=== PATIENT | female | born 1965 | race Caucasian/White ===

== ENCOUNTER → 2021-10-14 15:02 | Outpatient (BNVA) | payer OTHER, SELFPAY | PROVIDERS: PCP Internal Medicine ==

== ENCOUNTER → 2022-11-21 09:23 | Outpatient (BNVA) | payer OTHER, SELFPAY | PROVIDERS: PCP Internal Medicine; Visit Provider Urology | DX: N20.0 Calculus of kidney (principal) ==

== ENCOUNTER 2023-11-11 08:22 | Outpatient (REF) | payer OTHER, SELFPAY | END 2023-11-11 08:23 | disposition home or self-care (01) | LOC: HO.US 08:22 | PROVIDERS: PCP Internal Medicine; Visit Provider Urology | DX: N20.0 Calculus of kidney (principal) | CPT/HCPCS: 76775 ==

== ENCOUNTER 2023-11-20 10:30 | Outpatient (AMB) | payer OTHER, SELFPAY ==
--- NOTE | 2023-11-20 10:40 | MHC.OFFVIS ---
Intake Intake Visit Reasons: 1yr follow up/US Intake Note: Annual follow up on kidney stones and ultrasound results Medications: Vitamin B6 Blood thinners:? Aspirin Manager Financial Systems Required: No Accompanied by: Self / Same As Patient Allergies morphine Allergy (Unknown, Verified 11/20/23 10:59) Unknown latex Allergy (Unknown, Uncoded 11/20/23 10:59) rash Medication List - Last Reconciled 11/20/23 by Mayuri Santos MD ascorbate calcium (vitamin C) 1 g PO Q6H aspirin (Adult Low Dose Aspirin) 81 mg PO DAILY atorvastatin 20 mg PO DAILY dulaglutide (Trulicity) 0.75 mg subcut QWEEK elderberry fruit (Sambucus Elderberry Original) mg PO losartan 25 mg PO DAILY fbjtcuai-ity-cpyo-FA-vit K-lut 8 mg iron-400 mcg-50 mcg (Century Women 50 Plus) 1 tab PO DAILY omeprazole 20 mg PO DAILY pyridoxine (vitamin B6) 50 mg PO DAILY HPI HPI Comments History of Present Illness Details Elham is a 57-year-old female who is here for follow-up for history of kidney stones. 11/20/23--Comorbidity diabetes She had a recent renal ultrasound which I have reviewed. --kidneys are within normal limits no renal calcifications visualized. The patient is asymptomatic. She confirms drinking adequate water daily with lemon and taking jhkl-jkv-dmyxnvc vitamin B6 100 mg --(insurance did not cover the prescribed vitamin B6) Plan continue to monitor kidneys. Follow-up in 1 year renal ultrasound prior [facility] Medical History Calculus of kidney Surgical History Hx of section Family History Father No problems noted. Mother No problems noted. Social History Alcohol intake: current Alcohol intake frequency: holidays/special occasions only Patient Tobacco Use Status: Never used Tobacco Review of Systems Const All systems reviewed & are unremarkable except as noted in HPI and below Reports no additional complaints Eyes Reports no additional complaints ENT Reports no additional complaints Card Denies dyspnea Resp Denies cough and Denies dyspnea GI Reports no additional complaints Reports no additional complaints Musc Reports no additional complaints Skin/Breast Denies rash and Denies unusual bruising Neuro Reports no additional complaints Psych Reports no additional complaints Endo Reports no additional complaints Quang/Lymph Reports no additional complaints Aller/Immun Reports no additional complaints Results AMB Urinalysis, Automated UA Leukoctes 500 Rachel/uL Last Edit by HELENA Demarco on 11/20/23 11:13 3+ Pricila Chun 11/20/23 11:13 UA Nitrite Negative Last Edit by VITO Demarco on 11/20/23 11:13 UA Urobilinogen 0.2 mg/dL Last Edit by HELENA Demarco on 11/20/23 11:13 UA Protein 30 mg/dL Last Edit by Pricila Chun [facility] on 11/20/23 11:13 1+ Pricila Chun 11/20/23 11:13 UA pH 6.0 Last Edit by VITO Demarco on 11/20/23 11:13 UA Blood 0 Antoni/uL Last Edit by Pricila Chun [facility] on 11/20/23 11:13 UA Specific [place] 1.030 Last Edit by HELENA Demarco on 11/20/23 11:13 UA Ketone Positive Last Edit by VITO Demarco on 11/20/23 11:13 5 mg/dL Pricila Chun 11/20/23 11:13 UA Bilirubin 0 mg/dL Last Edit by Pricila Chun [facility] on 11/20/23 11:13 UA Glucose 0 mg/dL Last Edit by Pricila Chun [facility] on 11/20/23 11:13 Results Reviewed Results Reviewed: Laboratory Last Values Urine pH (Auto) 6.0 11/20/23 11:11 Specific [place] (Auto) 1.030 11/20/23 11:11 Urine Protein (Auto) 30 mg/dL 11/20/23 11:11 Glucose (UA)(Auto) 0 mg/dL 11/20/23 11:11 Urine Ketones (Auto) Positive 11/20/23 11:11 Urine Blood (Auto) 0 Antoni/uL 11/20/23 11:11 Urine Nitrite (Auto) Negative 11/20/23 11:11 Urine Bilirubin (Auto) 0 mg/dL 11/20/23 11:11 Urine Urobilinogen (Auto) 0.2 mg/dL 11/20/23 11:11 Leukocyte Esterase (Auto) 500 Rachel/uL 11/20/23 11:11 Assessment & Plan Assessment & Plan (1) Calculus of kidney: Code(s): N20.0 - Calculus of kidney Plan Plan continue to monitor kidneys. Follow-up in 1 year renal ultrasound prior Cont OTC Vit B6 100 mg Orders: Orders US renal BI 11 Months Z87.442 - Personal history of urinary calculi AMB Urinalysis Automated 11/20/23 Z13.9 - Encounter for screening, unspecified Coding Level of Care Code Est Pt Level 3 (42091) Diagnoses Calculus of kidney N20.0
== END 2023-11-20 11:22 | disposition home or self-care (01) ==
PROVIDERS: Visit Provider Urology
DX: N20.0 Calculus of kidney (principal)
CPT/HCPCS: 99213

== ENCOUNTER → 2023-11-20 10:30 | Outpatient (BNVA) | payer OTHER, SELFPAY | PROVIDERS: Visit Provider Urology | DX: N20.0 Calculus of kidney (principal) | CPT/HCPCS: 81003 ==

== ENCOUNTER 2024-10-20 08:05 | Outpatient (REF) | payer OTHER, SELFPAY | END 2024-10-20 08:06 | disposition home or self-care (01) | LOC: HO.US 08:05 | PROVIDERS: PCP Internal Medicine; Visit Provider Urology | DX: Z87.442 Personal history of urinary calculi (principal) | CPT/HCPCS: 76775 ==

== ENCOUNTER 2024-11-21 08:47 | Outpatient (AMB) | payer OTHER, SELFPAY ==
--- OUTSIDE RECORDS SUMMARY | 2024-11-21 09:09 | XMS_ITS | Continuity of Care Document ---
Author Organization [facility] Address [address] [place] [address] Phone Care Team Providers Care Chainstitch Zipper Setter Name Role Phone Alcon MOSER MD, Cholo Unavailable Unavailab le Procedures Procedure Date E/M Personnel Specialist Detailed His/Exam Low Complex Oct Advance Directives Directive Yes / No Effective Date File Name No Information Encounters Encounter Description Practice Location Reason(s) For Visit Diagnoses Date Provider Providers Copied on Encounter [facility] [address], [place], [place], [id number], tel:[phone] Jonathan No Information Alcno Emmanuel. [address] [place] [address], [address], [place]. tel:[phone] Referring Provider: Coleman Aleman [address], [place], [address]. tel:[phone] Family History Family Member Type Diagnosis Age At Onset No Information Payers Payer name Insurance type Covered republican ID Authoriza tion(s) Medicare [id number] Social History Type Description Quantity Date Captured Comments Sex Female Smoking Status No Information Chief Complaint And Reason For Visit No Information Reason For Referral Reason For Referral No Information History Of Present Illness Encounter Date Complaint History Of Prese nt Illness No Information Functional Status Date Functional Assessmen t No Information Instructions Date Instruction Additional Infor mation No Information Assessments Type Assessment Date No Information Patient Care Teams Name Effective Dates (start - stop) Status Members No Information
--- OUTSIDE RECORDS SUMMARY | 2024-11-21 09:09 | XMS_ITS | Continuity of Care Document ---
Author Organization [facility] Address [address] [place] [address] Phone Care Team Providers Care Admitting Manager Name Role Phone Rukhsana London MD Unavailable Unavailable Advance Directives Directive Yes / No Effective Date File Name No Information Encounters Encounter Description Practice Location Reason(s) For Visit Diagnoses Date Provider Providers Copied on Encounter [facility], [address], [place], [place], [id number], [place] tel:[phone] [facility] No Information Lita Milian. [address], [facility] [address], [place], [place], [id number], [place]. tel:[phone] Family History Family Member Type Diagnosis Age At Onset No Information Payers Payer name Insurance type Covered libertarian ID Authoriza tion(s) No Information Social History Type Description Quantity Date Captured [...]
--- OUTSIDE RECORDS SUMMARY | 2024-11-21 09:10 | XMS_ITS | Continuity of Care Document ---
Author Organization [facility] Address [address] [place] [address] Phone Care Team Providers Care Sales Floor Team Leader Name Role Phone Lobo Viry LIRA Unavailable Unavailable Allergies, Adverse Reactions, Alerts Substance Reaction Status Criticality CYCLOBENZAPRINE HCL Active No Infor mation KETOROLAC TROMETHAMINE Active No In formation trimethoprim Active No Information sulfamethoxazole Vertigo Active No Informat ion pantoprazole Active No Information KETOROLAC TROMETHAMINE Active No In formation prednisone Active No Information tramadol Active No Information caffeine Active No Information butalbital Active No Information CODEINE PHOSPHATE Active No Informa tion sumatriptan Active No Information Krrepjt-KOC-IlM Reductase Inhibitors Acti ve No Information ciprofloxacin Nausea Active No Information Medications Medication Instructions Dosage Effective Dates (start - stop) Status Comments acetaminophen 300 mg-codeine 30 mg tablet take 1 tablet by oral route every 12 hours as needed 1 tablet - Active clonazepam 0.5 mg tablet take 1 tablet b y oral route 4 times every day for F41.9 - Active covering for PCP benztropine 1 mg tablet TAKE 2 TABLETS B Y MOUTH EVERY DAY IN THE EVENING - Active dicyclomine 20 mg tablet TAKE 2 TABLETS BY MOUTH THREE TIMES DAILY - Active omeprazole 40 mg capsule,delayed release take 1 capsule by oral route every day before a meal 40 MG - Active meclizine 12.5 mg tablet TAKE 1 TABLET B Y MOUTH THREE TIMES DAILY NEEDED - Active methocarbamol 500 mg tablet take 1 tablet by oral route 2 times every day as needed - Active ondansetron 4 mg disintegrating tablet DISSOLVE 1 TABLET ON THE TONGUE EVERY 12 HOURS - Active FLUTICASONE 50MCG NASAL SP (120) RX SHAKE LIQUID AND USE 1 TO 2 SPRAYS IN EACH NOSTRIL EVERY DAY NEEDED - Active DESVENLAFAXINE ER SUCCINATE 25MG T TAKE 1 TABLET BY MOUTH AT THE SAME TIME EVERY DAY - Active promethazine 25 mg rectal suppository insert 1 suppository by rectal route every day at bedtime as needed 25 MG - Active promethazine 25 mg tablet TAKE 1 TABLET BY MOUTH EVERY 8 HOURS NEEDED FOR NAUSEA for R11.0 - Active 1 month supply medroxyprogesterone 2.5 mg tablet TAKE 1 TABLET BY MOUTH EVERY DAY - Active Seroquel 25 mg tablet take 3 tablets by oral route every morning - Active She takes this in the morning and 400mg in the evening buspirone 15 mg tablet TAKE 1 TABLET BY MOUTH TWICE DAILY - Active estradiol 1 mg tablet TAKE 1 TABLET BY MOUTH EVERY DAY - Active Latuda 20 mg tablet take 1 tablet by oral route every day with food (at least 350 calories) - Active dispense as written; generic brand makes her sick Vitamin D2 1,250 mcg (50,000 unit) capsule TAKE 1 CAPSULE BY MOUTH EVERY WEEK - Active Seroquel 400 mg tablet TAKE 2 TABLETS BY MOUTH EVERY EVENING AT BEDTIME - Active She takes this every evening with the 25mg in the morning. Valtrex 500 mg tablet take 1 by Oral route 2 times every day 1 - Active generic please Nicorette 2 mg buccal lozenge take 1 tablet by oral route every 8 hours dissolved slowly in the mouth 2 MG - Active Dulcolax (bisacodyl) 5 mg tablet,delayed release take 2 tablet by oral route every day 10 MG - Active Clarinex-D 12 HOUR 2.5 mg-120 mg tablet,extended release take 1 tablet by oral route 2 times every day 1.00 tablet - Active Procedures Procedure Date Rvw All Meds By Rxng Prctionr Or Clin Rp h Docd Medication List Documented In Medical [facility] [place] Dischrg Meds Reconciled W/ Current Med L ist Telephone E&M,est 21-30 min Dischrg Meds Reconciled W/ Current Med L ist Rvw All Meds By Rxng Prctionr Or Clin Rp h Docd Medication List Documented In Medical [facility] Telephone E&M,est 21-30 min Rvw All Meds By Rxng Prctionr Or Clin Rp h Docd Medication List Documented In Medical [facility] Dischrg Meds Reconciled W/ Current Med L ist Telephone E&M,est 21-30 min Dischrg Meds Reconciled W/ Current Med L ist Rvw All Meds By Rxng Prctionr Or Clin Rp h Docd Medication List Documented In Medical [facility] Telephone E&M,est 11-20 min Dischrg Meds Reconciled W/ Current Med L ist Rvw All Meds By Rxng Prctionr Or Clin Rp h Docd Medication List Documented In [facility] Telephone E&M,est 21-30 min Offic/outpt E&m Estab Mod-hi 4 Telemedic ine Pt At Home Rvw All Meds By Rxng Prctionr Or Clin Rp h Docd Medication List Documented In [facility] Offic/outpt E&m Estab Low-mod Telemedici ne Pt At Home Rvw All Meds By Rxng Prctionr Or Clin Rp h Docd Medication List Documented In Medical [facility] Dischrg Meds Reconciled W/ Current Med L ist Offic/outpt E&m Estab Mod-hi 2 Telemedic ine Pt At Home Offic/outpt E&m Estab Mod-hi 2 Telemedic ine Pt At Home Dischrg Meds Reconciled W/ Current Med L ist Offic/outpt E&m Estab Mod-hi 2 Telemedic ine Pt At Home Dischrg Meds Reconciled W/ Current Med L ist Offic/outpt E&m Estab Mod-hi 2 Telemedic ine Pt At Home Transitional Care Mgmt Svcs W/i 14 Days Disc Rvw All Meds By Rxng Prctionr Or Clin Rp h Docd Medication List Documented In Medical Re cord Offic/outpt E&m Estab Mod-hi 2 Telemedic ine Pt At Home Rvw All Meds By Rxng Prctionr Or Clin Rp h Docd Medication List Documented In Medical Re cord Dischrg Meds Reconciled W/ Current Med L ist Offic/outpt E&m Estab Mod-hi 4 Telemedic ine Pt At Home Transitional Care Mgmt Svcs W/i 7 Days D isc Telephone E&M,est 21-30 min Document Counseling Exercise Calcium & V itamin D Rvw All Meds By Rxng Prctionr Or Clin Rp h Docd Medication List Documented In Medical Re cord Pain Severity Quantified No Pain Present Presence/Absence Urinary Incontinence As sessed Falls Risk Assessment Documented 2023 Functional Status Assessed Patient Screened Depression Venipuncture Admin For Flu Virus Vaccine Flu Vac-Quadrivalent Preservative Free 0 .5ml/dose Annual Wellness W/PPS Subseq Offic/outpt E&m Estab Mod-hi [address]; Hg/pltlt Ct Auto/compl Lipid Panel Hepatitis C Antibody; Comp Metabolic Panel Hgb; Glycated Albumin; Urin Microalbumin [place]vel[place] Creatinine; Other Source Rvw All Meds By Rxng Prctionr Or Clin Rp h Docd Medication List Documented In Medical Re cord Dischrg Meds Reconciled W/ Current Med L ist Offic/outpt E&m Estab Mod-hi 2 Telemedic ine Pt At Home Rvw All Meds By Rxng Prctionr Or Clin Rp h Docd Medication List Documented In Medical Re cord Dischrg Meds Reconciled W/ Current Med L ist Offic/outpt E&m Estab Mod-hi 2 Telemedic ine Pt At Home Transitional Care Mgmt Svcs W/i 14 Days Disc Rvw All Meds By Rxng Prctionr Or Clin Rp h Docd Medication List Documented In Medical Re cord Rvw All Meds By Rxng Prctionr Or Clin Rp h Docd Medication List Documented In Medical Re cord Offic/outpt E&m Estab Mod-hi 4 Telemedic ine Pt At Home Dischrg Meds Reconciled W/ Current Med L ist Transitional Care Mgmt Svcs W/i 7 Days D isc Telemed Pt At Home Dischrg Meds Reconciled W/ Current Med L ist Offic/outpt E&m Estab Mod-hi 2 Telemedic ine Pt At Home Offic/outpt E&m Estab Mod-hi 2 Telemedic ine Pt At Home Rvw All Meds By Rxng Prctionr Or Clin Rp h Docd Medication List Documented In Medical Re cord Offic/outpt E&m Estab Mod-hi 2 Telemedic ine Pt At Home Rvw All Meds By Rxng Prctionr Or Clin Rp h Docd Medication List Documented In Medical Re cord Offic/outpt E&m Estab Mod-hi 2 Offic/outpt E&m Estab Mod-hi 2 Telemedic ine Pt At Home Offic/outpt E&m Estab Mod-hi 2 Telemedic ine Pt At Home Rvw All Meds By Rxng Prctionr Or Clin Rp h Docd Medication List Documented In Medical Re cord Pain Severity Quantified No Pain Present Document Counseling Exercise Calcium & V itamin D Presence/Absence Urinary Incontinence As sessed Falls Risk Assessment Documented 2022 Functional Status Assessed Patient Screened Depression Venipuncture Offic/outpt E&m Estab Mod-hi 2 Annual Wellness W/PPS Subseq Hgb; Glycated Lipid Panel Bld Ct; Hg/pltlt Ct Auto/compl Comp Metabolic Panel Cyanocobalamin Folic Acid; Serum Vitamin D 25 Hydroxy Includes Fraction(s ) If Performed Albumin; Urin Microalbumin Avelina Creatinine; Other Source Rvw All Meds By Rxng Prctionr Or Clin Rp h Docd Medication List Documented In Medical Re cord Dischrg Meds Reconciled W/ Current Med L ist Offic/outpt E&m Estab Mod-hi 2 Transitional Care Mgmt Svcs W/i 7 Days D isc Rvw All Meds By Rxng Prctionr Or Clin Rp h Docd Medication List Documented In Medical Re cord Offic/outpt E&m Estab Mod-hi 2 Telemedic ine Pt At Home Offic/outpt E&m Estab Mod-hi 2 Telemedic ine Pt At Home Offic/outpt E&m Estab Mod-hi 4 Telemedic ine Pt At Home Rvw All Meds By Rxng Prctionr Or Clin Rp h Docd Medication List Documented In Medical Re cord Offic/outpt E&m Estab Mod-hi 4 Telemedic ine Pt At Home Rvw All Meds By Rxng Prctionr Or Clin Rp h Docd Medication List Documented In Medical Re cord Dischrg Meds Reconciled W/ Current Med L ist Offic/outpt E&m Estab Mod-hi 2 Telemedic ine Pt At Home Dischrg Meds Reconciled W/ Current Med L ist Offic/outpt E&m Estab Mod-hi 2 Telemedic ine Pt At Home Rvw All Meds By Rxng Prctionr Or Clin Rp h Docd Medication List Documented In Medical Re cord Prevent E&m Estab Pt; 40-64 Yr Offic/outpt E&m Estab Low-mod Venipuncture Cyanocobalamin Folic Acid; Serum Vitamin D 25 Hydroxy Includes Fraction(s ) If Performed Magnesium Comp Metabolic Panel Venipuncture Cyanocobalamin Folic Acid; Serum Triiodothyronine T3; Free Comp Metabolic Panel Estradiol Bld Ct; Hg/pltlt Ct Auto/compl Thyroxine; Free Thyroid Stim Hormone Testosterone; Tot Progesterone Lipid Panel Vitamin D 25 Hydroxy Includes Fraction(s ) If Performed Dischrg Meds Reconciled W/ Current Med L ist Offic/outpt E&m Estab Mod-hi 4 Telemedic ine Pt At Home Rvw All Meds By Rxng Prctionr Or Clin Rp h Docd Medication List Documented In Medical Re cord Dischrg Meds Reconciled W/ Current Med L ist Offic/outpt E&m Estab Mod-hi 2 Rvw All Meds By Rxng Prctionr Or Clin Rp h Docd Medication List Documented In Medical Re cord Offic/outpt E&m Estab Mod-hi 2 Rvw All Meds By Rxng Prctionr Or Clin Rp h Docd Medication List Documented In Medical Re cord Dischrg Meds Reconciled W/ Current Med L ist Offic/outpt E&m Estab Mod-hi 2 22 Ua Dip Stik/tablet; Wo Micro A Offic/outpt E&m Estab Low-mod Venipuncture Document Counseling Exercise Calcium & V itamin D Pain Severity Quantified No Pain Present Presence/Absence Urinary Incontinence As sessed Falls Risk Assessment Documented 2021 Functional Status Assessed Patient Screened Depression Dischrg Meds Reconciled W/ Current Med L ist Venipuncture Annual Wellness W/PPS Subseq Offic/outpt E&m Estab Mod-hi 2 22 Hgb; Glycated Lipid Panel Comp Metabolic Panel Cyanocobalamin Folic Acid; Serum Bld Ct; Hg/pltlt Ct Auto/compl Thyroid Stim Hormone Albumin; Urin Microalbumin Avelina Creatinine; Other Source Offic/outpt E&m Estab Mod-hi 2 Telemedic ine Rvw All Meds By Rxng Prctionr Or Clin Rp h Docd Medication List Documented In Medical Re cord Admin For Flu Virus Vaccine Flu Vac-Quadrivalent Preservative Free 0 .5ml/dose Offic/outpt E&m Estab Mod-hi 2 Albumin; Urin Microalbumin [place] Creatinine; Other Source Rvw All Meds By Rxng Prctionr Or Clin Rp h Docd Medication List Documented In Medical Re cord Offic/outpt E&m Estab Mod-hi 2 Offic/outpt E&m Estab Mod-hi 2 Cystourethroscopy, With Madi raymundo Of Foreign Body, Calculus, Or Ureteral Stent Offic/outpt E&m Estab Low-mod 1 Therapeutic Prophylactic/Dx Injection Cartwright bq/Im Ceftriaxone Sodium (Rocephin) Rvw All Meds By Rxng Prctionr Or Clin Rp h Docd Medication List Documented In Medical Re cord Offic/outpt E&m Estab Low-mod Agt-dna/rna; Gard[place] Vag-d TRICHOMONAS VAGIN, DIR PROBE Agt-dna/rna; Conchita Species-d Ua Dip Stik/tablet; Wo Micro A Culture, bacterial; quantitative colony count, urine Cystourethroscopy, with ureteroscopy and /or pyelos With Lithotripsy Cystourethroscopy (sep Pro); S Ua Dip Stik/tablet; Wo Micro A Offic/outpt E&m Estab Mod-hi 2 Culture, bacterial; quantitative colony count, urine Cystourethroscopy, with ureteroscopy and /or pyelos With Lithotripsy Ua Dip Stik/tablet; Wo Micro A Offic/outpt E&m Estab Mod-hi 2 Culture, bacterial; quantitative colony count, urine Rvw All Meds By Rxng Prctionr Or Clin Rp h Docd Medication List Documented In Medical Re cord Offic/outpt E&m New Mod Sever Rvw All Meds By Rxng Prctionr Or Clin Rp h Docd Medication List Documented In Medical Re cord Dischrg Meds Reconciled W/ Current Med L ist Offic/outpt E&m Estab Mod-hi 2 Ua Dip Stik/tablet; Wo Micro A Offic/outpt E&m Estab Mod-hi [address]; Hg/pltlt Ct Auto/compl 21 Comp Metabolic Panel Lipase Rvw All Meds By Rxng Prctionr Or Clin Rp h Docd Medication List Documented In Medical Re cord Prevent E&m Estab Pt; 40-64 Yr Offic/outpt E&m Estab Mod-hi 2 Rvw All Meds By Rxng Prctionr Or Clin Rp h Docd Medication List Documented In Medical Re cord Offic/outpt E&m Estab Mod-hi 2 Telemedic ine Rvw All Meds By Rxng Prctionr Or Clin Rp h Docd Medication List Documented In Medical Re cord Offic/outpt E&m Estab Mod-hi 2 Dischrg Meds Reconciled W/ Current Med L ist Rvw All Meds By Rxng Prctionr Or Clin Rp h Docd Medication List Documented In Medical Re cord Document Counseling Exercise Calcium & V itamin D Functional Status Assessed Patient Screened Depression Pain Severity Quantified No Pain Present Presence/Absence Urinary Incontinence As sessed Falls Risk Assessment Documented 2020 Dischrg Meds Reconciled W/ Current Med L ist Annual Wellness W/PPS Subseq Offic/outpt E&m Estab Mod-hi 2 Rvw All Meds By Rxng Prctionr Or Clin Rp h Docd Medication List Documented In Medical Re cord Venipuncture Offic/outpt E&m Estab Mod-hi [address] Hg/pltlt Ct Auto/compl Hgb; Glycated Lipid Panel Comp Metabolic Panel Thyroid Stim Hormone Parathormone Albumin; Urin Microalbumin Avelina Creatinine; Other Source Offic/outpt E&m Estab Mod-hi 2 Rvw All Meds By Rxng Prctionr Or Clin Rp h Docd Medication List Documented In Medical Re cord Offic/outpt E&m Estab Mod-hi 2 20 Offic/outpt E&m Estab Mod-hi 2 20 Medication List Documented In Medical Re [place] Rvw All Meds By Rxng Prctionr Or Clin Rp h Docd Dischrg Meds Reconciled W/ Current Med L ist Offic/outpt E&m Estab Low-mod 0 Ua Dip Stik/tablet; Wo Micro A Pain Severity Quantified No Pain Present Medication List Documented In Medical [facility] Rvw All Meds By Rxng Prctionr Or Clin Rp h Docd Culture, bacterial; quantitative colony count, urine Offic/outpt E&m Estab Mod-hi 2 20 Medication List Documented In [facility] Rvw All Meds By Rxng Prctionr Or Clin Rp h Docd Pain Severity Quantified Pain Present Offic/outpt E&m Estab Low-mod 0 Medication List Documented In [facility] Rvw All Meds By Rxng Prctionr Or Clin Rp h Docd Offic/outpt E&m Estab Mod-hi 2 20 Medication List Documented In [facility] Rvw All Meds By Rxng Prctionr Or Clin Rp h Docd Dischrg Meds Reconciled W/ Current Med L ist Offic/outpt E&m Estab Low-mod 0 Venipuncture Motor &/Sens Nrv Cndj Preconf Eltrd Arra y Limb FloChec - Noninvasv Stdy-up/lo Extm Art Prevent E&m Estab Pt; 40-64 Yr 20 Hgb; Glycated Lipid Panel Albumin; Urin Microalbumin Avelina 20 Creatinine; Other Source Medication List Documented In [facility] Rvw All Meds By Rxng Prctionr Or Clin Rp h Docd Pain Severity Quantified No Pain Present Telephone E&M,est 21-30 min Medication List Documented In [facility] Rvw All Meds By Rxng Prctionr Or Clin Rp h Docd Pain Severity Quantified No Pain Present Telephone E&M,est 11-20 min Medication List Documented In Medical Re cord Rvw All Meds By Rxng Prctionr Or Clin Rp h Docd Ua Dip Stick/tablet; Auto W/mi Rvw All Meds By Rxng Prctionr Or Clin Rp h Docd Inf Agt Antig Detect Immunoas; Inf Agt Antig Detect Immunoas; Medication List Documented In Medical Re cord Offic/outpt E&m Estab Mod-hi 2 Venipuncture Pain Severity Quantified No Pain Present Comp Metabolic Panel Culture, bacterial; quantitative colony count, urine Bld Ct; Hg/pltlt Ct Auto/compl Offic/outpt E&m Estab Mod-hi 2 20 Pain Severity Quantified No Pain Present Pain Severity Quantified No Pain Present Rvw All Meds By Rxng Prctionr Or Clin Rp h Docd Medication List Documented In Medical Re cord Offic/outpt E&m Estab Mod-hi 2 20 Prevent E&m Estab Pt; 40-64 Yr 19 Methylprednisolone Acetate-80mg 019 Offic/outpt E&m Estab Mod-hi 2 19 Therapeutic Prophylactic/Dx Injection [place]wright bq/Im Inf Agt Antig Detect Immunoas; 19 Dexamethasone Na Phosphate-1 Mg 019 Pain Severity Quantified No Pain Present Venipuncture Magnesium Offic/outpt E&m Estab Mod-hi 2 19 Comp Metabolic Panel Offic/outpt E&m Estab Mod-hi 2 19 Pain Severity Quantified Pain Present Se Dischrg Meds Reconciled W/ Current Med L ist Venipuncture Antib; Luciano-north Early Anti Antib; [place] Nuclear An Antib; [place] Viral Caps IgG Or Ig M Antib; [place]north Viral Caps IgG Or Ig M Offic/outpt E&m Estab Mod-hi 2 19 Comp Metabolic Panel Medication List Documented In Medical Re cord Rvw All Meds By Rxng Prctionr Or Clin Rp h Docd Pain Severity Quantified No Pain Present Inf Agt Antig Detect Immunoas; Methylprednisolone Acetate-80mg 019 Offic/outpt E&m Estab Low-mod 9 Therapeutic Prophylactic/Dx Injection [place] bq/Im Therapeutic Prophylactic/Dx Injection [place] bq/Im Dexamethasone Na Phosphate-1 Mg 019 Comp Metabolic Panel Bld Ct; Hg/pltlt Ct Auto/compl 19 Thyroid Stim Hormone Lipid Panel Venipuncture Sed Rate, Erythrocyte; Auto Antinuclear Antib C-reactive Prot Rheumatoid Factor; Jeremías Offic/outpt E&m Estab Low-mod 9 Annual Wellness W/PPS Subseq Functional Status Assessed Document Counseling Exercise Calcium & V itamin D Patient Screened Depression Falls Risk Assessment Documented 2018 Presence/Absence Urinary Incontinence As sessed Pain Severity Quantified Pain Present Venipuncture Comp Metabolic Panel Bld Ct; Hg/pltlt Ct Auto/compl 19 Thyroid Stim Hormone Hgb; Glycated Lipid Panel Albumin; Urin Microalbumin Avelina 19 Creatinine; Other Source Vit B-12 Cyanocobalamin-1000 M Patient S upplied Therapeutic Prophylactic/Dx Injection Cartwright bq/Im Prevent E&m Estab Pt; 40-64 Yr 18 Offic/outpt E&m Estab Mod-hi 2 18 Pain Severity Quantified Pain Present No Dischrg Meds Reconciled W/ Current Med L ist Albumin; Urin Microalbumin Avelina 18 Creatinine; Other Source FloChec - Noninvasv Stdy-up/lo Extm Art Influenza QIV Split Virus Preser Free >3 yrs Offic/outpt E&m Estab Mod-hi 2 18 Admin For Flu Virus Vaccine Dischrg Meds Reconciled W/ Current Med L ist Offic/outpt E&m Estab Mod-hi 2 18 Offic/outpt E&m Estab Low-mod 8 Annual Wellness W/PPS Subseq Comp Metabolic Panel Bld Ct; Hg/pltlt Ct Auto/compl 18 Thyroid Stim Hormone Hgb; Glycated Lipid Panel Venipuncture Medication List Documented In Medical Re cord Rvw All Meds By Rxng Prctionr Or Clin Rp h Docd Functional Status Assessed Document Counseling Exercise Calcium & V itamin D Patient Screened Depression Falls Risk Assessment Documented 2017 Presence/Absence Urinary Incontinence As sessed Offic/outpt E&m Estab Mod-hi 2 18 Medication List Documented In Medical Re cord Rvw All Meds By Rxng Prctionr Or Clin Rp h Docd Offic/outpt E&m Estab Mod-hi 2 18 Pain Severity Quantified No Pain Present Offic/outpt E&m Estab Low-mod 7 Prevent E&m Estab Pt; 40-64 Yr 17 Offic/outpt E&m Estab Low-mod 7 Ua Dip Stik/tablet; Wo Micro A 17 Offic/outpt E&m Estab Low-mod 7 Pain Severity Quantified No Pain Present Offic/outpt E&m Estab Low-mod 7 Ua Dip Stik/tablet; Wo Micro A 17 Medication List Documented In Medical Re cord Rvw All Meds By Rxng Prctionr Or Clin Rp h Docd Pain Severity Quantified Pain Present Nh Culture, bacterial; quantitative colony count, urine Offic/outpt E&m Estab Low-mod 7 Medication List Documented In Medical Re [place] Rvw All Meds By Rxng Prctionr Or Clin Rp h Docd Pain Severity Quantified No Pain Present Annual Wellness W/PPS Subseq General Health Panel Hgb; Glycated Lipid Panel Ua Dip Stik/tablet; Wo Micro A 17 Venipuncture Medication List Documented In Medical Re [place] Rvw All Meds By Rxng Prctionr Or Clin Rp h Docd Functional Status Assessed Document Counseling Exercise Calcium & V itamin D Patient Screened Depression Falls Risk Assessment Documented 2016 Presence/Absence Urinary Incontinence As sessed Offic/outpt E&m Estab Mod-hi 2 16 Ua Dip Stik/tablet; Wo Micro A 16 Medication List Documented In Medical Re [place] Rvw All Meds By Rxng Prctionr Or Clin Rp h Docd Prevent E&m Estab Pt; 40-64 Yr 16 Offic/outpt E&m Estab Low-mod 6 Pain Severity Quantified No Pain Present Venipuncture Magnesium Offic/outpt E&m Estab Mod-hi 2 16 Comp Metabolic Panel Creatine Kinase; Tot Offic/outpt E&m Estab Mod-hi 2 16 Pain Severity Quantified No Pain Present Medication List Documented In Medical Re cord Rvw All Meds By Rxng Prctionr Or Clin Rp h Docd Functional Status Assessed Document Counseling Exercise Calcium & V itamin D Patient Screened Depression Falls Risk Assessment Documented 2015 Presence/Absence Urinary Incontinence As sessed Pain Severity Quantified No Pain Present Annual Wellness W/PPS Subseq Bld Ct; Hg/pltlt Ct Auto/compl 16 Comp Metabolic Panel Thyroid Stim Hormone Hgb; Glycated Lipid Panel Ua Dip Stik/tablet; Wo Micro A 16 Venipuncture Pneumococcal vacc, 13 raymundo im / 0.5 ML Ja Admin Pneumococ Vac-no Phys Sr 16 Bld Occult; Feces 1 Specimen Offic/outpt E&m Estab Mod-hi 2 15 Pain Severity Quantified Pain Present De Offic/outpt E&m Estab Mod-hi 2 15 Medication List Documented In Medical Re [place] Rvw All Meds By Rxng Prctionr Or Clin Rp h Docd Pain Severity Quantified No Pain Present Prevent E&m Estab Pt; 40-64 Yr 15 Offic/outpt E&m Estab Low-mod 5 Medication List Documented In Medical Re [place] Rvw All Meds By Rxng Prctionr Or Clin Rp h Docd Offic/outpt E&m Estab Low-mod 5 Ua Dip Stik/tablet; Wo Micro A 15 Medication List Documented In Medical Re [place] Rvw All Meds By Rxng Prctionr Or Clin Rp h Docd Offic/outpt E&m Estab Low-mod 5 Medication List Documented In Medical Re cord Rvw All Meds By Rxng Prctionr Or Clin Rp h Docd Offic/outpt E&m Estab Low-mod 4 Medication List Documented In Medical Re cord Rvw All Meds By Rxng Prctionr Or Clin Rp h Docd Offic/outpt E&m Estab Mod-hi 2 14 Medication List Documented In Medical Re cord Rvw All Meds By Rxng Prctionr Or Clin Rp h Docd Influenza Vaccine Fluvirin Novartis Offic/outpt E&m Estab Low-mod 4 Admin For Flu Virus Vaccine Medication List Documented In Medical Re cord Rvw All Meds By Rxng Prctionr Or Clin Rp h Docd Offic/outpt E&m Estab Low-mod [address] Hg/pltlt Ct Auto/compl 14 Comp Metabolic Panel Ua Dip Stik/tablet; Wo Micro A 14 Venipuncture Offic/outpt E&m Estab Low-mod 4 Offic/outpt E&m Estab Mod-hi 2 14 Offic/outpt E&m Estab Low-mod 4 Ua Dip Stik/tablet; Wo Micro A 14 Cerv/vag Ca Screen Pelvic/leon 14 Screen Pap Obtain Prep Convey 4 Offic/outpt E&m New Low-mod 13 Comp Metabolic Panel Bld Ct; Hg/pltlt Ct Auto/compl 13 Thyroid Stim Hormone Lipid Panel Venipuncture Bld Ct; Hg/pltlt Ct Auto/compl 13 Thyroid Stim Hormone Comp Metabolic Panel Prevent E&m Estab Pt; 40-64 Yr 13 Cerv/vag Ca Screen Pelvic/leon 13 Screen Pap Obtain Prep Convey 3 Ua Dip Stick/tablet; Auto W/mi 13 Ua Dip Stik/tablet; Wo Micro A 13 Prevent E&m Estab Pt; 40-64 Yr 12 Cytopath Cerv/vag Thin Prep; R 12 Ua Dip Stik/tablet; Wo Micro A 12 Prevent E&m Estab Pt; 40-64 Yr 11 Cytopath Cerv/vag Thin Prep; R 11 Ua Dip Stik/tablet; Wo Micro A 11 Prevent E&m Estab Pt; 40-64 Yr 09 Ua Dip Stik/tablt;wo Micro Non 09 Offic/outpt E&m Estab Mod-hi [address]; Hg/pltlt Ct Auto/compl 09 Comp Metabolic Panel Thyroid Stim Hormone Venipuncture Init Preven E&m New Pt; 40-64 Yr 2007 Handl/convey Specmn-offic To L 08 Advance Directives Directive Yes / No Effective Date File Name No Information Encounters Encounter Description Practice Location Reason(s) For Visit Diagnoses Date Provider Providers Copied on Encounter [facility], [address], [place], [place], [id number] , [place] tel:[phone] [facility] No Information 4 Yamil Baires. [address], [facility] [address], [place], [place], [id number], [place]. tel:[phone] Referring Provider: Viry Mary, [address], [place], [address]. tel:[phone] [facility], [address], [place], [place], [address] , [place] tel: [phone] [facility] No Information 4 Yamil Baires. [address], [place], [place], [address], [place]. tel:[phone] [facility], [address], [place], [place], [address] , [place] tel: [phone] [facility] Post concussion syndromeMemor y problem 4 Yamil Baires. [address], [place], [place], [address], [place]. tel:[phone] Referring Provider: Viry Mary, [address] [facility] [address], [place], [address]. tel:[phone] Telephone E&M,est 21-30 min [facility], [address], [place], [place], [address] , [place] tel: [phone] [facility] Monthly f/u (chief complaint)chr onic conditions (chief complaint) Other mcc (current) drug therapyHospit al discharge follow-upNaus ea and vomiting, unspecified vomiting typeFrequent headachesPost concussive syndromeMemor y problemPanic attacksAnxiet yChronic migraine without aura without status migrainosus, not intractable 4 Yamil Baires. [address], [place], [place], [address], [place]. tel:[phone] Referring Provider: Yvonne Jacques, [address], [place], [address]. tel:[phone] [facility], [address], [place], [place], [address] , [place] tel: [phone] [facility] No Information 0 4 Yamil Baires. [address], [place], [place], [address], [place]. tel:[phone] [facility], [address], [place], [place], [address] , [place] tel: [phone] [facility] Post-concussi on headache Oct- 4 Yamil Baires. [address], [place], [place], [address], [place]. tel:[phone] Referring Provider: Viry Mary, [address], [place], [address]. tel:[phone] [facility], [address], [place], [place], [address] , [place] tel: [phone] [facility] Concussion syndromeRecur rent headacheLight sensitivity Sep- 4 Yamil Baires. [address], [place], [place], [address], [place]. tel:[phone] [facility], [address], [place], [place], [address] , [place] tel: [phone] [facility] No Information Sep- 4 Yamil Baires. [address], [place], [place], [address], [place]. tel:[phone] [facility], [address], [place], [place], [address] , [place] tel: [phone] [facility] Left thigh pain Sep-0 4 Yamil Baires. [address], [place], [place], [address], [place]. tel:[phone] Telephone E&M,est 21-30 min [facility], [address], [place], [place], [address] , [place] tel: [phone] [facility] hospital follow up (chief complaint) Other lobsterman (current) drug therapyHospit al discharge follow-upInju ry of head, subsequent encounterNeck painConcussio n syndrome Sep-0 4 Long Damon. [address], [place], [place], [address], [place]. tel:[phone] Referring Provider: Yvonne Jacques, [address], [place], [address]. tel:[phone] Telephone E&M,est 21-30 min [facility], [address], [place], [place], [address] , [place] tel: [phone] [facility] ER f/u (chief complaint)chr onic conditions (chief complaint) Other lobsterman (current) drug therapyHospit al discharge follow-upCont usion of right hip, initial encounterCont usion of right elbow, initial encounterStat us post fallConcussio n without loss of consciousness , initial encounterAnxi ety 4 Yamil Baires. [address], [place], [place], [address], [place]. tel:[phone] Referring Provider: Yvonne Jacques, [address], [place], [address]. tel:[phone] Telephone E&M,est 11-20 min [facility], [address], [place], [place], [address] , [place] tel: [phone] [facility] ER f/u (chief complaint)chr onic conditions (chief complaint) Hospital discharge follow-upRUQ abdominal painNauseaDia rrhea, unspecified typeAnxietyBi polar disorder, current episode mixed, mildPanic attacksOther lobsterman (current) drug therapyChroni c abdominal painOther chronic painBarrett's esophagus determined by endoscopy 4 Yamil Baires. [address], [place], [place], [address], [place]. tel:[phone] Referring Provider: [address], [place], [address]. tel:[phone] Telephone E&M,est 21-30 min [facility], [address], [place], [place], [address] , [place] tel: [phone] [facility] [place] follow up (chief complaint) Other lobsterman (current) drug therapyHospit al discharge follow-upBipo lar disorder, current episode mixed, mildAlternati ng constipation and diarrheaMass of cervix 4 Long Damon. [address], [place], [place], [address], [place]. tel:[phone] Referring Provider: Yvonne Jacques, [address], [place], [address]. tel:[phone] Offic/outpt E&m Estab Mod-hi 4 Telemedicine Pt At Home [facility], [address], [place], [place], [address] , [place] tel: [phone] [facility] telemed (chief complaint)chr onic conditions (chief complaint) AnxietyBipola r disorder, current episode mixed, mildPostmenop ausal HRT (hormone replacement therapy)Panic attacks 4 Sean Russell. [address], [place], [place], [address], [place]. tel:[phone] Referring Provider: Yvonne Jacques, [address] [facility] [address], [place], [address]. tel:[phone] Offic/outpt E&m Estab Low-mod Telemedicine Pt At [place] [facility], [address], [place], [place], [address] , [place] tel: [phone] [facility] HOF (chief complaint) Nausea vomiting and diarrheaDiarr hea, unspecifiedBu g bite, subsequent encounterHosp ital discharge follow-up 4 Chelly Castillo. [address], [place], [place], [address], [place]. tel:[phone] Referring Provider: Yvonne Jacques, [address], [place], [address]. tel:[phone] [facility], [address], [place], [place], [address] , [place] tel: [phone] [facility] No Information 4 Sean Russell. [address], [place], [place], [address], [place]. tel:[phone] [facility], [address], [place], [place], [address] , [place] tel: [phone] [facility] Chronic diarrhea 4 Sean Russell. [address], [place], [place], [address], [place]. tel:[phone] [facility], [address], [place], [place], [address] , [place] tel: [phone] [facility] No Information 4 Sean Russell. [address], [place], [place], [address], [place]. tel:[phone] Offic/outpt E&m Estab Mod-hi 2 Telemedicine Pt At Home [facility], [address], [place], [place], [address] , [place] tel: [phone] [facility] telemed/HFU (chief complaint)chr onic conditions (chief complaint) Other lobsterman (current) drug therapyHospit al discharge follow-upAnxi etyChronic abdominal painOther chronic painPostmenop ausal HRT (hormone replacement therapy) 4 Sean Russell. [address], [place], [place], [address], [place]. tel:[phone] Referring Provider: Yvonne Jacques, [address], [place], [address]. tel:[phone] [facility], [address], [place], [place], [address] , [place] tel: [phone] [facility] No Information 4 Sean Russell. [address], [place], [place], [address], [place]. tel:[phone] Offic/outpt E&m Estab Mod-hi 2 Telemedicine Pt At Home [facility], [address], [place], [place], [address] , [place] tel: [phone] [facility] telemed (chief complaint)chr onic conditions (chief complaint) Alternating constipation and diarrheaChron ic abdominal painOther chronic painAnxietyBi polar disorder, current episode mixed, mildOther mcc (current) drug therapyHospit al discharge follow-upChro gabriella nausea 4 Sean Russell. [address], [place], [place], [address], [place]. tel:[phone] Referring Provider: Yvonne Jacques, [address], [place], [address]. tel:[phone] [facility], [address], [place], [place], [address] , [place] tel: [phone] [facility] C. difficile diarrhea 4 Sean Russell. [address], [place], [place], [address], [place]. tel:[phone] [facility], [address], [place], [place], [address] , [place] tel: [phone] [facility] No Information 4 Sean Russell. [address], [place], [place], [address], [place]. tel:[phone] Offic/outpt E&m Estab Mod-hi 2 Telemedicine Pt At Home [facility], [address], [place], [place], [address] , [place] tel: [phone] [facility] telemed (chief complaint)chr onic conditions (chief complaint) Bipolar disorder, current episode mixed, mildMemory changesVitami n D deficiencyGen eralized weaknessVitam in B12 deficiency Feb-3 4 Sean Russell. [address], [place], [place], [address], [place]. tel:[phone] Referring Provider: Yvonne Jacques, [address], [place], [address]. tel:[phone] [facility], [address], [place], [place], [address] , [place] tel: [phone] [facility] No Information Feb- 4 Sean Russell. [address], [place], [place], [address], [place]. tel:[phone] Offic/outpt E&m Estab Mod-hi 2 Telemedicine Pt [facility], [address], [place], [place], [address] , [place] tel: [phone] [facility] telemed (chief complaint)chr onic conditions (chief complaint) Other lobsterman (current) drug therapyHospit al discharge follow-upC. difficile colitisChroni c constipationB ipolar disorder, current episode mixed, mild Apr-0 4 Sean Russell. [address], [place], [place], [address], [place]. tel:[phone] Referring Provider: Yvonne Jacques, [address], [place], [address]. tel:[phone] [facility], [address], [place], [place], [address] , [place] tel: [phone] [facility] Enterocolitis d/t Clostridium difficile, not spcf as recur Jan- 4 Sean Russell. [address], [place], [place], [address], [place]. tel:[phone] [facility], [address], [place], [place], [address] , [place] tel: [phone] [facility] C. difficile diarrhea Jan- 4 Sean Russell. [address], [place], [place], [address], [place]. tel:[phone] [facility], [address], [place], [place], [address] , [place] tel: [phone] [facility] Enterocolitis d/t Clostridium difficile, not spcf as recur 4 Long Damon. [address], [place], [place], [address], [place]. tel:[phone] Offic/outpt E&m Estab Mod-hi 2 Telemedicine Pt [facility], [address], [place], [place], [address] , [place] tel: [phone] [facility] hospital follow up (chief complaint) Other lobsterman (current) drug therapyHospit al discharge follow-upClos tridium difficile infectionTran sportation unavailable 4 Long Damon. [address], [place], [place], [address], [place]. tel:[phone] Referring Provider: Yvonne Jacques, [address], [place], [address]. tel:[phone] Offic/outpt E&m Estab Mod-hi 4 Telemedicine Pt At Home [facility], [address], [place], [place], [address] , [place] tel: [phone] [facility] Telemed (chief complaint)chr onic conditions (chief complaint) Other mcc (current) drug therapyC. difficile diarrheaChron ic constipationB ipolar disorder, current episode mixed, mildHospital discharge follow-up 4 Sean Russell. [address], [place], [place], [address], [place]. tel:[phone] Referring Provider: [address], [place], [address]. tel:[phone] Telephone E&M,est 21-30 min [facility], [address], [place], [place], [address] , [place] tel: [phone] [facility] other (chief complaint) NauseaAcute diarrheaHx of Clostridium difficile infection 4 Long Damon. [address], [place], [place], [address], [place]. tel:[phone] Referring Provider: Yvonne Jacques [address], [place], [address]. tel:[phone] [facility], [address], [place], [place], [address] , [place] tel: [phone] [facility] Diarrhea, unspecified typeIrritable bowel syndrome, unspecified type 4 Sean Russell. [address], [place], [place], [address], [place]. tel:[phone] Referring Provider: Mila [address] [facility] [address], [place], [address]. tel:[phone] Offic/outpt E&m Estab Mod-hi 2 [facility], [address], [place], [place], [address] , [place] tel: [phone] [facility] MAV (chief complaint)med icare preventive (chief complaint)chr onic conditions (chief complaint) Encounter for screening, unspecifiedOt her lobsterman (current) drug therapyOther specified health statusMedicar e annual wellness visit, subsequentNee d for hepatitis C screening testScreening mammogram for breast cancerImmuniz ation dueBipolar disorder, current episode mixed, mild 0 4 Sean Russell. [address], [place], [place], [address], [place]. tel:[phone] Referring Provider: Yvonne Jacques [address], [place], [address]. [phone] [facility], [address], [place], [place], [address] , [place] tel: [phone] [facility] Acute diarrhea Dec- 4 Estrada Yvonne. [address], [place], [place], [address], [place]. tel:[phone] Offic/outpt E&m Estab Mod-hi 2 Telemedicine Pt [facility], [address], [place], [place], [address] , [place] tel: [phone] [facility] Telemed (chief complaint) Other mcc (current) drug therapyHospit al discharge follow-upC. difficile colitis 4 Sean Russell. [address], [place], [place], [address], [place]. tel:[phone] Referring Provider: [address], [place], [address]. tel:[phone] [facility], [address], [place], [place], [address] , [place] tel: [phone] [facility] Telemed (chief complaint) Other mcc (current) drug therapy 4 Sean Russell. [address], [place], [place], [address], [place]. tel:[phone] Referring Provider: Yvonne Jacques, [address], [place], [address]. tel:[phone] Offic/outpt E&m Estab Mod-hi 2 Telemedicine Pt At Home [facility], [address], [place], [place], [address] , [place] tel: [phone] [facility] Telemed (chief complaint)chr onic conditions (chief complaint) Hospital discharge follow-upOthe r mcc (current) drug therapyUncomp licated opioid dependenceAnx iolytic dependence with current useBipolar disorder, current episode mixed, mildPAD (peripheral artery disease) 4 Sean Russell. [address], [place], [place], [address], [place]. tel:[phone] Referring Provider: [address], [place], [address]. tel:[phone] [facility], [address], [place], [place], [address] , [place] tel: [phone] [facility] telemed (chief complaint) Other lobsterman (current) drug therapyHospit al discharge follow-up 4 Sean Russell. [address], [place], [place], [address], [place]. tel:[phone] Referring Provider: Yvonne Jacques, [address], [place], [address]. tel:[phone] Offic/outpt E&m Estab Mod-hi 4 Telemedicine Pt At Home [facility], [address], [place], [place], [address] , [place] tel: [phone] [facility] Telemed (chief complaint)chr onic conditions (chief complaint) Other mcc (current) drug therapyHospit al discharge follow-upBipo lar disorder, current episode mixed, mildAnxietyCh ronic abdominal painOther chronic painPostmenop ausal HRT (hormone replacement therapy)Panic attacks 3 Sean Russell. [address], [place], [place], [address], [place]. tel:[phone] Referring Provider: Yvonne Jacques [address], [place], [address]. tel:[phone] Offic/outpt E&m Estab Mod-hi 2 Telemedicine Pt At [place] [facility], [address], [place], [place], [address] , [place] tel: [phone] [facility] telemed (chief complaint)chr onic conditions (chief complaint) Abdominal crampingAnxie tyBipolar disorder, current episode mixed, mildOther mcc (current) drug therapy 3 Sean Russell. [address], [place], [place], [address], [place]. tel:[phone] Referring Provider: Yvonne Jacques [address], [place], [address]. tel:[phone] [facility], [address], [place], [place], [address] , [place] tel: [phone] [facility] No Information 3 Estrada Yvonne. [address], [place], [place], [address], [place]. tel:[phone] Offic/outpt E&m Estab Mod-hi 2 Telemedicine Pt [facility], [address], [place], [place], [address] , [place] tel: [phone] [facility] telemed (chief complaint)chr onic conditions (chief complaint) Bipolar disorder, current episode mixed, mildBarrett's esophagus determined by endoscopyAnxi ety 3 Sean Russell. [address], [place], [place], [address], [place]. tel:[phone] Referring Provider: [address], [place], [address]. tel:[phone] Offic/outpt E&m Estab Mod-hi 2 Telemedicine Pt [facility], [address], [place], [place], [address] , [place] tel: [phone] [facility] Telemed (chief complaint)chr onic conditions (chief complaint) Other lobsterman (current) drug therapyHospit al discharge follow-upBipo lar disorder, current episode mixed, mildAnxiety 3 Sean Russell. [address], [place], [place], [address], [place]. tel:[phone] Referring Provider: [address], [place], [address]. tel:[phone] [facility], [address], [place], [place], [address] , [place] tel: [phone] [facility] Dermatitis 3 Sean Russell. [address], [place], [place], [address], [place]. tel:[phone] Offic/outpt E&m Estab Mod-hi 2 [facility], [address], [place], [place], [address] , [place] tel: [phone] [facility] OV (chief complaint)chr onic conditions (chief complaint) Other lobsterman (current) drug therapyDermat itis, unspecifiedGr ief reactionBipol ar disorder, current episode mixed, mild May-2 3 [place] Yvonne. [address], [place], [place], [address], [place]. tel:[phone] Referring Provider: [address], [place], [address]. tel:[phone] Offic/outpt E&m Estab Mod-hi 2 Telemedicine Pt [facility], [address], [place], [place], [address] , [place] tel: [phone] [facility] telemed (chief complaint)chr onic conditions (chief complaint) AnxietyPanic attacksBipola r disorder, current episode mixed, mild May-0 3 [place] Yvonne. [address], [place], [place], [address], [place]. tel:[phone] Referring Provider: [address], [place], [address]. tel:[phone] Offic/outpt E&m Estab Mod-hi 2 Telemedicine Pt [facility], [address], [place], [place], [address] , [place] tel: [phone] [facility] telemed (chief complaint)chr onic conditions (chief complaint) AnxietyBipola r disorder, current episode mixed, mildGenital herpes simplex, unspecified siteVitamin D deficiency Sarmad- 3 [place] Yvonne. [address], [place], [place], [address], [place]. tel:[phone] Referring Provider: [address], [place], [address]. tel:[phone] Offic/outpt E&m Estab Mod-hi 2 [facility], [address], [place], [place], [address] , [place] tel: [phone] [facility] medicare preventive (chief complaint)MAV (chief complaint) Other mcc (current) drug therapyOther specified health statusEncount er for screening, unspecifiedMe alize changeMedicar e annual wellness visit, subsequent 3 Sean Russell. [address], [place], [place], [address], [place]. tel:[phone] Referring Provider: Yvonne Jacques, [address], [place], [address]. tel:[phone] Offic/outpt E&m Estab [facility] 2 [facility], [address], [place], [place], [address] , [place] tel: [phone] [facility] Work-in (chief complaint) Other lobsterman (current) drug therapyGastro intestinal parasitesAcut e diarrheaHospi samanta discharge follow-up 3 Sean Russell. [address], [place], [place], [address], [place]. tel:[phone] Referring Provider: Yvonne Jacques [address], [place], [address]. tel:[phone] Offic/outpt E&m Estab [facility] 2 Telemedicine Pt [facility], [address], [place], [place], [address] , [place] tel: [phone] [facility] telemed (chief complaint)chr onic conditions (chief complaint) Other lobsterman (current) drug therapyBipola r disorder, current episode mixed, mildAnxietyCh ronic nausea Jan- 3 Sean Russell. [address], [place], [place], [address], [place]. tel:[phone] Referring Provider: Yvonne Jacques, [address], [place], [address]. tel:[phone] Offic/outpt E&m Estab Mod-hi 2 Telemedicine Pt At [place] [facility], [address], [place], [place], [address] , [place] tel:[phone] [facility] telemed (chief complaint)chr onic conditions (chief complaint) Bipolar disorder, current episode mixed, mildAnxietyPo stmenopausal HRT (hormone replacement therapy)Uncom plicated opioid dependenceAnx iolytic dependence with current usePAD (peripheral artery disease) 3 Sean Russell. [address], [place], [place], [address], [place]. tel:[phone] Referring Provider: [address], [place], [address]. tel:[phone] Offic/outpt E&m Estab Mod-hi 4 Telemedicine Pt [facility] [place] [facility], [address], [place], [place], [address] , [place] tel:[phone] [facility] telemed (chief complaint)chr onic conditions (chief complaint) Bipolar disorder, current episode mixed, mildPostmenop ausal HRT (hormone replacement therapy) 2 Sean Russell. [address], [place], [place], [address], [place]. tel:[phone] Referring Provider: Yvonne Jacques, [address] [facility] [address], [place], [address]. tel:[phone] Offic/outpt E&m Estab Mod-hi 4 Telemedicine Pt At [facility], [address], [place], [place], [address] , [place] tel:[phone] [facility] telemed (chief complaint)chr onic conditions (chief complaint) Other lobsterman (current) drug therapyBipola r disorder, current episode mixed, mildPostmenop ausal HRT (hormone replacement therapy)Anxie tyBreast cancer screening by mammogram 2 Sean Russell. [address], [place], [place], [address], [place]. tel:[phone] Referring Provider: Yvonne Jacques, [address], [place], [address]. tel:[phone] Offic/outpt E&m Estab Mod-hi 2 Telemedicine Pt At Home [facility], [address], [place], [place], [address] , [place] tel: [phone] [facility] telemed (chief complaint)chr onic conditions (chief complaint) Other mcc (current) drug therapyBipola r disorder, current episode mixed, moderateAnxie tyPanic attacksPostme nopausal HRT (hormone replacement therapy) 2 Sean Russell. [address], [place], [place], [address], [place]. tel:[phone] Referring Provider: Yvonne Jacques, [address], [place], [address]. tel:[phone] Offic/outpt E&m Estab Mod-hi 2 Telemedicine Pt At Home [facility], [address], [place], [place], [address] , [place] tel: [phone] [facility] telemed (chief complaint) Hospital discharge follow-upPain and swelling of upper extremity, rightOther specified soft tissue disordersAbno rmal ultrasoundOth er lobsterman (current) drug therapy 2 Sean Russell. [address], [place], [place], [address], [place]. tel:[phone] Referring Provider: [address], [place], [address]. tel:[phone] Prevent E&m Estab Pt; 40-64 Yr [facility], [address], [place], [place], [address] , [place] tel:[phone] [facility] WWE (chief complaint)chr onic conditions (chief complaint) Other lobsterman (current) drug therapyWell woman examNausea and vomiting in adultPostmeno pausal HRT (hormone replacement therapy)Breas t screeningVita min D deficiency Jul- 2 Sean Russell. [address], [place], [place], [address], [place]. tel:[phone] Referring Provider: Yvonne Jacques, [address], [place], [address]. tel:[phone] [facility], [address], [place], [place], [address] , [place] tel: [phone] [facility] Elevated TSH Jul-0 2 Sean Russell. [address], [place], [place], [address], [place]. tel:[phone] [facility], [address], [place], [place], [address] , [place] tel: [phone] [facility] Hyperlipidemi a with target low density lipoprotein (LDL) cholesterol less than 100 mg/dLVitamin B12 deficiencyPos tmenopausal HRT (hormone replacement therapy)Chron ic nauseaVitamin D deficiencyEle vated TSH Jun- 2 Sean Rsusell. [address], [place], [place], [address], [place]. tel:[phone] Referring Provider: Yvonne Jacques, [address], [place], [address]. tel:[phone] [facility], [address], [place], [place], [address] , [place] tel: [phone] [facility] Vitamin D deficiencyEle vated TSH Jun- 2 Sean Russell. [address], [place], [place], [address], [place]. tel:[phone] [facility], [address], [place], [place], [address] , [place] tel: [phone] [facility] Vitamin B12 deficiencyNau sea and vomiting in adultLeg crampsHyperli pidemia with target low density lipoprotein (LDL) cholesterol less than 100 mg/dLFatigue, unspecified type 2 Sean Russell. [address], [place], [place], [address], [place]. tel:[phone] Offic/outpt E&m [facility]-vt 4 Telemedicine Pt At Home [facility], [address], [place], [place], [address] , [place] tel: [phone] [facility] telephonic (chief complaint)chr onic conditions (chief complaint) Other mcc (current) drug therapyChroni c nauseaChronic diarrheaChron ic abdominal painOther chronic painPostmenop ausal HRT (hormone replacement therapy)Bipol ar disorder, current episode mixed, severe, without psychotic featuresHospi samanta discharge follow-up 2 Sean Russell. [address], [place], [place], [address], [place]. tel:[phone] Referring Provider: [address], [place], [address]. tel:[phone] Offic/outpt E&m [facility]-vt 2 [facility], [address], [place], [place], [address] , [place] tel: [phone] [facility] HOF (chief complaint) Other lobsterman (current) drug therapyHospit al discharge follow-upPost menopausal HRT (hormone replacement therapy) 2 Sean Russell. [address], [place], [place], [address], [place]. tel:[phone] Referring Provider: [address], [place], [address]. tel:[phone] Offic/outpt E&m Estab Mod-vt 2 [facility], [address], [place], [place], [address] , [place] tel: [phone] [facility] follow-up (chief complaint)chr onic conditions (chief complaint) Other mcc (current) drug therapyBipola r disorder, current episode mixed, moderateChron ic nausea 2 Estrada Yvonne. [address], [place], [place], [address], [place]. tel:[phone] Referring Provider: Yvonne Jacques, [address], [place], [address]. tel:[phone] Offic/outpt E&m Estab Mod-hi 2 [facility], [address], [place], [place], [address] , [place] tel: [phone] [facility] follow up (chief complaint) Other mcc (current) drug therapyHospit al discharge follow-upBipo lar disorder, current episode mixed, moderate 2 Long Damon. [address], [place], [place], [address], [place]. tel:[phone] Referring Provider: Yvonne Jacques, [address], [place], [address]. tel:[phone] [facility], [address], [place], [place], [address] , [place] tel: [phone] [facility] Follow up 2 Sean Russell. [address], [place], [place], [address], [place]. tel:[phone] Offic/outpt E&m Estab Low-mod [facility], [address], [place], [place], [address] , [place] tel: [phone] [facility] Urology Problem (chief complaint) Bilateral nephrolithias is 2 Al Camejo. [facility] [facility], [address], [place], [place], [address], [place]. tel:[phone] Referring Provider: Yvonne Jacques, [address], [place], [address]. tel:[phone] [facility], [address], [place], [place], [address] , [place] tel: [phone] [facility] Vitamin B12 deficiencyAdu lt general medical examDiarrhea, unspecified type 2 Sean Russell. [address], [place], [place], [address], [place]. tel:[phone] Referring Provider: Yvonne Jacques, [address], [place], [address]. tel:[phone] Offic/outpt E&m Estab Mod-hi 2 [facility], [address], [place], [place], [address] , [place] tel: [phone] [facility] medicare preventive (chief complaint)MAV (chief complaint)chr onic conditions (chief complaint) Encounter for screening, unspecifiedOt her specified health statusOther mcc (current) drug therapyAnnual physical examNausea and vomiting in vezjeW53 deficiencyHos pital discharge follow-upKidn ey stonesBipolar disorder, current episode mixed, severe, without psychotic featuresDiarr hea, unspecified typePAD (peripheral artery disease)Anxio lytic dependence with current useOpioid dependence, uncomplicated 2 Sean Russell. [address], [place], [place], [address], [place]. tel:[phone] Referring Provider: Yvonne Jacques, [address], [place], [address]. [phone] [facility], [address], [place], [place], [address] , [place] tel: [phone] [facility] Lower abdominal pain 2 Estrada Yvonne. [address], [place], [place], [address], [place]. tel:[phone] Offic/outpt E&m Estab Mod-hi 2 [facility], [address], [place], [place], [address] , [place] tel: [phone] [facility] 1mo F/u (chief complaint)chr onic conditions (chief complaint) Bipolar affective disorder, currently manic, moderateNause a and vomiting in adult Oct- 1 Sean Russell. [address], [place], [place], [address], [place]. tel:[phone] Referring Provider: Yvonne Jacques, [address], [place], [address]. tel:[phone] Offic/outpt E&m Estab Mod-vt 2 [facility], [address], [place], [place], [address] , [place] tel: [phone] [facility] follow-up (chief complaint)chr onic conditions (chief complaint) Other mcc (current) drug therapyImmuni zation dueBipolar disorder, current episode mixed, severe, without psychotic featuresAnxie ty 1 Sean Russell. [address], [place], [place], [address], [place]. tel:[phone] Referring Provider: Yvonne Jacques, [address] [facility] [address], [place], [address]. tel:[phone] Offic/outpt E&m Estab [facility]-vt 2 [facility], [address], [place], [place], [address] , [place] tel: [phone] [facility] office visit (chief complaint) Other mcc (current) drug therapyBipola r affective disorder, depressed, moderateAnxie tyPanic attacks 1 Sean Russell. [address], [place], [place], [address], [place]. tel:[phone] Referring Provider: Wayne Thompson, [address] [facility] [address], [place], [address]. tel:[phone] Offic/outpt E&m Estab [facility]-vt 2 [facility], [address], [place], [place], [address] , [place] tel: [phone] [facility] high risk monthly (chief complaint) Bipolar disorder, current episode mixed, moderateHisto ry of removal of ureteral stentHx of renal calculi Sep-2 1 Long Damon. [address], [place], [place], [address], [place]. tel:[phone] Referring Provider: Wayne Thompson, [address] [facility] [address], [place], [address]. tel:[phone] Offic/outpt E&m [facility], [address], [place], [place], [address] , [place] tel: [phone] HEB Urology problem (chief complaint) Nephrolithias isUreteral stent retainedCalcu meagan of ureter Sep-2 1 Al Camejo. [address] [place] [address], [address], [place], [place], [address], [place]. tel:[phone] Referring Provider: Yvonne Jacques, [address], [place], [address]. tel:[phone] Offic/outpt E&m [facility], [address], [place], [place], [address] , [place] tel: [phone] [facility] office visit (chief complaint) Vaginal odorAcute vaginitis Sep-1 1 Celestino Black. [address] [facility], [address], [place], [place], [address], [place]. tel:[phone] Referring Provider: Wayne Thompson, [address] [facility] [address], [place], [address]. tel:[phone] [facility], [address], [place], [place], [address] , [place] tel:[phone] [facility] Urology Calculus of ureter Sep-0 1 Al Camejo. [facility] [facility], [address], [place], [place], [address], [place]. tel:[phone] Referring Provider: Yvonne Jacques, [address], [place], [address]. tel:[phone] [facility], [address], [place], [place], [address] , [place] tel: [phone] B Urology No Information Sep-0 1 Al Camejo. [address] [facility], [address], [place], [place], [address], [place]. tel:[phone] [facility], [address], [place], [place], [address] , [place] tel: [phone] [facility] Calculus of ureter Sep-0 1 Al Camejo. [address] [facility], [address], [place], [place], [address], [place]. tel:[phone] [facility], [address], [place], [place], [address] , [place] tel: [phone] [facility] Urology Right nephrolithias isRetained ureteral stent Sep-0 1 Al Camejo. [address] [facility], [address], [place], [place], [address], [place]. tel:[phone] Referring Provider: Yvonne Jacques [address], [place], [address]. tel:[phone] Offic/outpt E&m Estab Mod-hi 2 [facility], [address], [place], [place], [address] , [place] tel: [phone] B Urology procedure (chief complaint) Right nephrolithias isS/P ureteral stent placementCalc ulus of ureter Jun-2 1 Al Camejo. [address] [facility], [address], [place], [place], [address], [place]. tel:[phone] Referring Provider: Yvonne Jacques [address], [place], [address]. tel:[phone] [facility], [address], [place], [place], [address] , [place] tel: [phone] [facility] Urology Left nephrolithias is 1 Al Camejo. [address] [facility], [address], [place], [place], [address], [place]. tel:[phone] Referring Provider: Yvonne Jacques, [address], [place], [address]. tel:[phone] Offic/outpt E&m [facility] Mod-vt 2 [facility], [address], [place], [address] , [place] tel: [phone] B Urology problem (chief complaint) Bilateral nephrolithias isLeft lateral abdominal painDysuria 1 Al Camejo. [address] [facility], [address], [place], [place], [address], [place]. tel:[phone] Referring Provider: Yvonne Jacques [address], [place], [address]. tel:[phone] [facility], [address], [place], [place], [address] , [place] tel: [phone] [facility] Kidney stones 1 Sean Russell. [address], [place], [place], [address], [place]. tel:[phone] Referring Provider: [address], [place], [address]. tel:[phone] Offic/outpt E&m [facility], [address], [place], [place], [address] , [place] tel: [phone] [facility] Kidney stones (chief complaint) Other mcc (current) drug therapyKidney stones 1 Jose Lyon. [address] [place] [address], [address], [place], [place], [address], [place]. tel:[phone] Referring Provider: [address], [place], [address]. [phone] [facility], [address], [place], [place], [address] , [place] tel: [phone] [facility] Castro's esophagus determined by endoscopy 1 Sean Russell. [address], [place], [place], [address], [place]. tel:[phone] Offic/outpt E&m Estab [facility] 2 [facility], [address], [place], [place], [address] , [place] tel: [phone] [facility] HOF (chief complaint) Bipolar disorder, current episode mixed, moderateOther lobsterman (current) drug therapyKidney stonesHospita l discharge follow-upCons tipation, unspecified constipation type 1 Sean Russell. [address], [place], [place], [address], [place]. tel:[phone] Referring Provider: [address], [place], [address]. tel:[phone] Offic/outpt E&m Estab [facility] 2 [facility], [address], [place], [place], [address] , [place] tel: [phone] [facility] Diarrhea/Vomi ting/Headache (chief complaint)chr onic conditions (chief complaint) Diarrhea of presumed infectious originNausea and vomiting, intractabilit y of vomiting not specified, unspecified vomiting typeAbdominal crampsEnviron mental allergiesGeni samanta herpes simplex, unspecified siteBarrett's esophagus determined by endoscopyLow grade fever 1 Yamil Baires. [address], [place], [place], [address], [place]. tel:[phone] Referring Provider: [address], [place], [address]. tel:[phone] Prevent E&m Estab Pt; 40-64 Yr [facility], [address], [place], [place], [address] , [place] tel: [phone] [facility] ww (chief complaint) Encounter for gynecological examination (general) (routine) without abnormal findingsEncou nter for screening for malignant neoplasm of cervixPostmen opausal HRT (hormone replacement therapy) 1 Celestino Black. [address] [facility], [address], [place], [place], [address], [place]. tel:[phone] Referring Provider: [address], [place], [address]. tel:[phone] Offic/outpt E&m Estab Mod-vt 2 [facility], [address], [place], [place], [address] , [place] tel: [phone] [facility] office visit (chief complaint)chr onic conditions (chief complaint) Bipolar disorder, current episode mixed, moderateAnxie ty 1 Sean Russell. [address], [place], [place], [address], [place]. tel:[phone] Referring Provider: [address], [place], [address]. tel:[phone] [facility], [address], [place], [place], [address] , [place] tel: [phone] [facility] Bipolar disorder, current episode mixed, moderate March- 1 Sean Russell. [address], [place], [place], [address], [place]. tel:[phone] Offic/outpt E&m [facility]-vt 2 Telemedicine [facility], [address], [place], [place], [address] , [place] tel:[phone] [facility] telemedicine (chief complaint) Other mcc (current) drug therapyAnxiet yPanic attacksBipola r affective disorder, depressed, moderate 0 1 Sean Russell. [address], [place], [place], [address], [place]. tel:[phone] Referring Provider: Yvonne Jacques [address], [place], [address]. tel:[phone] Offic/outpt E&m Estab Mod-vt 2 [facility], [address], [place], [place], [address] , [place] tel: [phone] [facility] follow up (chief complaint) Bipolar affective disorder, currently depressed, moderateAnxie tyPanic attacksOther mcc (current) drug therapyChroni c constipationC hronic pain of right kneeOther chronic pain 1 Sean Russell. [address], [place], [place], [address], [place]. tel:[phone] Referring Provider: Yvonne Jacques, [address], [place], [address]. tel:[phone] Offic/outpt E&m [facility] Mod-vt 2 [facility], [address], [place], [place], [address] , [place] tel: [phone] [facility] medicare preventive (chief complaint)MAV (chief complaint)chr onic conditions (chief complaint) Other mcc (current) drug therapyEncoun ter for screening, unspecifiedOt her specified health statusBipolar disorder, current episode mixed, moderateAnxie tyVertigoRout ine physicl lab exam 1 Sean Russell. [address], [place], [place], [address], [place]. tel:[phone] Referring Provider: Yvonne Jacques, [address], [place], [address]. tel:[phone] [facility], [address], [place], [place], [address] , [place] tel: [phone] [facility] Dizziness 1 Sean Russell. [address], [place], [place], [address], [place]. tel:[phone] Offic/outpt E&m Estab Mod-vt 2 [facility], [address], [place], [place], [address] , [place] tel: [phone] [facility] follow up (chief complaint)chr onic conditions (chief complaint) Other mcc (current) drug therapyNausea DizzinessAnxi olytic dependence with current usePAD (peripheral artery disease)Bipol ar affective disorder, currently depressed, mildChronic migraine without aura without status migrainosus, not intractableOp ioid dependence, uncomplicated 9 1 Sean Russell. [address], [place], [place], [address], [place]. tel:[phone] Referring Provider: [address], [place], [address]. tel:[phone] [facility], [address], [place], [place], [address] , [place] tel: [phone] [facility] Vertigo Dec-2 0 Sean Russell. [address], [place], [place], [address], [place]. tel:[phone] Offic/outpt E&m Estab [facility]-vt 2 [facility], [address], [place], [place], [address] , [place] tel: [phone] [facility] follow up (chief complaint) Chronic constipationB ipolar affective disorder, currently depressed, mildAnxietyVe rtigo Dec-0 7-202 0 Sean Russell. [address], [place], [place], [address], [place]. tel:[phone] Referring Provider: [address], [place], [address]. tel:[phone] Offic/outpt E&m Estab [facility]-vt 2 [facility], [address], [place], [place], [address] , [place] tel: [phone] [facility] HOF (chief complaint) Other mcc (current) drug therapyBipola r affective disorder, currently depressed, moderateAnxie tyChronic constipation Sep- 0 Sean Russell. [address], [place], [place], [address], [place]. tel:[phone] Referring Provider: Yvonne Jacques, [address], [place], [address]. [phone] Offic/outpt E&m Estab Mod-hi 2 [facility], [address], [place], [place], [address] , [place] tel: [phone] [facility] Hospital discharge follow-upColi tisAnxietyBip olar 2 disorderChron ic migraine without aura without status migrainosus, not intractableOt her lobsterman (current) drug therapy 0 Sean Russell. [address], [place], [place], [address], [place]. tel:[phone] Referring Provider: Yvonne Jacques, [address], [place], [address]. tel:[phone] [facility], [address], [place], [place], [address] , [place] tel: [phone] [facility] Nephrolithias is 0 Sean Russell. [address], [place], [place], [address], [place]. tel:[phone] Offic/outpt E&m Estab Low-mod [facility], [address], [place], [place], [address] , [place] tel: [phone] [facility] Burning with urination Jul- 0 Francesco Goldstein. [address], [place], [place], [address], [place]. tel:[phone] Referring Provider: Yvonne Jacques, [address], [place], [address]. tel:[phone] [facility] [facility], [address], [place], [place], [address] , [place] tel: [phone] [facility] No Information 0 Sean Russell. [address], [place], [place], [address], [place]. tel:[phone] Offic/outpt E&m Estab Mod-hi 2 [facility], [address], [place], [place], [address] , [place] tel: [phone] [facility] AnxietyBipola r affective disorder, currently depressed, moderateChron ic GERDBarrett's esophagus determined by endoscopyArth ritis of wrist, rightForeign body of fingerOther lobsterman (current) drug therapyOther specified health status 0 Sean Russell. [address], [address], [place], [place], [address], [place]. tel:[phone] Referring Provider: Yvonne Jacques, [address], [place], [address]. tel:[phone] Offic/outpt E&m Estab Low-mod [facility], [address], [place], [place], [address] , [place] tel: [phone] [facility] De Quervain's tenosynovitis , rightOther mcc (current) drug therapy 0 Levi Lyon. [address], [place], [place], [address], [place]. tel:[phone] Referring Provider: Yvonne Jacques, [address], [place], [address]. tel:[phone] Offic/outpt E&m Estab Mod-hi 2 [facility], [address], [place], [place], [address] , [place] tel: [phone] [facility] Bipolar disorder, current episode depressed, severe, without psychotic featuresHospi samanta discharge follow-upChro gabriella migraine without aura without status migrainosus, not intractableOt her mcc (current) drug therapy Apr-0 0 Sean Russell. [address], [address], [place], [place], [address], [place]. tel:[phone] Referring Provider: Yvonne Jacques, [address], [place], [address]. tel:[phone] Offic/outpt E&m Estab Low-mod [facility], [address], [place], [place], [address] , [place] tel: [phone] [facility] Rash of vulva 0 Celestino Black. [address] [facility], [address], [place], [place], [address], [place]. tel:[phone] Referring Provider: Yvonne Jacques, [address], [place], [address]. tel:[phone] Prevent E&m Estab Pt; 40-64 Yr [facility], [address], [place], [place], [address] , [place] tel: [phone] [place] Medicare annual wellness visit, subsequentChr onic migraine without aura without status migrainosus, not intractableBi polar affective disorder, current episode manic, current episode severity unspecifiedAn xietySprain of lateral collateral ligament of right knee, initial encounterSpra in of medial collateral ligament of right knee, subsequent encounterDerm atitisPrimary insomniaScree rene for colon cancerOther mcc (current) drug therapyOther specified health statusPAD (peripheral artery disease) March- 0 Long Damon. [address], [address], [place], [place], [address], [place]. tel:[phone] Referring Provider: Yvonne Jacques [address], [place], [address]. tel:[phone] [facility], [address], [place], [place], [address] , [place] tel: [phone] [facility] Vaginal irritation 0 Sean Yvonne. [address], [place], [place], [address], [place]. tel:[phone] [facility], [address], [place], [place], [address] , [place] tel: [phone] Catherineshakeel Lau Dermatitis 0 Estrada Yvonne. [address], [address], [place], [place], [address], [place]. tel:[phone] [facility], [address], [place], [place], [address] , [place] tel: [phone] [facility] Postmenopausa l hormone therapy 0 Sean Russell. [address], [place], [place], [address], [place]. tel:[phone] Referring Provider: Yvonne Jacques, [address], [place], [address]. tel:[phone] Telephone E&M,est 21-30 min [facility], [address], [place], [place], [address] , [place] tel: [phone] [facility] DizzinessNaus eaBipolar disorder, current episode depressed, severe, without psychotic featuresScree rene for colon cancerPolyp of colon, unspecified part of colon, unspecified typeOther lobsterman (current) drug therapyOther specified health status 0 Sean Russell. [address], [address], [place], [place], [address], [place]. tel:[phone] Referring Provider: Yvonne Jacques, [address], [place], [address]. tel:[phone] Telephone E&M,est 11-20 min [facility], [address], [place], [place], [address] , [place] tel: [phone] [facility] CoughFatigue, unspecified typeFever, unspecified fever causeDiarrhea , unspecified typeNonintrac table headache, unspecified chronicity pattern, unspecified headache typeNight sweatsAnxiety Other lobsterman (current) drug therapy Feb- 0 Sean Russell. [address], [facility] [address], [place], [place], [address], [place]. tel:[phone] Referring Provider: Yvonne Jacques, [address] [facility] [address], [place], [address]. tel:[phone] Offic/outpt E&m Estab [facility]-vt 2 [facility], [address], [place], [place], [address] , [place] tel: [phone] [facility] Fever and chillsFunctio nal diarrheaShort ness of breath 0 Elvis phipps [address], [facility] [address], [place], [place], [address], [place]. tel:[phone] Referring Provider: Jhonny Mackey, [address] [facility] [address], [place], [address]. tel:[phone] Offic/outpt E&m [facility] 2 [facility], [address], [place], [place], [address] , [place] tel: [phone] [facility] Bug bite, subsequent encounterOthe r specified health statusDelusio ns of parasitosisBi polar affective disorder, currently depressed, mild Jan-0 0 Sean Russell. [address], [facility] [address], [place], [place], [address], [place]. tel:[phone] Referring Provider: Yvonne Jacques, [address] [facility] [address], [place], [address]. tel:[phone] Offic/outpt E&m [facility] 2 [facility], [address], [place], [place], [address] , [place] tel: [phone] [facility] Skin rashAnxiolyti c dependence with current useNarcotic dependence Dec- 0 Francesco Goldstein. [address], [place], [place], [address], [place]. tel:[phone] Referring Provider: Angelita Maya [address], [place], [address]. tel:[phone] Prevent E&m Estab Pt; 40-64 Yr [facility], [address], [place], [place], [address] , [place] tel: [phone] [facility] Encntr for dumpman exam (general) (routine) w/o abn findingsPostm enopausal HRT (hormone replacement therapy)Herpe s 9 [facility]. [address] [facility], [address], [place], [place], [address], [place]. tel:[phone] Referring Provider: Yvonne Jacques [address], [place], [address]. tel:[phone] Offic/outpt E&m Estab Mod-hi 2 [facility], [address], [place], [place], [address] , [place] tel: [phone] [facility] Flu-like symptomsURI, acuteOther specified health status 9 Sean Russell. [address], [place], [place], [address], [place]. tel:[phone] Referring Provider: [address] [facility] [address], [place], [address]. [phone] Offic/outpt E&m Estab Mod-hi 2 [facility], [address], [place], [place], [address] , [place] tel: [phone] [facility] Drug induced constipationB ipolar affective disorder, remission status unspecifiedAn xietyChronic migraine without aura without status migrainosus, not intractablePr imary insomniaBreas t screeningLeg cramps 9 Sean Russell. [address], [place], [place], [address], [place]. tel:[phone] Referring Provider: [address], [place], [address]. tel:[phone] Offic/outpt E&m [address], [address], [place], [place], [address] , [place] tel: [phone] [facility] discharge follow-upNeph rolithiasisDi verticulosisB ipolar disorder, current episode mixed, mildPrimary insomniaDrug induced constipationC hronic bilateral low back pain without sciaticaOther chronic painChronic pain of right kneeOther specified health statusOther lobsterman (current) drug therapy Sep- 0 9 Sean Russell. [address], [place], [place], [address], [place]. tel:[phone] Referring Provider: [address], [place], [address]. tel:[phone] Offic/outpt E&m [address], [address], [place], [place], [address] , [place] tel: [phone] [facility] Bipolar disorder, current episode mixed, moderateAnxie tyPrimary insomniaPerni cious anemiaChronic migraine without aura without status migrainosus, not intractableVi ral syndromeOther mcc (current) drug therapyOther specified health status 9 Sean Russell. [address], [place], [place], [address], [place]. tel:[phone] Referring Provider: Yvonne Jacques, [address], [place], [address]. tel:[phone] Offic/outpt E&m [facility], [address], [place], [place], [address] , [place] tel: [phone] Mehreen Bug bite, initial encounter 9 Thomas Barba. [address], [place], [address], [place]. tel:[phone] Referring Provider: Yvonne Jacques, [address], [place], [address]. tel:[phone] [facility], [address], [place], [place], [address] , [place] tel: [phone] [facility] Hyperlipidemi a with target low density lipoprotein (LDL) cholesterol less than 100 mg/dLEncntr for general adult medical exam w/o abnormal findings 9 Sean Russell. [address], [place], [place], [address], [place]. tel:[phone] Referring Provider: Yvonne Jacques, [address], [place], [address]. tel:[phone] Offic/outpt E&m Estab [facility], [address], [place], [place], [address] , [place] tel: [phone] [facility] Hyperlipidemi a with target low density lipoprotein (LDL) cholesterol less than 100 mg/dLEnvironm ental allergiesBipo lar affective disorder, remission status unspecifiedAn xietyHerpesCh ronic migraine without aura without status migrainosus, not intractablePr imary insomniaSprai n of medial collateral ligament of right knee, subsequent [id number] deficiencyEnc ntr for general adult medical exam w/o abnormal findingsEncou nter for screening, unspecifiedEn counter for screening for other disorderOther specified health status 9 Thomas Barba. [address], [place], [address], [place]. tel:[phone] Referring Provider: Yvonne Jacques, [address], [place], [address]. tel:[phone] [facility], [address], [place], [place], [address] , [place] tel: [phone] [facility] Medication side effectEncount er for screening for other disorder 9 Thomas Barba. [address], [place], [address], [place]. tel:[phone] [facility], [address], [place], [place], [address] , [place] tel: [phone] [facility] Medication side effectEncount er for screening for other disorder 9 Sean Russell. [address], [place], [place], [address], [place]. tel:[phone] Referring Provider: Yvonne Jacques, [address], [place], [address]. tel:[phone] [facility], [address], [place], [place], [address] , [place] tel: [phone] [facility] Pernicious anemiaLow vitamin B12 level 9 Sean Russell. [address], [place], [place], [address], [place]. tel:[phone] Referring Provider: Yvonne Jacques, [address], [place], [address]. tel:[phone] [facility], [address], [place], [place], [address] , [place] tel: [phone] [facility] Pernicious anemia 9 Sean Russell. [address], [place], [place], [address], [place]. tel:[phone] Prevent E&m Estab Pt; 40-64 Yr [facility], [address], [place], [place], [address] , [place] tel: [phone] [facility] Encntr for dumpman exam (general) (routine) w/o abn findingsEncou nter for screening for malignant neoplasm of cervixHistory of abnormal mammogram 8 O'Gema Douglass. [address] [facility], [address], [place], [place], [address], [place]. tel:[phone] Referring Provider: Ludy Shah, [address] [facility] [address], [place], [address]. tel:[phone] Offic/outpt E&m Estab Mod-hi 2 [facility], [address], [place], [place], [address] , [place] tel: [phone] [facility] discharge follow-upRigh t leg painSprain of lateral collateral ligament of right knee, initial encounterOthe r specified health statusOther lobsterman (current) drug therapy 8 Sean Russell. [address], [place], [place], [address], [place]. tel:[phone] Referring Provider: Yvonne Jacques, [address], [place], [address]. tel:[phone] [facility], [address], [place], [place], [address] , [place] tel: [phone] [facility] Adult general medical examination 8 Sean Russell. [address], [address], [place], [place], [address], [place]. tel:[phone] Referring Provider: Yvonne Jacques, [address], [place], [address]. tel:[phone] [facility], [address], [place], [place], [address] , [place] tel: [phone] [facility] Blood tests for routine general physical examination 8 Sean Russell. [address], [place], [place], [address], [place]. tel:[phone] Offic/outpt E&m Estab [facility]-vt 2 [facility], [address], [place], [place], [address] , [place] tel: [phone] [facility] Hyperlipidemi a with target low density lipoprotein (LDL) cholesterol less than 100 mg/dLGenital herpes simplex, unspecified siteAnxietyCh ronic migraine without aura without status migrainosus, not intractableBi polar disorder, current episode mixed, mildImmunizat ion dueConcussion without loss of consciousness , subsequent encounterPost concussive syndromeOther lobsterman (current) drug therapy 8 Estrada Yvonne. [address], [place], [place], [address], [place]. tel:[phone] Referring Provider: Ludy Shah, [address] [facility] [address], [place], [address]. tel:[phone] [facility], [address], [place], [place], [address] , [place] tel: [phone] [facility] Follow-up examination of abnormal mammogram 8 O'Sherburne Evonne. [address] [facility], [address], [place], [place], [address], [place]. tel:[phone] [facility], [address], [place], [place], [address] , [place] tel: [phone] [facility] Pain of left breast 8 O'Gema Evonne. [address] [facility], [facility] [address], [place], [place], [address], [place]. tel:[phone] Offic/outpt E&m Estab Mod-hi 2 [facility], [address], [place], [place], [address] , [place] tel: [phone] [facility] Bipolar affective disorder, remission status unspecifiedAn xietyPrimary insomniaChron ic migraine without aura without status migrainosus, not intractableHi story of concussion 8 Thomas Barba. [address], [place], [address], [place]. tel:[phone] Referring Provider: Ludy Shah, [address] [facility] [address], [place], [address]. tel:[phone] Offic/outpt E&m Estab Low-mod [facility], [address], [place], [place], [address] , tel: [phone] [facility] Bipolar affective disorder, remission status unspecifiedAn xietyPrimary insomniaHyper lipidemia LDL goal < 100Genital herpes simplex, unspecified siteEncntr for general adult medical exam w/o abnormal findingsOther mcc (current) drug therapyEncoun ter for screening, unspecifiedEn counter for screening for other disorder Thomas Barba. [address], [place], [address], [place]. tel:[phone] Referring Provider: Yvonne Jacques, [address], [place], [address]. tel:[phone] [facility], [address], [place], [place], [address] , [place] tel: [phone] Mehreen Medication side effect Thomas Barba. [address], [place], [address], [place]. tel:[phone] Offic/outpt E&m Estab [facility]-vt 2 [facility], [address], [place], [place], [address] , [place] tel: [phone] Mehreen Diarrhea, unspecified typeBipolar affective disorder, remission status unspecifiedAn xietyOther mcc (current) drug therapy Guzman Freda. [address], [place], [address], [place]. tel:[phone] Referring Provider: Yvonne Jacques, [address], [place], [address]. tel:[phone] Offic/outpt E&m [facility] 2 [facility], [address], [place], [place], [address] , [place] tel:[phone] Mehreen AnxietyPanic disorderBipol ar affective disorder, currently depressed, moderateOther specified health status 8 Sean Russell. [address], [place], [place], [address], [place]. tel:[phone] Referring Provider: Yvonne Jacques, [address], [place], [address]. tel:[phone] [facility], [address], [place], [place], [address] , [place] tel: [phone] [facility] Abnormal screening mammogram 7 O'Sherburne Evonne. [address] [facility], [address], [place], [place], [address], [place]. tel:[phone] Offic/outpt E&m [facility], [address], [place], [place], [address] , [place] tel: [phone] Mehreen Sialolithiasi sMass of oral cavity 7 Guzman Freda. [address], [place], [address], [place]. tel:[phone] Referring Provider: Ludy Shah, [address] [facility] [address], [place], [address]. tel:[phone] Prevent E&m Estab Pt; 40-64 Yr [facility], [address], [place], [place], [address] , [place] tel: [phone] [facility] Encntr for dumpman exam (general) (routine) w/o abn findingsBipol ar affective disorder, remission status unspecifiedHo rmone replacement therapy (HRT) 7 O'Gema Douglass. [address] [facility], [address], [place], [place], [address], [place]. tel:[phone] Referring Provider: Ludy Shah, [address] [facility] [address], [place], [address]. tel:[phone] Offic/outpt E&m [facility], [address], [place], [place], [address] , [place] tel: [phone] [facility] DysuriaNausea Sep-0 7 Thomas Barba. [address], [place], [address], [place]. tel:[phone] Referring Provider: Ludy Shah, [address] [address], [place], [address]. [phone] Offic/outpt E&m [facility], [address], [place], [place], [address] , [place] tel: [phone] [facility] Bipolar disorder, current episode mixed, mildGenital herpes simplex, unspecified siteEnvironme ntal allergiesAnxi etyPrimary insomniaFamil y history of bipolar disorderOther specified health status 7 Sean Russell. [address] [facility], [address], [place], [place], [address], [place]. tel:[phone] Referring Provider: Ludy Shah, [address] [address], [place], [address]. [phone] Offic/outpt E&m [facility], [address], [place], [place], [address] , [place] tel: [phone] [facility] Bipolar disorder, current episode mixed, moderateAnxie tyUrinary tract infection with hematuria, site unspecifiedHe maturia, unspecifiedOt her mcc (current) drug therapyOther specified health status 7 Stephen Boston. [address] [address], [place], [place], [address], [place]. tel:[phone] Referring Provider: Ludy Shah, [address] [address], [place], [address]. tel:[phone] Offic/outpt E&m [facility], [address], [place], [place], [address] , [place] tel: [phone] [facility] Bipolar disorder, current episode mixed, moderateOther lobsterman (current) drug therapyOther specified health status Feb- 7 Stephen Ludy. [address] [address], [place], [place], [address], [place]. tel:[phone] Referring Provider: Ludy Shah, [address] [address], [place], [address]. tel:[phone] [facility], [address], [place], [place], [address] , [place] tel: [phone] [facility] Routine medical examEncounter for long-term current use of medicationBip olar disorder, current episode mixed, severe, without psychotic featuresEncou nter for screening, unspecifiedEn counter for screening for other disorder 7 Stephen Ludy. [address] [address], [place], [place], [address], [place]. tel:[phone] Referring Provider: Ludy Shah, [address] [address], [place], [address]. tel:[phone] Offic/outpt E&m Estab Mod-hi 2 [facility], [address], [place], [place], [address] , [place] tel: [phone] [facility] HematuriaPeri cardial effusionPleur al effusionOther lobsterman (current) drug therapy Dec-0 6 Stephen Ludy. [address] [address], [place], [place], [address], [place]. tel:[phone] Referring Provider: Ludy Shah, [address] [address], [place], [address]. tel:[phone] Prevent E&m Estab Pt; 40-64 Yr [facility], [address], [place], [place], [address] , [place] tel: [phone] [facility] Encntr for dumpman exam (general) (routine) w/o abn findingsHormo ne replacement therapy (HRT)Herpes 6 O'Sherburne Evonne. [address] [facility], [address], [place], [place], [address], [place]. tel:[phone] Referring Provider: Ludy Shah, [address] [address], [place], [address]. tel:[phone] Offic/outpt E&m Estab Low-mod [facility], [address], [place], [place], [address] , [place] tel: [phone] [facility] Bipolar disorder, current episode mixed, moderateHyper lipidemia LDL goal < 100Other specified health status Sep-0 6- 6 Stephen Ludy. [address] [address], [place], [place], [address], [place]. tel:[phone] Referring Provider: Ludy Shah, [address] [address], [place], [address]. tel:[phone] Offic/outpt E&m Estab Mod-hi 2 [facility], [address], [place], [place], [address] , [place] tel: [phone] [facility] MyalgiaMuscle spasmAnxiety March- 6 Stephen Ludy. [address] [address], [place], [place], [address], [place]. tel:[phone] Referring Provider: Ludy Shah, [address] [address], [place], [address]. tel:[phone] [facility], [address], [place], [place], [address] , [place] tel: [phone] [facility] Lead exposure risk assessment, high risk Apr-2 7- 6 Stephen Ludy. [address] [address], [place], [place], [address], [place]. tel:[phone] Offic/outpt E&m Estab Mod-hi 2 [facility], [address], [place], [place], [address] , [place] tel:[phone] [facility] Bipolar disorder, current episode mixed, moderateAnxie ty 6 Stephen Ludy. [address] [address], [place], [place], [address], [place]. tel:[phone] Referring Provider: Harshil Ramírez, [address], [place], [address]. tel:[phone] [facility], [address], [place], [place], [address] , [place] tel: [phone] [facility] Encounter for screening, unspecifiedEn counter for screening for other disorderRouti ne medical examBipolar disorder, current episode mixed, severe, without psychotic featuresLong term use of drugScreening for cardiovascula r conditionHype rlipidemia LDL goal <100Screening for diabetes mellitusEncou nter for immunization 6 Stephen Ludy. [address] [address], [place], [place], [address], [place]. tel:[phone] Referring Provider: Harshil Ramírez, [address] [place] [address], [place], [address]. tel:[phone] Offic/outpt E&m Estab Mod-hi 2 [facility], [address], [place], [place], [address] , [place] tel: [phone] [facility] Bipolar disorder, current episode mixed, moderateDiarr Clarence iaLeft lower quadrant pain 5 Stephen Ludy. [address] [address], [place], [place], [address], [place]. tel:[phone] Referring Provider: Ludy Shah, [address] [place] [address], [place], [address]. tel:[phone] Offic/outpt E&m Estab Mod-hi 2 [facility], [address], [place], [place], [address] , [place] tel:[phone] [facility] Bipolar disorder, current episode mixed, moderateAnxie tyTobacco useOther mcc (current) drug therapyOther specified health status 0-201 5 Stephen Ludy. [address] [facility] [address], [place], [place], [address], [place]. tel:[phone] Referring Provider: Ludy Lemusop Pablo, [address] [facility] [address], [place], [address]. tel:[phone] Prevent E&m Estab Pt; 40-64 Yr [facility], [address], [place], [place], [address] , [place] tel: [phone] [facility] MANIC-DEPRESS BRYAN PSYCHOSIS, UNSPHot flashes 2-201 5 O'Gema Evonne. [address] [facility], [facility] [address], [place], [place], [id number], [place]. tel:[phone] Referring Provider: Harshil Ramírez, [address] [place] [address], [place], [address]. tel:[phone] Offic/outpt E&m [facility], [address], [place], [place], [address] , [place] tel:[phone] [facility] Bipolar affective disorderDerma titis 8201 5 Stephen Ludy. [address] [facility] 250, [place], [place], [address], [place]. tel:[phone] Referring Provider: Ludy Shah, [address] [facility] [address], [place], [address]. tel:[phone] Offic/outpt E&m [facility], [address], [place], [place], [address] , [place] tel:[phone] [facility] AnxietyNausea 8-201 5 Stephen Ludy. [address] [facility] 250, [place], [place], [address], [place]. tel:[phone] Referring Provider: Harshil Ramírez, [address], [place], [address]. tel:[phone] Offic/outpt E&m Estab [facility], [address], [place], [place], [address] , [place] tel: [phone] [facility] Acute bronchitis Feb-2 0-201 5 Stephen Ludy. [address] [address], [place], [place], [address], [place]. tel:[phone] Referring Provider: Ludy Shah, [address] [address], [place], [address]. tel:[phone] Offic/outpt E&m Estab [facility], [address], [place], [place], [address] , [place] tel: [phone] [facility] Bipolar depressionAnx iety Dec-1 8-201 4 Stephen Ludy. [address] [address], [place], [place], [address], [place]. tel:[phone] Referring Provider: Ludy Shah, [address] [address], [place], [address]. tel:[phone] Offic/outpt E&m Estab Mod-hi 2 [facility], [address], [place], [place], [address] , [place] tel: [phone] [facility] Bipolar affective disorder Dec-0 3-201 4 Stephen Ludy. [address] [facility] [address], [place], [place], [address], [place]. tel:[phone] Referring Provider: Ludy Shah, [address] [address], [place], [address]. tel:[phone] Offic/outpt E&m Estab [facility], [address], [place], [address] , [place] tel: [phone] [facility] Bipolar depressionAnx ietyVACCINATI ON,INFLUENZAH IGH RISK MEDICATION 4 Stephen Ludy. [address] [address], [place], [place], [address], [place]. tel:[phone] Referring Provider: Harshil Ramírez, [address], [place], [address]. tel:[phone] Offic/outpt E&m Estab [facility], [address], [place], [place], [address] , [place] tel:[phone] [facility] AnxietyNausea & vomitingTinea manuum 4 Stephen Ludy. [address], [id number], [place]. tel:[phone] Referring Provider: Ludy Shah, [address] [place] [address], [place], [address]. tel:[phone] Offic/outpt E&m Estab [facility], [address], [place], [place], [address] , [place] tel: [phone] [facility] Bipolar disorderAnxie tyNausea 4 Stpehen Ludy. [address] [address], [place], [place], [address], [place]. tel:[phone] Referring Provider: Harshil Ramírez, [address] [place] [address], [place], [address]. tel:[phone] Offic/outpt E&m Estab Mod-hi 2 [facility], [address], [place], [place], [address] , [place] tel:[phone] [facility] Bipolar depressionAnx iety 4 Stephen Ludy. [address] [address], [place], [place], [address], [place]. tel:[phone] Referring Provider: Ludy Shah, [address] [address], [place], [address]. tel:[phone] Offic/outpt E&m [facility], [address], [place], [place], [address] , [place] tel:[phone] [facility] [address] BITE, NONVENOMOUS, OTH, MHYPERLIPIDEM IA, UNSPECIFIED 4 Stephen Ludy. [address] [facility] 250, [place], [place], [address], [place]. tel:[phone] Referring Provider: Harshil Ramírez, [address] [place] [address], [place], [address]. tel:[phone] [facility], [address], [place], [place], [address] , [place] tel:[phone] [facility] HX GENITAL OR OB DISORDER,NEC 4 Karlee'Gema Douglass. [address] [facility], [facility] [address], [place], [place], [address], [place]. tel:[phone] Referring Provider: Evonne Ariza, [address] [address], [place], [address]. tel:[phone] [facility], [address], [place], [address] , [place] tel: [phone] [facility] HORMONE REPLACE THERAPY, POSTMENPERSON AL HISTORY OF CERVICAL DYSPLASIAMANI C-DEPRESSIVE PSYCHOSIS, UNSPMENOPAUSA L SYMPTOMS 4 [place] Evonne. [address] [facility], [facility] 250, [place], [place], [address], [place]. tel:[phone] Referring Provider: Evonne Ariza, [address] [facility] 250, [place], [address]. tel:[phone] Offic/outpt E&m [facility] Low-mod 20 [facility], [address], [place], [place], [address] , [place] tel: [phone] [facility] BMI BETWEEN 19-24,ADULT Sarmad-201 3 Agnieszka Goldstein. [address], [place], [place], [address], [place]. tel:[phone] Referring Provider: Harshil Ramírez, [address], [place], [address]. tel:[phone] [facility], [address], [place], [place], [address] , [place] tel: [phone] [facility] EXAM, GENERAL, ROUTINESCREEN , LIPOID DISORDERHYPER LIPIDEMIA, UNSPECIFIEDDE PRESSION, NOS 3 Mark Halina. [address] [facility], [address], [place], [place], [address], [place]. tel:[phone] Referring Provider: Harshil Ramírez, [address] [place] [address], [place], [address]. tel:[phone] Prevent E&m Estab Pt; 40-64 Yr [facility], [address], [place], [place], [address] , [place] tel: [phone] [facility] HEMATURIA UNSPECIFIEDPE RSONAL HISTORY OF CERVICAL DYSPLASIAHORM ONE REPLACE THERAPY, POSTMEN 3 Mark Halina. [address] [facility], [address], [place], [place], [address], [place]. tel:[phone] Referring Provider: Harshil Ramírez, [address], [place], [address]. tel:[phone] Prevent E&m Estab Pt; 40-64 Yr [facility], [address], [place], [place], [address] , [place] tel: [phone] [facility] OTHER SPEC AFFECTIVE PSYCHOSESHORM ONE REPLACE THERAPY, POSTMEN 0 2 Mark Halina. [address] [facility], [address], [place], [place], [address], [place]. tel:[phone] Referring Provider: Harshil Ramírez, [address], [place], [address]. tel:[phone] Prevent E&m Estab Pt; 40-64 Yr [facility], [address], [place], [place], [address] , [place] tel: [phone] [facility] HORMONE REPLACE THERAPY, POSTMEN 1 Mark Meade. [address] [facility], [address], [place], [place], [address], [place]. tel:[phone] Referring Provider: Harshil Ramírez, [address], [place], [address]. [phone] Prevent E&m Estab Pt; 40-64 Yr [facility], [address], [place], [place], [address] , [place] tel: [phone] Ramirez Delgado OBGYN EXAM, GYNECOLOGICAL 9 Mark Medae. [address] [facility], [address], [place], [place], [address], [place]. tel:[phone] Referring Provider: Halina Flores, [address] [facility] [address], [place], [address]. [phone] [facility], [address], [place], [place], [address] , [place] tel: [phone] [facility] SCREEN,CA CERVIX 9 Mark Meade. [address] [facility], [address], [place], [place], [address], [place]. tel:[phone] Offic/outpt E&m Estab Mod-hi 2 [facility], [address], [place], [place], [address] , [place] tel: [phone] [facility] CONSTIPATION 9-200 9 Vinny Chua. [address] [place] [address], [place], [place], [address], [place]. tel:[phone] Init Preven E&m New Pt; 40-64 Yr [facility], [address], [place], [place], [address] , [place] tel:[phone] [facility] No Information 8 Mark Meade. [address] [facility], [address], [place], [place], [address], [place]. tel:[phone] Referring Provider: Harshil Ramírez, 9 [address], [place], [address]. tel:[phone] [facility], [address], [place], [place], [address] , [place] tel:[phone] [facility] ALLERGIC RHINITIS OTHER ALLERGENSINUS ITIS, ACUTE, UNSPEC. 8 Ta Cullen. 909 9[facility], [place], [place], [address]. tel:[phone] Referring Provider: Harshil Ramírez, 909 [address], [place], [address]. tel:[phone] Family History Family Member Type Diagnosis Age At Onset Mother Problem (finding) Anxiety, HLD, Menopause, osteoporosis Father Problem (finding) Hypertension, Alcholism grandfather (materna Problem (finding) Alcoholism Maternal Grandmother Problem (finding) Intestinal gang natalia Mother Problem (finding) Hypertension Maternal Grandmother Problem (finding) Breast Cancer Maternal Grandfather Problem (finding) Heart Disease Father Problem (finding) Diabetes, Obesity Mother Problem (finding) Hypertension Maternal Grandmother Problem (finding) Cancer of the B reast: maternal Father Problem (finding) Diabetes Mother Problem (finding) Stroke grandfather (materna Problem (finding) Coronary Heart Disease Maternal uncle Problem prostate cancer Immunizations Vaccine Date Status Comments Flucelvax Quad (6 mos and up ) 0.5mL prefilled syringe, preservative-free administered Source: New Immuniza tion Record Flucelvax Quad (2yrs and up) 0.5mL prefilled syringe, preservative-free administered Source: New Immuniza tion Record COVID-19 Vaccine (Moderna) administered S ource: Source Unspecified COVID-19 Vaccine (Moderna) administered S ource: Source Unspecified Influenza administered Note: Tamia mcleod MA ; Source: New Immunization Record PPV23 (Pneumovax) administered Note: Eleanor Akers MA ; Source: New Immunization Record PCV13 (Prevnar) administered Note: Wang Garcia ; Source: Source Unspecified Payers Payer name Insurance type Covered constitution party ID Authoriza tion(s) [employer] Gold Plus HMO - [employer] MB [id number] [employer] Plus HMO - [employer] MB [id number] [employer] Plus HMO - [employer] MB [id number] Social History Type Description Quantity Date Captured Comments Alcohol Use Details Unknown Caffeine Use Details Unknown Tobacco Use Status No Information Smoking Status No Information Sex Female Sexual Orientation Straight or heterosexual Chief Complaint And Reason For Visit No Information Reason For Referral Reason For Referral No Information Plan Of Treatment Date Type Action Status Goal Influenza vaccin e. Due on due Goal Pap/HPV testing. Due on due Goal HPV. Due on due Goal Mammogram. Due on 5 due Goal Hepatitis C screening due Goal Colonoscopy. Due on 030 due Goal FIT. Due on due Goal Pneumococcal vac cine. Due on due Goal Preventative Exa m. Due on due Goal Depression scree rene. Due on due Goal Td/Tdap vaccine. Due on due Goal Mammogram. Due on 5 due Goal Influenza vaccin e. Due on due Goal HPV. Due on due Goal Pap/HPV testing. Due on due Goal Td/Tdap vaccine. Due on due Goal Hepatitis C screening due Goal Depression scree rene. Due on due Goal Colonoscopy. Due on due Goal FIT. Due on due Goal Preventative Exa m. Due on due Goal Pneumococcal vac cine. Due on due Goal Colonoscopy. Due on due Goal FIT. Due on due Goal Td/Tdap vaccine. Due on due Goal HPV. Due on due Goal Depression scree rene. Due on due Goal Pneumococcal vac cine. Due on due Goal Pap/HPV testing. Due on due Goal Preventative Exa m. Due on due Goal Hepatitis C screening due Goal Mammogram. Due on due Goal HPV. Due on due Goal Mammogram. Due on due Goal Preventative Exa m. Due on due Goal Td/Tdap vaccine. Due on due Goal Pap/HPV testing. Due on due Goal Depression scree rene. Due on due Goal FIT. Due on due Goal Pneumococcal vac cine. Due on due Goal Hepatitis C screening due Goal Colonoscopy. Due on due Goal Td/Tdap vaccine. Due on due Goal Colonoscopy. Due on due Goal Pneumococcal vac cine. Due on due Goal Depression scree rene. Due on due Goal FIT. Due on due Goal HPV. Due on due Goal Pap/HPV testing. Due on due Goal Hepatitis C screening due Goal Preventative Exa m. Due on due Goal Mammogram. Due on due Goal Pneumococcal vac cine. Due on due Goal Pap/HPV testing. Due on due Goal HPV. Due on due Goal FIT. Due on due Goal Td/Tdap vaccine. Due on due Goal Colonoscopy. Due on due Goal Hepatitis C screening due Goal Mammogram. Due on due Goal Depression scree rene. Due on due Goal Preventative Exa m. Due on due Goal Preventative Exa m. Due on due Goal Depression scree rene. Due on due Goal Mammogram. Due on due Goal HPV. Due on due Goal Hepatitis C screening due Goal Pneumococcal vac cine. Due on due Goal Td/Tdap vaccine. Due on due Goal Pap/HPV testing. Due on due Goal FIT. Due on due Goal Colonoscopy. Due on due Goal HPV. Due on due Goal Mammogram. Due on due Goal Pap/HPV testing. Due on due Goal Td/Tdap vaccine. Due on due Goal Depression scree rene. Due on due Goal Pneumococcal vac cine. Due on due Goal Colonoscopy. Due on due Goal Preventative Exa m. Due on due Goal Hepatitis C screening due Goal FIT. Due on due Goal FIT. Due on due Goal Pneumococcal vac cine. Due on due Goal Depression scree rene. Due on due Goal Mammogram. Due on due Goal Hepatitis C screening due Goal HPV. Due on due Goal Preventative Exa m. Due on due Goal Colonoscopy. Due on due Goal Td/Tdap vaccine. Due on due Goal Pap/HPV testing. Due on due Goal FIT. Due on due Goal Td/Tdap vaccine. Due on due Goal Colonoscopy. Due on due Goal HPV. Due on due Goal Pap/HPV testing. Due on due Goal Hepatitis C screening due Goal Preventative Exa m. Due on due Goal Pneumococcal vac cine. Due on due Goal Mammogram. Due on due Goal Depression scree rene. Due on due Goal Pneumococcal vac cine. Due on due Goal Depression scree rene. Due on due Goal FIT. Due on due Goal Hepatitis C screening due Goal HPV. Due on due Goal Pap/HPV testing. Due on due Goal Td/Tdap vaccine. Due on due Goal Mammogram. Due on due Goal Preventative Exa m. Due on due Goal Colonoscopy. Due on due Goal Pap/HPV testing. Due on due Goal HPV. Due on due Goal Preventative Exa m. Due on due Goal Hepatitis C screening due Goal Td/Tdap vaccine. Due on due Goal Mammogram. Due on due Goal Colonoscopy. Due on due Goal Depression scree rene. Due on due Goal Pneumococcal vac cine. Due on due Goal FIT. Due on due Goal Preventative Exa m. Due on due Goal Influenza vaccin e. Due on due Goal Colonoscopy. Due on due Goal Zoster vaccine ( ). Due on due Goal Mammogram. Due on due Goal Pap/HPV testing. Due on due Goal FIT. Due on due Goal Td/Tdap vaccine. Due on due Goal HPV. Due on due Goal Hepatitis C screening due Goal Depression scree rene. Due on due Goal Pneumococcal vac cine. Due on due Goal Td/Tdap vaccine. Due on due Goal HPV. Due on due Goal Mammogram. Due on due Goal Influenza vaccin e. Due on due Goal Colonoscopy. Due on due Goal Hepatitis C screening due Goal Zoster vaccine ( ). Due on due Goal Pneumococcal vac cine. Due on due Goal Preventative Exa m. Due on due Goal FIT. Due on due Goal Depression scree rene. Due on due Goal Pap/HPV testing. Due on due Goal Td/Tdap vaccine. Due on due Goal Pneumococcal vac cine. Due on due Goal Zoster vaccine ( ). Due on due Goal Colonoscopy. Due on due Goal Mammogram. Due on due Goal FIT. Due on due Goal Hepatitis C screening due Goal HPV. Due on due Goal Influenza vaccin e. Due on due Goal Depression scree rene. Due on due Goal Preventative Exa m. Due on due Goal Pap/HPV testing. Due on due Goal Td/Tdap vaccine. Due on due Goal Depression scree rene. Due on due Goal Influenza vaccin e. Due on due Goal Mammogram. Due on due Goal Hepatitis C screening due Goal Pneumococcal vac cine. Due on due Goal Pap/HPV testing. Due on due Goal Preventative Exa m. Due on due Goal Colonoscopy. Due on due Goal HPV. Due on due Goal Zoster vaccine ( 1st). Due on due Goal FIT. Due on due Goal Colonoscopy. Due on due Goal Mammogram. Due on due Goal Zoster vaccine ( 1st). Due on due Goal FIT. Due on due Goal Pap/HPV testing. Due on due Goal Preventative Exa m. Due on due Goal Pneumococcal vac cine. Due on due Goal HPV. Due on due Goal Depression scree rene. Due on due Goal Hepatitis C screening due Goal Influenza vaccin e. Due on due Goal Td/Tdap vaccine. Due on due Goal Zoster vaccine ( ). Due on due Goal Mammogram. Due on due Goal Hepatitis C screening due Goal Depression scree rene. Due on due Goal Pneumococcal vac cine. Due on due Goal Influenza vaccin e. Due on due Goal Td/Tdap vaccine. Due on due Goal Preventative Exa m. Due on due Goal Pap/HPV testing. Due on due Goal HPV. Due on due Goal Colonoscopy. Due on due Goal FIT. Due on due Goal Colonoscopy. Due on due Goal Pneumococcal vac cine. Due on due Goal Depression scree rene. Due on due Goal FIT. Due on due Goal Pap/HPV testing. Due on due Goal Zoster vaccine ( ). Due on due Goal Hepatitis C screening due Goal Mammogram. Due on due Goal Influenza vaccin e. Due on due Goal HPV. Due on due Goal Preventative Exa m. Due on due Goal Td/Tdap vaccine. Due on due Goal Td/Tdap vaccine. Due on due Goal Pneumococcal vac cine. Due on due Goal FIT. Due on due Goal Pap/HPV testing. Due on due Goal Preventative Exa m. Due on due Goal Depression scree rene. Due on due Goal Hepatitis C screening due Goal Colonoscopy. Due on due Goal HPV. Due on due Goal Influenza vaccin e. Due on due Goal Mammogram. Due on due Goal Zoster vaccine ( ). Due on due Goal Colonoscopy. Due on due Goal Hepatitis C screening due Goal Pap/HPV testing. Due on due Goal Pneumococcal vac cine. Due on due Goal FIT. Due on due Goal Preventative Exa m. Due on due Goal Td/Tdap vaccine. Due on due Goal Zoster vaccine ( ). Due on due Goal Influenza vaccin e. Due on due Goal Mammogram. Due on due Goal Depression scree rene. Due on due Goal HPV. Due on due Goal Mammogram. Due on due Goal HPV. Due on due Goal Colonoscopy. Due on 030 due Goal Depression scree rene. Due on due Goal Preventative Exa m. Due on due Goal Hepatitis C screening due Goal Td/Tdap vaccine. Due on due Goal Influenza vaccin e. Due on due Goal Pneumococcal vac cine. Due on due Goal FIT. Due on due Goal Zoster vaccine ( 1st). Due on due Goal Pap/HPV testing. Due on due Goal Mammogram. Due on due Goal Td/Tdap vaccine. Due on due Goal Depression scree rene. Due on due Goal Influenza vaccin e. Due on due Goal Pap/HPV testing. Due on due Goal Colonoscopy. Due on due Goal Preventative Exa m. Due on due Goal FIT. Due on due Goal Pneumococcal vac cine. Due on due Goal Zoster vaccine ( ). Due on due Goal Hepatitis C screening due Goal HPV. Due on due Goal HPV. Due on due Goal Depression scree rene. Due on due Goal Pneumococcal vac cine. Due on due Goal Colonoscopy. Due on due Goal Pap/HPV testing. Due on due Goal Preventative Exa m. Due on due Goal Td/Tdap vaccine. Due on due Goal Zoster vaccine ( ). Due on due Goal Influenza vaccin e. Due on due Goal Hepatitis C screening due Goal Mammogram. Due on due Goal FIT. Due on due Goal Zoster vaccine ( ). Due on due Goal Pap/HPV testing. Due on due Goal Colonoscopy. Due on due Goal Hepatitis C screening due Goal Influenza vaccin e. Due on due Goal Preventative Exa m. Due on due Goal Mammogram. Due on due Goal HPV. Due on due Goal Pneumococcal vac cine. Due on due Goal Td/Tdap vaccine. Due on due Goal Depression scree rene. Due on due Goal FIT. Due on due Goal Mammogram. Due on due Goal Hepatitis C screening due Goal Influenza vaccin e. Due on due Goal HPV. Due on due Goal Preventative Exa m. Due on due Goal Pneumococcal vac cine. Due on due Goal FIT. Due on due Goal Depression scree rene. Due on due Goal Td/Tdap vaccine. Due on due Goal Pap/HPV testing. Due on due Goal Colonoscopy. Due on 030 due Goal Zoster vaccine ( 1st). Due on due Goal Td/Tdap vaccine. Due on due Goal Pap/HPV testing. Due on due Goal FIT. Due on due Goal Depression scree rene. Due on due Goal Mammogram. Due on due Goal Pneumococcal vac cine. Due on due Goal Colonoscopy. Due on due Goal HPV. Due on due Goal Zoster vaccine ( ). Due on due Goal Hepatitis C screening due Goal Preventative Exa m. Due on due Goal Influenza vaccin e. Due on due Goal Influenza vaccin e. Due on due Goal HPV. Due on due Goal Depression scree rene. Due on due Goal Mammogram. Due on due Goal Td/Tdap vaccine. Due on due Goal Hepatitis C screening due Goal Pneumococcal vac cine. Due on due Goal Zoster vaccine ( ). Due on due Goal Preventative Exa m. Due on due Goal Colonoscopy. Due on due Goal Pap/HPV testing. Due on due Goal FIT. Due on due Goal Depression scree rene. Due on due Goal Hepatitis C screening due Goal Zoster vaccine ( ). Due on due Goal HPV. Due on due Goal Pneumococcal vac cine. Due on due Goal Preventative Exa m. Due on due Goal Mammogram. Due on due Goal FIT. Due on due Goal Pap/HPV testing. Due on due Goal Influenza vaccin e. Due on due Goal Td/Tdap vaccine. Due on due Goal Colonoscopy. Due on due Goal Depression scree rene. Due on due Goal Td/Tdap vaccine. Due on due Goal Hepatitis C screening due Goal Pap/HPV testing. Due on due Goal Pneumococcal vac cine. Due on due Goal Colonoscopy. Due on due Goal HPV. Due on due Goal Mammogram. Due on due Goal Preventative Exa m. Due on due Goal FIT. Due on due Goal Influenza vaccin e. Due on due Goal Zoster vaccine ( ). Due on due Goal Pap/HPV testing. Due on due Goal Depression scree rene. Due on due Goal Hepatitis C screening due Goal Colonoscopy. Due on due Goal Td/Tdap vaccine. Due on due Goal Pneumococcal vac cine. Due on due Goal Zoster vaccine ( ). Due on due Goal Mammogram. Due on due Goal Influenza vaccin e. Due on due Goal HPV. Due on due Goal Preventative Exa m. Due on due Goal FIT. Due on due Goal Td/Tdap vaccine. Due on due Goal Pneumococcal vac cine. Due on due Goal HPV. Due on due Goal Influenza vaccin e. Due on due Goal FIT. Due on due Goal Zoster vaccine ( ). Due on due Goal Preventative Exa m. Due on due Goal Hepatitis C screening due Goal Depression scree rene. Due on due Goal Pap/HPV testing. Due on due Goal Colonoscopy. Due on due Goal Mammogram. Due on due Goal Depression scree rene. Due on due Goal Pap/HPV testing. Due on due Goal FIT. Due on due Goal Hepatitis C scre ening. Due on due Goal Zoster vaccine ( ). Due on due Goal Colonoscopy. Due on due Goal Influenza vaccin e. Due on due Goal Preventative Exa m. Due on due Goal Mammogram. Due on due Goal Td/Tdap vaccine. Due on due Goal Pneumococcal vac cine. Due on due Goal HPV. Due on due Goal Mammogram. Due on due Goal HPV. Due on due Goal Colonoscopy. Due on 030 due Goal Depression scree rene. Due on due Goal FIT. Due on due Goal Zoster vaccine ( ). Due on due Goal Pap/HPV testing. Due on due Goal Preventative Exa m. Due on due Goal Pneumococcal vac cine. Due on due Goal Td/Tdap vaccine. Due on due Goal Hepatitis C scre ening. Due on due Goal Influenza vaccin e. Due on due Goal Pneumococcal vac cine. Due on due Goal Pap/HPV testing. Due on due Goal Preventative Exa m. Due on due Goal HPV. Due on due Goal Mammogram. Due on due Goal Td/Tdap vaccine. Due on due Goal Depression scree rene. Due on due Goal Influenza vaccin e. Due on due Goal FIT. Due on due Goal Zoster vaccine ( ). Due on due Goal Hepatitis C scre ening. Due on due Goal Colonoscopy. Due on due Goal HPV. Due on due Goal Td/Tdap vaccine. Due on due Goal Depression scree rene. Due on due Goal Hepatitis C scre ening. Due on due Goal Mammogram. Due on due Goal Zoster vaccine ( ). Due on due Goal Pap/HPV testing. Due on due Goal Preventative Exa m. Due on due Goal Influenza vaccin e. Due on due Goal Pneumococcal vac cine. Due on due Goal Colonoscopy. Due on due Goal FIT. Due on due Goal Pneumococcal vac cine. Due on due Goal Depression scree rene. Due on due Goal FIT. Due on due Goal Preventative Exa m. Due on due Goal HPV. Due on due Goal Influenza vaccin e. Due on due Goal Colonoscopy. Due on due Goal Td/Tdap vaccine. Due on due Goal Pap/HPV testing. Due on due Goal Hepatitis C scre ening. Due on due Goal Zoster vaccine ( 1st). Due on due Goal Mammogram. Due on due Goal Mammogram. Due on due Goal Hepatitis C scre ening. Due on due Goal Preventative Exa m. Due on due Goal Pneumococcal vac cine. Due on due Goal Colonoscopy. Due on due Goal Depression scree rene. Due on due Goal Influenza vaccin e. Due on due Goal Td/Tdap vaccine. Due on due Goal Zoster vaccine ( 1st). Due on due Goal FIT. Due on due Goal HPV. Due on due Goal Pap/HPV testing. Due on due Goal FIT. Due on due Goal Mammogram. Due on due Goal Hepatitis C scre ening. Due on due Goal Zoster vaccine ( 1st). Due on due Goal Pneumococcal vac cine. Due on due Goal Preventative Exa m. Due on due Goal Pap/HPV testing. Due on due Goal Colonoscopy. Due on due Goal Depression scree rene. Due on due Goal Td/Tdap vaccine. Due on due Goal HPV. Due on due Goal Influenza vaccin e. Due on due Goal Zoster vaccine ( ). Due on due Goal Colonoscopy. Due on due Goal Pneumococcal vac cine. Due on due Goal HPV. Due on due Goal Influenza vaccin e. Due on due Goal Preventative Exa m. Due on due Goal Pap/HPV testing. Due on due Goal Depression scree rene. Due on due Goal Hepatitis C scre ening. Due on due Goal Mammogram. Due on due Goal FIT. Due on due Goal Td/Tdap vaccine. Due on due Goal Colonoscopy. Due on due Goal Zoster vaccine ( ). Due on due Goal Pneumococcal vac cine. Due on due Goal Td/Tdap vaccine. Due on due Goal HPV. Due on due Goal Hepatitis C scre ening. Due on due Goal FIT. Due on due Goal Pap/HPV testing. Due on due Goal Influenza vaccin e. Due on due Goal Depression scree rene. Due on due Goal Preventative Exa m. Due on due Goal Mammogram. Due on due Goal Depression scree rene. Due on due Goal Td/Tdap vaccine. Due on due Goal Preventative Exa m. Due on due Goal HPV. Due on due Goal FIT. Due on due Goal Pap/HPV testing. Due on due Goal Hepatitis C scre ening. Due on due Goal Influenza vaccin e. Due on due Goal Pneumococcal vac cine. Due on due Goal Colonoscopy. Due on due Goal Mammogram. Due on due Goal Zoster vaccine ( 1st). Due on due Goal Preventative Exa m. Due on due Goal Mammogram. Due on due Goal Hepatitis C scre ening. Due on due Goal Pap/HPV testing. Due on due Goal Colonoscopy. Due on due Goal FIT. Due on due Goal Td/Tdap vaccine. Due on due Goal Depression scree rene. Due on due Goal Pneumococcal vac cine. Due on due Goal HPV. Due on due Goal Influenza vaccin e. Due on due Goal Zoster vaccine ( 1st). Due on due Goal Td/Tdap vaccine. Due on due Goal Pneumococcal vac cine. Due on due Goal Preventative Exa m. Due on due Goal FIT. Due on due Goal Zoster vaccine ( 1st). Due on due Goal HPV. Due on due Goal Depression scree rene. Due on due Goal Hepatitis C scre ening. Due on due Goal Mammogram. Due on due Goal Influenza vaccin e. Due on due Goal Pap/HPV testing. Due on due Goal Colonoscopy. Due on due Goal Colonoscopy. Due on due Goal Influenza vaccin e. Due on due Goal HPV. Due on due Goal Zoster vaccine ( 1st). Due on due Goal FIT. Due on due Goal Depression scree rene. Due on due Goal Mammogram. Due on due Goal Pap/HPV testing. Due on due Goal Pneumococcal vac cine. Due on due Goal Td/Tdap vaccine. Due on due Goal Hepatitis C scre ening. Due on due Goal Preventative Exa m. Due on due Goal Influenza vaccin e. Due on due Goal Colonoscopy. Due on due Goal Preventative Exa m. Due on due Goal Hepatitis C scre ening. Due on due Goal FIT. Due on due Goal HPV. Due on due Goal Td/Tdap vaccine. Due on due Goal Zoster vaccine ( ). Due on due Goal Pap/HPV testing. Due on due Goal Depression scree rene. Due on due Goal Pneumococcal vac cine. Due on due Goal Mammogram. Due on due Goal Depression scree rene. Due on due Goal FIT. Due on due Goal Preventative Exa m. Due on due Goal Colonoscopy. Due on due Goal Mammogram. Due on due Goal Zoster vaccine ( ). Due on due Goal Td/Tdap vaccine. Due on due Goal Hepatitis C scre ening. Due on due Goal Pap/HPV testing. Due on due Goal Influenza vaccin e. Due on due Goal HPV. Due on due Goal Pneumococcal vac cine. Due on due Goal Mammogram. Due on due Goal HPV. Due on due Goal Colonoscopy. Due on due Goal Zoster vaccine ( 1st). Due on due Goal Pneumococcal vac cine. Due on due Goal Pap/HPV testing. Due on due Goal Preventative Exa m. Due on due Goal Td/Tdap vaccine. Due on due Goal Depression scree rene. Due on due Goal Hepatitis C scre ening. Due on due Goal Influenza vaccin e. Due on due Goal FIT. Due on due Goal Preventative Exa m. Due on due Goal Influenza vaccin e. Due on due Goal Colonoscopy. Due on due Goal Td/Tdap vaccine. Due on due Goal FIT. Due on due Goal Zoster vaccine ( ). Due on due Goal Mammogram. Due on due Goal Pap/HPV testing. Due on due Goal Hepatitis C scre ening. Due on due Goal HPV. Due on due Goal Depression scree rene. Due on due Goal Pneumococcal vac cine. Due on due Goal Zoster vaccine ( 1st). Due on due Goal Pneumococcal vac cine. Due on due Goal Influenza vaccin e. Due on due Goal Mammogram. Due on 5 due Goal Depression scree rene. Due on due Goal Colonoscopy. Due on due Goal Preventative Exa m. Due on due Goal Td/Tdap vaccine. Due on due Goal FIT. Due on due Goal Hepatitis C scre ening. Due on due Goal Pap/HPV testing. Due on due Goal Preventative Exa m. Due on due Goal FIT. Due on due Goal Depression scree rene. Due on due Goal Hepatitis C scre ening. Due on due Goal Influenza vaccin e. Due on due Goal Mammogram. Due on due Goal Zoster vaccine ( 1st). Due on due Goal Pap/HPV testing. Due on due Goal Colonoscopy. Due on due Goal Td/Tdap vaccine. Due on due Goal Pneumococcal vac cine. Due on due Goal Td/Tdap vaccine. Due on due Goal Hepatitis C scre ening. Due on due Goal Depression scree rene. Due on due Goal Mammogram. Due on 3 due Goal FIT. Due on due Goal Pneumococcal vac cine. Due on due Goal Colonoscopy. Due on due Goal Preventative Exa m. Due on due Goal Pap/HPV testing. Due on due Goal Zoster vaccine ( ). Due on due Goal Influenza vaccin e. Due on due Goal Influenza vaccin e. Due on due Goal Zoster vaccine ( ). Due on due Goal Td/Tdap vaccine. Due on due Goal Preventative Exa m. Due on due Goal Depression scree rene. Due on due Goal Colonoscopy. Due on due Goal Hepatitis C scre ening. Due on due Goal Pneumococcal vac cine. Due on due Goal Mammogram. Due on 3 due Goal FIT. Due on due Goal Pap/HPV testing. Due on due Goal Preventative Exa m. Due on due Goal Colonoscopy. Due on due Goal Depression scree rene. Due on due Goal Pap/HPV testing. Due on due Goal Pneumococcal vac cine. Due on due Goal Mammogram. Due on due Goal Influenza vaccin e. Due on due Goal Td/Tdap vaccine. Due on due Goal FOBT. Due on due Goal Influenza vaccin e. Due on due Goal Depression scree rene. Due on due Goal Mammogram. Due on due Goal Pneumococcal vaccine due Goal Colonoscopy. Due on due Goal Preventative Exa m. Due on due Goal Pap/HPV testing. Due on due Goal Td vaccine. Due on due Goal Td/Tdap vaccine. Due on due Goal PAP. Due on due Goal Td vaccine. Due on due Goal Depression scree rene. Due on due Goal Mammogram. Due on due Goal Pap/HPV testing. Due on due Goal Preventative Exa m. Due on due Goal Pneumococcal vaccine due Goal FOBT. Due on due Goal Colonoscopy. Due on due Goal Td/Tdap vaccine. Due on due Goal Influenza vaccin e. Due on due Goal Td vaccine. Due on due Goal Colonoscopy. Due on due Goal Pneumococcal vaccine due Goal Pap/HPV testing. Due on due Goal FOBT. Due on due Goal Influenza vaccin e. Due on due Goal Td/Tdap vaccine. Due on due Goal Mammogram. Due on 3 due Goal Preventative Exa m. Due on due Goal Depression scree rene. Due on due Goal Pap/HPV testing. Due on due Goal FOBT. Due on due Goal Influenza vaccin e. Due on due Goal Depression scree rene. Due on due Goal Colonoscopy. Due on 030 due Goal Td/Tdap vaccine. Due on due Goal Pneumococcal vaccine due Goal Td vaccine. Due on due Goal Mammogram. Due on 3 due Goal Preventative Exa m. Due on due Goal Pap/HPV testing. Due on due Goal Td vaccine. Due on due Goal FOBT. Due on due Goal Depression scree rene. Due on due Goal Influenza vaccin e. Due on due Goal Td/Tdap vaccine. Due on due Goal Pneumococcal vaccine due Goal Preventative Exa m. Due on due Goal Mammogram. Due on 3 due Goal Colonoscopy. Due on due Goal PAP. Due on due Goal Influenza vaccin e. Due on due Goal Mammogram. Due on due Goal Colonoscopy. Due on due Goal Depression scree rene. Due on due Goal Preventative Exa m. Due on due Goal Td/Tdap vaccine. Due on due Goal Pap/HPV testing. Due on due Goal Pneumococcal vaccine due Goal Td vaccine. Due on due Goal FOBT. Due on due Goal PAP. Due on due Goal FOBT. Due on due Goal Colonoscopy. Due on due Goal Td vaccine. Due on due Goal Influenza vaccin e. Due on due Goal Td/Tdap vaccine. Due on due Goal Preventative Exa m. Due on due Goal Depression scree rene. Due on due Goal Pneumococcal vaccine due Goal Pap/HPV testing. Due on due Goal Mammogram. Due on 3 due Goal Preventative Exa m. Due on due Goal Pap/HPV testing. Due on due Goal Td vaccine. Due on due Goal FOBT. Due on due Goal Mammogram. Due on 3 due Goal Influenza vaccin e. Due on due Goal Depression scree rene. Due on due Goal Colonoscopy. Due on due Goal Pneumococcal vaccine due Goal Td/Tdap vaccine. Due on due Goal PAP. Due on due Goal FOBT. Due on due Goal Pap/HPV testing. Due on due Goal Influenza vaccin e. Due on due Goal Pneumococcal vaccine due Goal Depression scree rene. Due on due Goal Td/Tdap vaccine. Due on due Goal Td vaccine. Due on due Goal Preventative Exa m. Due on due Goal Colonoscopy. Due on due Goal Mammogram. Due on 3 due Goal Pap/HPV testing. Due on due Goal Pneumococcal vaccine due Goal Mammogram. Due on 3 due Goal FOBT. Due on due Goal Colonoscopy. Due on due Goal Influenza vaccin e. Due on due Goal Preventative Exa m. Due on due Goal Depression scree rene. Due on due Goal Td/Tdap vaccine. Due on due Goal Td vaccine. Due on due Goal Depression scree rene. Due on due Goal Pneumococcal vaccine due Goal Mammogram. Due on due Goal Influenza vaccin e. Due on due Goal Td/Tdap vaccine. Due on due Goal Pap/HPV testing. Due on due Goal FOBT. Due on due Goal Colonoscopy. Due on due Goal Preventative Exa m. Due on due Goal Td vaccine. Due on due Goal Mammogram. Due on due Goal Colonoscopy. Due on due Goal Influenza vaccin e. Due on due Goal Pap/HPV testing. Due on due Goal Pneumococcal vaccine due Goal Td vaccine. Due on due Goal FOBT. Due on due Goal Depression scree rene. Due on due Goal Preventative Exa m. Due on due Goal Td/Tdap vaccine. Due on due Goal Pneumococcal vaccine due Goal FOBT. Due on due Goal Depression scree rene. Due on due Goal Td vaccine. Due on due Goal Influenza vaccin e. Due on due Goal Mammogram. Due on 3 due Goal Td/Tdap vaccine. Due on due Goal Preventative Exa m. Due on due Goal Colonoscopy. Due on due Goal Pap/HPV testing. Due on due Goal Depression scree rene. Due on due Goal Td vaccine. Due on due Goal FOBT. Due on due Goal Influenza vaccin e. Due on due Goal Colonoscopy. Due on due Goal Mammogram. Due on 3 due Goal Preventative Exa m. Due on due Goal Pneumococcal vaccine due Goal Pap/HPV testing. Due on due Goal Td/Tdap vaccine. Due on due Goal FOBT. Due on due Goal Depression scree rene. Due on due Goal Colonoscopy. Due on due Goal Td/Tdap vaccine. Due on due Goal Td vaccine. Due on due Goal Preventative Exa m. Due on due Goal Pneumococcal vaccine due Goal Mammogram. Due on 3 due Goal Pap/HPV testing. Due on due Goal Influenza vaccin e. Due on due Goal PAP. Due on due Goal FOBT. Due on due Goal Pneumococcal vaccine due Goal Td vaccine. Due on due Goal Preventative Exa m. Due on due Goal Mammogram. Due on due Goal Colonoscopy. Due on due Goal Depression scree rene. Due on due Goal Influenza vaccin e. Due on due Goal Pap/HPV testing. Due on due Goal Td/Tdap vaccine. Due on due Goal Influenza vaccin e. Due on due Goal Pneumococcal vaccine due Goal Colonoscopy. Due on due Goal Pap/HPV testing. Due on due Goal Td/Tdap vaccine. Due on due Goal Depression scree rene. Due on due Goal FOBT. Due on due Goal Td vaccine. Due on due Goal Mammogram. Due on due Goal Preventative Exa m. Due on due Goal Td vaccine. Due on due Goal Mammogram. Due on due Goal FOBT. Due on due Goal Colonoscopy. Due on due Goal Depression scree rene. Due on due Goal Influenza vaccin e. Due on due Goal Pap/HPV testing. Due on due Goal Td/Tdap vaccine. Due on due Goal Pneumococcal vaccine due Goal FOBT. Due on due Goal Pap/HPV testing. Due on due Goal Depression scree rene. Due on due Goal Mammogram. Due on due Goal Td/Tdap vaccine. Due on due Goal Pneumococcal vaccine due Goal Td vaccine. Due on due Goal Influenza vaccin e. Due on due Goal Colonoscopy. Due on due Goal PAP. Due on due Goal Pneumococcal vaccine due Goal Colonoscopy. Due on due Goal Mammogram. Due on due Goal Pap/HPV testing. Due on due Goal FOBT. Due on due Goal Depression scree rene. Due on due Goal Td vaccine. Due on due Goal Influenza vaccin e. Due on due Goal Td/Tdap vaccine. Due on due Goal Depression scree rene. Due on due Goal Influenza vaccin e. Due on due Goal Td/Tdap vaccine. Due on due Goal Pneumococcal vaccine due Goal Td vaccine. Due on due Goal Pap/HPV testing. Due on due Goal FOBT. Due on due Goal Colonoscopy. Due on due Goal Mammogram. Due on due Goal PAP. Due on due Goal Td vaccine. Due on due Goal Depression scree rene. Due on due Goal Colonoscopy. Due on due Goal Td/Tdap vaccine. Due on due Goal Pneumococcal vaccine due Goal Influenza vaccin e. Due on due Goal FOBT. Due on due Goal Mammogram. Due on due Goal Pap/HPV testing. Due on due Goal Td/Tdap vaccine. Due on due Goal Colonoscopy. Due on due Goal FOBT. Due on due Goal Mammogram. Due on due Goal Influenza vaccin e. Due on due Goal Depression scree rene. Due on due Goal Pneumococcal vaccine due Goal Pap/HPV testing. Due on due Goal Td vaccine. Due on due Goal PAP. Due on due Goal Td vaccine. Due on due Goal Depression scree rene. Due on due Goal Mammogram. Due on due Goal Colonoscopy. Due on due Goal FOBT. Due on due Goal Influenza vaccin e. Due on due Goal Pap/HPV testing. Due on due Goal Pneumococcal vaccine due Goal Td/Tdap vaccine. Due on due Goal PAP. Due on due Goal Pneumococcal vaccine due Goal Colonoscopy. Due on due Goal FOBT. Due on due Goal Mammogram. Due on due Goal Influenza vaccin e. Due on due Goal Td vaccine. Due on due Goal Pap/HPV testing. Due on due Goal Td/Tdap vaccine. Due on due Goal Depression scree rene. Due on due Goal PAP. Due on due Goal Pap/HPV testing. Due on due Goal Mammogram. Due on due Goal Colonoscopy. Due on due Goal Influenza vaccin e. Due on due Goal Pneumococcal vaccine due Goal Td/Tdap vaccine. Due on due Goal Td vaccine. Due on due Goal FOBT. Due on due Goal Depression scree rene. Due on due Goal Influenza vaccin e. Due on due Goal Pap/HPV testing. Due on due Goal Colonoscopy. Due on due Goal Td vaccine. Due on due Goal FOBT. Due on due Goal Td/Tdap vaccine. Due on due Goal Pneumococcal vaccine due Goal Mammogram. Due on due Goal Depression scree rene. Due on due Goal Mammogram. Due on due Goal Colonoscopy. Due on due Goal Pneumococcal vaccine due Goal Influenza vaccin e. Due on due Goal Pap/HPV testing. Due on due Goal Td/Tdap vaccine. Due on due Goal Depression scree rene. Due on due Goal Td vaccine. Due on due Goal FOBT. Due on due Goal Colonoscopy. Due on due Goal FOBT. Due on due Goal Pneumococcal vaccine due Goal Mammogram. Due on due Goal Pap/HPV testing. Due on due Goal Td vaccine. Due on due Goal Depression scree rene. Due on due Goal Influenza vaccin e. Due on due Goal Td/Tdap vaccine. Due on due Goal Td/Tdap vaccine. Due on due Goal Td vaccine. Due on due Goal Pap/HPV testing. Due on due Goal Mammogram. Due on due Goal Influenza vaccin e. Due on due Goal FOBT. Due on due Goal Pneumococcal vaccine due Goal Colonoscopy. Due on due Goal Depression scree rene. Due on due Goal PAP. Due on due Goal Depression scree rene. Due on due Goal Pneumococcal vaccine due Goal Mammogram. Due on due Goal Td/Tdap vaccine. Due on due Goal Colonoscopy. Due on due Goal Td vaccine. Due on due Goal FOBT. Due on due Goal Influenza vaccin e. Due on due Goal Pap/HPV testing. Due on due Goal PAP. Due on due Goal Mammogram. Due on due Goal Influenza vaccin e. Due on due Goal Td/Tdap vaccine. Due on due Goal FOBT. Due on due Goal Td vaccine. Due on due Goal Pap/HPV testing. Due on due Goal Depression scree rene. Due on due Goal Colonoscopy. Due on due Goal Pneumococcal vaccine due Goal PAP. Due on due Goal Pap/HPV testing. Due on due Goal Td/Tdap vaccine. Due on due Goal Colonoscopy. Due on due Goal Mammogram. Due on due Goal Pneumococcal vaccine due Goal Influenza vaccin e. Due on due Goal FOBT. Due on due Goal Depression scree rene. Due on due Goal Td vaccine. Due on due Goal Mammogram. Due on due Goal FOBT. Due on due Goal Pap/HPV testing. Due on due Goal Depression scree rene. Due on due Goal Td vaccine. Due on due Goal Td/Tdap vaccine. Due on due Goal Pneumococcal vaccine due Goal Influenza vaccin e. Due on due Goal Colonoscopy. Due on due Goal Pneumococcal vaccine due Goal Td/Tdap vaccine. Due on due Goal Depression scree rene. Due on due Goal Colonoscopy. Due on due Goal FOBT. Due on due Goal Influenza vaccin e. Due on due Goal Pap/HPV testing. Due on due Goal Td vaccine. Due on due Goal Mammogram. Due on due Goal FOBT. Due on due Goal Td vaccine. Due on due Goal Pap/HPV testing. Due on due Goal Influenza vaccin e. Due on due Goal Depression scree rene. Due on due Goal Pneumococcal vaccine due Goal Td/Tdap vaccine. Due on due Goal Mammogram. Due on 3 due Goal Colonoscopy. Due on due Goal Mammogram. Due on 3 due Goal Influenza vaccin e. Due on due Goal FOBT. Due on due Goal Depression scree rene. Due on due Goal Td/Tdap vaccine. Due on due Goal Pap/HPV testing. Due on due Goal Pneumococcal vaccine due Goal Td vaccine. Due on due Goal Colonoscopy. Due on due Goal PAP. Due on due Goal Td vaccine. Due on due Goal FOBT. Due on due Goal Colonoscopy. Due on due Goal Mammogram. Due on due Goal Tdap. Due on due Goal Lipid panel. Due on due Goal Influenza vaccin e. Due on due Goal Pneumococcal vaccine due Goal Depression scree rene. Due on due Goal Pap/HPV testing. Due on due Goal Tdap. Due on due Goal Pneumococcal vaccine due Goal Depression scree rene. Due on due Goal Td vaccine. Due on due Goal FOBT. Due on due Goal Influenza vaccin e. Due on due Goal Pap/HPV testing. Due on due Goal Lipid panel. Due on due Goal Mammogram. Due on due Goal Colonoscopy. Due on due Goal Depression scree rene. Due on due Goal Lipid panel. Due on due Goal Tdap. Due on due Goal Pap/HPV testing. Due on due Goal Mammogram. Due on due Goal Td vaccine. Due on 20 due Goal Pneumococcal vaccine due Goal FOBT. Due on due Goal Influenza vaccin e. Due on due Goal Colonoscopy. Due on 030 due Goal Pneumococcal vaccine due Goal FOBT. Due on due Goal Colonoscopy. Due on 030 due Goal Lipid panel. Due on 025 due Goal Tdap. Due on due Goal Depression scree rene. Due on due Goal Td vaccine. Due on due Goal Mammogram. Due on 1 due Goal Influenza vaccin e. Due on due Goal Pap/HPV testing. Due on due Goal PAP. Due on due Goal Td vaccine. Due on 20 due Goal Tdap. Due on due Goal Mammogram. Due on 0 due Goal Pneumococcal vaccine due Goal Colonoscopy. Due on 020 due Goal Lipid panel. Due on 025 due Goal Cologuard. Due on 0 due Goal FOBT. Due on due Goal Depression scree rene. Due on due Goal Pap/HPV testing. Due on due Goal Influenza vaccin e. Due on due Referral Referred To: Varun Soto MD [address] [facility] [place], [address] [phone] Ordered: Referrals: Neurology. Varun Soto MD Appointment date/timeframe: 2 (within 7 days) ordered Referral Referred To: Winston Gauthier DO [address] [place], [place], [phone] Ordered: Referrals: Neurology. Winston Gauthier DO. Evaluate and treat Appointment date/timeframe: 09/12/2024 ordered Referral Referred To: Dr. Camron Hinton [address] [place], [address] [phone] Ordered: Referrals: Neurology. Dr. Camron Hinton. Evaluate and treat Appointment date/timeframe: 1 (within 24 hrs) ordered Referral Referred To: [facility] [place] [address] [facility] [address] [place], [id number] [phone] Ordered: XR Femur Left Min 2 Views ordered Referral Referred To: [facility] [place] [address] [facility] [address] [place], [id number] [phone] Ordered: MRI Brain/IAC/Pituitary w/out contrast Appointment date/timeframe: 3 (within 30 days) ordered Referral Referred To: Chadnu Angelo DO [address] [facility]
[address] [place], [address] [phone] Ordered: Referrals: Gastroenterology. Chandu Angelo DO. Evaluate and treat Appointment date/timeframe: 3 (within 30 days) ordered Referral Referred To: Arcadio Churchill MD [address] [facility]
[address] [place], [place], [id number] [phone] Ordered: Referrals: Gastroenterology. Arcadio Churchill MD. Evaluate and treat Appointment date/timeframe: 2 (within 7 days) ordered Referral [place]: [place] [address] [facility]
[address] [place], [place], [id number] [phone] Ordered: Referrals: Gastroenterology. Anam Bowman MD. Evaluate and treat Appointment date/timeframe: 1 (within 24 hrs) ordered Referral Referred To: Jhonny Medina MD [address] [facility]
[address] [place], [place], [id number] [phone] Ordered: Referrals: Gastroenterology. Jhonny Medina MD. Evaluate and treat Appointment date/timeframe: 3 (within 30 days) ordered Referral Referred To: [facility] [place] [address] [facility] [address] [facility] [address] [phone] Ordered: Mammogram Screen 3D w/ addl views/US if indicated Appointment date/timeframe: 3 (within 30 days) ordered Referral Referred To: Yary Kennedy MD [address] [facility] [address] [place], [place], [id number] [phone] Ordered: Referrals: Dermatology. Yary Kennedy MD. Evaluate and treat Appointment date/timeframe: 2 (within 7 days) ordered Referral Referred To: Ria Daily MD [address] [facility] [address] [place], [place], [phone] Ordered: Referrals: Neurology. Ria Daily MD. Evaluate and treat Appointment date/timeframe: 3 (within 30 days) ordered Referral Referred To: Dr Sameer Orlando Ordered: Referrals: Surgery - Vascular. Dr Sameer Orlando. Evaluate and treat Appointment date/timeframe: 2 (within 7 days) ordered Referral Referred To: Dereck Robles M.D. [address] [place] [address]
[facility] [address] [place], [phone] Ordered: Referrals: Surgery - Vascular. Dereck Robles M.D.. Evaluate and treat Appointment date/timeframe: 1 (within 24 hrs) ordered Referral Referred To: [facility] [place] [address] [facility] [address] [place], [address] [phone] Ordered: Mammogram Screening 3D w/ additional views and/or US if indicated Appointment date/timeframe: 3 (within 30 days) ordered Referral Referred To: Dr. Herminio Ya [address] [place], [phone] Ordered: Referrals: Endocrinology. Dr. Herminio Ya. Evaluate and treat Appointment date/timeframe: 07/23/2022 ordered Referral Referred To: Jhonny Medina MD [address] [facility]
[address] [place], [place], [id number] [phone] Ordered: Referrals: Gastroenterology. Jhonny Medina MD. Follow-up and treat Appointment date/timeframe: 12/12/2021 ordered Referral Referred To: [facility] [place] [address] [facility] [address] [place], [phone] Ordered: CT Abdomen and pelvis w/ and w/out contrast ordered Referral Referred To: [facility] [address] [place], [id number] [phone] Ordered: US Renal Appointment date/timeframe: prior to next appointment ordered Referral Referred To: [facility] [address] [place], [id number] [phone] Ordered: XR Abdomen 1 view (KUB) ordered Referral Referred To: Bashir Johnston MD [address] [facility]
[address] [place], [place], [id number] [phone] Ordered: Referrals: Surgery - General. Bashir Johnston MD. Evaluate and treat Appointment date/timeframe: 06/26/2021 ordered Referral Referred To: [facility] [address] [facility]
[address] [place], [place], [id number] [phone] Ordered: Referrals: Gastroenterology. [facility]. Evaluate and treat Appointment date/timeframe: 3 (within 30 days) ordered Referral Referred To: [facility] [address] [place], [place], [id number] [phone] Ordered: Referrals: Psychiatry. [facility]. Evaluate and treat Appointment date/timeframe: 1 (within 24 hrs) ordered Referral Referred To: Camron Garcia MD [address] [place], [place], [id number] [phone] Ordered: Referrals: Urology. Camron Garcia MD. Evaluate and treat Appointment date/timeframe: 06/12/2021 ordered Referral Referred To: [facility] [place] [address] [facility] [address] [place], [address] [phone] Ordered: US Abdomen complete ordered Referral Referred To: Dr Gabriele [place], [place] [phone] Ordered: Referrals: Psychiatry. Evaluate and treat Appointment date/timeframe: 3 (within 30 days) ordered Referral Referred To: Gil Cohen MD [address] [facility]
[address] [place], [place], [phone] Ordered: Referrals: ENT. Gil Cohen MD. Evaluate and treat ordered Referral Referred To: Dr Saul Valdez
[address] [place], [address] [phone] Ordered: Referrals: Neurology. Evaluate and treat ordered Referral Referred To: Marjorie Franco MD [address] [facility]
[address] [place], [place], [id number] [phone] Ordered: Referrals: Neurology. Marjorie Franco MD. Evaluate and treat Appointment date/timeframe: 5 (no timeframe) ordered Referral Referred To: Ria Daily MD [address] [facility]
[address] [place], [place], [phone] Ordered: Referrals: Neurology. Ria Daily MD ordered Referral Referred To: [facility] [address] [facility] [address] [place], [address] [phone] Ordered: Diagnostic Order: XR Abdomen 2 views ordered Referral Referred To: Braden Kilgore DO [address] [facility]
[address] [place], [place], [id number] [phone] Ordered: Referrals: Urology - Braden Kilgore DO ordered Referral Referred To: Greg Stringer MD [address] [place], [place], [id number] [phone] Ordered: Referrals: Orthopedics - Greg Stringer MD ordered Future Order: Radiology Order US Renal ([id number]), Sent on: Sent Future Order: Radiology Order XR Abdomen 1 view (KUB) ([id number]), Sent on: Sent Future Order: Radiology Order XR Abdomen 1 view (KUB) ([id number]), Sent on: Sent History Of Present Illness Encounter Date Complaint History Of Mindy nt Illness Monthly f/u ER f/u- [facility] for headaches, nausea, vomiting, dizzinessHead CT was WNLShe has been having post concussive headaches and short term memory problemsIs wanting to see Neurology.She was referred to DR. Ria Daily but soonest appt is in DecShe was given rx for Fioricet but hasn't picked it up yet chronic conditions *See Chronic Conditions HPI hospital follow up 07/11 went to [facility] after standing up quickly and hitting her head on the grocery cart handlestates shes sore, nauseated but ct head/neck was negative. was given methocarbamol but isnt taking-is having neck spasms chronic conditions *See Chronic Conditions HPI ER f/u She went to [facility] ER on 07/04 after falling 4 feet off a ladder- she was coming down from her attic. She hit her head on concreted, right elbow and right hipHead CT: normalCervical spine CT : normalCT CAP: nothing acuteR hip and R elbow xrays: nothing acuteShadair was given rx for Monette 20 pills- but she didn't even fill this. She says her insurance won't cover it b/c she is on KlonopinShe has soreness- no acute pain.She has an old rx of Tylenol #3 from 05/31/24 for 15 pills. She has been taking this- but has 4 pills left. chronic conditions *See Chronic Conditions HPI ER f/u She went to [facility] ER on 06/27 for:RUQ pain that radiates to the chest, nausea, diarrhea.She had CBC, CMP, Trop, Lipase, U/ACXR: normalAbd U/S: normal gallbladder, fatty liver, nonobst R renal calculi, no hydronephrosis.She felt her pain was more related to anxiety and stressShe was discharged home.Her anxiety symptoms flare with stress hospital follow up went to [facility] for n/v/dct abd pelvis showed cervical mass that could be fibroid or cancer-this caused her to have a panic attack-psych was consulted. she denies wanting to hurt herself or anyone else. sees therapy weekly. has no computer/cell phone. we have tried mult times to find her psych covered by [employer] w/ no avail. she does not want to change any meds.has upcoming head sampler appt on 06/24 w/ erendira jorgensenhaving more solid bowel movementsno fevers chronic conditions *See Chronic Conditions HPI telemed Patient initiate d telemedicine visit via audio/video platform to discuss follow up. 50 minutes were spent providing care, treatment, and recommendations over telemedicine with the patient while they are alone in a private environment, with the patient's consent.- She went to [facility] on Thursday for the rash/bug bites. It was recommended for her to take Xyzal instead of Claritin. She was also prescribed an antifungal and steroids cream. She decided not to try Xyzal or the creams. Her mother also has a rash, but unsure if it is the same as hers. - Bipolar - she has been more stable lately. Continues Latuda 20mg, Seroquel 75mg in the morning and 800mg in the evening, Buspirone BID. She has a new therapist via telemedicine and has had 1 appt. She is happy with her so far. - GI symptoms have been better lately. Recent history of C. diff that was very difficult to treat over the past few months. Also seeing GI, Dr Medina. No recent infectious diarrhea and her symptoms have resolved. She does have chronic episodic diarrhea, but she says her symptoms have returned to her normal baseline. She has not had any recent constipation.- Pt is tearful and anxious about the transition to a new doctor. I reassured her that she is in good hands. Lengthy conversation with pt today. HOF Nausea vomiting and diarrhea/Diarrhea, unspecified:Reason for Hospitalization: None, was an ED visit.Duration of Hospitalization: ED visit on 05/31/24 and 05/28/24.Hospital Records Reviewed: Yes.What factors led to the ER/Hospital Visit: Constant abdominal pain ongoing for a while, and was seen 3 days prior for similar symptoms including flu-like symptoms.What Medications Were Added: Ciprofloxacin for 3 days, dicyclomine 3 4 times a day and 2 times today, Zofran as needed-given on 05/28/24 and Tylenol 3-given on 05/31/24 but not feeling well on it, so she will continue with dicyclomine only.What Medications Were Continued: Benztropine, buspirone 15 mg twice day, Clarinex D as needed, clonazepam 4 times a day, desvenlafaxine 25 mg, estradiol, fluticasone, Latuda, meclizine as needed, medroxyprogesterone, Nicorette gum, omeprazole, promethazine as needed for nausea, Seroquel 25 mg 3 tablets every morning, Seroquel 400 mg 3 tablets at bedtime, Valtrex as needed.Status of Medical Issue: Nausea, vomiting subsided but continues to have sore abdomen which feels like muscles hurting after 1000 sit-ups . Has intermittent diarrhea-liquid diarrhea last night followed by clumps for a while then went back to liquid diarrhea again. Symptoms improved as she took Imodium. No constipation.She stated that she has not been taking vitamin D 00412 IU for a while as it caused stomach discomfort and is on monthly dose. States she was informed by the doctors at the ED that she is not supposed to take vitamin D 10611 IU, and maximum is 8980-8768 IU. Restarted it on Thursday.Last vitamin D level was 43.1 ng/ml in 03/2023.Later informed it could be food poisoning or bug bite.Last GI Dr. Medina consult was on 01/2024 for IBS symptoms and was tested for C. Diff and norovirus. CT showed large amount of stools in the colon. If C. Diff stool studies came negative and Linzess/CIC trt did not help then was recommended updated colonoscopy evaluation. Requests to check with GI as she wants to switch to another GI group.Bug bite, subsequent encounter:She has bug bite on the leg, and microscopic exam showed it was not a flea/tick bite. States they were unsure of the exact etiology and was advised to see dermatology which she plans to go in tomorrow. telemed/HFU Patient initiate d telemedicine visit via audio/video platform to discuss follow up. 35 minutes were spent providing care, treatment, and recommendations over telemedicine with the patient while they are alone in a private environment, with the patient's consent.- Hospital follow up - pt went to [facility] ER on 04/06/24 for abdominal pain and chest pain. She has had increased panic attacks and felt like she was having chest pain. Tomorrow she has a [employer] meeting which is causing a lot of stress and anxiety. She continues to weakness in bilateral thighs, but no further chest pain. She was given Cyclobenzaprine 10mg up to 3 times daily prn. She did not feel well on it and has not taken it again. - We discussed that I will be leaving Jun 09 and this is causing her more anxiety. She would like to follow up with Dr Lobo. 108/78P 91 chronic conditions *See Chronic Conditions HPI telemed Patient initiate d telemedicine visit via audio/video platform to discuss memory concerns. 44 minutes were spent providing care, treatment, and recommendations over telemedicine with the patient while they are alone in a private environment, with the patient's consent.- Hospital follow up - Pt went to [facility] in [place] for constipation on 03/24/24. All labs, including lipase, UA normal. CT abdomen showed moderate amount of stool. Given Zofran and Mag Citrate and discharged 03/24/24. - She drank Suprep last Thursday and she was able to clear out her bowels and felt much better. She says she was able to excrete a large amount of feces. Symptoms started again on thursday with low grade fever, abdominal pain, cramping, low back pain. She feels that her C diff has returned. 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 Last EGD was 10/2023. - Concerned about short term memory, as discussed at previous visit. She says this has improved slightly compared to last visit. Has had recent headaches and dizziness as well. Last MRI brain was with Dr Daily in 2018 at [place] due to concussion. It was normal. She is scheduled for repeat MRI scan and planning to get this soon. 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 BP 107/[id number] 99.1 chronic conditions *See Chronic Conditions HPI chronic conditions *See Chronic Conditions HPI telemed Patient initiate d telemedicine visit via audio/video platform to discuss memory concerns. 44 minutes were spent providing care, treatment, and recommendations over telemedicine with the patient while they are alone in a private environment, with the patient's consent.- Concerned about short term memory. She has been having trouble remembering things like dates, why she went into a room, directions, etc. Started about 2 weeks ago. Has had recent headaches and dizziness as well. Last MRI brain was with Dr Daily in 2018 at [place] due to concussion. It was normal. She has increased anxiety lately due to going through Bankruptcy.- She recently tried Prozac 10mg but only took it for 2 days, then caused side effects. She stopped it and those side effects resolved. Lab - CBC, CMP, Mag, Vit D, Vit B12 - return to clinic for lab appt. MRI Brain with and without contrast to [facility] for memory changes telemed Patient initiate d telemedicine visit via audio/video platform to discuss follow up. 35 minutes were spent providing care, treatment, and recommendations over telemedicine with the patient while they are alone in a private environment, with the patient's consent.- Pt was admitted to hospital at [facility] 01/29/24-01/30/24 for abdominal pain. She tested negative for C. diff. Repeated test here was also negative. She alternated zofran and promethazine for nausea prn. - She continued Linzess for constipation with overflow diarrhea. She continues to follow up with Dr Medina, GI. She says the Linzess cleared her constipation. She has stopped it and will take it only as needed for constipation. - She says her Seroquel has helped for her to get good sleep to improve her illness. chronic conditions *See Chronic Conditions HPI hospital follow up went to [facility] 01/19 for cdiff difficulties, abd painCT abd pelvis unremarkable other than bilat non obstructing kidney stones, small pericardial effusion. they recommended she try flagyl. she is confused on if she should do this but very worried if she doesnt she will get worse.was given morphine/zofran. dc'd w/ bentyl/zofran/meclizinetoday having diarrhea about 3-4x/day>started to get more formed. associated nausea/weakness/vomitingdid do the suprep rec by dr. costello day 8 of dificid. completed vanc course prior to this.wants to see someone different than dr. medina.still having some memory problems remembering names etc-refusing to see tasha although they've called her multiple times to try to schedule. Telemed Patient initiate d telemedicine visit via audio/video platform to discuss hospital follow up. 45 minutes were spent providing care, treatment, and recommendations over telemedicine with the patient while they are alone in a private environment, with the patient's consent.- Hospital follow up - She went to [facility] yesterday for continued diarrhea, abdominal cramping. She left stool sample last week and results yesterday showed positive for C Diff again. Given Dificid. Patient states that no one called and told her that she was positive for C diff. - She went to Dr Medina office yesterday and saw his PA. Was informed that she still has C. diff. Was prescribed Sutab and Linzess 72mcg. Samples given. Highly suspicious for overflow diarrhea from constipation. She is hesitant to take Sutab. - Causing high anxiety and worsening bipolar symptoms. Send copy of 01/08/[address] Medina.Encouraged her to take Sutab for bowel prep cleanse. Encouraged her to start the following day Dificid twice daily x 10 days. Encouraged her to start Linzess after she completes Dificid if still having constipation. chronic conditions *See Chronic Conditions HPI other worsening nausea /diarrhea 4-5x/day/dizziness/weakness. she feels like cdiff is back-stools are dark brown/green and malodorous worried as temp increasingdrinking pedialyte/liquid iv, tolerating some small amts of foods. since having c diff has had generalized abd pain and this hasnt changed. taking dicyclomine 40, promethazine, reglan/zofran doesnt helpworried as her temp is going from 98-99.4 last temp medicare preventive MAV -Pt here for [facility] annual with fasting labs. Pt is fasting.- Last Mammogram - 10/2022. - Last Pap Smear - 07/2022. Normal. - Recent stool studied negative for C diff and Norovirus. Completed Vancomycin oral treatment. She continues to follow up with GI, Dr Medina. She had a traumatic hospital experience that is still causing her anxiety. Scheduled for telemed visit with Dr Medina today. Her symptoms are back to her baseline alternating diarrhea, constipation, and mild nausea. - Unable to test stool for listeria, as pt requested for. She says she eats a lot of premade foods from grocery store and heard about a recent outbreak. Vaccines:- Flu - due now- Tdap - due now. Out of stock- Shingles - Fasting labs - Senior panel , [facility] visit chronic conditions *See Chronic Conditions HPI Telemed Patient initiate d telemedicine visit via audio/video platform to discuss hospital follow up. 45 minutes were spent providing care, treatment, and recommendations over telemedicine with the patient while they are alone in a private environment, with the patient's consent. - Hospital follow up - She went to [facility] ER on 12/07/23 for abdominal pain, cramping, diarrhea. Was discharged home from the ER. Reglan ODT, Bentyl 20mg TID prn abdominal cramping, Zofran ODT prn N/V, Florastor 250mg BID, Promethazine prn N/V, meclizine prn. CT abdomen showed moderate stool, no acute findings. She has been taking Miralax and enemas to relieve constipation. She was also given GoLytely from ER. - She then went to [facility] yesterday 12/09/23 for continued symptoms from above. She was discharged from the ER and continues to have nausea, abdominal pain, back pain. She says her BMs are improved. She is no longer dehydrated. Urinating well and light yellow color. - Recent stool test with GI, Dr Medina, showed C. diff on 12/01/23. Was prescribed oral vancomycin which required PA and she was able to get it. She is on Day 2 out of 14 of Vancomycin treatment. Vitals:T 99.1BP 114/86P 102Continue Vancomycin until completed.Reviewed and discussed recent hospital ER visit. Telemed Telemed Patient initiate d telemedicine visit via audio/video platform to discuss hospital follow up. 45 minutes were spent providing care, treatment, and recommendations over telemedicine with the patient while they are alone in a private environment, with the patient's consent. - Hospital follow up - pt went to [facility] ER on 11/15/23 and 11/16/23 c/o diarrhea and abdominal pain - diffuse, constant, radiates to back. She was admitted on 11/16/23. EKG normal, labs normal, CT Abd shows no acute process. Given IV Rocephin, Flagyl, Morphine, and normal saline. Admitted with diagnosis of acute gastroenteritis, likely viral. Discharged 11/17/23 on Metronidazole 500mg 3 times daily. She is very unhappy that the hospital tried to change her medications while she was in there. Her anxiety is high over this. - She continues to have low grade, fever, headache, chills, body aches, nausea, vomiting, diarrhea. She called doctor distribution engineering technologist and increase dicyclomine to 3 times daily. She continues to have left lower quadrant abdominal pain. She called Dr Medina GI. He says he wants to run further stool studies. She previously tested positive for Norovirus but her symptoms should have passed by now. - Called in October to renew PA for Latuda which is not on formulary with her insurance. She was able to get it for November, but now it is out of pocket unless we complete prior authorization. 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 She was finally able to get refills after many phone calls. Expedited PA for Souleymane. chronic conditions *See Chronic Conditions HPI telemed DID NOT SEE P T THIS DAY. NO ANSWER Telemed Patient initiate d telemedicine visit via audio/video platform to discuss hospital follow up. 45 minutes were spent providing care, treatment, and recommendations over telemedicine with the patient while they are alone in a private environment, with the patient's consent. - Hospital follow up - [facility]23 c/o chest and abdominal pain. This was following finding a bug in her food which caused a panic attack. She went to [employer] which still having high anxiety but she felt overwhelmed and passed out. She was able to make it home, but she was still out of it , so EMS suggested going to hospital. She went to [facility] ER. BP slightly elevated in ER but improved. Her potassium level was low and she was given potassium tablets. - She said she also had flu like symptoms - nausea, vomiting, fever. Recent diagnosis from GI doctor of Norovirus but her symptoms have resolved. - She says she got a call from [facility] regarding follow up on a complaint, but patient states she did not file a complaint. - Letter from patient stated that Valacyclovir refill was denied due to no diagnosis code. Refill sent 09/25/23. - She is having difficulty getting Seroquel 25mg and 400mg, and Clonazepam refilled every month. Clonazepam last filled 10/22/23.- She continues to follow up with Therapist. Her therapist had COVID and Hepatitis and had to put her dog down recently. Her therapist recently tried to commit suicide. She was sent to the psychiatric hospital where some of her patients also were. Her therapist has quit her practice. Clonazepam added to refill calendar. Seroquel refills chronic conditions *See Chronic Conditions HPI chronic conditions *See Chronic Conditions HPI telemed Patient initiate d telemedicine visit via audio/video platform to discuss hospital follow up. 30 minutes were spent providing care, treatment, and recommendations over telemedicine with the patient while they are alone in a private environment, with the patient's consent.- Hospital Follow up - Pt went to [facility] ER this morning on 10/05/23 for abdominal cramping and GI spasms. Her GI doctor recommended that she go to ER. She thinks it is due to Norovirus being found in her stool sample. She was given Maalox-Lidocaine which helped. She is taking it 3 times daily as needed. She was also given Dicyclomine as needed for stomach cramps. She continues Promethazine 25mg as needed for nausea. She continues Meclizine as needed for vertigo. She also has Metoclopramide as needed for nausea and vomiting. - She continues Clonazepam 0.5mg up to 4 times daily for severe anxiety related to bipolar disorder. Clonazepam refill calendar to send on 10/19/23 telemed Patient initiate d telemedicine visit via audio/video platform to discuss follow up. 35 minutes were spent providing care, treatment, and recommendations over telemedicine with the patient while they are alone in a private environment, with the patient's consent.- She continues Clonazepam 0.5mg up to 4 times daily for severe anxiety. - She saw GI, Dr Medina, for Castro. Scheduled for EGD 10/2023. Continues Omeprazole 40mg daily. She says it works very well. Colonoscopy 2024. She is considering joining a group for GI symptoms and psychiatric conditions. - Bipolar - she says symptoms have been pretty bad . She decided not to try Rexulti due to being scared of the side effects. She described increased depression and anxiety. She has had a stalker who is her next door neighbor which has increased her anxiety. She has not been able to schedule appt with her therapist due to her being out sick with COVID. BP 109/71, P 71 chronic conditions *See Chronic Conditions HPI chronic conditions *See Chronic Conditions HPI Telemed Patient initiate d telemedicine visit via audio/video platform to discuss hospital follow up. 45 minutes were spent providing care, treatment, and recommendations over telemedicine with the patient while they are alone in a private environment, with the patient's consent. Date of ER visit: 07/13/23 to [facility]. Presenting Symptom: left sided chest pain which she attributes to panic attacks. Started Thursday at 1:30am. Lasted a minute and would subside, then an episode did not resolve and she went to ER. Duration of Hospitalization: 2 hours in ER. Not admitted. Discharge home. Hospital Records Reviewed. They gave her phenergan, morphine, and IV fluids. Symptoms resolved. Medication changes: noneThe patients current medication list and ER discharge medication list were reviewed and updated in the EMR with regards to any changes made during hospitalization.Status of Medical Issue: chest pain has resolved, but panic attacks continue. Anxiety has been high since her dog . Her therapist had to cancel her last visit and this has also increased her anxiety lately. Follow up recommended:Hospital follow upRx Rexulti 0.25mg daily. If not covered, I recommend [employer] Patient Assistance Program. Please call my office if not covered by insurance. Will print out application and complete my portion, then mail to patient. Recommended avoiding Reglan if possible while taking Rexulti.Increase Clonazepam 0.5mg to up to 4 times daily. chronic conditions *See Chronic Conditions HPI OV -Pt c/o possible bites on her ankles, legs and back been going on x1 month. Noticed small black round bugs in bathroom and kitchen coming out of the pipes. She says it is not a psychosis episode. Her mother has seen a few ones as well, but they are not biting her. Pest control came and told her they are gnats and they would go away. They didnt go away and she noticed a different type of bug. She noticed when she would shave that she would get a rash from shaving over the bug bite areas. She has not been outside. She put our sticky pads to catch the bugs. She is concerned they could be ticks. She says she has to remove one of the bugs with a razor. She is using Dial soap and no changes in soaps, detergents, food, activities, etc. - She recently got a Parakeet and named her Dr Lei Meneses [employer] Doxycycline Avoid shaving until rash has resolved. chronic conditions *See Chronic Conditions HPI telemed Patient initiate d telemedicine visit via audio/video platform to discuss follow up. 35 minutes were spent providing care, treatment, and recommendations over telemedicine with the patient while they are alone in a private environment, with the patient's consent.- At last appt we increased Buspirone to 15mg BID. She continues Clonazepam 0.5mg 3 times daily, Pristiq 25mg daily, Latuda 20mg daily, Seroquel 400mg every evening and 25mg every morning. She denies suicidal ideations. She says her anxiety and grieving has been very high lately due to the loss of her dog, Peanut. JOESPH 102/77, pulse 120. She took another Clonazepam and 1/2 seroquel and her symptoms of chest tightening and tachycardia improved. She has a lot od ruminating thoughts about making the decision to put her dog down. She thinks she may be having auditory hallucinations because she thinks she is hearing her dog call out to her. She says she recognizes this is a hallucination and she is able to ignore until she no longer hears it.- Sent Mometasone cream for her ankles due to itching from chigger bites . chronic conditions *See Chronic Conditions HPI telemed Patient initiate d telemedicine visit via audio/video platform to discuss follow up. 38 minutes were spent providing care, treatment, and recommendations over telemedicine with the patient while they are alone in a private environment, with the patient's consent.- Her dog, Peanut, recently and she has been having a lot of anxiety over it. She was started on Buspirone 10mg BID about 2 weeks ago. She says it is taking the edge off without negative side effects. She continues Clonazepam 0.5mg 3 times daily, Pristiq 25mg daily, Latuda 20mg daily, Seroquel 400mg every evening and 25mg every morning. She denies suicidal ideations. She says she feels like sleeping or crying all day. Each day is getting a little easier. Increase Buspirone to 15mg twice dailyRefill Generic Valtrex 500mg, Vit D MAV -Pt here for med [facility] annual w/ fasting labs. - Last Mammogram - 10/2022. Normal. - Last Pap Smear - 2021, normal. - Last Colon Screening - Colonoscopy 05/[address] Medina. Repeat in 5 yrs. Due to repeat 2024. - She has concerns about her recent memory changes over the past about 6 weeks. She has noticed difficulty remembering why she went to rooms, forgetting directions, forgetting what she is saying in the middle of conversations. She is concerned that this could be due to brain damage from higher progesterone use over the past year. She continues to have insomnia and will be awake all night and nap during the day. She typically gets about 8 hours of sleep over 24 hour period but broken into naps. She is taking Seroquel 25mg 3 every morning and Seroquel 400mg 1/2 tablet at 12:30pm and 1.5 tabs at 6pm. She takes Clonazepam 0.5mg in the morning, at noon, and 6pm. - She recently dropped the claim against [employer] due to needing a medical malpractice employment attorney. She has been in this lawsuit since Jul 2021. She is also having to claim bankruptcy and this is causing increased stress. Fasting labs, Vitamin B12, Vitamin DRefer to Neurology for Memory change medicare preventive Work-in -Pt here for [facility] follow-up. She went to [facility] on 02/17/23 for hematochezia. She was previously diagnosed with tape worm with GI and was started on Albendazole on 02/11, one dose. After starting medication she had diarrhea and whitish tissue-like bowel movement. She took Mag Citrate twice and enema and had watery BMs with blood in stool. Normal oral intake. Sodium 134, WBC normal, Hgb normal, Stool Occult blood negative. CT Abd/Pelvis shows fluid throughout colon and rectum consistent with diarrhea, non-obstructing left kidney stone. Discharged with Zofran and Bentyl. ER recommended f/u PCP and stool culture. - Due to her chronic and acute mental state, it is not advisable for her to participate on a jury. Stool Culture, O&PEncouraged increasing hydration. 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 telemed Patient initiate d telemedicine visit via audio/video platform to discuss follow up. 33 minutes were spent providing care, treatment, and recommendations over telemedicine with the patient while they are alone in a private environment, with the patient's consent.- She is doing well today. She continues Latuda (name brand only) and it is working well. PA will cover the next year for this medication. She was unable to tolerate the generic medication which caused severe nausea and vomiting. 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 She finds nelly and purpose in doing this. - She continues to meet with her therapist and her sessions are going well. - She continues to have chronic nausea and diarrhea, but she has not had vomiting in about 1 month. This is improved. - She continues Progesterone 2.5mg daily. - She continues Clonazepam 0.5mg 3 times daily for anxiety with bipolar disorder. Denies suicidal or homicidal ideations. She says symptoms overall are better than they used to be. She started new antidepressant, Remeron, and it is working well so far. She started it 4 days ago. She has been able to get out of the house and even go to eat at a restaurant. She is still having some roberth and anxiety, but depression is well controlled. - She follows up with GI in a couple weeks for her chronic nausea and vomiting. chronic conditions *See Chronic Conditions HPI chronic conditions *See Chronic Conditions HPI telemed Patient initiate d telemedicine visit via audio/video platform to discuss follow up. minutes were spent providing care, treatment, and recommendations over telemedicine with the patient while they are alone in a private environment, with the patient's consent.- She is highly anxious today due to her mom having to go to ER for high BP. They are under a lot of stress due to her mother and her uncle Crow owning the house that Azucena and her mom live in but her uncle now refuses to pay his portion of tax on the house. They are trying to find out how to come up with $3,000 before August to be able to keep their house. - She continues Progesterone 2.5mg daily. - She continues to meet with her therapist and her sessions are going well. - She continues Clonazepam 0.5mg 3 times daily for anxiety with bipolar disorder. Denies suicidal or homicidal ideations. She says symptoms overall are better than they used to be. She started new antidepressant, Remeron, and it is working well so far. She started it 4 days ago. She has been able to get out of the house and even go to eat at a restaurant. She is still having some roberth and anxiety, but depression is well controlled. - Completed mammogram Oct 2022 and normal.- She continues to have chronic nausea and diarrhea, but she has not had vomiting in about 1 month. BP 121/77 P 109 telemed Patient initiate d telemedicine visit via audio/video platform to discuss follow up. 45 minutes were spent providing care, treatment, and recommendations over telemedicine with the patient while they are alone in a private environment, with the patient's consent.- She has increased anxiety and panic lately over trauma from pharmacy giving her wrong dose of medication. She continues Progesterone 2.5mg daily. She feels so much better than when she was on 10mg and when weaning down to 2.5mg daily. She continues Clonazepam 0.5mg 3 times daily for anxiety with bipolar disorder. Denies suicidal or homicidal ideations. She says symptoms overall are better than they used to be. - She continues to meet with her therapist and her sessions are going well. - Completed mammogram Oct 2022 and normal. chronic conditions *See Chronic Conditions HPI chronic conditions *See Chronic Conditions HPI telemed Patient initiate d telemedicine visit via audio/video platform to discuss follow up. 42 minutes were spent providing care, treatment, and recommendations over telemedicine with the patient while they are alone in a private environment, with the patient's consent.- She continues Clonazepam 0.5mg 3 times daily for anxiety with bipolar disorder. Denies suicidal or homicidal ideations. She says symptoms overall are better than they used to be. - Pt saw the Vascular specialist, Dr Cohen, on 09/02 and he agreed not to start blood thinners and she had ultrasound and follow up with him on 09/09/22 to confirm that it was a valve in her vein that was seen on US in ER. Symptoms of red spot on her arm completely resolved. - She is currently on Progesterone 2.5mg on 5 days per week, and 5mg on 2 days per week. Currently on week 10. She is doing well on the wean down to 2.5mg daily. - She continues to meet with her therapist and her sessions are going well. - She has her mammogram scheduled in October. telemed Patient initiate d telemedicine visit via audio/video platform to discuss hospital follow up. 37 minutes were spent providing care, treatment, and recommendations over telemedicine with the patient while they are alone in a private environment, with the patient's consent.- Pt saw the Vascular specialist on 09/02 and he agreed not to start blood thinners and she has ultrasound and follow up with him on 09/09/[address]. [address] Robles says the red spot on her arm may have been a blood vessel burst . The red spot has improved and almost gone. - She says she is struggling with mood symptoms. She complains of crying, hot flashes, nausea, depression, anxiety. LMP was when she was 33 yrs old and says she went into early menopause. Denies suicidal or homicidal ideations. She says symptoms overall are better than they used to be. - She no longer has a visiting nurse due to them being unreliable. Continue to follow up with Vascular, Dr Robles, as scheduled.Refill progesterone chronic conditions *See Chronic Conditions HPI telemed Patient initiate d telemedicine visit via audio/video platform to discuss hospital follow up. 35 minutes were spent providing care, treatment, and recommendations over telemedicine with the patient while they are alone in a private environment, with the patient's consent.- She went to [facility] at 4am this morning for right arm swelling and what she thought was a burn. She had RUE US showing linear echogenic structure in right subclavian vein which could be chronic nonocclusive thrombus, web, or fibrin sheath. They advised blood thinners for possible DVT but she says she doesnt have any symptoms of DVT, but she has an area that is like a bug bite on her right forearm. She has a couple swollen circles where she has a circular red area about the size of a quarter, but no arm swelling. She says she feels like it is tight when she closes her hand. She was prescribed Eliquis 5mg twice daily. She adamantly refuses to be on blood thinners unless a clot is verified. - Tender red spot on forearm. Denies itching, burning. Slightly tender to touch. WWE -Pt is here for a WWE. -Pt starts her first week weaning down her progesterone to 2.5mg. Still having diarrhea, headache, hot flashes, vomiting and nausea. She is currently taking 5mg on 6 days per week and 2.5mg on 6 days per week. Her nausea and severe fatigue sometimes improved with a saline IV. -Pt went and seen thyroid specialist and told her she has nothing wrong with her thyroid and to not take the medication she was prescribed. Was also told she should be on hormone replacement that she is fine. She was told that her symptoms were not consistent with hypothyroidism, but she feels they are. She never started Levothyroxine. She saw Dr Felton Durham. - She has not seen Dr Medina, GI, since December. He says there is not much she can do about her symptoms of chemical nausea. She continues different types of nausea medications for different situations. She would like to wait and see what her nausea and diarrhea is like after she is able to wean down to 2.5mg daily progesterone. She will be weaning over the next 12 weeks. - She continues taking Vit D weekly high dose. She does not take multivitamin or Vit B12. Lab - Mag, Vit D, Vit B12, CMP, Vit B6, Vit B1Pap smearMammogram to [facility] Jose LawrenceekContinue Progesterone wean to 2.5mg:Week 1 & 2: 5mg tablet daily for 6 days per week and 2.5mg on 1 day per week (Thursday)Week 3 & 4: 5mg tablet daily for 5 days per week and 2.5mg on 2 days per week (Thursday and Thursday)Week 5 & 6: 5mg tablet daily for 4 days per week and 2.5mg on 3 days per week (Thursday, Thursday, Thursday)Week 7 & 8: 5mg tablet daily for 3 days per week and 2.5mg on 4 days per week (Thursday, Thursday, , Thursday)Week 9 & 10: 5mg tablet daily for 2 days per week (Thursday and Thursday) and 2.5mg on 5 days per week Week 11 & 12: 5mg tablet daily for 1 day per week (Thursday) and 2.5mg on 6 days per weekWeek 13 and on: take 2.5mg daily chronic conditions *See Chronic Conditions HPI telephonic Patient initiate d telephone visit via audio only platform to discuss psychiatric condition and hospital follow up. 44 minutes were spent providing care, treatment, and recommendations over telephone with the patient while they are alone in a private environment, with the patient's consent.- Hospital follow up. On 05/05/22 she was having abdominal pain. Symptoms got worse and caused nausea and vomiting so she went to ER. Left and went shopping and got weak, dizzy, tired, and was not able to stand on her own. She had diarrhea and vomiting the night before. Called [facility] ambulance to take her to [facility] ER. Did labs, IV, all normal. She was told by ER not to return to ER for withdraw from medroxyprogesterone . Was advised to get visiting nurse or go to rehab facility, like [facility]. She is currently on Medroxyprogesterone 10mg on some days and 2.5mg some days. She says the day after she takes 2.5mg, she has symptoms similar to above. Visiting nurse from [facility] came by her house yesterday. She will come once weekly. She is now set up for [employer] Whe[employer]. She was advised to go inpatient at [facility] for unstable bipolar disorder. [employer] Supervisor consulted to help cover [facility]. Denies Suicidal thoughts. Described depression and roberth. - The primary diagnosis for home health care services is bipolar disorder, anxiety, chronic nausea and vomiting, chronic diarrhea, chronic abdominal pain. Clinical findings to support the need for home health care include her symptoms listed above and her recurrent visits to ER for medical concerns that could be managed at home with the assistance of home health. The clinical findings support that this patient is homebound. Leaving the home is extremely taxing for patient and family due to the high level of stress and anxiety this causes her. Patient has only left the home for medical reasons, including multiple ER visits. The following services are medically necessary home health care services: [facility]. Take 5mg Medroxyprogesterone this coming Thursday. Then, follow new protocol listed below. [facility] [place]:Week 1 & 2: 10mg tablet daily for 6 days per week and 2.5mg on 1 day per week (Thursday) - 04/20Week 3 & 4: 10mg tablet daily for 5 days per week and 2.5mg on 2 days per week (Thursday and Thursday)- 05/04 - currently at end of week 4Start this new weaning protocol on Thursday05/19/22:Week 5 & 6: 10mg tablet daily for 4 days per week and 5mg on 3 days per week (Thursday, Thursday, Thursday) 05/19- 7 & 8: 10mg tablet daily for 3 days per week and 5mg on 4 days per week (Thursday, Thursday, , Thursday) 06/01- 9 & 10: 10mg tablet daily for 2 days per week (Thursday and Thursday) and 5mg on 5 days per week 06/15- 11 & 12: 10mg tablet daily for 1 day per week (Thursday) and 5mg on 6 days per week 06/29- 13 and on: take 5mg daily chronic conditions *See Chronic Conditions HPI HOF -Pt is here for a HOF and three month follow-up. Pt was out shopping yesterday and felt really weak and tired. she got out to the car and once she got home was unable to get out of the car. Called am ambulance and was taken to [facility]. Was told she was having withdraws from her medication and gave her a weaning schedule. Prior to this, her pharmacy has accidentally been filling Progesterone 10mg daily for the past 9 months. It was only realized recently when she went to pick pack worker a refill. She says that stopping abruptly has been causing withdraw symptoms. She says she has increased night sweats and anxiety. She says she feels mentally overwhelmed by all of this and other stressors in her life. - She continues to see her therapist and is very happy with her. Weaning protocol:Week 1 & 2: 10mg tablet daily for 6 days per week and 2.5mg on 1 day per week (Thursday)Week 3 & 4: 10mg tablet daily for 5 days per week and 2.5mg on 2 days per week (Thursday and Thursday)Week 5 & 6: 10mg tablet daily for 4 days per week and 2.5mg on 3 days per week (Thursday, Thursday, Thursday)Week 7 & 8: 10mg tablet daily for 3 days per week and 2.5mg on 4 days per week (Thursday, Thursday, , Thursday)Week 9 & 10: 10mg tablet daily for 2 days per week (Thursday and Thursday) and 2.5mg on 5 days per week Week 11 & 12: 10mg tablet daily for 1 day per week (Thursday) and 2.5mg on 6 days per weekWeek 13 and on: take 2.5mg daily chronic conditions *See Chronic Conditions HPI follow-up -Pt is here for a [id number] is still having nausea and diarrhea everyday off and on. She continues Reglan is nausea becomes more severe. When her anxiety and nausea increase, she takes Promethazine 12.5mg. If worse, she takes Promethazine 25mg oral. If no diarrhea, she will take the suppository 25mg. This regimen works well. Her diarrhea has decreased from about 10 episodes daily to 2 episodes daily - Received letter from pt on 01/06/22 stating that her Latuda 20mg is starting to get to therapeutic level. Vomiting, headache, severe nausea have stopped. Continues to have nausea and diarrhea but not severe. She is seeing therapist who advised not changing any meds. She continues to look for psychiatry but she is concerned that they will change her medications. She would like to hold off on psychiatry since she feels she is improving on current medications. Insurance informed her that they will only pay for 30 day supply of Latuda at a time, not 90 day. - She continues to follow up with her therapist and it is going very well. She visits via telephonic every week. Refill ClonazepamRefill Seroquel 25mgContinue Latuda 20mg daily. [facility]ayla Sykes [facility] viral tests were done-negnotes these symptoms started after being weaned/taken off latuda/weaned down on pristiq back in oct. CT abd neg other than kidney stones which she knows she has and GI cocktail given which improved symptoms. ER told her its likely d/t withdrawals from latuda and latuda should be weaned over 4-5 mos. she was able to receive a refill from dr. navarro when she called our distribution engineering technologist line but had to pay gonzalez for 2 pills (97$) d/t needing prior auth. she called our office w/ no assistance as we told her prior auths take "days , so she called [facility] herself and they told her he could do an expedited prior auth for her but wrong fax was given. she then had to call ray back again and gave correct fax where we were able to get her the latuda. she req #30 of all psych meds d/t pharmacies not having enough. she called her pharmacy about if she wanted to wean latuda again in future if she could cut the pill in half and they told her to never do this.today she feels great other than mild nausea relieved w/ promethazine. she has f/u w/ dr. medina who stated likely d/t meds as well. she has not vomited or had other symptoms since 3 days ago. LBM 2 days ago. Problem Bilateral nephro [id number] female accompanied by her mother todayRecent CT scan shows nonobstructing stone disease at about 2 mm on the right and perhaps 5 mm in the mid pole on the left without hydronephrosisHer urine specimen is clear and she has no flank painGiven her history I recommended observationWe reviewed her CT scan, urinalysis and options MARIA EUGENIA Pt is here for M AV. She is fasting for labs. She is due for HgA1c, BMI, CMP. - Hospital follow up - she went to ER on 11/17/21 for nausea and vomiting. She had CT abdomen/pelvis which showed nonobstructive kidney stones, but no acute findings. She previously had surgery for kidney stones. When she had surgery, her nausea and vomiting improved, so she is upset about kidney stones forming again. She says diarrhea has improved. Promethazine 25mg oral and rectal works best for nausea and vomiting and diarrhea. She has been on Augmentin which she says helps. - At last appt we decreased Pristiq to 25mg daily, continued Seroquel 800 in PM and 50 in AM. She has stopped [place]. She sent a note to inform me that she has not tried RemeronFollow up with Urologist, Dr Johnston on 12/19/21. Follow up with Dr Medina regarding nausea and vomiting. Refill Promethazine 25mg supp. Rx Remeron 15mg every evening. Fasting labs, CRP, Sed RateStool culture, O&P chronic conditions *See Chronic Conditions HPI medicare preventive chronic conditions *See Chronic Conditions HPI 1mo F/u Patient initiate d telemedicine visit to discuss follow up. 33 minutes were spent providing care, treatment, and recommendations virtually with the patient while they are alone in a private environment, with the patient's consent.- She tried to switch from Latuda to [place]. Last Latuda was 10/24. She had side effects of confusion, weakness, fatigue, anxiety, sweating, increased thirst, headache. She stopped [place] after 3 days. Her symptoms improved after stopping [place]. She says since stopping Latuda, she has increased manic episodes. - Currently she has nausea and vomiting overnight. She is unsure if she could have a virus or if side effects of change in medications. She has zofran which has not helped. She also has promethazine suppository but she has not tried it yet. T98.6, pulse 98, BP 101/75Decrease Pristiq to 25mg daily to attempt to decrease manic episodes. Start with taking 50mg every other day alternated with 25mg every other day for the first week, then continue on 25mg daily only. Continue Seroquel 800mg in the evening and 50mg in morning.Try Promethazine rectal suppository for nausea and vomiting. Increase oral hydration. Food intake as tolerated. Call my office if symptoms do not improve. chronic conditions *See Chronic Conditions HPI follow-up -Pt is here for her monthly [id number] wants a flu shot today- Received note from pt about 2 weeks ago that she is scheduled to see psychiatry, Dr Krishna Bustos on Oct 15 for Telephonic visit with the [facility]- She is currently taking Seroquel 400mg 2 at bedtime and 25mg 2 in AM. She also continues Clonazepam 0.5mg up to 3 times daily as needed for anxiety, Latuda 20mg daily, Pristiq 50mg daily. - She is crying now and says she spoke to therapist this morning. Farhananora called her on 09/26 10:00am and they went over her medications and told her she should not be on Seroquel and Latuda together. She told her to stop Latuda and increase Seroquel to 800mg at night. She recommended stopping Pristiq and start Oxcarbazepine (Trileptal) 300mg BID instead. She did stop pristiq and started Trileptal. She says she was very fatigued the first day she started it. She took her 2nd dose that night with her increased dose of Seroquel. She had nausea, vomiting, diarrhea, shaking, chills the next day. She tried calling after hours at [facility], but they dont have an after hours line. She called Poison control who confirmed that Latuda and Seroquel are NOT the same medication and both are recommended to be weaned to avoid withdrawal. She restarted Latuda and Pristiq and Zofran and resumed all her normal medications. She says she feels so drowsy on Seroquel 800mg at night, and had an episode of sleep walking, but unsure if she should continue to try it a little longer. She says she no longer wants to see [facility] because they wanted her to stop medications abruptly and told her information about medications that was wrong. She loves her therapist and does telephonic visits with her once weekly every thursday morning with [facility]. She also now has an appt with Psychiatrist with [facility] tomorrow morning. - Rash on left forearm x 4 days painful. Started very red, but now feels like a bruise. Medications only 30 day supply at a time. Flu vaccineUrine MicralContinue Seroquel 800mg at night and 50mg in morning.Continue to appt with Psychiatrist at [facility] tomorrow afternoonContinue to follow up weekly with therapist. office visit -Pt c/o a black out/psychotic episode the other day. She took Promethazine 25mg suppository with clonazepam. She was hiding out in her bed and was being mean to her mother for about 5 hours. She went to sleep that night and felt well the next morning. She was able to attribute it to a medication interaction. - She called [facility] recently but cannot remember why she did not make an appt to see them previously. They have a [place] location. She states [facility] is a call center who screens for [facility]. They instructed her to go to [facility] on [address] by 8am for walk in only appt. She was told she would not be able to see a doctor until 1pm at the earliest but still must be there by 8am to register. She was told that she must stay there the entire day to wait and be seen. She was told that she will not likely have the same doctor at every visit. She went to [facility] 20 yrs ago and says it is the same nightmare as it was before. She would see a different psychiatrist every monthly visit and was being taken off and put on new medications every time she would see someone new. She says [facility] did not help her in the past and instead she feels like she got much worse. She has seen multiple psychiatrists and inpatient treatments. She says she was able to find a therapist who will do phone visits. She is not able to do telemedicine because she does not have smart phone. - She has seen Dr Gardiner in the past who she said made her symptoms much much worse by prescribing adderall and other medications.- She called psychiatrist Dr Barry Suazo about 4 months ago but felt very uncomfortable when asked about every psychiatrist she has ever seen, their phone numbers, dates, and addresses and consent to obtain records, asked great grandmothers maiden name, consent that she would not verona him for any reason or claim malpractice, form that mother would pay her bills if she was unable to, and all forms has to be notarized.- Last [facility] psychiatry referral was sent 05/29/21. She is unsure if this is the same group who told her that her appt would have to be cancelled because they only do telemedicine and she does not have the ability to do a telemedicine appt high risk monthly high risk yassine maribeth moncadathas been seeing dr. johnston after having L ureteral stent placement for stones.she had this removed earlier this month (07/10) and subsequently had a right ureteroscopy and laser lithotripsy of right renal stones and right ureteral stent placement07/30 she had her R ureteral stent removed. she follows up w/ dr. johnston 09/10. urinary symptoms have subsided.had root canal by dentist. two of her temporary teeth fell out. is getting real teeth next week. states shes been through 5 different antibiotics which is causing her nausea/occasional vomiting in AM. reglan makes her too tired. occasional diarrhea but not daily. would like zofranstill has no regular f/u w/ psych. Hob[employer] social science analyst said to call md argueta but she did not like this doctor was in [place]. she is unsure what the issue was w/ ikare but likely due to the same issue she did not want to follow up. has been in and out of multiple psych facilities and is having manic episodes at night where she falls asleep at 5 and is up from 10-2. she would like a refill on her clonazepam, last filled per [facility] 07/09. she is concerned about her latuda as well. this was denied last year 06/2020 and she received a letter about medicare and her rights regarding her prescription medications that may be denied. she brings this form in but it does not say specifically her latuda was denied, she was able to pick this up w/ no issues. problem indwelling right ureteral stentBilateral nephrolithiasisMrsReynold Rodriguez is here for her right ureteral stent removalSubjectively she is doing well without reported pain,Fever or bleedingShe does have some stent related frequencyHer follow-up KUB shows no identifiable stone disease along either ureterConsent was confirmed, witnessed and signed for cystoscopy and right ureteral stent removal and follow-up in 6 weeks for renal ultrasound was madeDietary recommendations to cut down her risk of future stone disease were given and reviewed office visit SP stent placeme nts and lithotripsy for stones (now unilateral). Has started to have a blood odor present all the time and noticeable when just sitting. No discharge noted. No hematuria.Has just had a root canal and is on Augmentin and that medicine she knows messes up my stomach . She has low grade temp elevation and diarrhea. Negative COVID test prior to each urologic procedure. No respiratory c/o.Isolated and examined as if positive COVID. procedure right nephrolith iasisIndwelling left ureteral stentMrs. Michael returns today after her left ureteroscopic stone surgeryShe has no stones alongside the left ureteral stent and she has a known history of multiple stones in the right kidney that she would like to have addressed electivelyShe would prefer to have her left ureteral stent removed at the time of her right ureteroscopy and we reviewed her history, x-rays and options and consent was confirmed for cystoscopy with removal of left ureteral stent as well as right ureteroscopy and laser lithotripsy with basket manipulation of right renal stones and right ureteral stent placementUrine was sent for culture todayAt her request this will be performed next week problem bilateral nephro lithiasisLeft-sided abdominal painMs Michael is a very pleasant 55-year-old female accompanied by her mother todayShadair has had a long history of kidney stones and a recent CT scan in May on the reported bilateral stonesShe had approximately 4 stones on the left and at least 8 stones on the right without hydronephrosis but she has had intermittent left-sided abdominal painShe would prefer to have elective surgery rather than observation or medical expulsive therapyToday we reviewed her CT scan and options of observation, repeat imaging, ESWL or ureteroscopic stone surgeryAfter this discussion she and her mother are informed and she opted to proceed with left ureteroscopic stone surgery with laser lithotripsy and basket manipulation with stent placement given the fact that she is intermittently symptomatic on the leftWe agreed to attempt to get her left side stone free before tackling her right-sided stone disease which is asymptomatic Kidney stones (comments) Patient was seen in emergency room on 729 at [facility]. She was admitted for diarrhea and lower GI symptomatology. Incidental findings included multiple kidney stones in the right and left kidney. Or on the left. 8-9 on the right. The stones measured in size up to 5 mm. She had a normal GFR. No evidence of active urinary tract infection. The patient would like to address her stones with ureteroscopy. The patient would like to have the procedure performed [facility], secondary to transportation issues. I will refer her to my partner Dr. Bashir Johnston at our [facility] location for bilateral ureteroscopy.I have reviewed the 40+ pages of ER notes with the patient's mother. Aug-04-2021 Kidney stones HOF -Pt is here for a HOF. She went to [facility] on 05/23/21 for nausea and vomiting, diarrhea, gas, bloating. She has made 3 trips to ER for similar symptoms in the same week. She was originally started on Cipro and Flagyl but stated they made her symptoms worse. She stopped them. CT abd/pelvis 05/16 and 05/18 were normal except bilateral nonobstructive renal calculi and recommended making appt with urology outpatient. Images were unchanged. Stool studies normal. She has appt with GI, Dr Medina, who is her regular GI doctor. Today she states associated symptoms are nausea, vomiting, headache, kidney stones, renal colic. She was prescribed Dicyclomine for pain which has helped. - She was referred to [facility] for stress and depression. She states that the doctor she had in the past works there - Dr Sanchez. She says she will not go back there. She has been to [facility] 4 times in the past and did not do well there. She went due to suicidal thoughts, but she is not currently suicidal. She says she had a bad experience with [facility] as well, Has not received a call from [facility], but is familiar with them. She says she is having problems with psychosis and low dose Seroquel in daytime has helped. She was having obsessions over recent mosquito infestation and was obsessing over it even after they had gone. - Constipation - She typically uses magnesium citrate when she gets constipated but she has not tried it this time. UrinalysisRefer to Dr Garcia, Urology. Refill Dicyclomine 20mg every 6 hours as needed for abdominal pain.Recommended Mag Citrate and Fleets Liquid Glycerin SuppositoryRecommended follow up with Gastroenterology, Dr Medina. Referral to [facility] for Psychiatry Diarrhea/Vomiting/Headache Sympt oms started Thursday night at 2AM. She ate a greasy huizar burrito the day beforeWoke up with vomiting, diarrhea, her stomach burning Having vomiting 2-3 times/day, watery diarrhea 2-3 times/day. No blood in stools. Denies abdominal pain, just gets cramps prior to having diarrhea.Having low grade fevers up to 99.6, chills. No alcohol use.She always has Promethazine and Zofran on handShe has had her flu vaccine and COVID vaccines. chronic conditions *See Chronic Conditions HPI ww c/o increased fa cial hair, mostly nasal hair. No growth in atypical areas and no hair loss. Wondering if due to HRT. office visit Here for 1 month f/u.- She states that 3 days ago their home became infested with mosquitoes. She has a few bites and has been using Off spray. - She was set up to see a psychiatrist in March but pt was unable to do telemedicine. She set up with new Psychiatrist who is currently moving offices, Dr Barry Suazo. She felt very uncomfortable when asked about every psychiatrist she has ever seen, their phone numbers, dates, and addresses and consent to obtain records, asked great grandmothers maiden name, consent that she would not verona him for any reason or claim malpractice, form that mother would pay her bills if she was unable to, and all forms has to be notarized. She would still like to see psychiatry, but is needs to be close due to not being able to drive far and taking taxi places that are further than a few minutes away. - She says her anxiety has been very high lately. She has also called 211 for psychiatric assistance at all hours. She has called them a few times and it has been helpful. She has been taking 1/2 Seroquel in afternoon and 1.5 Seroquel before bedtime. She continues on Clonazepam 0.5mg 3 times daily. She occasionally takes a nap in the afternoon but still sleeps well at night. Continues Pristiq at night. chronic conditions *See Chronic Conditions HPI telemedicine Patient initiate d telemedicine visit to discuss medications. 22 minutes were spent providing care, treatment, and recommendations over telemedicine with the patient while they are alone in a private environment, with the patient's consent.- Pt states that she feels she is having negative side effects of Meclizine and Diazepam. She would like to come off of these and restart Clonazepam instead. She has appt with psychiatry on 03/26/21. She is currently on Diazepam 5mg 3 times daily. Currently she is taking Meclizine 25mg 3 times per day. She has a history of having withdrawal symptoms, either imagined or real, in the past when switching medications and would like to slowly convert back to clonazepam. follow up Pt here for foll ow up. She has been weaning off of clonazepam and now has been 3 days off of it. She weaned onto Diazepam and states she is doing well on it. She takes 5mg TID. She continues to have symptoms of feeling overwhelmed, disoriented, anxious, panic attacks, dizziness, nausea, night sweats, chills, shakiness, weakness, diarrhea, and constipation off and on, but overall improving. These same symptoms have been going on for many years. She says she notices that it works faster and calms her down longer. Denies negative side effects. Diazepam does make her slightly sleepy, but it has not been bothersome and she does not drive. - She is seeing neurology 02/07/21, Dr Morris. She previously saw Dr Daily, but needed another opinion.- Pt stopped smoking 2 yrs ago and is currently using nicotene gum instead.- Her constipation and knee pain have also improved.- She continues to go to ER often for panic attacks. She says she has been going less though. She says she wears a bra to sleep now in case her mom has to call the fire department. medicare preventive MAV -Pt is here for a [facility] with fasting labs. She already completed labs. - Hospital follow up - Pt went to [facility] on 12/20/2020 for vertigo and anxiety. - Every day since November she has experienced waking up at 2:30am, nausea at 4:00am, she takes Zofran and Promethazine, at 5:00am she has overwhelming anxiety, panic attacks, so she takes Klonopin and goes back to bed, wakes up at 7:30am and feels better with no nausea or anxiety, then at 9:00am she feels vertigo, dizziness, nausea, ears ringing, panic attack so she takes Klonopin, Promethazine, Meclizine and goes back to bed for about 2 hours. She wakes up at 11:00am feeling tired but no other symptoms. Around 2:00pm her anxiety, nausea, and panic returns so she takes 1/4 seroquel, Klonopin, Promethazine. At 4:00pm she feels tired but stable. At 5:00pm she takes her nighttime medications and goes to sleep around 6:30pm. She says she has never had vertigo before her hospital visit a few months ago. She feels like her medications work to help with the vertigo, nausea, and anxiety, but they dont last long. - She recently got a new neurologist and her appt January 07. She was not happy with Dr Daily, so she is planning to see a new neurologist. She had brain CT in hospital in September 2020. She has not seen ENT in the past. Switch to Diazepam BID. Stop Clonazepam.Refer to ENT, Dr Alexa Benito for Dx Vertigo. chronic conditions *See Chronic Conditions HPI follow up Pt is doing a michael guardado visit today for follow up. She is mainly concerned about fatigue, weakness, nausea, diarrhea, dizziness. She has been seeing neurology and started her on Oxcarbazepine (Trileptal) but it made her sick. She has stopped it. She would like an evaluation by different neurologist. She saw Dr Daily. She has never seen any other neurologists in the area. Dr Daily says a lot of her symptoms are due to anxiety. chronic conditions *See Chronic Conditions HPI follow up Pt is seen by Michael guardado with nurse Tatum in her home. Pt states she is doing a lot better lately. Her nausea is now only dull on occasion. She also has improved energy. She still has occasional motion sickness/vertigo. She takes meclizine up to 2 times daily which helps a lot. On average, she takes it about once daily.- She does not currently need any refills on her medications. She is doing well on her current regimen. - She recently started taking Latuda in the evening bc it caused some drowsiness. Denies any worsening of her constipation while on it. She continues on Linzess and has daily bowel movements. Her last Aimovig injection was in July and she has not had a migraines. She says this was likely the cause of her constipation. She says the increase in Seroquel has helped. GRETCHEN Pt is following up today since her previous hospital visit on 08/18. Hospital follow up was completed on 08/23 and we discussed her multiple medication changes at that time. Due to withdrawal symptoms, she restarted Latuda 20mg. She is doing well on current dose. She says it may be helping with withdrawals. She says each day it gets a little better each day. She has had a lot of nausea due to constipation. Promethazine 25mg helps for a couple hours, but then nausea returns. She started on Linzess 290mg this morning. She has had 3 BMs today already. She restarted Valtrex due to herpes outbreak. She has been off of Ajovy injections for migraines for the past 3+ months. She has not had a migraine in many months. She is weaning off of Nicotine as well. She is currently taking 1/2 losenge daily. She has a weaning place to be complete off in 2 weeks. Functional Status Date Functional Assessmen t No Information Instructions Date Instruction Additional Infor wili Referral to Neurology. Related t o Chronic migraine without aura without status migrainosus, not intractable Continue current meds Related to Anxiety TAking Klonopin. Related to Nicole c attacks Feeling better Related to Nause a and vomiting, unspecified vomiting type Will refer to a diff erent neurologist to see if you can get in sooner. Related to Memory problem Will refer to a diff erent neurologist to see if you can get in sooner. Related to Frequent headaches Will refer to a diff erent neurologist to see if you can get in sooner. Related to Post concussive syndrome Reviewed ER recordsDiscussed vis it. Related to Hospital discharge follow-up discussed limiting s timuliOTC meds that are appropriatemethocarbamol OK for neck spasms Related to Concussion syndrome Will send rx for Tylenol #3 - 15 pills. Related to Contusion of right elbow, initial encounter Will send rx for Tylenol #3 - 15 pills. Related to Contusion of right hip, initial encounter STable- will continu e to monitor symptoms. Related to Concussion without loss of consciousness, initial encounter Discussed slip off of ladder. Re lated to Status post fall Continue current meds Related to Anxiety Reviewed ER recordsMed rec done. Related to Hospital discharge follow-up Continue Omeprazole. 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 Related to Diarr hea, unspecified type ROutine f/u with GI Related to C hronic abdominal pain TAking Klonopin for panic attack s . Related to Anxiety TAking Klonopin for panic attack s . Related to Panic attacks Continue current meds. Related t o Bipolar disorder, current episode mixed, mild Reviewed ER recordsMed rec done. Related to Hospital discharge follow-up cont w/ therapy/current meds Rel ated to Bipolar disorder, current episode mixed, mild cont w/ dicyclomine Related to A lternating constipation and diarrhea cont f/u w/ ob/gyn physician Related to Ma ss of cervix Continue Clonazepam 0.5mg up to 4 times daily for severe anxiety and panic Related to Panic attacks Continue Latuda 20mg daily, Clonazepam 0.5mg, Pristiq 25mg, Seroquel 400mg every evening and 25mg every morning. Buspirone 15 mg twice daily. Bipolar disorder symptoms improved currently. Related to Bipolar disorder, current episode mixed, mild She currently takes 2.5mg medroxyprogesterone every day. Continue this dose Related to Postmenopausal HRT (hormone replacement therapy) Continue Buspirone 1 5mg BID. Continue Latuda 20mg daily, Clonazepam 0.5mg up to 4 times daily as needed, Pristiq 25mg, Seroquel 400mg 2 every evening and 25mg 3 every morning. Related to Anxiety The patients current medication list and hospital discharge medication list were reviewed and updated in the EMR with regards to any changes made during hospitalization. Related to Hospital discharge follow-up Continue follow up with Dermatol ogy Related to Bug bite, subsequent encounter N/V have subsidedCon tinue imodium for intermittent diarrhea Recommend f/u with Gastro Related to Nausea vomiting and diarrhea Reviewed and discussed recent ER visit Related to Hospital discharge follow-up Continue to follow u p with GI as scheduled. Improving. Related to Chronic abdominal pain Continue to follow u p with GI as scheduled. Improving. Related to Other chronic pain She currently takes 2.5mg medroxyprogesterone every day. Continue this dose Related to Postmenopausal HRT (hormone replacement therapy) Continue Buspirone 1 5mg BID. Continue Latuda 20mg daily, Clonazepam 0.5mg up to 4 times daily as needed, Pristiq 25mg, Seroquel 400mg 2 every evening and 25mg 3 every morning. Related to Anxiety Reviewed and discussed recent ER visit Related to Hospital discharge follow-up Continue Latuda 20mg daily, Clonazepam 0.5mg, Pristiq 25mg, Seroquel 400mg every evening and 25mg every morning. Buspirone 15 mg twice daily. Bipolar disorder symptoms improved currently. Related to Bipolar disorder, current episode mixed, mild Continue Buspirone 1 5mg BID. Continue Latuda 20mg daily, Clonazepam 0.5mg up to 4 times daily as needed, Pristiq 25mg, Seroquel 400mg 2 every evening and 25mg 3 every morning. Related to Anxiety Chronic. History of recurrent C. diff. History of Norovirus. Recheck stool test. Takes Linzess as needed for constipation. Sees GI, Dr Medina. Related to Alternating constipation and diarrhea check labs. return to clinic for labs Related to Vitamin B12 deficiency Due to recent C diff infection. It has resolved and she is working on improving daily physical activity. Related to Generalized weakness Lab - CBC, CMP, Mag, Vit D, Vit B12 - return to clinic for lab appt. MRI Brain with and without contrast to [facility] [place] for memory changes Related to Memory changes Continue weekly Emelyn minDReturn to clinic for lab appt Related to Vitamin D deficiency Continue Latuda 20mg daily, Clonazepam 0.5mg, Pristiq 25mg, Seroquel 400mg every evening and 25mg every morning. Buspirone 15 mg twice daily. Bipolar disorder symptoms are currently not well controlled, and anxiety is high. Related to Bipolar disorder, current episode mixed, mild Treated and tested negative x 2 last week Related to C. difficile colitis Continue Latuda 20mg daily, Clonazepam 0.5mg, Pristiq 25mg, Seroquel 400mg every evening and 25mg every morning. Buspirone 15 mg twice daily. Bipolar disorder symptoms are currently not well controlled, but anxiety is high due to recent C diff infection. Related to Bipolar disorder, current episode mixed, mild She also has history of overflow diarrhea. She took Linzess which cleared the constipation and she has improved. Related to Chronic constipation Reviewed and discuss ed recent hospital visit. Related to Hospital discharge follow-up will send flagyl to start as requested by pt. discussed holding abx for 3-5 days to see if her symptoms improved but she declines. f/u w/ [facility] referral sent statsw referral for transportation as there are many difficulties getting her to apptsincrease hydration, bland diet Related to Clostridium difficile infection Continue Latuda 20mg daily, Clonazepam 0.5mg, Pristiq 25mg, Seroquel 400mg every evening and 25mg every morning. Buspirone 15 mg twice daily. Bipolar disorder symptoms are currently not well controlled, but anxiety is high. Related to Bipolar disorder, current episode mixed, mild Currently diarrhea l ikely due to overflow diarrhea due to constipation. Encouraged her to start Suprep, as prescribed by Dr Medina Related to Chronic constipation Recurrent. Previousl y treated with Vancomycin. Repeat stool study 01/08/24 showed recurrence of positive C Diff. Encouraged her to start Dificid. Related to C. difficile diarrhea fidaxomicin rx sent, discussed insurance stool cup rec to pick pack worker isela to confirm if recurrent cdiffpromethazine 25 no more than q 4 hoursactivia for probiotic purposes Related to Nausea Mammogram to [facility] Related to Screening mammogram for breast cancer Flu vaccineTdap vaccine at next visit Related to Immunization due Fasting labs Related to Medic are annual wellness visit, subsequent one time hepatitis C screening lab today. Low risk Related to Need for hepatitis C screening test Continue Latuda 20mg daily, Clonazepam 0.5mg, Pristiq 25mg, Seroquel 400mg every evening and 25mg every morning. Buspirone 15 mg twice daily. Bipolar disorder symptoms are currently not well controlled, but anxiety is high. Related to Bipolar disorder, current episode mixed, mild Managed by GI, Dr Ra delatorre. Continue to complete course of Vancomycin as prescribed. Related to C. difficile colitis Reviewed and discussed recent ER records. Related to Hospital discharge follow-up Reviewed and discuss ed recent hospital visit Related to Hospital discharge follow-up noted on quantaflo a s moderate in the past. pt does have a hx of smoking. lipid panel has been stable. no claudication symptoms. lipid panel today. Related to PAD (peripheral artery disease) Continue Latuda 20mg daily, Clonazepam 0.5mg, Pristiq 25mg, Seroquel 400mg every evening and 25mg every morning. Buspirone 15 mg twice daily. Bipolar disorder symptoms are currently not well controlled, but anxiety is high. Related to Bipolar disorder, current episode mixed, mild Takes clonazepam 0.5 mg up to 4 times daily for anxiety for years. States helps decrease symptoms and would like to continue. Related to Anxiolytic dependence with current use No longer on opioid medication. Previously on Opioids, but pain is well controlled. No history of abuse or overuse. Related to Uncomplicated opioid dependence Pt admitted 11/16/23- to [facility] for viral gastroenteritis. Related to Hospital discharge follow-up She currently takes 2.5mg medroxyprogesterone every day. Continue this dose Related to Postmenopausal HRT (hormone replacement therapy) Continue Clonazepam 0.5mg up to 4 times daily for severe anxiety and panic Related to Panic attacks Continue to follow u p with GI as scheduled Related to Chronic abdominal pain Continue to follow u p with GI as scheduled Related to Other chronic pain Continue Buspirone 1 5mg BID. Continue Latuda 20mg daily, Clonazepam 0.5mg up to 4 times daily as needed, Pristiq 25mg, Seroquel 400mg 2 every evening and 25mg 3 every morning. Related to Anxiety Continue Latuda 20mg daily, Clonazepam 0.5mg, Pristiq 25mg, Seroquel 400mg every evening and 25mg every morning. Buspirone 15 mg twice daily. Bipolar disorder symptoms are currently not well controlled, but anxiety is high. Related to Bipolar disorder, current episode mixed, mild Reviewed and discuss ed recent hospital visit. Related to Hospital discharge follow-up Continue Latuda 20mg daily, Clonazepam 0.5mg, Pristiq 25mg, Seroquel 400mg every evening and 25mg every morning. Buspirone 15 mg twice daily. Continue to reach out to therapist for appts. Bipolar disorder symptoms are currently stable, but anxiety is high. Related to Bipolar disorder, current episode mixed, mild Discussed recent ER visit. Symptoms improved. Continue Maalox-Lidocaine as needed, Promethazine as needed, Zofran as needed for nausea or vomiting. Continue to follow up with GI. Related to Abdominal cramping Continue Buspirone 1 5mg BID. Continue Latuda 20mg daily, Clonazepam 0.5mg up to 4 times daily as needed, Pristiq 25mg, Seroquel 400mg every evening and 25mg every morning. Related to Anxiety Continue Buspirone 1 5mg BID. Continue Latuda 20mg daily, Clonazepam 0.5mg up to 4 times daily as needed, Pristiq 25mg, Seroquel 400mg every evening and 25mg every morning. Related to Anxiety Continue Latuda 20mg daily, Clonazepam 0.5mg, Pristiq 25mg, Seroquel 400mg every evening and 25mg every morning. Buspirone 15 mg twice daily. Continue to reach out to therapist for appts. Bipolar disorder symptoms are currently stable, but anxiety is high. Related to Bipolar disorder, current episode mixed, mild Continue Omeprazole. Managed by Dr Medina. 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 Recently started Buspirone 15mg BID. Continue Latuda 20mg daily, Clonazepam 0.5mg up to 4 times daily as needed, Pristiq 25mg, Seroquel 400mg every evening and 25mg every morning. Rx Rexulti 0.25mg daily Related to Anxiety Continue Latuda 20mg daily, Clonazepam 0.5mg, Pristiq 25mg, Seroquel 400mg every evening and 25mg every morning. Buspirone 15 mg twice daily. Rx Rexulti 0.25mg daily. Call if Rx not covered and we will complete [facility] patient assistance program. Bipolar disorder symptoms are currently stable, but anxiety is high. Related to Bipolar disorder, current episode mixed, mild Reviewed and discussed recent ER visit. Related to Hospital discharge follow-up Continue Latuda 20mg daily, Clonazepam 0.5mg, Pristiq 25mg, Seroquel 400mg every evening and 25mg every morning. Increase Buspirone to 15 mg BID. Bipolar disorder symptoms are currently stable, but anxiety is high. Related to Bipolar disorder, current episode mixed, mild Symptoms improving s zachary the loss of her dog Related to Grief reaction Possible reaction to bug bites. Can apply Hydrocortisone cream if the areas are itching. Recommended [employer] Doxycycline Avoid shaving until rash has resolved. Related to Dermatitis, unspecified Continue Latuda 20mg daily, Clonazepam 0.5mg, Pristiq 25mg, Seroquel 400mg every evening and 25mg every morning. Increase Buspirone to 15 mg BID. Bipolar disorder symptoms are currently stable, but anxiety is high. Related to Bipolar disorder, current episode mixed, mild Continue Clonazepam 0.5mg up to 3 times daily for severe anxiety and panic Related to Panic attacks Increase lately due to the of her 13 yr old dog. Recently started Buspirone 10mg BID. Helping but still highly anxious. Increase Buspirone to 15mg BID. Continue Latuda 20mg daily, Clonazepam 0.5mg up to 3 times daily as needed, Pristiq 25mg, Seroquel 400mg every evening and 25mg every morning. Related to Anxiety Takes Valtrex as needed. Related to Genital herpes simplex, unspecified site Continue Latuda 20mg daily, Clonazepam 0.5mg, Pristiq 25mg, Seroquel 400mg every evening and 25mg every morning. Increase Buspirone to 15 mg BID. Bipolar disorder symptoms are currently stable, but anxiety is high. Related to Bipolar disorder, current episode mixed, mild Continue weekly VitaminD Related to Vitamin D deficiency Increase lately due to the of her 13 yr old dog. Recently started Buspirone 10mg BID. Helping but still highly anxious. Increase Buspirone to 15mg BID. Continue Latuda 20mg daily, Clonazepam 0.5mg up to 3 times daily as needed, Pristiq 25mg, Seroquel 400mg every evening and 25mg every morning. Related to Anxiety Fasting labsUp to gurjit vega on preventative measures Related to Medicare annual wellness visit, subsequent Refer to Neurology f or evaluation, Dr Ria Dutton - vitamin levels Related to Memory change Stool Culture, O&PEn couraged increasing hydration. 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 Related to Gastrointestinal parasites Continue current med ications. Has upcoming appt with GI doctor Related to Chronic nausea Continue Latuda 20mg daily, Clonazepam 0.5mg, Pristiq 25mg, Seroquel 400mg every evening and 25mg every morning. Bipolar disorder symptoms are currently stable, but historically has had dramatic bipolar mood changes. Currently depression is well controlled, but having roberth and anxiety. Related to Bipolar disorder, current episode mixed, mild Continue Latuda 20mg daily, Clonazepam 0.5mg up to 3 times daily as needed, Pristiq 25mg, Seroquel 400mg every evening and 25mg every morning. Bipolar disorder symptoms are currently stable, but historically has had dramatic bipolar mood changes. Currently depression is well controlled, but having roberth and anxiety. Related to Anxiety noted on quantaflo a s moderate. pt does have a hx of smoking. lipid panel has been stable. no claudication symptoms. lipid panel today. Related to PAD (peripheral artery disease) Takes clonazepam 0.5 mg up to three times daily for anxiety for years. States helps decrease symptoms and would like to continue. Related to Anxiolytic dependence with current use No longer on opioid medication. Previously on Opioids, but pain is well controlled. Related to Uncomplicated opioid dependence She currently takes 2.5mg medroxyprogesterone every day. Continue this dose Related to Postmenopausal HRT (hormone replacement therapy) Continue Latuda 20mg daily, Clonazepam 0.5mg up to 3 times daily as needed, Pristiq 25mg, Seroquel 400mg every evening and 25mg every morning. Bipolar disorder symptoms are currently stable, but historically has had dramatic bipolar mood changes. Currently depression is well controlled, but having roberth and anxiety. Related to Anxiety Continue Latuda 20mg daily, Clonazepam 0.5mg, Pristiq 25mg, Seroquel 400mg every evening and 25mg every morning. Bipolar disorder symptoms are currently stable, but historically has had dramatic bipolar mood changes. Currently depression is well controlled, but having roberth and anxiety. Related to Bipolar disorder, current episode mixed, mild She has completed he r wean from 10mng daily to 2.5mg daily. She currently takes 2.5mg medroxyprogesterone every day. Related to Postmenopausal HRT (hormone replacement therapy) Continue Latuda 20mg daily, Clonazepam, Pristiq, Seroquel 800mg every evening and 50mg every morning. Bipolar disorder symptoms are currently stable, but historically has had dramatic bipolar mood changes. Related to Bipolar disorder, current episode mixed, mild Continue to mammogram appt in [facility] Related to Breast cancer screening by mammogram She is currently on week 10 of her wean down to Progesterone 2.5mg. She is currently taking 5mg 2 days per week and 2.5mg on 5 days per weekContinue Progesterone wean to 2.5mg:Week 1 & 2: 5mg tablet daily for 6 days per week and 2.5mg on 1 day per week (Thursday)Week 3 & 4: 5mg tablet daily for 5 days per week and 2.5mg on 2 days per week (Thursday and Thursday)Week 5 & 6: 5mg tablet daily for 4 days per week and 2.5mg on 3 days per week (Thursday, Thursday, Thursday)Week 7 & 8: 5mg tablet daily for 3 days per week and 2.5mg on 4 days per week (Thursday, Thursday, , Thursday)Week 9 & 10: 5mg tablet daily for 2 days per week (Thursday and Thursday) and 2.5mg on 5 days per week Week 11 & 12: 5mg tablet daily for 1 day per week (Thursday) and 2.5mg on 6 days per weekWeek 13 and on: take 2.5mg daily Related to Postmenopausal HRT (hormone replacement therapy) Continue Clonazepam 0.5mg up to 3 times daily for severe anxiety and panic Related to Anxiety Continue Latuda 20mg daily, Clonazepam, Pristiq, Seroquel 800mg every evening and 50mg every morning. Bipolar disorder symptoms are currently stable, but historically has had dramatic bipolar mood changes. Related to Bipolar disorder, current episode mixed, mild She is currently on week 7-8 of her wean down to Progesterone 2.5mg. She will be on 2.5mg every day starting Oct 12. Continue Progesterone wean to 2.5mg:Week 1 & 2: 5mg tablet daily for 6 days per week and 2.5mg on 1 day per week (Thursday)Week 3 & 4: 5mg tablet daily for 5 days per week and 2.5mg on 2 days per week (Thursday and Thursday)Week 5 & 6: 5mg tablet daily for 4 days per week and 2.5mg on 3 days per week (Thursday, Thursday, Thursday)Week 7 & 8: 5mg tablet daily for 3 days per week and 2.5mg on 4 days per week (Thursday, Thursday, , Thursday)Week 9 & 10: 5mg tablet daily for 2 days per week (Thursday and Thursday) and 2.5mg on 5 days per week Week 11 & 12: 5mg tablet daily for 1 day per week (Thursday) and 2.5mg on 6 days per weekWeek 13 and on: take 2.5mg daily Related to Postmenopausal HRT (hormone replacement therapy) Continue Clonazepam 0.5mg up to 3 times daily for severe anxiety and panic Related to Anxiety Continue Clonazepam 0.5mg up to 3 times daily for severe anxiety and panic Related to Panic attacks Continue Latuda 20mg daily, Clonazepam, Pristiq, Seroquel 800mg every evening and 50mg every morning. Bipolar disorder symptoms are currently stable, but historically has had dramatic bipolar mood changes. Related to Bipolar disorder, current episode mixed, moderate Doppler US right upp er extremity shows linear echogenic structure in right subclavian vein that could be chronic nonocclusive thrombus, web, or fibrin sheath . She chooses not to start the Eliquis 5mg BID she was prescribed in ER unless a clot is verified. Refer to Vascular, Dr Alex, for evaluation and treatment. Related to Abnormal ultrasound Received and discuss ed hospital records. ER precautions discussed and emphasized. Related to Hospital discharge follow-up Recheck today, On weekly high do se Vit D Related to Vitamin D deficiency Mammogram to [facility] Related to Breast screening Continue Progesteron e wean to 2.5mg:Week 1 & 2: 5mg tablet daily for 6 days per week and 2.5mg on 1 day per week (Thursday)Week 3 & 4: 5mg tablet daily for 5 days per week and 2.5mg on 2 days per week (Thursday and Thursday)Week 5 & 6: 5mg tablet daily for 4 days per week and 2.5mg on 3 days per week (Thursday, Thursday, Thursday)Week 7 & 8: 5mg tablet daily for 3 days per week and 2.5mg on 4 days per week (Thursday, Thursday, , Thursday)Week 9 & 10: 5mg tablet daily for 2 days per week (Thursday and Thursday) and 2.5mg on 5 days per week Week 11 & 12: 5mg tablet daily for 1 day per week (Thursday) and 2.5mg on 6 days per weekWeek 13 and on: take 2.5mg daily Related to Postmenopausal HRT (hormone replacement therapy) Chronic. Likely wors ened by previous high dose Progesterone. Continue to wean as discussed. Will check Vit B12, Vit B1, Vit B6, Mag today. Not currently on supplement. Related to Nausea and vomiting in adult Pap smear today Related to Well woman exam Reviewed and discuss ed recent hospital visit. Related to Hospital discharge follow-up Continue Latuda 20mg daily, Clonazepam, Pristiq, Seroquel 800mg every evening and 50mg every morning. Bipolar disorder is not currently well controlled. I recommend inpatient care at [facility]. Denies SI/HI Related to Bipolar disorder, current episode mixed, severe, without psychotic features Take 5mg Medroxyprog esterone this coming Thursday. Then, follow new protocol listed below. Weaning protocol started on 04/18/22:Week 1 & 2: 10mg tablet daily for 6 days per week and 2.5mg on 1 day per week (Thursday) - 04/20Week 3 & 4: 10mg tablet daily for 5 days per week and 2.5mg on 2 days per week (Thursday and Thursday)- 05/04 - currently at end of week 4Start this new weaning protocol on Thursday05/19/22:Week 5 & 6: 10mg tablet daily for 4 days per week and 5mg on 3 days per week (Thursday, Thursday, Thursday) 05/19- 7 & 8: 10mg tablet daily for 3 days per week and 5mg on 4 days per week (Thursday, Thursday, , Thursday) 06/01- 9 & 10: 10mg tablet daily for 2 days per week (Thursday and Thursday) and 5mg on 5 days per week 06/15- 11 & 12: 10mg tablet daily for 1 day per week (Thursday) and 5mg on 6 days per week 06/29- 13 and on: take 5mg daily Related to Postmenopausal HRT (hormone replacement therapy) Continue current med ications. Referral sent to [employer] [place] for home assistance. Related to Chronic nausea Reviewed and discuss ed recent hospital visit. Related to Hospital discharge follow-up Weaning protocol:Wee k 1 & 2: 10mg tablet daily for 6 days per week and 2.5mg on 1 day per week (Thursday)Week 3 & 4: 10mg tablet daily for 5 days per week and 2.5mg on 2 days per week (Thursday and Thursday)Week 5 & 6: 10mg tablet daily for 4 days per week and 2.5mg on 3 days per week (Thursday, Thursday, Thursday)Week 7 & 8: 10mg tablet daily for 3 days per week and 2.5mg on 4 days per week (Thu, , , Thu)Week 9 & 10: 10mg tablet daily for 2 days per week (Thursday and Thursday) and 2.5mg on 5 days per week Week 11 & 12: 10mg tablet daily for 1 day per week (Thursday) and 2.5mg on 6 days per weekWeek 13 and on: take 2.5mg daily Related to Postmenopausal HRT (hormone replacement therapy) Continue current med ication regimen of Remeron, Promethazine oral or suppository depending on severity of symptoms. Related to Chronic nausea Continue Latuda 20mg daily, Clonazepam, Pristiq, Seroquel 800mg every evening and 50mg every morning. Doing well on current medications. Continue to follow up with therapist weekly. Related to Bipolar disorder, current episode mixed, moderate withdrawal symptoms resolvedcont current meds w/ lower dose pristiq for nowf/u w/ dr. estrada next month about monthly visits (pt requests not to do) Related to Bipolar disorder, current episode mixed, moderate Stool culture, O&P Related to Di arrhea, unspecified type Continue Prisatiq, S eroquel and start Remeron 15mg every evening. She is no longer on Latuda. Tried [place] but had negative side effects. Currently having increased manic symptoms. Related to Bipolar disorder, current episode mixed, severe, without psychotic features Follow up with Dr Ra delatorre regarding nausea and vomiting. Refill Promethazine 25mg supp. Related to Nausea and vomiting in adult Fasting labs, CRP, Sed Rate Rela sultana to Annual physical exam Follow up with Dr Al Roman on 12/19/21. Related to Kidney stones Reviewed and discuss ed recent hospital visit Related to Hospital discharge follow-up No longer on opioid medication. Previously on Opioids, but pain is well controlled. Related to Opioid dependence, uncomplicated Takes clonazepam 0.5 mg up to three times daily for anxiety for years. States helps decrease symptoms and would like to continue. Related to Anxiolytic dependence with current use noted on quantaflo a s moderate. pt does have a hx of smoking. lipid panel has been stable. no claudication symptoms. lipid panel today. Related to PAD (peripheral artery disease) She is no longer on Latuda. Tried [place] but had negative side effects. Currently having increased manic symptoms. Decrease Pristiq to 25mg daily to attempt to decrease manic episodes. Start with taking 50mg every other day alternated with 25mg every other day for the first week, then continue on 25mg daily only. Continue Seroquel 800mg in the evening and 50mg in morning. Related to Bipolar affective disorder, currently manic, moderate Try Promethazine rec samanta suppository for nausea and vomiting. Increase oral hydration. Food intake as tolerated. Call my office if symptoms do not improve. Related to Nausea and vomiting in adult Flu vaccine today Related to Imm unization due Continue Clonazepam 0.5mg up to 3 times daily for severe anxiety Related to Anxiety Continue Seroquel 80 0mg at night and 50mg in morning. Continue Latuda, Pristiq, ClonazepamUpcoming [facility] afternoonContinue to follow up weekly with therapist. Related to Bipolar disorder, current episode mixed, severe, without psychotic features Urine Micral Related to Other [facility] (current) drug therapy After talking to Yazmin brown, we deteremined that she was calling [facility] with [facility] and I actually recommended [facility] psychiatrists. Referral sent to [facility] and information given to patient. Encouraged continuing with upcoming telephonic visit with therapist. Related to Bipolar affective disorder, depressed, moderate ondansetron rx sentc onsider probiotic for recent abxif diarrhea increases call office Related to History of removal of ureteral stent will task sean to re fill clonazepam, unsure about her rules for few day fillscont seroquelwill task maureen immigration case manager regarding in person psychiatric care covered by her insurancewill ensure dr. estrada has no denial of latuda for patient Related to Bipolar disorder, current episode mixed, moderate push fluidsOTC pain meds as need ed Related to Hx of renal calculi Reviewed and discussed hospital records Related to Hospital discharge follow-up Refill Dicyclomine 2 0mg every 6 hours as needed for abdominal pain.Recommended Mag Citrate and Fleets Liquid Glycerin SuppositoryRecommended follow up with Gastroenterology, Dr Medina. Related to Constipation, unspecified constipation type UrinalysisRefer to Dottie Reeder. Related to Kidney stones Referral to [facility] stephan matute PsychiatryContinue current medications. Related to Bipolar disorder, current episode mixed, moderate Continu current meds Related to Environmental allergies Continue Omeprazole Related to B arrett's esophagus determined by endoscopy Take Valtrex as needed Related t o Genital herpes simplex, unspecified site Take Tylenol as needed Related t o Low grade fever Will check labs, sto ol cultures and ultrasound. Encouraged to push fluids and eat a liquid diet, may advance to BRAT diet. Related to Abdominal cramps Will check labs, sto ol cultures and ultrasound. Encouraged to push fluids and eat a liquid diet, may advance to BRAT diet. take Zofran and phenergan as needed Related to Nausea and vomiting, intractability of vomiting not specified, unspecified vomiting type Will check labs, sto ol cultures and ultrasound. Encouraged to push fluids and eat a liquid diet, may advance to BRAT diet. Start taking probiotics Related to Diarrhea of presumed infectious origin Continues Latuda, Pr istiq, and Seroquel for bipolar. On Clonazepam 0.5mg TID prn increased anxietyReferral to [facility] for psychiatrist. She has had a very difficult time finding a psychiatrist near her. Related to Bipolar disorder, current episode mixed, moderate Continue Clonazepam 0.5mg 3 time s daily. Related to Anxiety Decrease Meclizine 2 5mg to 2 times/day for 4 days, then once daily for 4 days, then stop. Wean off of Diazepam and start Clonazepam with this schedule: Clonazepam 0.5mg every morning, then Diazepam 5mg midday, Diazepam 5mg in the evening for 5 days. Then, Clonazepam every morning and midday, and Diazepam every evening x 5 days. Then Clonazepam 0.5mg 3 times daily. Continue this dose.She has enough Diazepam at home to complete this taper. Will send refill of Clonazepam to pharmacy. She has appt with Psychiatry 03/26/21 Related to Anxiety Continue to upcoming appt with new Neurologist. Related to Bipolar affective disorder, currently depressed, moderate Continue Diazepam 5m g 3 times daily for anxiety and panic attacks. Related to Anxiety Feb-22-2021 Reviewed previous labs. Related to Routine physicl lab exam Refer to Dr Alexa Benito, ENT Re lated to Vertigo Switch from Klonopin to Diazepam. Safe taper off Klonopin while starting Diazepam. I recommend decreasing Klonopin 0.5mg to 1/2 tablet 3 times daily and starting Diazepam 5mg 1/2 tablet twice daily for 1 week, then Klonopin 0.5mg 1/2 tablet 2 times daily and increase Diazepam to 5mg 1 tab twice daily for 1 week, then decrease Klonopin 0.5mg to 1/2 tablet once daily for 1 week, then stop. Continue Diazepam 5mg twice daily. Monitor symptoms over the next month. Discussed risks/benefits/side effects/withdraw potential. Related to Anxiety Continues Latuda, Pr istiq, and Seroquel for bipolar. On Clonazepam 0.5mg TID prn increased anxietyManaged by neurology, Dr Daily, but pt has appt with new neurologist coming up. Related to Bipolar disorder, current episode mixed, moderate Continues Latuda, Pr istiq, and Seroquel for bipolar. On Clonazepam 0.5mg TID prn increased anxietyManaged by neurology, Dr Daily, but pt would like another evaluation by different neurologist. Related to Bipolar affective disorder, currently depressed, mild noted on quantaflo a s moderate. pt does have a hx of smoking. lipid panel has been stable. no claudication symptoms. lipid panel today. Related to PAD (peripheral artery disease) Takes clonazepam 0.5 mg up to three times daily for anxiety for years. States helps decrease symptoms and would like to continue. Related to Anxiolytic dependence with current use Refer to neurology. Pt will check to see who accepts her insurance. Fasting labs Related to Other lobsterman (current) drug therapy Continue current med ication regimen. Condition is improving. Discussed methods of improving anxiety and decreasing panic attacks. Pt is overall doing much better since restarting Latuda and increasing Seroquel Related to Bipolar affective disorder, currently depressed, mild Continue Linzess. Co nstipation improving. Discussed likelihood of Aimovig causing constipation. Last injection was July.Continue bowel regimen and tracking bowel habits. Related to Chronic constipation Continue Meclizine u p to 2 times daily as needed. Related to Vertigo Continue current medications Rel ated to Anxiety Restarted Latuda 20m g daily. Continue this dose and monitor symptoms. Related to Bipolar affective disorder, currently depressed, moderate Continue Linzess and f/u with Dr Shane promethazine as needed for nausea. Related to Chronic constipation cont current medications Goals- quitBarrier- Habit and bipolar/anxietyPt is wanting to quit, but every time she tries to quit, she gets very anxious. We will focus on getting bipolar under better control, and assist in quitting. keep f/u w/ orthobra ce/antiinflammatories as needed keep f/u w/ neurologycontinue me ds reassurance given discussed pro's cons /aspirinwill monitor for now Annual exam-Age appr opriate health care management discussed.-Continue regular eye and dental exams.-Mammogram UTD-Continue regular care with APPRENTICE PHOTOGRAPHER provider-Continue regular exercise: 30 minutes at least 5 days a week including strength training.-Routine labs Converted from Health Monitor Assessments Type Assessment Date No Information Patient Care Teams Name Effective Dates (start - stop) Status Members Core Team - active Radha Sotomayor.
--- NOTE | 2024-11-21 09:12 | MHC.OFFVIS ---
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 Accompanied by: Self / Same As Patient Allergies morphine Allergy (Unknown, Verified 11/21/24 09:16) Unknown latex Allergy (Unknown, Uncoded 11/21/24 09:16) rash Medication List - Last Reconciled 11/21/24 by Mayuri Santos MD ascorbate calcium (vitamin C) 1 g PO Q6H aspirin (Adult Low Dose Aspirin) 81 mg PO DAILY atorvastatin 20 mg PO DAILY dulaglutide (Trulicity) 0.75 mg subcut QWEEK elderberry fruit (Sambucus Elderberry Original) mg PO losartan 25 mg PO DAILY bviximeb-ria-kjdf-FA-vit K-lut 8 mg iron-400 mcg-50 mcg (StreamStar Women 50 Plus) 1 tab PO DAILY omeprazole 20 mg PO DAILY pyridoxine (vitamin B6) 50 mg PO DAILY HPI Comments Details: 11/21/2024--Elham is a 59-year-old female who is here for follow-up for history of kidney stones. --Comorbidity diabetes, here for annual follow-up. 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 Renal ultrasound remains negative for stones. Urinalysis protein urea we will refer to Nephrology and follow with me on a p.r.n. basis. 11/20/23--Elham is a 57-year-old female who is here for follow-up for history of kidney stones. 11/20/23--Comorbidity diabetes She had a recent renal ultrasound which I have reviewed. --kidneys are within normal limits no renal calcifications visualized. The patient is asymptomatic. She confirms drinking adequate water daily with lemon and taking ktze-ouw-nhehkvb vitamin B6 100 mg --(insurance did not cover the prescribed vitamin B6) Plan continue to monitor kidneys. Follow-up in 1 year renal ultrasound prior [facility] Medical History Calculus of kidney Surgical History Hx of section Family History Father No problems noted. Mother No problems noted. Social History Alcohol intake: current Alcohol intake frequency: holidays/special occasions only Patient Tobacco Use Status: Never used Tobacco Review of Systems Const All systems reviewed & are unremarkable except as noted in HPI and below Reports no additional complaints Eyes Reports no additional complaints ENT Reports no additional complaints Card Reports no additional complaints Resp Reports no additional complaints GI Reports no additional complaints Reports as per HPI Musc Reports no additional complaints Skin/Breast Reports system reviewed and no additional complaints, except as documented Neuro Reports no additional complaints Psych Reports no additional complaints Endo Reports no additional complaints Quang/Lymph Reports no additional complaints Aller/Immun Reports no additional complaints Results AMB Urinalysis, Automated UA Leukoctes 70 Rachel/uL Last Edit by Princess Starks CMA on 11/21/24 09:31 UA Nitrite Negative Last Edit by Princess Starks CMA on 11/21/24 09:31 UA Urobilinogen 0.2 mg/dL Last Edit by Princess Starks CMA on 11/21/24 09:31 UA Protein 30 mg/dL Last Edit by Princess Starks CMA on 11/21/24 09:31 UA pH 5.0 Last Edit by Princess Starks CMA on 11/21/24 09:31 UA Blood 0 Antoni/uL Last Edit by Princess Starks CMA on 11/21/24 09:31 UA Specific [place] 1.030 Last Edit by Princess Starks CMA on 11/21/24 09:31 UA Ketone Positive Last Edit by Princess Starks CMA on 11/21/24 09:31 UA Bilirubin 0 mg/dL Last Edit by Princess Starks CMA on 11/21/24 09:31 UA Glucose 0 mg/dL Last Edit by Princess Starks CMA on 11/21/24 09:31 Results Reviewed Results Reviewed: Laboratory Last Values Urine pH (Auto) 5.0 11/21/24 09:16 Specific [place] (Auto) 1.030 11/21/24 09:16 Urine Protein (Auto) 30 mg/dL 11/21/24 09:16 Glucose (UA)(Auto) 0 mg/dL 11/21/24 09:16 Urine Ketones (Auto) Positive 11/21/24 09:16 Urine Blood (Auto) 0 Antoni/uL 11/21/24 09:16 Urine Nitrite (Auto) Negative 11/21/24 09:16 Urine Bilirubin (Auto) 0 mg/dL 11/21/24 09:16 Urine Urobilinogen (Auto) 0.2 mg/dL 11/21/24 09:16 Leukocyte Esterase (Auto) 70 Rachel/uL 11/21/24 09:16 Renal ultrasound 10/20/2024--preliminary reading negative for kidney stones official penology teacher pending. Date of Service: 11/11/23 US RETROPERITONEAL LIMITED (RENAL ONLY) CLINICAL INFORMATION: History of renal calculi.. COMPARISON: None available. TECHNIQUE: Real-time imaging of the kidneys. FINDINGS: RIGHT KIDNEY: 11.5 x 6.1 x 5.6 cm (SAG x AP x TRV). The kidney is normal in size, contour, and echogenicity. Renal cortical thickness is normal. No calculi or focal parenchymal lesions. No hydronephrosis. LEFT KIDNEY: 11.6 x 5.3 x 4.9 cm (SAG x AP x TRV). The kidney is normal in size, contour, and echogenicity. Renal cortical thickness is normal. No calculi or focal parenchymal lesions. No hydronephrosis. IMPRESSION: Unremarkable examination. Assessment & Plan Assessment & Plan (1) History of kidney stones: Code(s): Z87.442 - Personal history of urinary calculi Category: Medical (2) Proteinuria: Code(s): R80.9 - Proteinuria, unspecified Category: Medical Plan History of kidney stones. No recurrence in the last few years. Comorbidity diabetes. Urinalysis proteinuria. We will refer to Nephrology. Follow-up with me p.r.n.. Orders: Orders AMB Urinalysis Automated Today Z13.9 - Encounter for screening, unspecified Referrals Nephrology Referral R80.9 - Proteinuria, unspecified Patient Instructions: The patient had an opportunity to ask questions regarding treatment plan. The patient expressed understanding and agreement with the above treatment plan. The patient is aware they should contact our office by phone for worsening of their current condition or the appearance of new symptoms. Compliance is encouraged with any medications and followup testing that is ordered. It is a privilege to be allowed the opportunity to participate in the urologic care of your patient. If you have any questions or concerns regarding treatment for the above conditions please do not hesitate to contact me. The office telephone contact is [phone]. This note is constructed in part using voice recognition software. While every effort has been made to ensure accuracy penology teacher errors may have been included. Yours sincerely, Mayuri Santos MD Coding Level of Care Code Est Pt Level 4 (48505) Diagnoses History of kidney stones Z87.442 Proteinuria R80.9
== END 2024-11-21 09:47 | disposition home or self-care (01) ==
PROVIDERS: PCP Internal Medicine; Visit Provider Urology
DX: Z87.442 Personal history of urinary calculi (principal); R80.9 Proteinuria, unspecified; Z13.9 Encounter for screening, unspecified
CPT/HCPCS: 99214

== ENCOUNTER → 2024-11-21 08:47 | Outpatient (BNVA) | payer OTHER, SELFPAY | PROVIDERS: PCP Internal Medicine; Visit Provider Urology | DX: R80.9 Proteinuria, unspecified (principal); E11.9 Type 2 diabetes mellitus without complications; Z87.442 Personal history of urinary calculi | CPT/HCPCS: 81003 ==

== ENCOUNTER 2024-12-27 09:57 | Outpatient (AMB) | payer OTHER, SELFPAY ==
--- NOTE | 2024-12-27 10:02 | HO.NEPHOV_ITS ---
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 She is a diabetic and had been on metformin initially which was changed to Trulicity with improvement in her weight. Her hemoglobin A1c he recently had been 7.4. She has neuropathy but denies retinopathy, coronary artery disease, congestive heart failure, CVA, carotid stenosis. She does not have any hypercalcemia, back pain, history of excessive nonsteroidal anti-inflammatory medication use. She has history of preeclampsia during her . She is on losartan. She does not have any recurrent sinusitis, hematuria, joint swellings, edema, photosensitivity or skin rashes. She has been on PPI for a long time. Her renal functions are normal. She has had renal stones in the past but does not have any by her last renal imaging. She feels well. [facility] Medical History (Updated 12/27/24 @ 10:30 by Cisco Morillo MD) Tennis elbow Calculus of kidney Surgical History (Updated 12/27/24 @ 10:03 by Jordyn Campbell MA) Hx of elbow surgery History of carpal tunnel release Hx of section Family History Father No problems noted. Mother No problems noted. Social History Alcohol intake: current Alcohol intake frequency: holidays/special occasions only Patient Tobacco Use Status: Never used Tobacco Review of Systems Const All systems reviewed & are unremarkable except as noted in HPI and below Physical Exam Vital Signs: Last Vital Signs BP 130/74 12/27/24 10:07 BMI result Body Mass Index 30.6 Const General: comfortable and no acute distress Orientation/consciousness: patient oriented x3 HEENT Head: Yes normocephalic Mouth: Normal oral and palatal mucosa present Eyes EOM: EOMs intact bilaterally Neck Neck: Yes supple Resp Auscultation: clear to auscultation bilaterally Cardio Jugular venous distension: no JVD Rate: regular rate GI Palpation (GI): Soft to palpation Auscultation: normal bowel sounds General: Yes no CVA tenderness Back/Spine/Pelvis Back: no CVA tenderness Skin General skin exam: no rashes or lesions noted Neuro General: patient oriented x3 and moves all extremities Extrem General: Yes no pedal edema Results Reviewed Nephrology Results: Renal US 10/20/24 Assessment & Plan Assessment & Plan (1) Proteinuria: Code(s): R80.9 - Proteinuria, unspecified Category: Medical Qualifiers: Proteinuria type: other Qualified Code(s): R80.8 - Other proteinuria (2) History of kidney stones: Code(s): Z87.442 - Personal history of urinary calculi Category: Medical Plan Elham has normal renal function. She is known to have hypertension and is on losartan which is keeping her blood pressure at goal. She has a diabetic with neuropathy and her last A1c was 7.4. She is not on Jardiance. She is losing weight on Trulicity. She has no other macrovascular history. She does not take any excessive nonsteroidal anti-inflammatories. I have ordered 24 hour urine collection to establish whether she has proteinuria or not. If she has she will be extensively investigated depending on the level of proteinuria. She does not get recurrent UTIs. She maintains good hydration. I did not make any medication changes today. All questions answered. Follow-up appointment given. Orders: Orders Protein, 24 Hr Urine Group Today R80.9 - Proteinuria, unspecified Coding Level of Care Code New Pt Level 4 (02280) Diagnoses Other proteinuria R80.8 Proteinuria type: other History of kidney stones Z87.442
[2024-12-27 10:07] VITALS: BP 130/74; BMI 30.6
--- OUTSIDE RECORDS SUMMARY | 2024-12-27 10:41 | XMS_ITS | Continuity of Care Document ---
Author Organization [facility] Address [address] [place] [address] Phone Care Team Providers Care Frame Coverer Name Role Phone Rukhsana London MD Unavailable Unavailable Advance Directives Directive Yes / No Effective Date File Name No Information Encounters Encounter Description Practice Location Reason(s) For Visit Diagnoses Date Provider Providers Copied on Encounter [facility], [address], [place], [place], [id number], [place] tel:[phone] [facility] No Information Lita Milian. [address], [address], [place], [place], [id number], [place]. tel:[phone] Family History Family Member Type Diagnosis Age At Onset No Information Payers Payer name Insurance type Covered constitution party ID Authoriza tion(s) No Information Social History [...]
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
--- OUTSIDE RECORDS SUMMARY | 2024-12-27 10:44 | XMS_ITS | Clinical Summary ---
Author Organization [facility] Address [address] [place] [address] Care Team Providers Care Learning Developer Name Role Phone Unavailable Primary Care Provider Unavailabl e Surgical History Surgery Date Site/Laterality Comments SECTION PROCEDURE: [place] DELIVERY ONLY CARPAL TUNNEL RELEASE PROCEDURE: HISTORICAL CARPAL TUNNEL REL; COMMENT: left OTHER SURGICAL HISTORY PROCEDURE: ---- OTHER ----; COMMENT: right tennis elbow procedure OTHER SURGICAL HISTORY PROCEDURE: ---- OTHER ----; COMMENT: emergency surgery for ruptured hepatic cyst CHOLECYSTECTOMY PROCEDURE: HISTORICAL CHOLECYSTECTOMY COLONOSCOPY 06/05/2015 PROCEDURE: HISTORICAL COLONOSCOPY; COMMENT: normal Medical History Medical History Date Comments Urinary calculus, unspecified 08/05/2007 DX :Urinary calculus, unspecified; COMMENT: [place] Calculus of gallbladder with out mention of cholecystitis, with obstruction 08/05/2007 DX:Calculus of gallbladder w ithout mention of cholecystitis, with obstruction Hepatic cyst 06/09/2008 DX:Hepatic cyst; COMMENT: Ruptured; required surgery 09/13/99 Esophageal reflux DX:Esophageal reflux 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 Essential hypertension 04/05/2021 DX:Essent ial hypertension Type 2 diabetes mellitus wit hout complication, without long-term current use of insulin ([facility]) 06/03/2021 DX:Type 2 diabetes me llitus without complication, without long-term current use of insulin ([facility]) Personal history of COVID-19 08/11/2022 DX: Personal history of COVID-19; COMMENT: Tested (+) on 07/30/22 at [facility] Osteoarthritis of both knees 09/22/2022 DX: Osteoarthritis of both knees Family History Medical History Relation Name Comments Rheum arthritis Father Cataracts Maternal Grandmother Rheum arthritis Mother Colon cancer Other GGM Breast cancer Paternal Grandmother Blindness Sister has 4 all alive Diabetes Sister has 4 all alive Coronary artery disease Neg Hx Glaucoma Neg Hx Hypertension Neg Hx Macular degeneration Neg Hx Strabismus Neg Hx Relation Name Status Comments Brother Alive Father Maternal Grandfather Maternal Grandmother Mother Alive Other Paternal Grandfather Paternal Grandmother Sister has 4 all alive Alive Social History Tobacco Use Types Packs/Day Years Used Date Smoking Tobacco: Never Smokeless Tobacco: Never Alcohol Use Standard Drinks/Week Comments Yes 0 (1 standard drink = 0.6 oz pur e alcohol) Comments Unknown Sex and Gender Information Value Date Recorded Sex Assigned at Not on file Legal Sex Female 6:54 AM EST Gender Identity Not on file Sexual Orientation Not on file Obstetrics History Last Filed Vital Signs Vital Sign Reading Time Taken Comments Blood Pressure 131/83 02/05/2022 3:51 PM EDT Pulse 93 02/05/2022 3:51 PM EDT Temperature - - Respiratory Rate - - Oxygen Saturation - - Inhaled Oxygen Concentration - - Weight 105 kg (232 lb) 02/05/2022 3:51 PM EDT Height - - Body Mass Index - - Plan of Treatment Health Maintenance Due Date Last Done Comments Breast Cancer Screening 1963 Diabetes: Annual GFR (Glomerular Filtration Rate) 1963 Diabetes: Annual Foot Exam 1973 Diabetes: Annual Retina Eye Exam 1973 Cervical Cancer Screening: P ap Smear 1984 Zoster Vaccines (1 of 2) 2013 Pneumococcal Vaccine: 50+ Years (2 of 2 - PCV) 09/06/2022 09/06/2021 Cholesterol Screening (Lipid Panel) 10/18/2022 Colorectal Cancer Screening: Colonoscopy 10/18/2022 Depression Screening 10/18/2022 HIV Screening 10/18/2022 Hepatitis C Screening 10/18/2022 Social Influencers of Health Screening 10/18/2022 Hypertension/CHF/CAD Annual BMP Blood Test 10/19/2022 Diabetes: Annual Urine Albumin-Creatinine Ratio (uACR) 10/21/2022 Diabetes: Blood Sugar Contro l Test (HGBA1C) 10/21/2022 COVID-19 Vaccine (3 - 2023-2 5 season) 2024 12/19/2020, 11/21/2020 Influenza Vaccine (#1) 2024 0, 10/16/2016 DTaP,Tdap,and Td Vaccines (3 - Td or Tdap) 11/12/2030 11/12/2020, 06/09/2008 RSV Immunization Patients 60 + Years Old (1 - 1-dose 75+ series) 2038 Pneumococcal Vaccine: Pediatrics (0 to 5 Years) and At-Risk Patients (6 to 64 Years) Aged Out 09/06/2021 No longer eligible b ased on patient's age to complete this topic HIB Vaccines Aged Out No longer eligi ble based on patient's age to complete this topic HPV Vaccines Aged Out No longer eligi ble based on patient's age to complete this topic Hepatitis A Vaccines Aged Out No long er eligible based on patient's age to complete this topic Hepatitis B Vaccines Aged Out No long er eligible based on patient's age to complete this topic IPV Vaccines Aged Out No longer eligi ble based on patient's age to complete this topic MMR Vaccines Aged Out No longer eligi ble based on patient's age to complete this topic Meningococcal ACWY Vaccine Aged Out N o longer eligible based on patient's age to complete this topic Meningococcal B Vacine Aged Out No lo nger eligible based on patient's age to complete this topic RSV Immunization Patients Under 20 months Aged Out No longer eligible b ased on patient's age to complete this topic Varicella Vaccines Aged Out No longer eligible based on patient's age to complete this topic
--- OUTSIDE RECORDS SUMMARY | 2024-12-27 10:44 | XMS_ITS | Continuity of Care Document ---
Author Organization [facility] 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 [address] [place] [address], [address], [place]. tel:[phone] Referring Provider: Coleman Aleman [address], [place], [address]. tel:[phone] Family History Family Member Type Diagnosis Age At Onset No Information Payers Payer name Insurance type Covered constitution party ID Authoriza tion(s) Medicare [id number] Social History Type Description Quantity Date Captured [...]
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
== END 2024-12-27 10:36 | disposition home or self-care (01) ==
PROVIDERS: PCP Internal Medicine; Referring Provider Urology; Visit Provider Internal Medicine Nephrology
DX: R80.8 Other proteinuria (principal); Z87.442 Personal history of urinary calculi
CPT/HCPCS: 99204

== ENCOUNTER 2025-01-04 18:27 | Outpatient (REF) | payer OTHER, SELFPAY ==
[2025-01-04 19:07] LABS: Creatinine, mg/dL 107.12; Protein mg/dL < 7 mg/dL
[2025-01-04 19:55] LABS: Creatinine, 24Hr Urine 1.1 G/Day (1.0-2.0); Protein 24 Hr Urine < 70 mg/Day (<150); Total Volume 24 Hour Urine 1000 mL
--- OUTSIDE RECORDS SUMMARY | 2025-01-04 20:02 | XMS_ITS ---
Author Organization [facility] Address [address] [place] [address] Care Team Providers Care Unarmed Security Officer Name Role Phone Rayshawn Jones MD Primary Care Provider Unavail able Mary Ann Brown Unavailable [phone] REASON FOR VISIT 60 Days - [facility] Encounters Encounter Location Date Provider Diagnosis [address] [address] 12/30/2024 Mary Ann Brown Plan Of Treatment Next Appt Details Provider Name:Mary Ann Brown , 01/27/2025 08:30:00 AM, [address] [facility], [place], [address], Progress Notes * Elham COHEN SDOB:1965 (59 yo F)Acc No.[id number]:12/30/2024 Patient:?Elham COHEN :1965???Age:59 Y???Sex:Female Address:[address] [place] [address], [place], [address] * true * Date:? Generated for Darini newton/Romain/eTransmitting on:?01/04/2025 08:02 PM EST
--- OUTSIDE RECORDS SUMMARY | 2025-01-04 20:03 | XMS_ITS | Patient Health Record ---
Author Organization [facility] Janet [place]ada [place] Address [address] [place] [address] Care Team Providers Care Brickmason Helper Name Role Phone Rayshawn Jones MD Primary Care Provider Unavail able Black, Mary Ann Unavailable [phone] Allergies Allergen (clinical drug ingredient) Drug/Non Drug Allergy documented on EMR Reaction Allergy Type Onset Date Status Levaquin Unknown Drug Allergy Active almond allergenic extract [place] (Diagnostic) Unknown Drug Allergy Active Latex Latex [...] Polyneuropathy due to type 2 diabetes mellitus (232166022) Type 2 diabetes mellitus with diabetic polyneuropathy (E11.42) Active confirmed Problem Acquired hammer toe of right foot (5939392581487246 ) Other hammer toe(s) (acquired), right foot (M20.41) Active confirmed Problem Acquired hammer toe of left foot (5302500977784717 ) Other hammer toe(s) (acquired), left foot (M20.42) Active confirmed Problem Polyneuropathy due to type 2 diabetes mellitus (941887161) Type 2 diabetes mellitus with diabetic polyneuropathy (E11.42) Active confirmed Problem 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) Active confirmed Problem 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 right heel (M92.61) Active confirmed Problem Ulcer of toe of right foot (disorder) (8391896483049422 1) Skin ulcer of toe of right foot, limited to breakdown of skin (L97.511) Active confirmed Response to treatment Problem Ulcer of toe of left foot (disorder) (6412453367096343 2) Skin ulcer of toe of left [...] Ordered Date Performed Result Body Sit e 90918-HGSQQYI NAIL, 6 OR MORE 03/11/2024 N/A 60598-PMUH SKIN LESIONS, OVER 4 03/11/2024 N/A 87660-AAKWVNK NAIL, 6 OR MORE 06/10/2024 N/A 50803-Bqovllpd Plate 06/10/2024 N/A 57368-CMDF SKIN LESIONS, OVER 4 06/10/2024 N/A 30473-XYK 08/16/2024 N/A 27064-CQEVLZB NAIL, 6 OR MORE 08/31/2024 N/A 72813-MRYWBWS SKIN/TISSUE 08/31/2024 N/A 09333-PGPV SKIN LESIONS, OVER 4 08/31/2024 N/A 74580-GDEWXOT NAIL, 6 OR MORE 10/26/2024 N/A 16627-ULOX SKIN LESIONS, OVER 4 10/26/2024 N/A Encounters Encounter Location Date Provider Diagnosis [address] [address] 03/11/2024 Mary Ann Black Type 2 diabetes mellitus with diabetic polyneuropathy E11.42 ; Muscle cramp, nocturnal R25.2 ; Tinea unguium B35.1 and Xerosis of skin L85.[address] [place] [address] 06/10/2024 Mary Ann Black Type 2 diabetes mellitus with diabetic polyneuropathy E11.42 ; Muscle cramp, nocturnal R25.2 ; Tinea unguium B35.1 and Ingrown nail L60.[address] [address] 08/16/2024 Mary Ann Black Ingrown nail L60.0 a nd Type 2 diabetes mellitus with diabetic polyneuropathy E11.[address] [address] 08/31/2024 Mary Ann Black Skin ulcer of toe of left foot with fat layer exposed L97.522 ; Type 2 diabetes mellitus with diabetic polyneuropathy E11.42 ; Tinea unguium B35.1 and Edema, lower extremity R60.[address] [address] 09/14/2024 Mary Ann Black Skin ulcer of toe of left foot, limited to breakdown of skin L97.[address] [address] 10/26/2024 Mary Ann Black Tinea unguium B35.1 ; Type 2 diabetes mellitus with diabetic polyneuropathy E11.42 and Xerosis of skin L85.3 [facility] [address] [place] [address] 12/30/2024 Mary Ann Black Assessments Encounter Date Diagnosis (ICD Code) Assessment [...] Treatment Pending Test Test Name Order Date 85314-WGLXQQR NAIL, 6 OR MORE 10/08/2021 83655-PMCDFGV NAIL, 6 OR MORE 01/14/2022 91059-NXOULBW NAIL, 6 OR MORE 04/18/2022 51201-USYBCQM NAIL, 6 OR MORE 07/18/2022 88021-RFVUOMV NAIL, 6 OR MORE 12/19/2022 83646-QROTEPI NAIL, 6 OR MORE 03/20/2023 71838-VOXQTIC NAIL, 6 OR MORE 06/19/2023 60008-PVZNKQP NAIL, 6 OR MORE 09/18/2023 10993-LXFNWQQ NAIL, 6 OR MORE 12/16/2023 11923-TPWKXVM NAIL, 6 OR MORE 03/11/2024 38681-QDHIECB NAIL, 6 OR MORE 06/10/2024 01235-CZWIVFK NAIL, 6 OR MORE 08/31/2024 69145-UGOVZIA NAIL, 6 OR MORE 10/26/2024 52156-YRUOYUI NAIL, 1-5 09/03/2016 80363-VJDZRXE NAIL, 1-5 10/08/2016 03264-HPKHROC NAIL, 1-5 11/25/2016 48271-FJOQKLM NAIL, 1-5 01/06/2017 61835-ATXXOHW NAIL, 1-5 02/24/2017 23507-ROOBDQA NAIL, 1-5 06/10/2017 71638-JAXMLHQ NAIL, 1-5 10/07/2017 57569-YHPZVVI NAIL, 1-5 01/12/2018 35457-Zhpg Destruction, -14 01/12/2018 53410-Vlqe Destruction, -14 10/07/2017 79511-Uzhw Destruction, -14 06/10/2017 34663-Zuva Destruction, -14 02/24/2017 13718-Tyoe Destruction, -14 01/06/2017 53364-Uejx Destruction, -14 12/29/2014 97137-Zoms Destruction, -14 02/13/2015 71729-Xlut Destruction, -14 09/03/2016 57042-Qwyd Destruction, -14 10/08/2016 82952-Muvk Destruction, -14 11/25/2016 06266-Yebpwldh Plate 01/14/2022 23919-Jfstnwje Plate 06/10/2024 76226-WDV 08/16/2024 34150-NFYHJLL SKIN/TISSUE 08/31/2024 52861-CNOD SKIN LESIONS, OVER 4 08/31/20 24 30718-KHHY SKIN LESIONS, OVER 4 06/10/20 24 94634-VHYV SKIN LESIONS, OVER 4 03/11/20 24 93934-RPGK SKIN LESIONS, OVER 4 10/26/20 24 38101-YTGD SKIN LESIONS, OVER 4 10/08/20 21 97006-YGBW SKIN LESIONS, OVER 4 12/16/19 24 22976-ABRL SKIN LESIONS, OVER 4 09/18/20 23 19282-VHGI SKIN LESIONS, OVER 4 06/19/20 23 18907-CGGS SKIN LESIONS, OVER 4 03/20/20 23 19953-QCNO SKIN LESIONS, OVER 4 12/19/19 23 93608-DDOF SKIN LESIONS, OVER 4 07/18/20 42051-IANQ SKIN LESIONS, OVER 4 04/18/20 93537-UKVH SKIN LESIONS, OVER 4 01/15/20 Next Appt Details Provider Name:Mary Ann Brown , 01/27/2025 08:30:00 AM, [address] [facility], [place], [address], Insurance Providers Payer Name Payer Address Payer Phone Subscriber Number Group Number Insured Name Patient Relationship to Insured Coverage Start Date Coverage End Date [facility] ([facility] [address] [place] [address] [id number] Elham Cohen Self - patient is the [...]
--- OUTSIDE RECORDS SUMMARY | 2025-01-04 20:03 | XMS_ITS | Clinical Summary ---
Author Organization [facility] Address [address] [place] [address] Care Team Providers Care Environmental Services Attendant Name Role Phone Unavailable Primary Care Provider Unavailabl e Surgical History Surgery Date Site/Laterality Comments SECTION PROCEDURE: ND DELIVERY ONLY CARPAL TUNNEL RELEASE PROCEDURE: HISTORICAL [...] complication, without long-term current use of insulin ([facility]/HCC) 06/03/2021 DX:Type 2 diabetes me llitus without complication, without long-term current use of insulin ([facility]) Personal history of COVID-19 08/11/2022 DX: Personal history of COVID-19; COMMENT: Tested (+) on 07/30/22 at [facility] Osteoarthritis of both knees 09/22/2022 DX: Osteoarthritis [...]
--- OUTSIDE RECORDS SUMMARY | 2025-01-04 20:03 | XMS_ITS ---
Author Organization [facility] Janet swetha [place] Address [address] [place] [address] Care Team Providers Care Pottery Machine Operator Name Role Phone Rayshawn Jones MD Primary Care Provider Unavail able Black, Mary Ann Unavailable [phone] Allergies Allergen (clinical drug ingredient) Drug/Non Drug Allergy documented on EMR Reaction Allergy Type Onset Date Status Levaquin Unknown Drug Allergy Active almond allergenic extract [place] (Diagnostic) Unknown Drug Allergy Active Latex Latex [...] an other tobacco user? No Vital Signs Blood pressure systolic 155 mm Hg 10/26/20 24 Blood pressure diastolic 68 mm Hg 024 Height 5ft 6in in 10/26/2024 Weight 193 lbs 10/26/2024 BMI 31.15 kg/m2 10/26/2024 Procedures Procedure Date Ordered Date Performed Result Body Sit e 14508-JSXXLRZ NAIL, 6 OR MORE 10/26/2024 N/A 10157-ICOG SKIN LESIONS, OVER 4 10/26/2024 N/A Encounters Encounter Location Date Provider Diagnosis [facility] [address] 10/26/2024 Mary Ann Black Tinea unguium B35.1 [...] days Pending Test Test Name Order Date 86296-RPUKFWH NAIL, 6 OR MORE 10/26/2024 95334-TFOX SKIN LESIONS, OVER 4 10/26/20 24 Next Appt Details Follow Up: 3 Months, Reason: Provider Name:Mary Ann Brown , 01/27/2025 08:30:00 AM, [address] [facility], [place], [address], Procedure Notes * Category Sub-Category Detail Notes [...] nail nipper and/or dremel-type grinder set up operator thread tool, to a more viable healthy nail plate [...] to maintain effectiveness in symptomatic relief - 33333 Keratoma Treatment Parring or Cutting o f [...] instrumentation by the physician of record - 72945 Progress Notes * Elham COHEN SDOB:1965 (59 yo F)Acc No.[id number]:10/26/2024 Progress Notes Patient:?Elham COHEN Provider:?Mary Ann Brown DPM :1965???Age:59 Y???Sex:Female D ate:10/26/2024 Address:[address] [place], [place] [address] Pcp:Rayshawn Jones MD Subjective: * Chief Complaints: [...] ?Exercise: yes, walking. ?Marital status: . 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 * Medications:?TakingTrulicity Lancets Lisinopril 2.5 MG Tablet [...] 6.9 * Examination: ???Ophthalmology Referral: ?DIABETES EYE EXAM?Procedure Performed:?Yes ?Date of Exam Performed?06/09/2024 ?Findings of Diabetic Eye Exam:?no retinopathy?General Examination: ?GENERAL APPEARANCE:?Reveals a pleasant, alert, well nourished, well- developed, well hydrated individual, who demonstrates proper attention to hygiene/body habitus, and is in no acute distress, Pt serves as own historian for office visit today.?ORIENTED:?person, place, and time.?FOOT EXAM:?Lower Extremity Neurological Exam performed:?Yes ?Visual exam of foot performed:?Yes ?Date?10/26/2024 ?Sensory testing performed:?sensations diminished ?Sensory and motor testing performed:?sensations diminished ?Pedal pulse taking performed:?2+ ?Footwear Evaluation?Foot Exam not performed:?No reason specified?Dermatologic: ?SKIN FINDINGS:?Skin exam reveals Keratotic lesion(s) located at, IPJ, T5, Lateral, TA, SUB MTH (s), 1, B/L , Plantar Heel(s), , B/L , Skin shows sign(s) of, dryness, scaling, in a stocking fashion, no fissure(s) present, B/L.?Vascular: ?DP PULSES (B):? 2/4, B/L.?PT PULSES (B):? /4, B/L.?EDEMA (C):?/, , non-pitting , Left , Foot , [...] E11.42 (Primary)??? Plan: * Treatment: 2.?Tinea unguium?Procedure: 96674-BLSLKGU NAIL, 6 OR MORE 3.?Xerosis of skin? [...] nail nipper and/or dremel-type grinder set up operator thread tool, to a more viable healthy nail plate [...] to maintain effectiveness in symptomatic relief - 43121.?Keratoma Treatment:?Parring or Cutting of Benign Hyperkeratotic Lesion(s)?(-57) [...] instrumentation by the physician of record - 75770.? * Procedure Codes:?66876 DEBRI DE NAIL, 6 OR MORE, Modifiers: XS 22022 TRIM SKIN LESIONS, OVER 4, Modifiers: XS [...] Brown DPM Date:?2023 Generated for Margy glez/Romain/Farooq on:?01/04/2025 08:03 PM EST History and Physical Notes * HPI (History of Present Illness) Category Sub-Category Detail Notes Category Not es Skin problems Nature: dryness , scaling Location: B/L Duration: several days Course: worse At Risk footcare Pt States Last PCP Visit: Date: Examination Category Sub-Category Detail Notes Category Not [...] non-pitting , Left , Foot , Ankle(s) LYLY'S SIGN: absent, B/L PALPABLE CORDS: absent, B/L Nails NAILS are: Elongated, overg rown, dystrophic, lytic, greater than 3mm thick, discolored and friable with crumbly malodorous subungual debris, with dull to no pain on palpation due to neuropathy,T1, T3 T4, T6, T8, T9
--- OUTSIDE RECORDS SUMMARY | 2025-01-04 20:03 | XMS_ITS | Continuity of Care Document ---
Author Organization [facility] Address [address] [place] [address] Phone Care Team Providers Care Hide Examiner Name Role Phone Alcon MOSER MD, Cholo Unavailable Unavailab le Procedures Procedure Date E/M Tire Service Supervisor Detailed His/Exam Low Complex Oct Advance Directives Directive Yes / No Effective Date File Name No Information Encounters Encounter Description Practice Location Reason(s) For Visit Diagnoses Date Provider Providers Copied on Encounter [facility] [address], [place], [place], [id number], tel:[phone] Jonathan No Information Alcon Emmanuel. [address] [place] [address], [address], [place]. tel:[phone] Referring Provider: Coleman Aleman [address], [place], [address]. tel:[phone] Family History Family Member Type Diagnosis Age At Onset No Information Payers Payer name Insurance type Covered republican ID Authoriza tion(s) Medicare [id number] Social History Type Description Quantity Date Captured [...]
--- OUTSIDE RECORDS SUMMARY | 2025-01-04 20:03 | XMS_ITS | Continuity of Care Document ---
Author Organization [facility] Address [address] [place] [address] Phone Care Team Providers Care News Copy Editor Name Role Phone Rukhsana London MD Unavailable Unavailable Advance Directives Directive Yes / No Effective Date File Name No Information Encounters Encounter Description Practice Location Reason(s) For Visit Diagnoses Date Provider Providers Copied on Encounter [facility], [address], [place], [place], [id number], [place] tel:[phone] [facility] No Information Lita Milian. [address], [place], [place], [id number], [place]. tel:[phone] Family History Family Member Type Diagnosis Age [...]
--- OUTSIDE RECORDS SUMMARY | 2025-01-04 20:03 | XMS_ITS | Continuity of Care Document ---
Author Organization Medical Clinic [facility] [place], [place] Address [address] [place] [address] Phone Care Team Providers Care Maintenance Specialist Name Role Phone Lobo Viry LIRA Unavailable [...] No Informa tion sumatriptan Active No Information Lrjlqqg-MRY-OaL Reductase Inhibitors Acti ve No Information ciprofloxacin [...] for F41.9 - Active covering for PCP meclizine 12.5 mg tablet TAKE 1 TABLET B Y MOUTH THREE TIMES DAILY NEEDED - Active omeprazole 40 mg capsule,delayed release take 1 capsule by oral route every day before a meal 40 MG - Active dicyclomine 20 mg tablet TAKE 2 TABLETS BY MOUTH THREE TIMES DAILY - Active benztropine 1 mg tablet TAKE 2 TABLETS B Y MOUTH EVERY DAY IN THE EVENING - Active methocarbamol 500 mg tablet take [...] Docd Medication List Documented In [facility]ch[facility] Meds Reconciled W/ Current Med L ist Telephone E&M,est 21-30 min Dischrg Meds Reconciled W/ Current Med L ist Rvw All Meds By Rxng Prctionr Or Clin Rp h Docd Medication List Documented In [facility] Telephone E&M,est 21-30 min Rvw All Meds By Rxng Prctionr Or Clin Rp h Docd Medication List Documented In [facility] Dischrg Meds Reconciled W/ Current Med L ist Telephone E&M,est 21-30 min Dischrg Meds Reconciled W/ Current Med L ist Rvw All Meds By Rxng Prctionr Or Clin Rp h Docd Medication List Documented In [facility] Telephone E&M,est 11-20 min Dischrg Meds Reconciled W/ Current Med L ist Rvw All Meds By Rxng Prctionr Or Clin Rp h Docd Medication List Documented In [facility] Telephone E&M,est 21-30 min Offic/outpt E&m Estab Mod-hi 4 Telemedic ine Pt At Home Rvw All Meds By Rxng Prctionr Or Clin Rp h Docd Medication List Documented In [facility] Offic/outpt E&m Estab Low-mod Telemedici ne Pt At Home Rvw All Meds By Rxng Prctionr Or Clin Rp h Docd Medication List Documented In [facility] Dischrg Meds Reconciled W/ Current Med L [...] Thyroid Stim Hormone Parathormone Albumin; Urin Microalbumin Vaelina Creatinine; Other Source Offic/outpt E&m Estab Mod-hi 2 Rvw All Meds By Rxng Prctionr Or Clin Rp h Docd Medication List Documented In [facility] Offic/outpt E&m Estab Mod-hi 2 20 Offic/outpt E&m Estab Mod-hi 2 20 Medication List Documented In [facility] All Meds By Rxng Prctionr Or Clin Rp h Docd Dischrg Meds Reconciled W/ Current Med L ist Offic/outpt E&m Estab Low-mod 0 Ua Dip Stik/tablet; Wo Micro A Pain Severity Quantified No Pain Present Medication List Documented In [facility] Rvw All Meds By Rxng Prctionr Or Clin Rp h Docd Culture, bacterial; quantitative colony count, urine Offic/outpt E&m Estab Mod-hi 2 20 Medication List Documented In [facility] Rvw All Meds By Rxng Prctionr Or Clin Rp h Docd Pain Severity Quantified Pain Present Offic/outpt E&m Estab Low-mod 0 Medication List Documented In [facility] Rvw All Meds By Rxng Prctionr Or Clin Rp h Docd Offic/outpt E&m Estab Mod-hi 2 20 Medication List Documented In [facility] Rvw All Meds By Rxng Prctionr Or Clin Rp h Docd Dischrg Meds Reconciled W/ Current Med L ist Offic/outpt E&m Estab Low-mod 0 Venipuncture Motor &/Sens Nrv Cndj Preconf Eltrd Arra y Limb FloChec - Noninvasv Stdy-up/lo Extm Art Prevent E&m Estab Pt; 40-64 Yr 20 Hgb; Glycated Lipid Panel Albumin; Urin Microalbumin Avelina 20 Creatinine; Other Source Medication List Documented In [facility] Rvw All Meds By Rxng Prctionr Or Clin Rp h Docd Pain Severity Quantified No Pain Present Telephone E&M,est 21-30 min Medication List Documented In [facility] Rvw All Meds By Rxng Prctionr Or [...] h Docd Pain Severity Quantified Pain Present In Culture, bacterial; quantitative colony count, urine Offic/outpt E&m Estab Low-mod 7 Medication List Documented In [facility] Rvw All Meds By Rxng Prctionr Or Clin Rp h Docd Pain Severity Quantified No Pain Present Annual Wellness W/PPS Subseq General Health Panel Hgb; Glycated Lipid Panel Ua Dip Stik/tablet; Wo Micro A 17 Venipuncture Medication List Documented In [facility] Rvw All Meds By Rxng Prctionr Or Clin Rp h Docd Functional Status Assessed Document Counseling Exercise Calcium & V itamin D Patient Screened Depression Falls Risk Assessment Documented 2016 Presence/Absence Urinary Incontinence As sessed Offic/outpt E&m Estab Mod-hi 2 16 Ua Dip Stik/tablet; Wo Micro A 16 Medication List Documented In [facility] [place] Rvw All Meds By Rxng Prctionr Or [...] 15 Medication List Documented In [facility] [place] Rvw All Meds By Rxng Prctionr Or Clin Rp h Docd Pain Severity Quantified No Pain Present Prevent E&m Estab Pt; 40-64 Yr 15 Offic/outpt E&m Estab Low-mod 5 Medication List Documented In [facility] [place] Rvw All Meds By Rxng Prctionr Or Clin Rp h Docd Offic/outpt E&m Estab Low-mod 5 Ua Dip Stik/tablet; Wo Micro A 15 Medication List Documented In [facility] [place] Rvw All Meds By Rxng Prctionr Or [...] Diagnoses Date Provider Providers Copied on Encounter [facility], [address], [place], [place], [id number] , [place] tel:[phone] [facility] No Information 4 Yamil Baires. [address] [facility] [address], [place], [place], [address], [place]. tel:[phone] Referring Provider: Viry Mary, [address], [place], [address]. tel:[phone] [facility], [address], [place], [place], [address] , [place] tel: [phone] [facility] No Information 4 Yamil Baires. [address], [place], [place], [address], [place]. tel:[phone] [facility], [address], [place], [place], [address] , [place] tel: [phone] [facility] Post concussion syndromeMemor y problem 4 Yamil Baires. [address], [place], [place], [address], [place]. tel:[phone] Referring Provider: Viry Mary, [address] [facility], [place], [address]. tel:[phone] Telephone E&M,est 21-30 min Medical [facility], [address], [place], [place], [address] , [place] tel: [phone] [facility] Monthly f/u (chief complaint)chr onic conditions (chief complaint) Other intermediate teacher (current) drug therapyHospit al discharge follow-upNaus ea and vomiting, unspecified vomiting typeFrequent headachesPost concussive syndromeMemor y problemPanic attacksAnxiet yChronic migraine without aura without status migrainosus, not intractable 4 Yamil Baires. [address], [place], [place], [address], [place]. tel:[phone] Referring Provider: Yvonne Jacques, [address], [place], [address]. tel:[phone] [facility], [address], [place], [place], [address] , [place] tel: [phone] [facility] No Information 0 4 Yamil Baires. [address], [place], [place], [address], [place]. tel:[phone] [facility], [address], [place], [place], [address] , [place] tel: [phone] [facility] Post-concussi on headache Oct- 4 Yamil Baires. [address], [place], [place], [address], [place]. tel:[phone] Referring Provider: Viry Mary, [address], [place], [address]. tel:[phone] [facility], [address], [place], [place], [address] , [place] tel: [phone] [facility] Concussion syndromeRecur rent headacheLight sensitivity Sep- 4 Yamil Baires. [address], [place], [place], [address], [place]. tel:[phone] [facility], [address], [place], [place], [address] , [place] tel: [phone] [facility] No Information Sep- 4 Yamil Baires. [address], [place], [place], [address], [place]. tel:[phone] [facility], [address], [place], [place], [address] , [place] tel: [phone] [facility] Left thigh pain Sep-0 4 Yamil Baires. [address], [place], [place], [address], [place]. tel:[phone] Telephone E&M,est 21-30 min Medical [facility], [address], [place], [place], [address] , [place] tel: [phone] [facility] hospital follow up (chief complaint) Other intermediate teacher (current) drug therapyHospit al discharge follow-upInju ry of head, subsequent encounterNeck painConcussio n syndrome Sep-0 4 Long Damon. [address], [place], [place], [address], [place]. tel:[phone] Referring Provider: Yvonne Jacques, [address], [place], [address]. tel:[phone] Telephone E&M,est 21-30 min [facility], [address], [place], [place], [address] , [place] tel: [phone] [facility] ER f/u (chief complaint)chr onic conditions (chief complaint) Other intermediate teacher (current) drug therapyHospit al discharge follow-upCont usion of right hip, initial encounterCont usion of right elbow, initial encounterStat us post fallConcussio n without loss of consciousness , initial encounterAnxi ety 4 Yamil Baires. [address], [place], [place], [address], [place]. tel:[phone] Referring Provider: Yvonne Jacques, [address], [place], [address]. tel:[phone] Telephone E&M,est 11-20 min [facility], [address], [place], [place], [address] , [place] tel: [phone] [facility] ER f/u (chief complaint)chr onic conditions (chief complaint) Hospital discharge follow-upRUQ abdominal painNauseaDia rrhea, unspecified typeAnxietyBi polar disorder, current episode mixed, mildPanic attacksOther senior care (current) drug therapyChroni c abdominal painOther chronic painBarrett's esophagus determined by endoscopy 4 Yamil Baires. [address], [place], [place], [address], [place]. tel:[phone] Referring Provider: [address], [place], [address]. tel:[phone] Telephone E&M,est 21-30 min [facility], [address], [place], [place], [address] , [place] tel: [phone] [facility] follow up (chief complaint) Other senior care (current) drug therapyHospit al discharge follow-upBipo lar disorder, current episode mixed, mildAlternati ng constipation and diarrheaMass of cervix 4 Long Damon. [address], [place], [place], [address], [place]. tel:[phone] Referring Provider: Yvonne Jacques, [address], [place], [address]. tel:[phone] Offic/outpt E&m Estab Mod-hi 4 Telemedicine Pt At Home [facility], [address], [place], [place], [address] , [place] tel: [phone] [facility] telemed (chief complaint)chr onic conditions (chief complaint) AnxietyBipola r disorder, current episode mixed, mildPostmenop ausal HRT (hormone replacement therapy)Panic attacks 4 Sean Russell. [address], [address], [place], [place], [address], [place]. tel:[phone] Referring Provider: Yvonne Jacques, [address] [facility] [address], [place], [address]. tel:[phone] Offic/outpt E&m Estab Low-mod Telemedicine Pt At [place] [facility], [address], [place], [place], [address] , [place] tel: [phone] [facility] HOF (chief complaint) Nausea vomiting and diarrheaDiarr hea, unspecifiedBu g bite, subsequent encounterHosp ital discharge follow-up 4 Chelly Castillo. [address], [place], [place], [address], [place]. tel:[phone] Referring Provider: Yvonne Jacques, [address], [place], [address]. tel:[phone] [facility], [address], [place], [place], [address] , [place] tel: [phone] [facility] No Information 4 Sean Russell. [address], [place], [place], [address], [place]. tel:[phone] [facility], [address], [place], [place], [address] , [place] tel: [phone] [facility] Chronic diarrhea 4 Sean Russell. [address], [address], [place], [place], [address], [place]. tel:[phone] [facility], [address], [place], [place], [address] , [place] tel: [phone] [facility] No Information 4 Sean Russell. [address], [place], [place], [address], [place]. tel:[phone] Offic/outpt E&m Estab Mod-hi 2 Telemedicine Pt At Home Medical [facility], [address], [place], [place], [address] , [place] tel: [phone] [facility] telemed/HFU (chief complaint)chr onic conditions (chief complaint) Other intermediate teacher (current) drug therapyHospit al discharge follow-upAnxi etyChronic abdominal painOther chronic painPostmenop ausal HRT (hormone replacement therapy) 4 Sean Russell. [address], [place], [place], [address], [place]. tel:[phone] Referring Provider: Yvonne Jacques, [address], [place], [address]. tel:[phone] [facility], [address], [place], [place], [address] , [place] tel: [phone] [facility] No Information 4 Sean Russell. [address], [place], [place], [address], [place]. tel:[phone] Offic/outpt E&m Estab Mod-hi 2 Telemedicine Pt At Home Medical [facility], [address], [place], [place], [address] , [place] tel: [phone] [facility] telemed (chief complaint)chr onic conditions (chief complaint) Alternating constipation and diarrheaChron ic abdominal painOther chronic painAnxietyBi polar disorder, current episode mixed, mildOther intermediate teacher (current) drug therapyHospit al discharge follow-upChro gabriella nausea 4 Sean Russell. [address], [place], [place], [address], [place]. tel:[phone] Referring Provider: Yvonne Jacques, [address], [place], [address]. tel:[phone] [facility], [address], [place], [place], [address] , [place] tel: [phone] [facility] C. difficile diarrhea 4 Sean Russell. [address], [place], [place], [address], [place]. tel:[phone] [facility], [address], [place], [place], [address] , [place] tel: [phone] [facility] No Information 4 Sean Russell. [address], [place], [place], [address], [place]. tel:[phone] Offic/outpt E&m Estab Mod-hi 2 Telemedicine Pt At Home Medical [facility], [address], [place], [place], [address] , [place] tel: [phone] [facility] telemed (chief complaint)chr onic conditions (chief complaint) Bipolar disorder, current episode mixed, mildMemory changesVitami n D deficiencyGen eralized weaknessVitam in B12 deficiency Feb-3 4 Sean Russell. [address], [place], [place], [address], [place]. tel:[phone] Referring Provider: Yvonne Jacques, [address], [place], [address]. tel:[phone] [facility], [address], [place], [place], [address] , [place] tel: [phone] [facility] No Information Feb- 4 Sean Russell. [address], [place], [place], [address], [place]. tel:[phone] Offic/outpt E&m Estab Mod-hi 2 Telemedicine Pt At Home [facility], [address], [place], [place], [address] , [place] tel: [phone] [facility] telemed (chief complaint)chr onic conditions (chief complaint) Other intermediate teacher (current) drug therapyHospit al discharge follow-upC. difficile colitisChroni c constipationB ipolar disorder, current episode mixed, mild Apr-0 4 Sean Russell. [address], [place], [place], [address], [place]. tel:[phone] Referring Provider: Yvonne Jacques, [address], [place], [address]. tel:[phone] [facility], [address], [place], [place], [address] , [place] tel: [phone] [facility] Enterocolitis d/t Clostridium difficile, not spcf as recur Jan- 4 Sean Russell. [address], [place], [place], [address], [place]. tel:[phone] [facility], [address], [place], [place], [address] , [place] tel: [phone] [facility] C. difficile diarrhea Jan- 4 Sean Russell. [address], [place], [place], [address], [place]. tel:[phone] [facility], [address], [place], [place], [address] , [place] tel: [phone] [employer] [facility] Enterocolitis d/t Clostridium difficile, not spcf as recur 4 Long Damon. [address], [place], [place], [address], [place]. tel:[phone] Offic/outpt E&m Estab Mod-hi 2 Telemedicine Pt [facility], [address], [place], [place], [address] , [place] tel: [phone] [facility] hospital follow up (chief complaint) Other intermediate teacher (current) drug therapyHospit al discharge follow-upClos tridium difficile infectionTran sportation unavailable 4 Long Damon. [address], [place], [place], [address], [place]. tel:[phone] Referring Provider: Yvonne Jacques, [address], [place], [address]. tel:[phone] Offic/outpt E&m Estab Mod-hi 4 Telemedicine Pt At Home [facility], [address], [place], [place], [address] , [place] tel: [phone] [facility] Telemed (chief complaint)chr onic conditions (chief complaint) Other senior care (current) drug therapyC. difficile diarrheaChron ic constipationB ipolar disorder, current episode mixed, mildHospital discharge follow-up 4 Sean Russell. [address], [place], [place], [address], [place]. tel:[phone] Referring Provider: [address], [place], [address]. tel:[phone] Telephone E&M,est 21-30 min Medical [facility], [address], [place], [place], [address] , [place] tel: [phone] [facility] other (chief complaint) NauseaAcute diarrheaHx of Clostridium difficile infection 4 Long Damon. [address], [place], [place], [address], [place]. tel:[phone] Referring Provider: Yvonne Jacques [address], [place], [address]. tel:[phone] [facility], [address], [place], [place], [address] , [place] tel: [phone] [facility] Diarrhea, unspecified typeIrritable bowel syndrome, unspecified type 4 Sean Russell. [address], [place], [place], [address], [place]. tel:[phone] Referring Provider: Mila [address] [facility], [place], [address]. tel:[phone] Offic/outpt E&m Estab Mod-hi 2 [facility], [address], [place], [place], [address] , [place] tel: [phone] [facility] MAV (chief complaint)med icare preventive (chief complaint)chr onic conditions (chief complaint) Encounter for screening, unspecifiedOt her senior care (current) drug therapyOther specified health statusMedicar e annual wellness visit, subsequentNee d for hepatitis C screening testScreening mammogram for breast cancerImmuniz ation dueBipolar disorder, current episode mixed, mild 0 4 Sean Russell. [address], [place], [place], [address], [place]. tel:[phone] Referring Provider: Yvonne Jacques [address], [place], [address]. [phone] [facility], [address], [place], [place], [address] , [place] tel: [phone] [facility] Acute diarrhea Dec- 4 Estrada Yvonne. [address], [place], [place], [address], [place]. tel:[phone] Offic/outpt E&m Estab Mod-hi 2 Telemedicine Pt At Home [facility], [address], [place], [place], [address] , [place] tel: [phone] [facility] Telemed (chief complaint) Other senior care (current) drug therapyHospit al discharge follow-upC. difficile colitis 4 Sean Russell. [address], [place], [place], [address], [place]. tel:[phone] Referring Provider: [address], [place], [address]. tel:[phone] [facility], [address], [place], [place], [address] , [place] tel: [phone] [facility] Telemed (chief complaint) Other senior care (current) drug therapy 4 Sean Russell. [address], [place], [place], [address], [place]. tel:[phone] Referring Provider: Yvonne Jacques, [address], [place], [address]. tel:[phone] Offic/outpt E&m Estab Mod-hi 2 Telemedicine Pt At Home [facility], [address], [place], [place], [address] , [place] tel: [phone] [facility] Telemed (chief complaint)chr onic conditions (chief complaint) Hospital discharge follow-upOthe r intermediate teacher (current) drug therapyUncomp licated opioid dependenceAnx iolytic dependence with current useBipolar disorder, current episode mixed, mildPAD (peripheral artery disease) 4 Sean Russell. [address], [place], [place], [address], [place]. tel:[phone] Referring Provider: o[address], [place], [address]. tel:[phone] [facility], [address], [place], [place], [address] , [place] tel: [phone] [facility] telemed (chief complaint) Other senior care (current) drug therapyHospit al discharge follow-up 4 Sean Russell. [address], [place], [place], [address], [place]. tel:[phone] Referring Provider: Yvonne Jacques, [address], [place], [address]. tel:[phone] Offic/outpt E&m Estab Mod-hi 4 Telemedicine Pt At Home [facility], [address], [place], [place], [address] , [place] tel: [phone] [facility] Telemed (chief complaint)chr onic conditions (chief complaint) Other senior care (current) drug therapyHospit al discharge follow-upBipo lar disorder, current episode mixed, mildAnxietyCh ronic abdominal painOther chronic painPostmenop ausal HRT (hormone replacement therapy)Panic attacks 3 Sean Russell. [address], [place], [place], [address], [place]. tel:[phone] Referring Provider: Yvonne Jacques [address], [place], [address]. tel:[phone] Offic/outpt E&m Estab Mod-hi 2 Telemedicine Pt At [place] [facility], [address], [place], [place], [address] , [place] tel: [phone] [facility] telemed (chief complaint)chr onic conditions (chief complaint) Abdominal crampingAnxie tyBipolar disorder, current episode mixed, mildOther senior care (current) drug therapy 3 Sean Russell. [address], [place], [place], [address], [place]. tel:[phone] Referring Provider: Yvonne Jacques [address], [place], [address]. tel:[phone] [facility], [address], [place], [place], [address] , [place] tel: [phone] [facility] No Information 3 Estrada Yvonne. [address], [place], [place], [address], [place]. tel:[phone] Offic/outpt E&m Estab Mod-hi 2 Telemedicine Pt [facility], [address], [place], [place], [address] , [place] tel: [phone] [facility] telemed (chief complaint)chr onic conditions (chief complaint) Bipolar disorder, current episode mixed, mildBarrett's esophagus determined by endoscopyAnxi ety 3 Sean Russell. [address], [place], [place], [address], [place]. tel:[phone] Referring Provider: [address], [place], [address]. tel:[phone] Offic/outpt E&m Estab Mod-hi 2 Telemedicine Pt At Home [facility], [address], [place], [place], [address] , [place] tel: [phone] [facility] Telemed (chief complaint)chr onic conditions (chief complaint) Other senior care (current) drug therapyHospit al discharge follow-upBipo lar disorder, current episode mixed, mildAnxiety 3 Sean Russell. [address], [place], [place], [address], [place]. tel:[phone] Referring Provider: [address], [place], [address]. tel:[phone] [facility], [address], [place], [place], [address] , [place] tel: [phone] [facility] Dermatitis 3 Sean Russell. [address], [place], [place], [address], [place]. tel:[phone] Offic/outpt E&m Estab Mod-hi 2 Medical Clinic [facility], [address], [place], [place], [address] , [place] tel: [phone] [facility] OV (chief complaint)chr onic conditions (chief complaint) Other intermediate teacher (current) drug therapyDermat itis, unspecifiedGr ief reactionBipol ar disorder, current episode mixed, mild May-2 3 [place] Yvonne. [address], [place], [place], [address], [place]. tel:[phone] Referring Provider: [address], [place], [address]. tel:[phone] Offic/outpt E&m Estab Mod-hi 2 Telemedicine Pt At Home Medical [facility], [address], [place], [place], [address] , [place] tel: [phone] [facility] telemed (chief complaint)chr onic conditions (chief complaint) AnxietyPanic attacksBipola r disorder, current episode mixed, mild May-0 3 [place] Yvonne. [address], [place], [place], [address], [place]. tel:[phone] Referring Provider: [address], [place], [address]. tel:[phone] Offic/outpt E&m Estab Mod-hi 2 Telemedicine Pt At [facility], [address], [place], [place], [address] , [place] tel: [phone] [facility] telemed (chief complaint)chr onic conditions (chief complaint) AnxietyBipola r disorder, current episode mixed, mildGenital herpes simplex, unspecified siteVitamin D deficiency Sarmad- 3 [place] Yvonne. [address], [place], [place], [address], [place]. tel:[phone] Referring Provider: [address], [place], [address]. tel:[phone] Offic/outpt E&m Estab Mod-hi 2 [facility], [address], [place], [place], [address] , [place] tel: [phone] [facility] medicare preventive (chief complaint)MAV (chief complaint) Other senior care (current) drug therapyOther specified health statusEncount er for screening, unspecifiedMe alize changeMedicar e annual wellness visit, subsequent 3 Sean Russell. [address], [place], [place], [address], [place]. tel:[phone] Referring Provider: Yvonne Jacques, [address], [place], [address]. tel:[phone] Offic/outpt E&m Estab [facility] 2 [facility], [address], [place], [place], [address] , [place] tel: [phone] [facility] Work-in (chief complaint) Other senior care (current) drug therapyGastro intestinal parasitesAcut e diarrheaHospi samanta discharge follow-up 3 Sean Russell. [address], [place], [place], [address], [place]. tel:[phone] Referring Provider: Yvonne Jacques [address], [place], [address]. tel:[phone] Offic/outpt E&m Estab [facility] 2 Telemedicine Pt At Home [facility], [address], [place], [place], [address] , [place] tel: [phone] [facility] telemed (chief complaint)chr onic conditions (chief complaint) Other senior care (current) drug therapyBipola r disorder, current episode mixed, mildAnxietyCh ronic nausea Jan- 3 Sean Russell. [address], [place], [place], [address], [place]. tel:[phone] Referring Provider: Yvonne Jacques, [address], [place], [address]. tel:[phone] Offic/outpt E&m Estab Mod-hi 2 Telemedicine Pt At [place] [facility], [address], [place], [place], [address] , [place] tel:[phone] [facility] telemed (chief complaint)chr onic conditions (chief complaint) Bipolar disorder, current episode mixed, mildAnxietyPo stmenopausal HRT (hormone replacement therapy)Uncom plicated opioid dependenceAnx iolytic dependence with current usePAD (peripheral artery disease) 3 Sean Russell. [address], [place], [place], [address], [place]. tel:[phone] Referring Provider: [address], [place], [address]. tel:[phone] Offic/outpt E&m Estab Mod-hi 4 Telemedicine Pt [facility] [place] [facility], [address], [place], [place], [address] , [place] tel:[phone] [facility] telemed (chief complaint)chr onic conditions (chief complaint) Bipolar disorder, current episode mixed, mildPostmenop ausal HRT (hormone replacement therapy) 2 Sean Russell. [address], [place], [place], [address], [place]. tel:[phone] Referring Provider: Yvonne Jacques, [address] [facility] [address], [place], [address]. tel:[phone] Offic/outpt E&m Estab Mod-hi 4 Telemedicine Pt [facility] [place] [facility], [address], [place], [place], [address] , [place] tel:[phone] [facility] telemed (chief complaint)chr onic conditions (chief complaint) Other intermediate teacher (current) drug therapyBipola r disorder, current episode mixed, mildPostmenop ausal HRT (hormone replacement therapy)Anxie tyBreast cancer screening by mammogram 2 Sean Russell. [address], [place], [place], [address], [place]. tel:[phone] Referring Provider: Yvonne Jacques, [address], [place], [address]. tel:[phone] Offic/outpt E&m Estab Mod-hi 2 Telemedicine Pt [facility], [address], [place], [place], [address] , [place] tel: [phone] [facility] telemed (chief complaint)chr onic conditions (chief complaint) Other intermediate teacher (current) drug therapyBipola r disorder, current episode mixed, moderateAnxie tyPanic attacksPostme nopausal HRT (hormone replacement therapy) 2 Sean Russell. [address], [place], [place], [address], [place]. tel:[phone] Referring Provider: Yvonne Jacques, [address], [place], [address]. tel:[phone] Offic/outpt E&m Estab Mod-hi 2 Telemedicine Pt At Home [facility], [address], [place], [place], [address] , [place] tel: [phone] [facility] telemed (chief complaint) Hospital discharge follow-upPain and swelling of upper extremity, rightOther specified soft tissue disordersAbno rmal ultrasoundOth er intermediate teacher (current) drug therapy 2 Sean Russell. [address], [place], [place], [address], [place]. tel:[phone] Referring Provider: [address], [place], [address]. tel:[phone] Prevent E&m Estab Pt; 40-64 Yr [facility], [address], [place], [place], [address] , [place] tel:[phone] [facility] WWE (chief complaint)chr onic conditions (chief complaint) Other intermediate teacher (current) drug therapyWell woman examNausea and vomiting in adultPostmeno pausal HRT (hormone replacement therapy)Breas t screeningVita min D deficiency Jul- 2 Sean Russell. [address], [place], [place], [address], [place]. tel:[phone] Referring Provider: Yvonne Jacques, [address], [place], [address]. [phone] [facility], [address], [place], [place], [address] , [place] tel: [phone] [facility] Elevated TSH Jul-0 2 Sean Russell. [address], [place], [place], [address], [place]. tel:[phone] [facility], [address], [place], [place], [address] , [place] tel: [phone] [facility] Hyperlipidemi a with target low density lipoprotein (LDL) cholesterol less than 100 mg/dLVitamin B12 deficiencyPos tmenopausal HRT (hormone replacement therapy)Chron ic nauseaVitamin D deficiencyEle vated TSH Jun- 2 Sean Russell. [address], [place], [place], [address], [place]. tel:[phone] Referring Provider: Yvonne Jacques, [address], [place], [address]. tel:[phone] [facility], [address], [place], [place], [address] , [place] tel: [phone] [facility] Vitamin D deficiencyEle vated TSH Jun- 2 Sean Russell. [address], [place], [place], [address], [place]. tel:[phone] [facility], [address], [place], [place], [address] , [place] tel: [phone] [facility] Vitamin B12 deficiencyNau sea and vomiting in adultLeg crampsHyperli pidemia with target low density lipoprotein (LDL) cholesterol less than 100 mg/dLFatigue, unspecified type 2 Sean Russell. [address], [place], [place], [address], [place]. tel:[phone] Offic/outpt E&m [facility] 4 Telemedicine Pt At Home Medical [facility], [address], [place], [place], [address] , [place] tel: [phone] [facility] telephonic (chief complaint)chr onic conditions (chief complaint) Other senior care (current) drug therapyChroni c nauseaChronic diarrheaChron ic abdominal painOther chronic painPostmenop ausal HRT (hormone replacement therapy)Bipol ar disorder, current episode mixed, severe, without psychotic featuresHospi samanta discharge follow-up 2 Sean Russell. [address], [place], [place], [address], [place]. tel:[phone] Referring Provider: [address], [place], [address]. tel:[phone] Offic/outpt E&m [facility]-md 2 [facility], [address], [place], [place], [address] , [place] tel: [phone] [facility] HOF (chief complaint) Other intermediate teacher (current) drug therapyHospit al discharge follow-upPost menopausal HRT (hormone replacement therapy) 2 Sean Russell. [address], [place], [place], [address], [place]. tel:[phone] Referring Provider: [address], [place], [address]. tel:[phone] Offic/outpt E&m Estab Mod-md 2 [facility], [address], [place], [place], [address] , [place] tel: [phone] [facility] follow-up (chief complaint)chr onic conditions (chief complaint) Other senior care (current) drug therapyBipola r disorder, current episode mixed, moderateChron ic nausea 2 [place] Yvonne. [address], [place], [place], [address], [place]. tel:[phone] Referring Provider: Yvonne Jacques, [address], [place], [address]. tel:[phone] Offic/outpt E&m Estab Mod-hi 2 [facility], [address], [place], [place], [address] , [place] tel: [phone] [facility] follow up (chief complaint) Other senior care (current) drug therapyHospit al discharge follow-upBipo lar disorder, current episode mixed, moderate 2 [place]. [address], [place], [place], [address], [place]. tel:[phone] Referring Provider: Yvonne Jacques, [address], [place], [address]. tel:[phone] [facility], [address], [place], [place], [address] , [place] tel: [phone] [facility] Follow up 2 Sean Russell. [address], [place], [place], [address], [place]. tel:[phone] Offic/outpt E&m Estab Low-mod [facility], [address], [place], [place], [address] , [place] tel: [phone] [facility] Problem (chief complaint) Bilateral nephrolithias is 2 Al Camejo. [facility] [facility], [address], [place], [place], [address], [place]. tel:[phone] Referring Provider: Yvonne Jacques, [address], [place], [address]. tel:[phone] [facility], [address], [place], [place], [address] , [place] tel: [phone] [facility] Vitamin B12 deficiencyAdu lt general medical examDiarrhea, unspecified type 2 Sean Russell. [address], [place], [place], [address], [place]. tel:[phone] Referring Provider: Yvonne Jacques, [address], [place], [address]. tel:[phone] Offic/outpt E&m Estab Mod-hi 2 Medical [facility], [address], [place], [place], [address] , [place] tel: [phone] [facility] medicare preventive (chief complaint)MAV (chief complaint)chr onic conditions (chief complaint) Encounter for screening, unspecifiedOt her specified health statusOther senior care (current) drug therapyAnnual physical examNausea and vomiting in ehonxW04 deficiencyHos pital discharge follow-upKidn ey stonesBipolar disorder, current episode mixed, severe, without psychotic featuresDiarr hea, unspecified typePAD (peripheral artery disease)Anxio lytic dependence with current useOpioid dependence, uncomplicated 2 Sean Russell. [address], [place], [place], [address], [place]. tel:[phone] Referring Provider: Yvonne Jacques, [address], [place], [address]. [phone] [facility], [address], [place], [place], [address] , [place] tel: [phone] [facility] Lower abdominal pain 2 [place] Yvonne. [address], [place], [address], [place]. tel:[phone] Offic/outpt E&m Estab Mod-hi 2 [facility], [address], [place], [place], [address] , [place] tel: [phone] [facility] 1mo F/u (chief complaint)chr onic conditions (chief complaint) Bipolar affective disorder, currently manic, moderateNause a and vomiting in adult Oct- 1 Sean Russell. [address], [place], [place], [address], [place]. tel:[phone] Referring Provider: Yvonne Jacques, [address], [place], [address]. 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 [address], [place], [place], [address], [place]. tel:[phone] Referring Provider: Yvonne Jacques, [address] [facility] [address], [place], [address]. tel:[phone] Offic/outpt E&m Estab [facility]-md 2 [facility], [address], [place], [place], [address] , [place] tel: [phone] [facility] office visit (chief complaint) Other senior care (current) drug therapyBipola r affective disorder, depressed, moderateAnxie tyPanic attacks 1 Sean Russell. [address], [place], [place], [address], [place]. tel:[phone] Referring Provider: Wayne Thompson, [address] [facility] [address], [place], [address]. tel:[phone] Offic/outpt E&m Estab [facility] 2 [facility], [address], [place], [place], [address] , [place] tel: [phone] [facility] high risk monthly (chief complaint) Bipolar disorder, current episode mixed, moderateHisto ry of removal of ureteral stentHx of renal calculi Sep-2 1 Long Damon. [address], [place], [place], [address], [place]. tel:[phone] Referring Provider: Wayne Thompson, [address] [facility] [address], [place], [address]. tel:[phone] Offic/outpt E&m [facility], [address], [place], [place], [address] , [place] tel: [phone] [facility] problem (chief complaint) Nephrolithias isUreteral stent retainedCalcu meagan of ureter Sep-2 1 Al Camejo. [address] [place] [address], [address], [place], [place], [address], [place]. tel:[phone] Referring Provider: Yvonne Jacques, [address], [place], [address]. tel:[phone] Offic/outpt E&m [facility], [address], [place], [place], [address] , [place] tel: [phone] [facility] office visit (chief complaint) Vaginal odorAcute vaginitis Sep-1 1 Celestino Black. [address] [facility], [address], [place], [place], [address], [place]. tel:[phone] Referring Provider: Wayne Thompson, [address] [facility] [address], [place], [address]. [phone] [facility], [address], [place], [place], [address] , [place] tel:[phone] [facility] Calculus of ureter Sep-0 1 Al Camejo. [facility], [address], [place], [place], [address], [place]. tel:[phone] Referring Provider: Yvonne Jacques, [address], [place], [address]. tel:[phone] [facility], [address], [place], [place], [address] , [place] tel: [phone] B Urology No Information Sep-0 1 Al Camejo. [address] [facility], [address], [place], [place], [address], [place]. tel:[phone] [facility], [address], [place], [place], [address] , [place] tel: [phone] [facility] Calculus of ureter Sep-0 1 Al Camejo. [address] [facility], [address], [place], [place], [address], [place]. tel:[phone] [facility], [address], [place], [place], [address] , [place] tel: [phone] [facility] Urology Right nephrolithias isRetained ureteral stent Sep-0 1 Al Camejo. [address] [facility], [address], [place], [place], [address], [place]. tel:[phone] Referring Provider: Yvonne Jacques [address], [place], [address]. tel:[phone] Offic/outpt E&m Estab Mod-hi 2 [facility], [address], [place], [place], [address] , [place] tel: [phone] [facility] U[facility] procedure (chief complaint) Right nephrolithias isS/P ureteral stent placementCalc ulus of ureter Jun-2 1 Al Camejo. [address] [facility], [address], [place], [place], [address], [place]. tel:[phone] Referring Provider: Yvonne Jacques [address], [place], [address]. tel:[phone] [facility], [address], [place], [place], [address] , [place] tel: [phone] [facility] Left nephrolithias is 1 Al Camejo. [address] [facility], [address], [place], [place], [address], [place]. tel:[phone] Referring Provider: Yvonne Jacques, [address], [place], [address]. tel:[phone] Offic/outpt E&m [facility] Mod-md 2 [facility], [address], [place], [place], [address] , [place] tel: [phone] [facility] Urology problem (chief complaint) Bilateral nephrolithias isLeft lateral abdominal painDysuria 1 Al Camejo. [address] [facility], [address], [place], [place], [address], [place]. tel:[phone] Referring Provider: Yvonne Jacques [address], [place], [address]. tel:[phone] [facility], [address], [place], [place], [address] , [place] tel: [phone] [facility] Kidney stones 1 Sean Russell. [address], [place], [address], [place]. tel:[phone] Referring Provider: [address], [place], [address]. tel:[phone] Offic/outpt E&m [facility], [address], [place], [place], [address] , [place] tel: [phone] [facility] Kidney stones (chief complaint) Other intermediate teacher (current) drug therapyKidney stones 1 Jose Lyon. [address] [place] [address], [address], [place], [address], [place]. tel:[phone] Referring Provider: [address], [place], [address]. [phone] [facility], [address], [place], [place], [address] , [place] tel: [phone] [facility] Castro's esophagus determined by endoscopy 1 Sean Russell. [address], [place], [place], [address], [place]. tel:[phone] Offic/outpt E&m Estab [facility] 2 [facility], [address], [place], [place], [address] , [place] tel: [phone] [facility] HOF (chief complaint) Bipolar disorder, current episode mixed, moderateOther senior care (current) drug therapyKidney stonesHospita l discharge follow-upCons tipation, unspecified constipation type 1 Sean Russell. [address], [place], [place], [address], [place]. tel:[phone] Referring Provider: [address], [place], [address]. tel:[phone] Offic/outpt E&m Estab [facility] 2 [facility], [address], [place], [place], [address] , [place] tel: [phone] [facility] Diarrhea/Vomi ting/Headache (chief complaint)chr onic conditions (chief complaint) Diarrhea of presumed infectious originNausea and vomiting, intractabilit y of vomiting not specified, unspecified vomiting typeAbdominal crampsEnviron mental allergiesGeni samanta herpes simplex, unspecified siteBarrett's esophagus determined by endoscopyLow grade fever 1 Yamil Baires. [address], [place], [place], [address], [place]. tel:[phone] Referring Provider: [address], [place], [address]. tel:[phone] Prevent E&m Estab Pt; 40-64 Yr [facility], [address], [place], [place], [address] , [place] tel: [phone] [facility] ww (chief complaint) Encounter for gynecological examination (general) (routine) without abnormal findingsEncou nter for screening for malignant neoplasm of cervixPostmen opausal HRT (hormone replacement therapy) 1 Celestino Black. [address] [facility], [address], [place], [place], [address], [place]. tel:[phone] Referring Provider: [address], [place], [address]. tel:[phone] Offic/outpt E&m Estab Mod-md 2 [facility], [address], [place], [place], [address] , [place] tel: [phone] [facility] office visit (chief complaint)chr onic conditions (chief complaint) Bipolar disorder, current episode mixed, moderateAnxie ty 1 Sean Russell. [address], [place], [place], [address], [place]. tel:[phone] Referring Provider: [address], [place], [address]. tel:[phone] [facility], [address], [place], [place], [address] , [place] tel: [phone] [facility] Bipolar disorder, current episode mixed, moderate March- 1 Sean Russell. [address], [place], [place], [address], [place]. tel:[phone] Offic/outpt E&m [facility]-md 2 Telemedicine Medical [facility], [address], [place], [place], [address] , [place] tel:[phone] [facility] telemedicine (chief complaint) Other senior care (current) drug therapyAnxiet yPanic attacksBipola r affective disorder, depressed, moderate 0 1 Sean Russell. [address], [place], [place], [address], [place]. tel:[phone] Referring Provider: Yvonne Jacques [address], [place], [address]. tel:[phone] Offic/outpt E&m Estab Mod-md 2 [facility], [address], [place], [place], [address] , [place] tel: [phone] [facility] follow up (chief complaint) Bipolar affective disorder, currently depressed, moderateAnxie tyPanic attacksOther senior care (current) drug therapyChroni c constipationC hronic pain of right kneeOther chronic pain 1 Sean Russell. [address], [place], [place], [address], [place]. tel:[phone] Referring Provider: Yvonne Jacques, [address], [place], [address]. tel:[phone] Offic/outpt E&m [facility] Mod-md 2 [facility], [address], [place], [place], [address] , [place] tel: [phone] [facility] medicare preventive (chief complaint)MAV (chief complaint)chr onic conditions (chief complaint) Other senior care (current) drug therapyEncoun ter for screening, unspecifiedOt her specified health statusBipolar disorder, current episode mixed, moderateAnxie tyVertigoRout ine physicl lab exam 1 Sean Russell. [address], [place], [place], [address], [place]. tel:[phone] Referring Provider: Yvonne Jacques, [address], [place], [address]. tel:[phone] [facility], [address], [place], [place], [address] , [place] tel: [phone] [facility] Dizziness 1 Sean Russell. [address], [place], [place], [address], [place]. tel:[phone] Offic/outpt E&m Estab Mod-md 2 [facility], [address], [place], [place], [address] , [place] tel: [phone] [facility] follow up (chief complaint)chr onic conditions (chief complaint) Other senior care (current) drug therapyNausea DizzinessAnxi olytic dependence with current usePAD (peripheral artery disease)Bipol ar affective disorder, currently depressed, mildChronic migraine without aura without status migrainosus, not intractableOp ioid dependence, uncomplicated 9 1 Sean Russell. [address], [place], [place], [address], [place]. tel:[phone] Referring Provider: [address], [place], [address]. tel:[phone] [facility], [address], [place], [place], [address] , [place] tel: [phone] [facility] Vertigo Dec-2 0 Sean Russell. [address], [place], [place], [address], [place]. tel:[phone] Offic/outpt E&m Estab [facility]-md 2 [facility], [address], [place], [place], [address] , [place] tel: [phone] [facility] follow up (chief complaint) Chronic constipationB ipolar affective disorder, currently depressed, mildAnxietyVe rtigo Dec-0 7-202 0 Sean Russell. [address], [place], [place], [address], [place]. tel:[phone] Referring Provider: [address], [place], [address]. tel:[phone] Offic/outpt E&m Estab [facility]-md 2 [facility], [address], [place], [place], [address] , [place] tel: [phone] [facility] HOF (chief complaint) Other senior care (current) drug therapyBipola r affective disorder, currently depressed, moderateAnxie tyChronic constipation Sep- 0 Sean Russell. [address], [place], [place], [address], [place]. tel:[phone] Referring Provider: Yvonne Jacques, [address], [place], [address]. [phone] Offic/outpt E&m Estab Mod-hi 2 [facility], [address], [place], [place], [address] , [place] tel: [phone] [facility] Hospital discharge follow-upColi tisAnxietyBip olar 2 disorderChron ic migraine without aura without status migrainosus, not intractableOt her intermediate teacher (current) drug therapy 0 Sean Russell. [address], [place], [place], [address], [place]. tel:[phone] Referring Provider: Yvonne Jacques, [address], [place], [address]. tel:[phone] [facility], [address], [place], [place], [address] , [place] tel: [phone] [facility] Nephrolithias is 0 Sean Russell. [address], [place], [place], [address], [place]. tel:[phone] Offic/outpt E&m Estab Low-mod [facility], [address], [place], [place], [address] , [place] tel: [phone] [facility] Burning with urination Jul- 0 Francesco Goldstein. [address], [place], [place], [address], [place]. tel:[phone] Referring Provider: Yvonne Jacques, [address], [place], [address]. tel:[phone] [facility], [address], [place], [place], [address] , [place] tel: [phone] [facility] No Information 0 Sean Russell. [address], [place], [place], [address], [place]. tel:[phone] Offic/outpt E&m Estab Mod-hi 2 [facility], [address], [place], [place], [address] , [place] tel: [phone] [facility] AnxietyBipola r affective disorder, currently depressed, moderateChron ic GERDBarrett's esophagus determined by endoscopyArth ritis of wrist, rightForeign body of fingerOther intermediate teacher (current) drug therapyOther specified health status 0 Sean Russell. [address], [place], [place], [address], [place]. tel:[phone] Referring Provider: Yvonne Jacques, [address], [place], [address]. tel:[phone] Offic/outpt E&m Estab Low-mod [facility], [address], [place], [place], [address] , [place] tel: [phone] [facility] De Quervain's tenosynovitis , rightOther senior care (current) drug therapy 0 Levi Lyon. [address], [place], [place], [address], [place]. tel:[phone] Referring Provider: Yvonne Jacques, [address], [place], [address]. tel:[phone] Offic/outpt E&m Estab Mod-hi 2 [facility], [address], [place], [place], [address] , [place] tel: [phone] [facility] Bipolar disorder, current episode depressed, severe, without psychotic featuresHospi [place] discharge follow-upChro gabriella migraine without aura without status migrainosus, not intractableOt her intermediate teacher (current) drug therapy Apr-0 0 Sean Russell. [address], [place], [place], [address], [place]. tel:[phone] Referring Provider: Yvonne Jacques, [address], [place], [address]. tel:[phone] Offic/outpt E&m Estab Low-mod [facility], [address], [place], [place], [address] , [place] tel: [phone] [facility] Rash of vulva 0 Celestino Black. [address] [facility], [address], [place], [place], [address], [place]. tel:[phone] Referring Provider: Yvonne Jacques, [address], [place], [address]. tel:[phone] Prevent E&m Estab Pt; 40-64 Yr [facility], [address], [place], [place], [address] , [place] tel: [phone] [place] Medicare annual wellness visit, subsequentChr onic migraine without aura without status migrainosus, not intractableBi polar affective disorder, current episode manic, current episode severity unspecifiedAn xietySprain of lateral collateral ligament of right knee, initial encounterSpra in of medial collateral ligament of right knee, subsequent encounterDerm atitisPrimary insomniaScree rene for colon cancerOther intermediate teacher (current) drug therapyOther specified health statusPAD (peripheral artery disease) March- 0 Long Damon. [address], [place], [place], [address], [place]. tel:[phone] Referring Provider: Yvonne Jacques [address], [place], [address]. tel:[phone] [facility], [address], [place], [place], [address] , [place] tel: [phone] [facility] Vaginal irritation 0 Sean Yvonne. [address], [place], [place], [address], [place]. tel:[phone] [facility], [address], [place], [place], [address] , [place] tel: [phone] [facility] Dermatitis 0 Estrada Yvonne. [address], [address], [place], [place], [address], [place]. tel:[phone] [facility], [address], [place], [place], [address] , [place] tel: [phone] [facility] Postmenopausa l hormone therapy 0 Sean Russell. [address], [place], [place], [address], [place]. tel:[phone] Referring Provider: Yvonne Jacques, [address], [place], [address]. tel:[phone] Telephone E&M,est 21-30 min [facility], [address], [place], [place], [address] , [place] tel: [phone] [facility] DizzinessNaus eaBipolar disorder, current episode depressed, severe, without psychotic featuresScree rene for colon cancerPolyp of colon, unspecified part of colon, unspecified typeOther senior care (current) drug therapyOther specified health status 0 Sean Russell. [address], [place], [place], [address], [place]. tel:[phone] Referring Provider: Yvonne Jacques, [address], [place], [address]. tel:[phone] Telephone E&M,est 11-20 min [facility], [address], [place], [place], [address] , [place] tel: [phone] [facility] CoughFatigue, unspecified typeFever, unspecified fever causeDiarrhea , unspecified typeNonintrac table headache, unspecified chronicity pattern, unspecified headache typeNight sweatsAnxiety Other senior care (current) drug therapy Feb- 0 Sean Russell. [address], [facility] [address], [place], [place], [address], [place]. tel:[phone] Referring Provider: Yvonne Jacques, [address] [facility] [address], [place], [address]. tel:[phone] Offic/outpt E&m Estab [facility]-md 2 [facility], [address], [place], [place], [address] , [place] tel: [phone] [facility] Fever and chillsFunctio nal diarrheaShort ness of breath 0 Elvis phipps [address], [facility] [address], [place], [place], [address], [place]. tel:[phone] Referring Provider: Jhonny Mackey, [address] [facility] [address], [place], [address]. tel:[phone] Offic/outpt E&m [facility] 2 [facility], [address], [place], [place], [address] , [place] tel: [phone] [facility] Bug bite, subsequent encounterOthe r specified health statusDelusio ns of parasitosisBi polar affective disorder, currently depressed, mild Jan-0 0 Sean Russell. [address], [facility] [address], [place], [place], [address], [place]. tel:[phone] Referring Provider: Yvonne Jacques, [address] [facility] [address], [place], [address]. tel:[phone] Offic/outpt E&m [facility] 2 [facility], [address], [place], [place], [address] , [place] tel: [phone] [facility] Skin rashAnxiolyti c dependence with current useNarcotic dependence Dec- 0 Francesco Goldstein. [address], [place], [place], [address], [place]. tel:[phone] Referring Provider: Angelita Maya [address], [place], [address]. 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. [address] [facility], [address], [place], [place], [address], [place]. tel:[phone] Referring Provider: Yvonne Jacques [address], [place], [address]. tel:[phone] Offic/outpt E&m Estab Mod-hi 2 [facility], [address], [place], [place], [address] , [place] tel: [phone] [facility] Flu-like symptomsURI, acuteOther specified health status 9 Sean Russell. [address], [place], [place], [address], [place]. tel:[phone] Referring Provider: [address] [facility] [address], [place], [address]. [phone] Offic/outpt E&m Estab Mod-hi 2 [facility], [address], [place], [place], [address] , [place] tel: [phone] [facility] Drug induced constipationB ipolar affective disorder, remission status unspecifiedAn xietyChronic migraine without aura without status migrainosus, not intractablePr imary insomniaBreas t screeningLeg cramps 9 Sean Russell. [address], [place], [place], [address], [place]. tel:[phone] Referring Provider: [address], [place], [address]. tel:[phone] Offic/outpt E&m [address], [address], [place], [place], [address] , [place] tel: [phone] [facility] discharge follow-upNeph rolithiasisDi verticulosisB ipolar disorder, current episode mixed, mildPrimary insomniaDrug induced constipationC hronic bilateral low back pain without sciaticaOther chronic painChronic pain of right kneeOther specified health statusOther senior care (current) drug therapy Sep- 0 9 Sean Russell. [address], [place], [place], [address], [place]. tel:[phone] Referring Provider: [address], [place], [address]. tel:[phone] Offic/outpt E&m [address], [address], [place], [place], [address] , [place] tel: [phone] [facility] Bipolar disorder, current episode mixed, moderateAnxie tyPrimary insomniaPerni cious anemiaChronic migraine without aura without status migrainosus, not intractableVi ral syndromeOther intermediate teacher (current) drug therapyOther specified health status 9 Sean Russell. [address], [place], [place], [address], [place]. tel:[phone] Referring Provider: Yvonne Jacques, [address], [place], [address]. tel:[phone] Offic/outpt E&m [facility], [address], [place], [place], [address] , [place] tel: [phone] Mehreen Bug bite, initial encounter 9 Thomas Barba. [address], [place], [address], [place]. tel:[phone] Referring Provider: Yvonne Jacques, [address], [place], [address]. tel:[phone] [facility], [address], [place], [place], [address] , [place] tel: [phone] [facility] Hyperlipidemi a with target low density lipoprotein (LDL) cholesterol less than 100 mg/dLEncntr for general adult medical exam w/o abnormal findings 9 Sean Russell. [address], [address], [place], [place], [address], [place]. tel:[phone] Referring Provider: Yvonne Jacques, [address], [place], [address]. [phone] Offic/outpt E&m Estab [facility], [address], [place], [place], [address] , [place] tel: [phone] [facility] Hyperlipidemi a with target low density lipoprotein (LDL) cholesterol less than 100 mg/dLEnvironm ental allergiesBipo lar affective disorder, remission status unspecifiedAn xietyHerpesCh ronic migraine without aura without status migrainosus, not intractablePr imary insomniaSprai n of medial collateral ligament of right knee, subsequent [id number] deficiencyEnc ntr for general adult medical exam w/o abnormal findingsEncou nter for screening, unspecifiedEn counter for screening for other disorderOther specified health status 9 Thomas Barba. [address], [place], [address], [place]. tel:[phone] Referring Provider: Yvonne Jacques, [address], [place], [address]. tel:[phone] [facility], [address], [place], [place], [address] , [place] tel: [phone] [facility] Medication side effectEncount er for screening for other disorder 9 Thomas Barba. [address], [place], [address], [place]. tel:[phone] [facility], [address], [place], [place], [address] , [place] tel: [phone] [facility] Medication side effectEncount er for screening for other disorder 9 Sean Russell. [address], [address], [place], [place], [address], [place]. tel:[phone] Referring Provider: Yvonne Jacques, [address], [place], [address]. tel:[phone] [facility], [address], [place], [place], [address] , [place] tel: [phone] [facility] Pernicious anemiaLow vitamin B12 level 9 Sean Russell. [address], [address], [place], [place], [address], [place]. tel:[phone] Referring Provider: Yvonne Jacques, [address], [place], [address]. tel:[phone] [facility], [address], [place], [place], [address] , [place] tel: [phone] [facility] Pernicious anemia 9 Sean Russell. [address], [place], [place], [address], [place]. 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 [address] [facility], [address], [place], [place], [address], [place]. tel:[phone] Referring Provider: Ludy Shah, [address] [facility] [address], [place], [address]. tel:[phone] Offic/outpt E&m Estab Mod-hi 2 [facility], [address], [place], [place], [address] , [place] tel: [phone] [facility] discharge follow-upRigh t leg painSprain of lateral collateral ligament of right knee, initial encounterOthe r specified health statusOther senior care (current) drug therapy 8 Sean Russell. [address], [place], [place], [address], [place]. tel:[phone] Referring Provider: Yvonne Jacques, [address], [place], [address]. tel:[phone] [facility], [address], [place], [place], [address] , [place] tel: [phone] [facility] Adult general medical examination 8 Sean Russell. [address], [place], [place], [address], [place]. tel:[phone] Referring Provider: Yvonne Jacques, [address], [place], [address]. tel:[phone] [facility], [address], [place], [place], [address] , [place] tel: [phone] [facility] Blood tests for routine general physical examination 8 Sean Russell. [address], [address], [place], [place], [address], [place]. tel:[phone] Offic/outpt E&m Estab 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 [address], [place], [place], [address], [place]. tel:[phone] Referring Provider: Ludy Shah, [address] [facility] [address], [place], [address]. tel:[phone] [facility], [address], [place], [place], [address] , [place] tel: [phone] [facility] Follow-up examination of abnormal mammogram 8 O'Gema Evonne. [address] [facility], [address], [place], [place], [address], [place]. tel:[phone] [facility], [address], [place], [place], [address] , [place] tel: [phone] [facility] Pain of left breast 8 O'Gema Evonne. [address] [facility], [facility] [address], [place], [place], [address], [place]. tel:[phone] Offic/outpt E&m Estab Mod-hi 2 [facility], [address], [place], [place], [address] , [place] tel: [phone] [facility] Bipolar affective disorder, remission status unspecifiedAn xietyPrimary insomniaChron ic migraine without aura without status migrainosus, not intractableHi story of concussion 8 Thomas Barba. [address], [place], [address], [place]. tel:[phone] Referring Provider: Ludy Shah, [address] [facility] [address], [place], [address]. tel:[phone] Offic/outpt E&m Estab Low-mod [facility], [address], [place], [place], [address] , tel: [phone] [facility] Bipolar affective disorder, remission status unspecifiedAn xietyPrimary insomniaHyper lipidemia LDL goal < 100Genital herpes simplex, unspecified siteEncntr for general adult medical exam w/o abnormal findingsOther intermediate teacher (current) drug therapyEncoun ter for screening, unspecifiedEn counter for screening for other disorder Thomas Barba. [address], [place], [address], [place]. tel:[phone] Referring Provider: Yvonne Jacques, [address], [place], [address]. tel:[phone] [facility], [address], [place], [place], [address] , [place] tel: [phone] Mehreen Medication side effect Thomas Barba. [address], [place], [address], [place]. tel:[phone] Offic/outpt E&m Estab [facility]-md 2 [facility], [address], [place], [place], [address] , [place] tel: [phone] Mehreen Diarrhea, unspecified typeBipolar affective disorder, remission status unspecifiedAn xietyOther senior care (current) drug therapy Guzman Freda. [address], [place], [address], [place]. tel:[phone] Referring Provider: Yvonne Jacques, [address], [place], [address]. tel:[phone] Offic/outpt E&m [facility] 2 [facility], [address], [place], [place], [address] , [place] tel:[phone] Mehreen AnxietyPanic disorderBipol ar affective disorder, currently depressed, moderateOther specified health status 8 Sean Russell. [address], [address], [place], [place], [address], [place]. tel:[phone] Referring Provider: Yvonne Jacques, [address], [place], [address]. tel:[phone] [facility], [address], [place], [place], [address] , [place] tel: [phone] [facility] Abnormal screening mammogram 7 O'Gema Evonne. [address] [facility], [address], [place], [place], [address], [place]. tel:[phone] Offic/outpt E&m [facility], [address], [place], [place], [address] , [place] tel: [phone] Mehreen Sialolithiasi sMass of oral cavity 7 Guzman Freda. [address], [place], [address], [place]. tel:[phone] Referring Provider: Ludy Shah, [address] [facility] [address], [place], [address]. tel:[phone] Prevent E&m Estab Pt; 40-64 Yr [facility], [address], [place], [place], [address] , [place] tel: [phone] [facility] Encntr for assembler wire group exam (general) (routine) w/o abn findingsBipol ar affective disorder, remission status unspecifiedHo rmone replacement therapy (HRT) 7 O'Gema Douglass. [address] [facility], [address], [place], [place], [address], [place]. tel:[phone] Referring Provider: Ludy Shah, [address] [facility] [address], [place], [address]. tel:[phone] Offic/outpt E&m [facility], [address], [place], [place], [address] , [place] tel: [phone] [facility] DysuriaNausea Sep-0 7 Thomas Barba. [address], [place], [address], [place]. tel:[phone] Referring Provider: Ludy Shah, [address] [address], [place], [address]. [phone] Offic/outpt E&m [facility], [address], [place], [place], [address] , [place] tel: [phone] [facility] Bipolar disorder, current episode mixed, mildGenital herpes simplex, unspecified siteEnvironme ntal allergiesAnxi etyPrimary insomniaFamil y history of bipolar disorderOther specified health status 7 Sean Russell. [address] [facility], [address], [place], [place], [address], [place]. tel:[phone] Referring Provider: Ludy Shah, [address] [address], [place], [address]. 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 [address] [address], [place], [place], [address], [place]. tel:[phone] Referring Provider: Ludy Shah, [address] [address], [place], [address]. tel:[phone] Offic/outpt E&m [facility], [address], [place], [place], [address] , [place] tel: [phone] [facility] Bipolar disorder, current episode mixed, moderateOther intermediate teacher (current) drug therapyOther specified health status Feb- 7 Stephen Ludy. [address] [address], [place], [place], [address], [place]. tel:[phone] Referring Provider: Ludy Shah, [address] [address], [place], [address]. tel:[phone] [facility], [address], [place], [place], [address] , [place] tel: [phone] [facility] Routine medical examEncounter for long-term current use of medicationBip olar disorder, current episode mixed, severe, without psychotic featuresEncou nter for screening, unspecifiedEn counter for screening for other disorder 7 Stephen Ludy. [address] [address], [place], [place], [address], [place]. tel:[phone] Referring Provider: Ludy Shah, [address] [address], [place], [address]. tel:[phone] Offic/outpt E&m Estab Mod-hi 2 [facility], [address], [place], [place], [address] , [place] tel: [phone] [facility] HematuriaPeri cardial effusionPleur al effusionOther senior care (current) drug therapy Dec-0 6 Stephen Ludy. [address] [address], [place], [place], [address], [place]. tel:[phone] Referring Provider: Ludy Shah, [address] [address], [place], [address]. tel:[phone] Prevent E&m Estab Pt; 40-64 Yr [facility], [address], [place], [place], [address] , [place] tel: [phone] [facility] Encntr for assembler wire group exam (general) (routine) w/o abn findingsHormo ne replacement therapy (HRT)Herpes 6 O'Aiken Evonne. [address] [facility], [address], [place], [place], [address], [place]. tel:[phone] Referring Provider: Ludy Shah, [address] [address], [place], [address]. tel:[phone] Offic/outpt E&m Estab Low-mod [facility], [address], [place], [place], [id number] , [place] tel: [phone] [facility] Bipolar disorder, current episode mixed, moderateHyper lipidemia LDL goal < 100Other specified health status Sep-0 6- 6 Stephen Ludy. [address] [address], [place], [place], [address], [place]. tel:[phone] Referring Provider: Ludy Shah, [address] [address], [place], [address]. tel:[phone] Offic/outpt E&m Estab Mod-hi 2 Medical [facility], [address], [place], [place], [address] , [place] tel: [phone] [facility] MyalgiaMuscle spasmAnxiety March- 6 Stephen Ludy. [address] [address], [place], [place], [address], [place]. tel:[phone] Referring Provider: Ludy Shah, [address] [address], [place], [address]. tel:[phone] [facility], [address], [place], [place], [address] , [place] tel: [phone] [facility] Lead exposure risk assessment, high risk Apr-2 7- 6 Stephen Ludy. [address] [address], [place], [place], [address], [place]. tel:[phone] Offic/outpt E&m Estab Mod-hi 2 [facility], [address], [place], [place], [address] , [place] tel:[phone] [facility] Bipolar disorder, current episode mixed, moderateAnxie ty 6 Stephen Ludy. [address] [address], [place], [place], [address], [place]. tel:[phone] Referring Provider: Harshil Ramírez, [address], [place], [address]. tel:[phone] [facility], [address], [place], [place], [address] , [place] tel: [phone] [facility] Encounter for screening, unspecifiedEn counter for screening for other disorderRouti ne medical examBipolar disorder, current episode mixed, severe, without psychotic featuresLong term use of drugScreening for cardiovascula r conditionHype rlipidemia LDL goal <100Screening for diabetes mellitusEncou nter for immunization 6 Stephen Ludy. [address] [address], [place], [place], [address], [place]. tel:[phone] Referring Provider: Harshil Ramírez, [address] [place] [address], [place], [address]. [phone] Offic/outpt E&m Estab Mod-hi 2 [facility], [address], [place], [place], [address] , [place] tel: [phone] [facility] Bipolar disorder, current episode mixed, moderateDiarr Clarence iaLeft lower quadrant pain 5 Stephen Ludy. [address] [address], [place], [place], [address], [place]. tel:[phone] Referring Provider: Ludy Shah, [address] [place] [address], [place], [address]. tel:[phone] Offic/outpt E&m Estab Mod-hi 2 [facility], [address], [place], [place], [address] , [place] tel:[phone] [facility] Bipolar disorder, current episode mixed, moderateAnxie tyTobacco useOther senior care (current) drug therapyOther specified health status 0-201 5 Stephen Ludy. [address] [facility] [address], [place], [place], [address], [place]. tel:[phone] Referring Provider: Ludy Lemusop Pablo, [address] [facility] [address], [place], [address]. tel:[phone] Prevent E&m Estab Pt; 40-64 Yr [facility], [address], [place], [place], [address] , [place] tel: [phone] [facility] MANIC-DEPRESS BRYAN PSYCHOSIS, UNSPHot flashes 2-201 5 O'Gema Evonne. [address] [facility], [facility], [place], [place], [address], [place]. tel:[phone] Referring Provider: Harshil Ramírez, [address] [place] [address], [place], [address]. tel:[phone] Offic/outpt E&m [facility], [address], [place], [place], [address] , [place] tel:[phone] [facility] Bipolar affective disorderDerma titis 8201 5 Stephen Ludy. [address] [facility] [address], [place], [place], [address], [place]. tel:[phone] Referring Provider: Ludy Shah, [address] [facility] [address], [place], [address]. tel:[phone] Offic/outpt E&m [facility] Medical [facility], [address], [place], [place], [address] , [place] tel:[phone] [facility] AnxietyNausea 8-201 5 Stephen Ludy. [address] [facility] [address], [place], [place], [address], [place]. tel:[phone] Referring Provider: Harshil Ramírez, [address], [place], [address]. tel:[phone] Offic/outpt E&m Estab [facility], [address], [place], [place], [address] , [place] tel: [phone] [facility] Acute bronchitis Feb-2 0-201 5 Stephen Ludy. [address] [address], [place], [place], [address], [place]. tel:[phone] Referring Provider: Ludy Shah, [address] [address], [place], [address]. tel:[phone] Offic/outpt E&m Estab [facility], [address], [place], [place], [address] , [place] tel: [phone] [facility] Bipolar depressionAnx iety Dec-1 8-201 4 Stephen Ludy. [address] [address], [place], [place], [address], [place]. tel:[phone] Referring Provider: Ludy Shah, [address] [address], [place], [address]. tel:[phone] Offic/outpt E&m Estab Mod-hi 2 Medical [facility], [address], [place], [place], [address] , [place] tel: [phone] [facility] Bipolar affective disorder Dec-0 3-201 4 Stephen Ludy. [address] [facility] [address], [place], [place], [address], [place]. tel:[phone] Referring Provider: Ludy Shah, [address] [address], [place], [address]. tel:[phone] Offic/outpt E&m Estab [facility] Medical [facility], [address], [place], [place], [address] , [place] tel: [phone] [facility] Bipolar depressionAnx ietyVACCINATI ON,INFLUENZAH IGH RISK MEDICATION 4 Stephen Ludy. [address] [address], [place], [place], [address], [place]. tel:[phone] Referring Provider: Harshil Ramírez, [address], [place], [address]. tel:[phone] Offic/outpt E&m Estab [facility], [address], [place], [place], [address] , [place] tel:[phone] [facility] AnxietyNausea & vomitingTinea manuum 4 Stephen Ludy. [address], [address], [place]. tel:[phone] Referring Provider: Ludy Shah, [address] [place] [address], [place], [address]. tel:[phone] Offic/outpt E&m Estab [facility], [address], [place], [place], [address] , [place] tel: [phone] [facility] Bipolar disorderAnxie tyNausea 4 Stephen Ludy. [address] [address], [place], [place], [address], [place]. tel:[phone] Referring Provider: Harshil Ramírez, [address] [place] [address], [place], [address]. tel:[phone] Offic/outpt E&m Estab Mod-hi 2 Medical [facility], [address], [place], [place], [address] , [place] [phone] [facility] Bipolar depressionAnx iety 4 Stephen Ludy. [address] [address], [place], [address], [place]. tel:[phone] Referring Provider: Ludy Shah, [address] [address], [place], [address]. tel:[phone] Offic/outpt E&m [facility] Medical [facility], [address], [place], [place], [address] , [place] tel:[phone] [facility] [address] BITE, NONVENOMOUS, OTH, MHYPERLIPIDEM IA, UNSPECIFIED 4 Stephen Ludy. [address] [facility] [address], [place], [place], [address], [place]. tel:[phone] Referring Provider: Harshil Ramírez, [address] [place] [address], [place], [address]. tel:[phone] [facility], [address], [place], [place], [address] , [place] tel:[phone] [facility] HX GENITAL OR OB DISORDER,NEC 4 Karlee'Gema Douglass. [address] [facility], [facility] [address], [place], [place], [address], [place]. tel:[phone] Referring Provider: Evonne Ariza, [address] [address], [place], [address]. tel:[phone] Medical [facility], [address], [place], [place], [address] , [place] tel: [phone] [facility] HORMONE REPLACE THERAPY, POSTMENPERSON AL HISTORY OF CERVICAL DYSPLASIAMANI C-DEPRESSIVE PSYCHOSIS, UNSPMENOPAUSA L SYMPTOMS 4 O'Aiken Evonne. [address] [facility], [facility] [address], [place], [place], [address], [place]. tel:[phone] Referring Provider: Evonne Ariza, [address] [facility] [address], [place], [address]. tel:[phone] Offic/outpt E&m [facility] Low-mod 20 [facility], [address], [place], [place], [address] , [place] tel: [phone] [place] [facility] BMI BETWEEN 19-24,ADULT Sarmad-201 3 Agnieszka Goldstein. [address], [place], [place], [address], [place]. tel:[phone] Referring Provider: Harshil Ramírez, [address], [place], [address]. [phone] [facility], [address], [place], [place], [address] , [place] tel: [phone] [facility] EXAM, GENERAL, ROUTINESCREEN , LIPOID DISORDERHYPER LIPIDEMIA, UNSPECIFIEDDE PRESSION, NOS 3 Mark Halina. [address] [facility], [address], [place], [place], [address], [place]. tel:[phone] Referring Provider: Harshil Ramírez, [address] [place] [address], [place], [address]. tel:[phone] Prevent E&m Estab Pt; 40-64 Yr [facility], [address], [place], [place], [address] , [place] tel: [phone] [facility] HEMATURIA UNSPECIFIEDPE RSONAL HISTORY OF CERVICAL DYSPLASIAHORM ONE REPLACE THERAPY, POSTMEN 3 Mark Halina. [address] [facility], [address], [place], [place], [address], [place]. tel:[phone] Referring Provider: Harshil Ramírez, [address], [place], [address]. [phone] Prevent E&m Estab Pt; 40-64 Yr [facility], [address], [place], [place], [address] , [place] tel: [phone] [place] [facility] OTHER SPEC AFFECTIVE PSYCHOSESHORM ONE REPLACE THERAPY, POSTMEN 0 2 Mark Halina. [address] [facility], [address], [place], [place], [address], [place]. tel:[phone] Referring Provider: Harshil Ramírez, [address], [place], [address]. tel:[phone] Prevent E&m Estab Pt; 40-64 Yr Medical [facility], [address], [place], [place], [address] , [place] tel: [phone] [facility] HORMONE REPLACE THERAPY, POSTMEN 1 Mark Meade. [address] [facility], [address], [place], [place], [address], [place]. tel:[phone] Referring Provider: Harshil Ramírez, [address], [place], [address]. [phone] Prevent E&m Estab Pt; 40-64 Yr [facility], [address], [place], [place], [address] , [place] tel: [phone] [facility] OBGYN EXAM, GYNECOLOGICAL 9 Mark Meade. [address] [facility], [address], [place], [place], [address], [place]. tel:[phone] Referring Provider: Halnia Flores, [address] [facility] [address], [place], [address]. [phone] [facility], [address], [place], [place], [address] , [place] tel: [phone] [place] [facility] SCREEN,CA CERVIX 9 Mark Meade. [address] [facility], [address], [place], [place], [address], [place]. tel:[phone] Offic/outpt E&m Estab Mod-hi 2 [facility], [address], [place], [place], [address] , [place] tel: [phone] [facility] CONSTIPATION 9-200 9 Vinny Chua. [address] [place] [address], [place], [place], [address], [place]. tel:[phone] Init Preven E&m New Pt; 40-64 Yr Medical [facility], [address], [place], [place], [address] , [place] tel:[phone] [facility] No Information 8 Mark Meade. [address] [facility], [address], [place], [place], [address], [place]. tel:[phone] Referring Provider: Harshil Ramírez, 9 [address], [place], [address]. tel:[phone] Medical [facility], [address], [place], [place], [address] , [place] tel:[phone] [facility] ALLERGIC RHINITIS OTHER ALLERGENSINUS ITIS, ACUTE, UNSPEC. 8 Ta Cullen. 909 [address], [place], [place], [address]. tel:[phone] Referring Provider: Harshil Ramírez, 909 [address], [place], [address]. tel:[phone] Family History Family Member Type Diagnosis Age [...] Unspecified Payers Payer name Insurance type Covered green party ID Authoriza tion(s) [employer] Gold Plus HMO - [employer] MB [id number] [employer] Plus H[employer] - [employer] MB [id number] [employer] Plus H[employer] - [employer] MB [id number] Social History Type Description Quantity Date Captured Comments Alcohol Use Details Unknown Caffeine Use Details Unknown Tobacco Use Status No Information Smoking Status No Information Sex Female Sexual Orientation Straight or heterosexual Chief Complaint And Reason For Visit No Information Reason For Referral Reason For Referral No Information Plan Of Treatment Date Type Action Status Goal Mammogram. Due on 5 due Goal HPV. Due on due Goal [...] Goal Colonoscopy. Due on 030 due Goal HPV. Due on due Goal [...] vaccine ( 1st). Due on due Goal Influenza vaccin e. [...] vaccine ( 1st). Due on due Goal Hepatitis C screening due Goal Depression scree rene. Due on due Goal Depression scree rene. [...] vaccine ( ). Due on due Goal FIT. Due on due Goal Preventative Exa m. Due on due Goal Zoster vaccine ( [...] Goal Mammogram. Due on 5 due Goal FIT. Due on due Goal Hepatitis C scre ening. Due on due Goal Zoster vaccine ( ). Due on due Goal Influenza vaccin e. Due on due Goal Colonoscopy. Due on due Goal Depression scree rene. Due on due Goal Pap/HPV testing. Due on due Goal Mammogram. Due on 5 due Goal Td/Tdap vaccine. Due on due [...] e. Due on due Goal Hepatitis C scre ening. Due on due Goal Influenza vaccin e. Due on due Goal FIT. Due on due Goal Zoster vaccine ( ). Due on due Goal Pap/HPV testing. Due on due Goal Pneumococcal vac cine. Due on due Goal Hepatitis C scre [...] vaccine ( ). Due on due Goal FIT. Due on [...] Goal Mammogram. Due on 5 due Goal Zoster vaccine ( ). Due on due Goal Depression scree rene. [...] Colonoscopy. Due on 030 due Goal Pneumococcal vac cine. Due on [...] C scre ening. Due on due Goal Td/Tdap vaccine. Due [...] Goal Td vaccine. Due on due Goal Pneumococcal vaccine [...] on due Goal Pneumococcal vaccine due Goal Pneumococcal vaccine due Goal Preventative Exa m. Due on due Goal Td/Tdap vaccine. Due on due Goal Mammogram. Due on 3 due Goal Influenza vaccin e. Due on due Goal Td vaccine. Due on due Goal Depression scree rene. Due on due Goal FOBT. Due on due Goal Colonoscopy. Due on 030 due Goal Pap/HPV testing. Due on due Goal Td vaccine. Due on 21 due Goal Preventative Exa m. Due on [...] due Goal PAP. Due on due Goal Td/Tdap vaccine. Due on due Goal Pneumococcal vaccine due Goal Pap/HPV testing. Due on due Goal Influenza vaccin e. Due on due Goal FOBT. Due on due Goal Colonoscopy. Due on 030 due Goal Mammogram. Due on 3 due Goal Depression scree rene. Due on [...] 030 due Goal Pneumococcal vaccine due Goal PAP. [...] Goal Td vaccine. Due on due Goal Pneumococcal vaccine [...] due Goal PAP. Due on due Goal Td/Tdap vaccine. Due [...] on due Goal Td vaccine. Due on 21 due Goal Pap/HPV testing. Due on due [...] Goal Mammogram. Due on 3 due Goal PAP. Due on due Goal Pap/HPV testing. Due on due Goal Depression scree rene. Due on due Goal Pneumococcal vaccine due Goal Influenza vaccin e. Due on due Goal Lipid panel. Due on due Goal Tdap. Due on due Goal Mammogram. Due on due Goal Colonoscopy. Due on due Goal FOBT. Due on due Goal Td vaccine. Due on due Goal Colonoscopy. Due on due Goal Mammogram. Due on due Goal Lipid panel. Due on due Goal Pap/HPV testing. Due on due Goal Influenza vaccin e. Due on due Goal FOBT. Due on due Goal Td vaccine. Due on due Goal Depression scree rene. Due on due Goal Pneumococcal vaccine due Goal Tdap. Due on due Goal Colonoscopy. Due on due Goal Influenza vaccin e. Due on due Goal FOBT. Due on due Goal Pneumococcal vaccine due Goal Td vaccine. Due on due Goal Mammogram. Due on due Goal Pap/HPV testing. Due on due Goal Tdap. Due on due Goal Lipid panel. Due on due Goal Depression scree rene. Due on due Goal Pap/HPV testing. Due on due Goal Mammogram. Due on 1 due Goal Influenza vaccin e. Due on due Goal Depression scree rene. Due on due Goal Tdap. Due on due Goal Lipid panel. Due on due Goal Td vaccine. Due on due Goal Colonoscopy. Due on 030 due Goal FOBT. Due on due Goal Pneumococcal vaccine due Goal PAP. Due on due Goal Influenza vaccin e. Due on due Goal Pap/HPV testing. Due on due Goal Depression scree rene. Due on due Goal FOBT. Due on due Goal Tdap. Due on due Goal Cologuard. Due on 0 due Goal Lipid panel. Due on due Goal Colonoscopy. Due on 020 due Goal Pneumococcal vaccine due Goal Mammogram. Due on 0 due Goal Td vaccine. Due on due Referral Referred To: Varun Soto MD [address] [place], [phone] Ordered: Referrals: Neurology. Varun Soto MD Appointment date/timeframe: 2 (within 7 days) ordered Referral Referred To: Winston Gauthier DO [address] [place], [place], [phone] Ordered: Referrals: Neurology. Winston Gauthier DO. Evaluate and treat Appointment date/timeframe: 09/12/2024 ordered Referral Referred To: Dr. Camron Hinton [address] [place], [phone] Ordered: Referrals: Neurology. Dr. Camron Hinton. Evaluate and treat Appointment date/timeframe: 1 (within 24 hrs) ordered Referral Referred To: [facility] [place] [address] [facility] [address] [place], [phone] Ordered: XR Femur Left Min 2 Views ordered Referral Referred To: [facility] [place] [address] [facility] [address] [place], [phone] Ordered: MRI Brain/IAC/Pituitary w/out contrast Appointment date/timeframe: 3 (within 30 days) ordered Referral Referred To: Chandu Angelo DO [address] [facility]
3[address] [place], [phone] Ordered: Referrals: Gastroenterology. Chandu Angelo DO. Evaluate and treat Appointment date/timeframe: 3 (within 30 days) ordered Referral Referred To: Arcadio Churchill MD [address] [facility]
[address] [place], [place], [phone] Ordered: Referrals: Gastroenterology. Arcadio Churchill MD. Evaluate and treat Appointment date/timeframe: 2 (within 7 days) ordered Referral [place]: [place] [address] [facility]
[address] [place], [place], [phone] Ordered: Referrals: Gastroenterology. Anam Bowman MD. Evaluate and treat Appointment date/timeframe: 1 (within 24 hrs) ordered Referral Referred To: Jhonny Medina MD [address] [facility]
[address] [place], [place], [phone] Ordered: Referrals: Gastroenterology. Jhonny Medina MD. Evaluate and treat Appointment date/timeframe: 3 (within 30 days) ordered Referral Referred To: [facility] [place] [address] [facility] [address] [facility] [phone] Ordered: Mammogram Screen 3D w/ addl views/US if indicated Appointment date/timeframe: 3 (within 30 days) ordered Referral Referred To: Yary Kennedy MD [address] [facility] [address] [place], [place], [phone] Ordered: Referrals: Dermatology. Yary Kennedy MD. Evaluate and treat Appointment date/timeframe: 2 (within 7 days) ordered Referral Referred To: Ria Daily MD [address] [facility] [address] [place], [place], [phone] Ordered: Referrals: Neurology. Ria Daily MD. Evaluate and treat Appointment date/timeframe: 3 (within 30 days) ordered Referral Referred To: Dr Sameer Orlando Ordered: Referrals: Surgery - Vascular. Dr Sameer Orlando. Evaluate and treat Appointment date/timeframe: 2 (within 7 days) ordered Referral Referred To: Dereck Robles M.D. [address] [place] [address]
[facility] [address] [place], [phone] Ordered: Referrals: Surgery - Vascular. Dereck Robles M.D.. Evaluate and treat Appointment date/timeframe: 1 (within 24 hrs) ordered Referral Referred To: [facility] [place] [address] [facility] [address] [place], [phone] Ordered: Mammogram Screening 3D w/ additional views and/or US if indicated Appointment date/timeframe: 3 (within 30 days) ordered Referral Referred To: Dr. Herminio Ya [address] [facility]
[address] [place], [phone] Ordered: Referrals: Endocrinology. Dr. Herminio Ya. Evaluate and treat Appointment date/timeframe: 07/23/2022 ordered Referral Referred To: Jhonny Medina MD [address] [facility]
[address] [place], [place], [phone] Ordered: Referrals: Gastroenterology. Jhonny Medina MD. Follow-up and treat Appointment date/timeframe: 12/12/2021 ordered Referral Referred To: [facility] [place] [address] [facility] [address] [place], [phone] Ordered: CT Abdomen and pelvis w/ and w/out contrast ordered Referral Referred To: [facility] [place] [address] [place], [phone] Ordered: US Renal Appointment date/timeframe: prior to next appointment ordered Referral Referred To: [facility] [address] [place], [phone] Ordered: XR Abdomen 1 view (KUB) ordered Referral Referred To: Bashir Johnston MD [address] [facility]
[address] [place], [place], [phone] Ordered: Referrals: Surgery - General. Bashir Johnston MD. Evaluate and treat Appointment date/timeframe: 06/26/2021 ordered Referral Referred To: [facility] [address] [facility]
[address] [place], [place], [phone] Ordered: Referrals: Gastroenterology. [facility] Digestive. Evaluate and treat Appointment date/timeframe: 3 (within 30 days) ordered Referral Referred To: [facility] [address] [facility] [place], [place], [id number] [phone] Ordered: Referrals: Psychiatry. [facility]. Evaluate and treat Appointment date/timeframe: 1 (within 24 hrs) ordered Referral Referred To: Camron Garcia MD [address] [place], [place], [id number] [phone] Ordered: Referrals: Urology. Camron Garcia MD. Evaluate and treat Appointment date/timeframe: 06/12/2021 ordered Referral Referred To: [facility] [place] [address] [facility] [address] [place], [phone] Ordered: US Abdomen complete ordered Referral Referred To: Dr [place] [phone] Ordered: Referrals: Psychiatry. Evaluate and treat Appointment date/timeframe: 3 (within 30 days) ordered Referral Referred To: Gil Cohen MD [address] [facility]
[address] [place], [place], [id number] [phone] Ordered: Referrals: ENT. Gil Cohen MD. Evaluate and treat ordered Referral Referred To: Dr Saul Valdez
[address] [place], [address] [phone] Ordered: Referrals: Neurology. Evaluate and treat ordered Referral Referred To: Marjorie Franco MD [address] [facility]
[address] [place], [place], [id number] [phone] Ordered: Referrals: Neurology. Marjorie Franco MD. Evaluate and treat Appointment date/timeframe: 5 (no timeframe) ordered Referral Referred To: Ria Daily MD [address] [facility]
[address] [place], [place], [id number] [phone] Ordered: Referrals: Neurology. Ria Daily MD ordered Referral Referred To: [facility] [address] [place], [address] [phone] Ordered: Diagnostic Order: XR Abdomen 2 views ordered Referral Referred To: Braden Kilgore DO [address] [facility]
[address] [place], [place], [id number] [phone] Ordered: Referrals: Urology - Braden Kilgore DO ordered Referral Referred To: Greg Stringer MD [address] [place], [place], [id number] [phone] Ordered: Referrals: Orthopedics - Greg Stringer MD ordered Future Order: Radiology Order US Renal ([id number]), Sent on: Sent Future Order: Radiology Order XR Abdomen 1 view (KUB) ([id number]), Sent on: Sent Future Order: Radiology Order XR Abdomen 1 view (KUB) ([id number]), Sent on: Sent History Of Present Illness Encounter Date Complaint History Of Mindy nt Illness Monthly f/u ER f/u- [facility] for headaches, nausea, vomiting, dizzinessHead CT was WNLShe has been having post concussive headaches and short term memory problemsIs wanting to see Neurology.She was referred to DR. Ria Daily but soonest appt is in DecShe was given rx for Fioricet but hasn't picked it up yet chronic conditions *See Chronic Conditions HPI hospital follow up 07/11 went to [facility] after standing up quickly and hitting her head on the grocery cart handlestates shes sore, nauseated but ct head/neck was negative. was given methocarbamol but isnt taking-is having neck spasms chronic conditions *See Chronic Conditions HPI ER f/u She went to [facility] ER on 07/04 after falling 4 feet off a ladder- she was coming down from her attic. She hit her head on concreted, right elbow and right hipHead CT: normalCervical spine CT : normalCT CAP: nothing acuteR hip and R elbow xrays: nothing acuteShadair was given rx for [place] 20 pills- but she didn't even fill this. She says her insurance won't cover it b/c she is on KlonopinShe has soreness- no acute pain.She has an old rx of Tylenol #3 from 05/31/24 for 15 pills. She has been taking this- but has 4 pills left. chronic conditions *See Chronic Conditions HPI ER f/u She went to [facility] ER on 06/27 for:RUQ pain that radiates [...] not want to change any meds.has upcoming belt cutter appt on 06/24 w/ erendira jorgensenhaving more solid bowel movementsno fevers chronic conditions *See Chronic Conditions HPI telemed Patient initiate d telemedicine visit via audio/video platform to discuss follow up. 50 minutes were spent providing care, treatment, and recommendations over telemedicine with the patient while they are alone in a private environment, with the patient's consent.- She went to [facility] [employer] [facility] on Thursday for the rash/bug bites. It [...] she has not been taking vitamin D 68477 IU for a while as it caused stomach discomfort and is on monthly dose. States she was informed by the doctors at the ED that she is not supposed to take vitamin D 13346 IU, and maximum is 2468-2590 IU. Restarted it on Thursday.Last vitamin D [...] follow up - pt went to [facility] ER on 04/06/24 for abdominal pain and chest pain. She has had increased panic attacks and felt like she was having chest pain. Tomorrow she has a [place] meeting which is causing a lot of [...] follow up - Pt went to [facility] in [place] for constipation on 03/24/24. All labs, including [...] was with Dr Daily in 2018 at [facility] due to concussion. It was normal. She is scheduled for repeat MRI scan and planning to get this soon. - Discussed potential GI side effects of medications she is on:Pristiq - constipation 9%Latuda - diarrhea 3-5%Omeprazole - constipation 2%, diarrhea 4%Rexulti - constipation 2-3%, diarrhea 3%Seroquel - constipation 2-10%, diarrhea 5%Lab - stool C diff test, stool panel, norovirus - She will greens picker test kit and consider it if her symptoms do not improve. BP 107/56W850G 99.1 chronic conditions *See Chronic Conditions HPI [...] was with Dr Daily in 2018 at [facility] due to concussion. It was normal. She has increased anxiety lately due to going through Bankruptcy.- She recently tried Prozac 10mg but only took it for 2 days, then caused side effects. She stopped it and those side effects resolved. Lab - CBC, CMP, Mag, Vit D, Vit B12 - return to clinic for lab appt. MRI Brain with and without contrast to [facility] for memory changes telemed Patient initiate d telemedicine visit via audio/video platform to discuss follow up. 35 minutes were spent providing care, treatment, and recommendations over telemedicine with the patient while they are alone in a private environment, with the patient's consent.- Pt was admitted to hospital at [facility] 01/29/24-01/30/24 for abdominal pain. She tested [...] Conditions HPI hospital follow up went to [facility] 01/19 for cdiff difficulties, abd painCT abd [...] Hospital follow up - She went to [facility] yesterday for continued diarrhea, abdominal cramping. [...] temp medicare preventive MAV -Pt here for [facility] annual with fasting labs. Pt is fasting.- [...] - Senior panel , Hep [facility]Mamm[facility] to [facility] vaccineTdap vaccine at next visit chronic conditions *See Chronic Conditions HPI Telemed Patient initiate d telemedicine visit via audio/video platform to discuss hospital follow up. 45 minutes were spent providing care, treatment, and recommendations over telemedicine with the patient while they are alone in a private environment, with the patient's consent. - Hospital follow up - She [facility] on 12/07/23 for abdominal pain, cramping, [...] Hospital follow up - pt went to [facility] ER on 11/15/23 and 11/16/23 c/o [...] aches, nausea, vomiting, diarrhea. She called doctor donor relations officer and increase dicyclomine to 3 times daily. [...] her Rx's were cancelled before she would greens picker her Rx from [employer]. She was finally able to get refills [...] Hospital follow up - pt went to [facility] on 10/20/23 c/o chest and abdominal pain. This was following finding a bug in her food which caused a panic attack. She went to [email or web address] which still having high anxiety but she felt overwhelmed and passed out. She was able to make it home, but she was still out of it , so EMS suggested going to hospital. She went to [facility] ER. BP slightly elevated in ER [...] Hospital Follow up - Pt went to [facility] ER this morning on 10/05/23 for [...] consent. Date of ER visit: 07/13/23 to [facility]. Presenting Symptom: left sided chest pain [...] 0.25mg daily. If not covered, I recommend [employer] Patient Assistance Program. Please call my office [...] Vit D MAV -Pt here for [facility] annual w/ fasting labs. - Last [...] - She recently dropped the claim against [employer] due to needing a medical malpractice civil attorney. She has been in this lawsuit since Jul 2021. She is also having to claim bankruptcy and this is causing increased stress. Fasting labs, Vitamin B12, Vitamin DRefer to Neurology for Memory change medicare preventive Work-in -Pt here for [facility] follow-up. She went to [facility] on 02/17/23 for hematochezia. She was [...] with the patient's consent.- She went to [facility] at 4am this morning for right arm [...] CMP, Vit B6, Vit B1Pap smearMammogram to [facility] Jose LawrenceekContinue Progesterone wean to 2.5mg:Week 1 [...] diarrhea and vomiting the night before. Called [facility] ambulance to take her to [facility] ER. Did labs, IV, all normal. She was told by ER not to return to ER for withdraw from medroxyprogesterone . Was advised to get visiting nurse or go to rehab facility, like [facility]. She is currently on Medroxyprogesterone 10mg on some days and 2.5mg some days. She says the day after she takes 2.5mg, she has symptoms similar to above. Visiting nurse from [facility] came by her house yesterday. She will come once weekly. She is now set up for Meals on Wheels. She was advised to go inpatient at [facility] for unstable bipolar disorder. Special Crimes Investigator consulted to help cover [facility]. Denies Suicidal thoughts. Described depression and roberth. [...] below. [facility] [place] [place] started on 04/18/22:Week 1 & 2: [...] Called am ambulance and was taken to [facility]. Was told she was having withdraws from her medication and gave her a weaning schedule. Prior to this, her pharmacy has accidentally been filling Progesterone 10mg daily for the past 9 months. It was only realized recently when she went to greens picker a refill. She says that stopping abruptly [...] HPI follow-up -Pt is here for a bvfyet-zn-Fm is still having nausea and diarrhea everyday [...] hospital follow up [facility]14. [facility] viral tests were done-negnotes these symptoms [...] from dr. navarro when she called our donor relations officer line but had to pay gonzalez for [...] LBM 2 days ago. Problem Bilateral nephro -nkio-jmz female accompanied by her mother todayRecent CT [...] and 50 in AM. She has stopped Pawnee. She sent a note to inform me [...] She tried to switch from Latuda to Pawnee. Last Latuda was 10/24. She had side effects of confusion, weakness, fatigue, anxiety, sweating, increased thirst, headache. She stopped Pawnee after 3 days. Her symptoms improved after stopping Pawnee. She says since stopping Latuda, she has [...] follow-up -Pt is here for her monthly rdrhfl-gh-La wants a flu shot today- Received note from pt about 2 weeks ago that she is scheduled to see psychiatry, Dr Krishna Bustos on Oct 15 for Telephonic visit with the FUEL CELL ASSEMBLER- She is currently taking Seroquel 400mg 2 [...] day. She tried calling after hours at [facility], but they dont have an [...] to a medication interaction. - She called [facility] recently but cannot remember why she did not make an appt to see them previously. They have a [place] location. She states [facility] is a call center who screens for [facility]. They instructed her to go to [facility] on [address] by 8am for walk in only appt. [...] doctor at every visit. She went to [facility] 20 yrs ago and says it is the same nightmare as it was before. She would see a different psychiatrist every monthly visit and was being taken off and put on new medications every time she would see someone new. She says [facility] did not help her [...] all forms has to be notarized.- Last [facility] psychiatry referral was sent 05/29/21. [...] zofranstill has no regular f/u w/ psych. Sharetivity social media strategist said to call md argueta but she did not like this doctor was in [place]. she is unsure what the issue was w/ ikare but likely due to the same issue she did not want to follow up. has been in and out of multiple psych facilities and is having manic episodes at night where she falls asleep at 5 and is up from 10-2. she would like a refill on her clonazepam, last filled per TYPING TEACHER 07/09. she is concerned about her latuda [...] seen in emergency room on 729 at [facility]. She was admitted for diarrhea and lower [...] would like to have the procedure performed [facility], secondary to transportation issues. I will refer her to my partner Dr. Bashir Johnston at our [facility] location for bilateral ureteroscopy.I have reviewed the 40+ pages of ER notes with the patient's mother. Aug-04-2021 Kidney stones HOF -Pt is here for a HOF. She went to [facility] on 05/23/21 for nausea and vomiting, diarrhea, [...] has helped. - She was referred to [facility] for stress and depression. She states that the doctor she had in the past works there - Dr Sanchez. She says she will not go back there. She has been to [facility] 4 times in the past and did not do well there. She went due to suicidal thoughts, but she is not currently suicidal. She says she had a bad experience with [facility] as well, Has not received a call from [facility], but is familiar with them. [...] up with Gastroenterology, Dr Medina. Referral to [facility] for Psychiatry Diarrhea/Vomiting/Headache Sympt oms [...] preventive MAV -Pt is here for a [facility] with fasting labs. She already completed labs. - Hospital follow up - Pt went to [facility] on 12/20/2020 for vertigo and anxiety. - [...] TAking Klonopin. Related to Nicole c attacks Will refer to a diff erent neurologist to see if you can get in sooner. Related to Memory problem Feeling better Related to Nause a and vomiting, unspecified vomiting type Reviewed ER recordsDiscussed vis it. Related to Hospital discharge follow-up Will refer to a diff erent neurologist to see if you can get in sooner. Related to Frequent headaches Will refer to a diff erent neurologist to see if you can get in sooner. Related to Post concussive syndrome discussed limiting s timuliOTC meds that are [...] lternating constipation and diarrhea cont f/u w/ global head advertiser solutions Related to Ma ss of cervix Continue [...] Brain with and without contrast to [facility] [place] for memory changes Related to Memory changes [...] sent, discussed insurance stool cup rec to greens picker isela to confirm if recurrent cdiffpromethazine 25 [...] Uncomplicated opioid dependence Pt admitted 11/16/23- to [facility] for viral gastroenteritis. Related to Hospital [...] hospital visit. Related to Hospital discharge follow-up Discussed recent ER visit. Symptoms improved. Continue Maalox-Lidocaine as needed, Promethazine as needed, Zofran as needed for nausea or vomiting. Continue to follow up with GI. Related to Abdominal cramping Continue Latuda 20mg daily, Clonazepam 0.5mg, Pristiq [...] Rx not covered and we will complete [facility] patient assistance program. Bipolar disorder symptoms are [...] mixed, mild Continue to mammogram appt in [facility] Related to Breast cancer screening by [...] well controlled. I recommend inpatient care at [facility]. Denies SI/HI Related to Bipolar disorder, current [...] Referral sent to [facility] for home assistance. Related to Chronic nausea [...] Bipolar disorder, current episode mixed, moderate Continue Prisatiq, S eroquel and start Remeron 15mg every evening. She is no longer on Latuda. Tried Pawnee but had negative side effects. Currently having increased manic symptoms. Related to Bipolar disorder, current episode mixed, severe, without psychotic features Stool culture, O&P Related to Di arrhea, unspecified type Follow up with Dr Ra delatorre regarding [...] She is no longer on Latuda. Tried Pawnee but had negative side effects. Currently having [...] Latuda, Pristiq, ClonazepamUpcoming [facility] afternoonContinue to follow up weekly with therapist. 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 Referral sent to [facility] and information given to patient. Encouraged continuing with upcoming telephonic visit with therapist. Related to Bipolar affective disorder, depressed, moderate ondansetron rx sentc onsider probiotic for recent abxif diarrhea increases call office Related to History of removal of ureteral stent will task sean to re fill clonazepam, unsure about her rules for few day fillscont seroquelwill task amureen senior case manager regarding in person psychiatric care [...] Medina. Related to Constipation, unspecified constipation type Referral to [facility] stephan matute PsychiatryContinue current medications. Related to Bipolar disorder, current episode mixed, moderate UrinalysisRefer to Dottie Reeder. Related to Kidney stones Continu current meds Related to Environmental allergies Continue Omeprazole Related to B arrett's esophagus determined by endoscopy Take Tylenol as needed Related t o Low grade fever Take Valtrex as needed Related t o Genital herpes simplex, unspecified site Will check labs, sto ol cultures and [...] Clonazepam 0.5mg TID prn increased anxietyReferral to [facility] for psychiatrist. She has had [...] her insurance. 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
--- OUTSIDE RECORDS SUMMARY | 2025-01-04 20:03 | XMS_ITS ---
Author Organization [facility] Janet swetha [place] Address [address] [place] [address] Care Team Providers Care Melt Room Operator Name Role Phone Rayshawn Jones MD Primary Care Provider Unavail able Black, Mary Ann Unavailable [phone] Allergies Allergen (clinical drug ingredient) Drug/Non Drug Allergy documented on EMR Reaction Allergy Type Onset Date Status Levaquin Unknown Drug Allergy Active almond allergenic extract Roundup (Diagnostic) Unknown Drug Allergy Active Latex Latex [...] Polyneuropathy due to type 2 diabetes mellitus (182667185) Type 2 diabetes mellitus with diabetic polyneuropathy (E11.42) Active confirmed Problem Ulcer of toe of left foot (disorder) (104422363764244 02) Skin ulcer of toe of left foot, limited to breakdown of skin (L97.521) Active confirmed Response to treatment - Improvement Problem Ulcer of toe of right foot (disorder) (848036055311089 01) Skin ulcer of toe of right foot, limited to breakdown of skin (L97.511) Active confirmed Response to treatment Vital Signs Height 5ft 6in in 09/14/2024 Weight 193 lbs 09/14/2024 BMI 31.15 kg/m2 09/14/2024 Encounters Encounter Location Date Provider Diagnosis [facility] [address] [address] 09/14/2024 Mary Ann Black Skin ulcer of [...] Next Appt Details Follow Up: as scheduled, [place] son: Provider Name:Mary Ann Brown , 01/27/2025 08:30:00 AM, [address] [facility], [place], [address], Procedure Notes * Category Sub-Category Detail Notes [...] of the wound post debridement is stable (79658) Progress Notes * Lucia COHENa SDOB:1965 (59 yo F)Acc No.[id number]:09/14/2024 Progress Notes Patient:?Elham Cohen Provider:?Mary Ann Brown DPM :1965???Age:59 Y???Sex:Female D ate:09/14/2024 Address:[address] [place], [place] [id number] Pcp:Rayshawn Jones MD Subjective: * Chief Complaints: [...] yes, walking. ?Marital status: . 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 * Medications:?TakingTrulicity Lancets Lisinopril 2.5 MG [...] of the wound post debridement is stable (17301).? * Procedure Codes:?37764 ACTIV E WOUND CARE/20 CM OR <, Modifiers: TA * Follow Up:?as scheduled * Images: * Sign off status: Completed true * Provider:?Mary Ann Brown DPM Date:?2023 Generated for Margy glez/Faxing/eTransmitting on:?01/04/2025 08:02 PM EST History and Physical Notes * [...]
== END 2025-01-04 18:28 | disposition home or self-care (01) ==
LOC: HO.LNP 18:27
PROVIDERS: Visit Provider Internal Medicine Nephrology
DX: R80.9 Proteinuria, unspecified (principal)
CPT/HCPCS: 84156

== ENCOUNTER 2025-03-28 09:14 | Outpatient (AMB) | payer OTHER, SELFPAY ==
[2025-03-28 09:17] VITALS: BP 122/76; PULSE 75; O2SAT 99; BMI 31.2
--- NOTE | 2025-03-28 09:17 | HO.NEPHOV ---
Vital Signs 03/28/25 09:17 Height 5 ft 7 in Weight 199 lb BMI 31.2 BP 122/76 Blood Pressure Location Lt brachial Position Sitting Pulse 75 Pulse Source Pulse Oximeter Pulse Oximetry (%) 99 Oxygen Delivery Method Room Air Intake Visit Reasons: 3m follow up Proteinuria-CONF Manager Construction Required: No Accompanied by: Self / Same As Patient Allergies morphine Allergy (Unknown, Verified 03/28/25 09:19) Unknown latex Allergy (Unknown, Uncoded 11/21/24 09:16) rash HPI Comments Details: Elham was seen in follow up for proteinuria. She is a diabetic and had been on metformin initially which was changed to Trulicity with improvement in her weight. Her hemoglobin A1c recently had been 7.4. She has neuropathy but denies retinopathy, coronary artery disease, congestive heart failure, CVA, carotid stenosis. She does not have any hypercalcemia, back pain, history of excessive nonsteroidal anti-inflammatory medication use. She has history of preeclampsia during her . She is on losartan. She does not have any recurrent sinusitis, hematuria, joint swellings, edema, photosensitivity or skin rashes. She has been on PPI for a long time. Her renal functions are normal. She has had renal stones in the past but does not have any by her last renal imaging. She feels well. [facility] Medical History (Updated 12/27/24 @ 10:30 by Cisco Morillo MD) Tennis elbow Calculus of kidney Surgical History Hx of elbow surgery History of carpal tunnel release Hx of section Family History Father No problems noted. Mother No problems noted. Social History Alcohol intake: current Alcohol intake frequency: holidays/special occasions only Patient Tobacco Use Status: Never used Tobacco Review of Systems Const All systems reviewed & are unremarkable except as noted in HPI and below Physical Exam Vital Signs: Last Vital Signs Pulse 75 03/28/25 09:17 BP 122/76 03/28/25 09:17 Pulse Ox 99 03/28/25 09:17 Oxygen Delivery Method Room Air 03/28/25 09:17 BMI result Body Mass Index 31.2 Const General: comfortable and no acute distress Orientation/consciousness: patient oriented x3 HEENT Head: Yes normocephalic Mouth: Normal oral and palatal mucosa present Eyes EOM: EOMs intact bilaterally Neck Neck: Yes supple Resp Auscultation: clear to auscultation bilaterally Cardio Jugular venous distension: no JVD Rate: regular rate GI Palpation (GI): Soft to palpation Auscultation: normal bowel sounds General: Yes no CVA tenderness Back/Spine/Pelvis Back: no CVA tenderness Skin General skin exam: no rashes or lesions noted Neuro General: patient oriented x3 and moves all extremities Extrem General: Yes no pedal edema Results Reviewed Nephrology Results: Renal US 10/20/24 Assessment & Plan Assessment & Plan (1) Proteinuria: Code(s): R80.9 - Proteinuria, unspecified Category: Medical Qualifiers: Proteinuria type: other Qualified Code(s): R80.8 - Other proteinuria (2) History of kidney stones: Code(s): Z87.442 - Personal history of urinary calculi Category: Medical Plan Elham has normal renal function. She is known to have hypertension and is on losartan which is keeping her blood pressure at goal. She has a diabetic with neuropathy and her last A1c was 6.4. She is not on Jardiance. She is losing weight on Trulicity. She has no other macrovascular history. She does not take any excessive nonsteroidal anti-inflammatories. Her 24 hour urine collection did not show any proteinuria. She does not get recurrent UTIs. She maintains good hydration. I did not make any medication changes today. All questions answered. Orders: Orders Protein Creatinine Ratio, Ur 1 Year R80.8 - Other proteinuria, Z87.442 - Personal history of urinary calculi Coding Level of Care Code Est Pt Level 4 (81283) Diagnoses Other proteinuria R80.8 Proteinuria type: other History of kidney stones Z87.442
--- OUTSIDE RECORDS SUMMARY | 2025-03-28 09:58 | XMS_ITS ---
Author Organization [facility] Address [address] [place] [address] Care Team Providers Care Lock Assembler Name Role Phone Rayshawn Jones MD Primary Care Provider Unavail able Mary Ann Brown Unavailable [phone] REASON FOR VISIT 60 Days - [facility] Encounters Encounter Location Date Provider Diagnosis [address] [address] 12/30/2024 Mary Ann Brown Plan Of Treatment Next Appt Details Provider Name:Mary Ann Brown , 04/25/2025 08:30:00 AM, 1986 [facility], [place], [address], Progress Notes * Elham COHEN SDOB:1965 (59 yo F)Acc No.[id number]:12/30/2024 Patient:?Elham COHEN :1965???Age:59 Y???Sex:Female Address:[address] [place] [address], [place], [address] * true * Date:? Generated for Printi ng/Faluisg/eTransmitting on:?03/28/2025 09:58 AM EDT
--- OUTSIDE RECORDS SUMMARY | 2025-03-28 09:59 | XMS_ITS ---
Author Organization [facility] Janet swetha Wana Address [address] [place] [address] Care Team Providers Care Director Process Improvement Name Role Phone Rayshawn Jones MD Primary Care Provider Unavail able Black, Mary Ann Unavailable [phone] Allergies Allergen (clinical drug ingredient) Drug/Non Drug Allergy documented on EMR Reaction Allergy Type Onset Date Status Levaquin Unknown Drug Allergy Active almond allergenic extract [place] (Diagnostic) Unknown Drug Allergy Active Latex Latex [...] Ordered Date Performed Result Body Sit e 18063-XTRQXCV NAIL, 6 OR MORE 10/26/2024 N/A 85791-ILVE SKIN LESIONS, OVER 4 10/26/2024 N/A Encounters Encounter Location Date Provider Diagnosis [facility] [address] 10/26/2024 Mary Ann Black Tinea unguium B35.1 [...] days Pending Test Test Name Order Date [id number] NAIL, 6 OR MORE 10/26/2024 95223-LJYR SKIN LESIONS, OVER 4 10/26/20 24 Next Appt Details Follow Up: 3 Months, Reason: Provider Name:Mary Ann Brown , 04/25/2025 08:30:00 AM, [address] [facility], [place], [address], Procedure Notes * Category Sub-Category Detail Notes [...] of a nail nipper and/or dremel-type grinder operator external tool, to a more viable healthy nail [...] to maintain effectiveness in symptomatic relief - 64822 Keratoma Treatment Parring or Cutting o f [...] instrumentation by the physician of record - 33136 Progress Notes * Elham COHEN SDOB:1965 (59 yo F)Acc No.[id number]:10/26/2024 Progress Notes Patient:?Elham COHEN Provider:?Mary Ann Brown DPM :1965???Age:59 Y???Sex:Female D ate:10/26/2024 Address:[address] [place], [place] [id number] Pcp:Rayshawn Jones MD Subjective: * Chief Complaints: [...] ?Exercise: yes, walking. ?Marital status: . 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 * Medications:?TakingTrulicity Lancets Lisinopril 2.5 MG [...] E11.42 (Primary)??? Plan: * Treatment: 2.?Tinea unguium?Procedure: 14711-BPZPNZJ NAIL, 6 OR MORE 3.?Xerosis of skin? [...] of a nail nipper and/or dremel-type grinder operator external tool, to a more viable healthy nail [...] to maintain effectiveness in symptomatic relief - 07888.?Keratoma Treatment:?Parring or Cutting of Benign Hyperkeratotic Lesion(s)?(-57) [...] instrumentation by the physician of record - 59740.? * Procedure Codes:?70652 DEBRI DE NAIL, 6 OR MORE, Modifiers: XS 31707 TRIM SKIN LESIONS, OVER 4, Modifiers: XS [...] Brown DPM Date:?2023 Generated for Margy glez/Romain/Farooq on:?03/28/2025 09:59 AM EDT History and Physical Notes * HPI (History [...]
--- OUTSIDE RECORDS SUMMARY | 2025-03-28 09:59 | XMS_ITS ---
Author Organization [facility] Janet swetha Pike Address [address] [place] [address] Care Team Providers Care Chief Executive Or Managing Director Name Role Phone Rayshawn Jones MD Primary Care Provider Unavail able Black, Mary Ann Unavailable [phone] Allergies Allergen (clinical drug ingredient) Drug/Non Drug Allergy documented on EMR Reaction Allergy Type Onset Date Status Levaquin Unknown Drug Allergy Active almond allergenic extract [place] (Diagnostic) Unknown Drug Allergy Active Latex Latex Unknown Allergy Active morphine Morphine Unknown Drug Allergy Active REASON FOR VISIT At Risk Footcare, Skin problem(s), Toe Irritation Medications Medication SIG (Take, Route, Frequency, Duration) Notes Start Date End Date Status Multivitamins Orally Not-Ta elijah Cyclobenzaprine HCl Not-Taking Naproxen Not-Taking PriLOSEC OTC 20 MG 1 tablet Orally Once a day Not-Taking Vitamin D3 Not-Takin g Compression Stockings 20-30mm Hg 1 pair wear daily for 30 days Not-Taking Baby Aspirin Not-Andrew ing Ammonium Lactate 12 % 1 application Externally Twice a day for 30 days Not-Taking Cephalexin 500 MG 1 capsule Orally twice a day for 10 days 08/16/2024 Not-Taking metFORMIN HCl 500 MG 1 tablet with a nicola l Orally Once a day for 30 day(s) Not-Taking Kerasal 5-10 % 1 application Externally Once a day PRN 12/16/2023 Active Ammonium Lactate 12 % 1 application Externally to affected areas of dry skin to feet except for between the toes Twice a day for 30 days Active Centrum Silver Orally Activ e Vitamin B-12 1000 MCG 1 tablet Orally On ce a day Active Vitamin C 1000 MG 1 tablet Orally Once a day Active Lisinopril 2.5 MG 1 tablet Orally Once a day Active Omeprazole 20 MG 1 capsule 30 minutes before morning meal Orally Once a day for 30 day(s) Active hydrochlorothiazide Active Atorvastatin Calcium 40 MG 1 tablet Oral ly Once a day Active Arthritis Pain Relief 650 MG 1 tablet as needed Orally every 8 hrs Active Trulicity 1.5 MG/0.5ML as directed Subcutaneous Active Lancets Active Social History Tobacco Use: Social History Observation Description Date Details (start date - stop date) Never Smoker NA - NA Tobacco use other than smoking: Question Answer Notes Are you an other tobacco user? No Tobacco Control (Standard) Question Answer Notes Tobacco use: Nonsmoker Additional Findings: Tobacco non-user Current no nsmoker AUDIT-C (Standard) Question Answer Notes Did you have a drink contain ing alcohol in the past year? Yes How often did you have a dri nk containing alcohol in the past year? Monthly or less (1 point) How many drinks did you have on a typical day when you were drinking in the past year? 1 or 2 drinks (0 point) How often did you have six o r more drinks on one occasion in the past year? Less than monthly (1 point) Points 2 Interpretation Negative Vital Signs Height 5ft 6in in 01/27/2025 Weight 193 lbs 01/27/2025 BMI 31.15 kg/m2 01/27/2025 Blood pressure systolic 150 mm Hg 01/28/20 25 Blood pressure diastolic 66 mm Hg 025 Procedures Procedure Date Ordered Date Performed Result Body Sit e 84742-KZDCSBT NAIL, 6 OR MORE 01/27/2025 N/A 67668-YEUF SKIN LESIONS, OVER 4 01/27/2025 N/A Encounters Encounter Location Date Provider Diagnosis [facility] [address] [place] [address] 01/27/2025 Mary Ann Black Type 2 diabetes gi itus with diabetic polyneuropathy E11.42 ; Other hammer toe(s) (acquired), right foot M20.41 ; Tinea unguium B35.1 ; Xerosis of skin L85.3 and Other hammer toe(s) (acquired), left foot M20.42 Assessments Encounter Date Diagnosis (ICD Code) Assessment Notes Treatment Notes Treatment Clinical Notes Section Notes 01/27/2025 Type 2 diabetes mellitus with diabetic polyneuropathy (ICD-10 - E11.42) 01/27/2025 Other hammer toe(s) (acquired), right foot (ICD-10 - M20.41) Patient Educated with: DIABETIC FOOT CARE INSTRUCTIONS. pdf (DIABETIC FOOT CARE INSTRUCTIONS. pdf) 01/27/2025 Tinea unguium (ICD-10 - B35.1) 01/27/2025 Xerosis of skin (ICD-10 - L85.3) 01/27/2025 Other hammer toe(s) (acquired), left foot (ICD-10 - M20.42) Plan Of Treatment Treatment Notes Assessment Notes Other hammer toe(s) (acquired), right fo ot Patient Educated with: DIABETIC FOOT CARE INSTRUCTIONS.pdf (DIABETIC FOOT CARE INSTRUCTIONS.pdf) Pending Test Test Name Order Date [id number]-[id number] NAIL, 6 OR MORE 01/27/2025 14063-UVRU SKIN LESIONS, OVER 4 01/28/20 25 Next Appt Details Follow Up: 3 Months, Reason: Provider Name:Mary Ann Brown , 04/25/2025 08:30:00 AM, [address] [place] [address], [place], [address], Procedure Notes * Category Sub-Category Detail Notes [...] use of a nail nipper and/or dremel-type concrete wall grinder operator, to a more viable healthy nail [...] to maintain effectiveness in symptomatic relief - 92675 Keratoma Treatment Parring or Cutting o f [...] instrumentation by the physician of record - 95702 Progress Notes * Elham COHEN SDOB:1965 (59 yo F)Acc No.[id number]:01/27/2025 Progress Note Patient:?Elham COHEN Provider:?Mary Ann Brown DPM :1965???Age:59 Y???Sex:Female D ate:01/27/2025 Address:[address] [place], [place] [id number] Pcp:Rayshawn Jones MD Subjective: * Chief Complaints: * ???At Risk FootcareSkin prob abiola(s)Toe Irritation * HPI: ???At Risk footcare:?Pt States Last PCP Visit:?Date?12/28/2024 ???Skin problems:?Nature:?dryness , scaling.?Location:?B/L .?Duration:?several days.?Course:?, improved, at _60_ %.?Treatments:?medication ( AM Lactin ), states adherence to recommended treatment application.?Toe pain:?Location:?B/L feet.?Duration:?several years.?Course:?worse.?Aggravated by:?shoes, any pressure.?Treatments:?change in shoes.? * ROS:?General/Constitutional:?Nausea?denies.?Vomiting?denies.?Hunger Thirst?denies.?Loss appetite?denies.?Chills?denies.?Fatigue?denies.?Fever?denies.?Night Sweats?denies.?Unexplained weight loss?denies.?Unexplained weight gain?denies.?HEENTM:?Dentures?denies.?Dizziness?denies.?Glasses/contacts?admits.?Retinopathy?den ies.?Blurred/double vision?denies.?TMJ?denies.?Discharge/drainage?denies.?Implants?denies.?Sore throat?denies.?Dental implants?denies.?Hard of hearing ?denies.?Difficulty chewing/swallowing/speaking?denies.?Nose bleeds?denies.?Sore mouth?denies.?Respiratory:?On O xygen?denies.?Pneumonia/pleurisy?denies.?Bronchitis?denies.?Emphysema?denies.?Co ughing?denies.?Cough blood?denies.?Shortness of breath?denies.?Wheezing?denies.?Cardiovascular:?Pacemaker?denies.?MVP?denies.?WPW?denies.?CHF?denies.?Heart attack?denies.?Septal defect?denies.?Rapid beat?denies.?Chest pain ?denies.?Atrial Fib.?denies.?Murmur/Palpitations?denies.?Gastrointestinal:?Hemorrhoids?denies.?Stomach/Abdominal pain?denies.?Dark blood stool?denies.?Irritable bowel ?denies.?Constipation?denies.?Diarrhea?denies.?Hematology:?Swelling?admits.?Clots?denies.?Varicose Veins?denies.?Bruising?denies.?Bleeding problem?denies.?Genitourinary:?Blood urine?denies.?Frequent/Painfu/urination/bladder control?denies.?Kidney stones?admits.?Infection (UTI)?denies.?Nephropathy?denies.?sex trans dis (STD)?denies.?Prostate?denies.?Musculoskeletal:?Hammertoes?denies.?Bunions?denies.?Back Pain?denies.?Muscle Cramps/ Resting?denies.?Muscle cramps / walking?denies.?Generalized aches and pains?denies.?Weakness?denies.?Integ.:?Parra?denies.?Scars?denies.?Corns/calluses?, admits.?Ingrown nails?admits.?Painful nails?denies.?Open Sores?denies.?Rashes?denies.?Neurologic:?Difficulty sleeping?denies.?Brain disorder?denies.?Numbness?denies.?Balance t rouble?denies.?Confusion?denies.?Fainting/blackouts?denies.?Tingling?denies.?Jose [...] with cerebral infarction.? * Social History:?Tobacco Use:?Tobacco use other than smoking?Are you an other tobacco user??No ?Tobacco Control (Standard)?Tobacco use:?Nonsmoker ?Additional Findings: Tobacco non-user?Current nonsmoker ???Drugs/Alcohol:?Drugs?Have you used drugs other than those for medical reasons in the past 12 months??No ???Miscellaneous:?Caffeine: yes, 1 cup per day. ?Children: yes, Three. ?Exercise: yes, walking. ?Marital status: . 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. ???Drug/Alcohol:?AUDIT-C (Standard)?Did you have a drink containing alcohol in the past year??Yes ?How often did you have a drink containing alcohol in the past year??Monthly or less (1 point) ?How many drinks did you have on a typical day when you were drinking in the past year??1 or 2 drinks (0 point) ?How often did you have six or more drinks on one occasion in the past year??Less than monthly (1 point) ?Points?2 ?Interpretation?Negative * Medications:?TakingTrulicity 1.5 MG/0.5ML Solution Auto-injector as directed Subcutaneous Lancets Lisinopril 2.5 MG Tablet 1 tablet [...] Once a day , Notes to Pharmacist: PRNAmmonium Lactate 12 % Cream 1 application Externally to affected areas of dry skin to feet except for between the toes Twice a day Taking Trulicity 1.5 MG/0.5ML Solution Auto- injector as directed Subcutaneous Taking Lancets Taking Lisinopril 2.5 MG Tablet [...] a day , Notes to Pharmacist: PRNTaking Ammonium Lactate 12 % Cream 1 application Externally to affected areas of dry skin to feet except for between the toes Twice a day Not-Taking/PRNCompression Stockings 20-30mm Hg closed toe- knee high 1 pair wear daily Baby Aspirin Ammonium Lactate 12 % Cream 1 [...] List reviewed and reconciled with the patientNot-Taking/PRN Compression Stockings 20-30mm Hg closed toe- knee high 1 pair wear daily Not-Taking/PRN Baby Aspirin Not-Taking/PRN Ammonium Lactate 12 % [...] 5ft 6in, Wt:193, BMI:31.15, Shoe size: 9.5, BP:150/66mm Hg, BS: 101, Ht-cm: 167.64 cm, Wt-k.54 kg. * ???Past Orders: ???Lab:HEMOGLOBIN A1C (GLYCO HEMOGLOBIN) (Order Date - 12/20/2024) (Collection Date & Time - 12/20/2024 08:38 AM) ? Value Reference Range ?HEMOGLOBIN A1C % (HH) 6.7 * Examination: ???Ophthalmology Referral: ?DIABETES EYE EXAM?Procedure Performed:?Yes ?Date of Exam Performed?12/21/2024 ?Diabetic Retinopathy Screening:?Yes ?Findings of Diabetic Eye Exam:?no retinopathy?General Examination: ?GENERAL APPEARANCE:?Reveals a pleasant, alert, well nourished, well- developed, well hydrated individual, who demonstrates proper attention to hygiene/body habitus, and is in no acute distress, Pt serves as own historian for office visit today.?ORIENTED:?person, place, and time.?FOOT EXAM:?Lower Extremity Neurological Exam performed:?Yes ?Visual exam of foot performed:?Yes ?Date?01/27/2025 ?Sensory testing performed:?sensations diminished ?Sensory and motor testing performed:?sensations diminished ?Pedal pulse taking performed:?2+ ?Footwear Evaluation?Foot Exam not performed:?No reason specified?Dermatologic: ?SKIN FINDINGS:?Skin exam reveals Keratotic lesion(s) located at, IPJ, T5, Lateral, TA, SUB MTH (s), 1, B/L , Plantar Heel(s), , B/L , Skin shows sign(s) of, dryness, scaling, in a stocking fashion, no fissure(s) present, B/L, approximately 60 percent LESS.?Vascular: ?DP PULSES (B):? 2/, B/L.?PT PULSES (B):? 2/, B/L.?EDEMA (C):?11/12, , non-pitting , Left , Foot , [...] due to neuropathy,T1, T3 T4, T6, T8, T9?.?Orthopedic: ?DIGITAL DEFORMITIES:?Digital contracture, PIPJ, 2-5 B/L, incompl-reducible to push-up test, no over, nor underlapping,?there is?evidence of shoe producing skin irritation.?FOOTWEAR:?worn, non-supportive, shoe gear properties exacerbate patient's foot/toe deformity.? Assessment: * Assessment: 1.?Other hammer toe(s) (acqu ired), right foot - M20.41 (Primary)???Specify :Chronic problem, Stable (1=3,2=4)???2.?Type 2 diabetes mellitus with diabetic polyneuropathy - E11.42???3.?Tinea unguium - B35.1???4.?Xerosis of skin - L85.3???Specify :Response to treatment - Improvement???5.?Other hammer toe(s) (acquired), left foot - M20.42???Specify :Chronic problem, Stable (1=3,2=4)??? Plan: * Treatment: 2.?Type 2 diabetes mellitus with diabetic polyneuropathy?Procedure: 58294-MJOB SKIN LESIONS, OVER 4 3.?Tinea unguium?Procedure: 53534-THLEKJB NAIL, 6 OR MORE * Procedures:?Debride Nail 6-10:?Nail debridement?Due to the [...] use of a nail nipper and/or dremel-type concrete wall grinder operator, to a more viable healthy nail [...] to maintain effectiveness in symptomatic relief - 87325.?Keratoma Treatment:?Parring or Cutting of Benign Hyperkeratotic Lesion(s)?(-57) [...] instrumentation by the physician of record - 59997.? * Procedure Codes:?00794 DEBRI DE NAIL, 6 OR MORE, Modifiers: XS 32048 TRIM SKIN LESIONS, OVER 4, Modifiers: XS * Preventive Medicine:? ??Counseling:?Discussion:?-14: Office or other outpatient visit for the evaluation and management of an established patient, which required a medically appropriate history and/or examination and MODERATE level of DECISION MAKING for: 1 OR MORE CHRONIC PROBLEM(S) THATS WORSENING, 2 STABLE CHRONIC PROBLEMS, A NEWLY DIAGNOSED PROBLEM WITH UNCERTAIN PROGNOSIS, AN ACUTE COMPLICATED INJURY WITH MULTIPLE TREATMENT OPTIONS, OR AN ACUTE PROBLEM WITH ACCOMPANYING SYSTEMIC SYMPTOMS, THAT POSE(S) A MODERATE RISK OF MORBIDITY. THIS CONDITION MAY ALSO INCLUDE RX DRUG MANAGEMENT, OR A DECISON FOR MINOR SURGERY. The visit on the day of the [...] have encouraged the patient to call the office.?Digital Surgery:?We elected to try conservative treatment at the present time.?Digital Treatment:?HT- I explained to the patient the possible etiologies of Hammertoes, including genetics/foot type/shoegear/activity level/exercise routine and the risks/benefits of all the different treatment options for their pain including: No treatment at all, Rest, Ice, New/supportive/wider/deeper Shoe gear, Digital Padding/Strapping/Taping/Bracing/Gel protective sleeves, Foot/Ankle AFO Bracing, Stretching exercises, Deep Tissue Massage, Arch support/shoe inserts with splay metatarsal padding, and Custom orthoses. I insisted that any digital devices be removed daily and not worn overnight for safety. The patient is to carefully examine the toes daily for any skin irritation while using any splinting or padding device. The advantages and disadvantages of each option were discussed and the patients questions re: shoe gear, padding, custom vs prefabricated inserts, activity level, and consistency in home treatment regimens for optimal success were answered to their verbally confirmed satisfaction, Recomm, rest, ice, proper shoegear, padding, orthotics, anti-inflammatories or tylenol as tolerated, topical analgesics, cortisone injections.?Shoe Gear Counseling:?SHOE Rx - The patient was counseled in great detail on their muscoloskeletal foot and toe deformities which coincided with the dermatological presentations visualized on exam. We discussed how their deformities put the integrity of their feet at risk for potential pedal complications which makes the accomidative diabetic shoes and cutomizable inserts medically necessary. We discussed the different shoe and insert treatment types and options, as well as the important advantages for adhering to regularly wearing these accomidative devices daily. The patient was made aware of the fact that a failure to abide by these recommedations may be deleterious to their foot health as they are able to prevent many pedal complications such as skin irritation, skin ulceration, infection, and even loss of toe/foot/leg/or life. Time was also spent with the patient dispensing and discussing proper diabetic footcare techniques including daily skin moisturization, daily foot inspection for any interruption in skin integrity including open lesions, or sign of infection such as redness/malodor/drainage/swelling. Also discussed and recommended were procedures regarding daily shoe inspection for the presence of internal foreign bodies as well as any visualized irregular shoe or insert wear. Patient questions re: shoes, inserts, and self foot inspections were answered to their satisfaction as the patient verbally confirmed a full understanding of the above information., Patient DEFERS recommended Extra Depth Orthopedic pressure-accommodative shoes against medical advice.?Xerosis:?Given recent successful results to treatment, The patient is to cont the rx cream as directed, with use of plastic bags and socks at night to improve hydration.? ??Screening/Special Tests:?Fall Risk?Screening:?No falls in the past year ?FALLS: Screening for Future Fall Risk?Have you had any falls with injury in the past year??Yes * Follow Up:?3 Months * Images: * Sign off status: Completed true * Provider:?Mary Ann Brown DPM Date:?2024 Generated for Margy glez/Romain/Alejandroitting on:?03/28/2025 09:58 AM EDT History and Physical Notes * HPI (History of Present Illness) Category Sub-Category Detail Notes Category Not es Toe pain Location: B/L feet Duration: several years Course: worse Aggravated by: shoes, any pressure Treatments: change in shoes Skin problems Nature: dryness , scaling Location: B/L Duration: several days Course: , improved, at _60_ % Treatments: medication ( AM Lact in ), states adherence to recommended treatment application At Risk footcare Pt States Last PCP Visit: Date: 5 Examination Category Sub-Category Detail Notes Category Not [...] in a stocking fashion, no fissure(s) present, B/L, approximately 60 percent LESS ULCER: Orthopedic FOOTWEAR EVALUATION: worn, non-s upportive, shoe gear properties exacerbate patient's foot/toe deformity DIGITAL DEFORMITIES: Digital contracture , PIPJ, 2-5 B/L, incompl-reducible to push-up test, no over, nor underlapping, there is evidence of shoe producing skin irritation General Examination GENERAL APPEARANCE: Reveals a pleasant, alert, well nourished, well-developed, well hydrated individual, who demonstrates proper attention to hygiene/body habitus, and is in no acute distress, Pt serves as own historian for office visit today FOOT EXAM: Lower Extremity Neurological Exa m performed:: Yes Visual exam of foot performed:: Yes Date: 01/27/2025 Sensory testing performed:: sensations d iminished Sensory and motor testing performed:: se nsations diminished Pedal pulse taking performed:: 2+ ORIENTED: person, place, and t william Footwear Evaluation Foot Exam not performed:: No reason specified Ophthalmology Referral DIABETES EYE EXAM Procedure Perform ed:: Yes ?Date of Exam Performed: 12/21/2024 Diabetic Retinopathy Screening:: Yes Findings of Diabetic Eye Exam:: no retin [...]
--- OUTSIDE RECORDS SUMMARY | 2025-03-28 09:59 | XMS_ITS | Clinical Summary ---
Author Organization [facility] Address [address] [place] [address] Care Team Providers Care Garnett Machine Operator Name Role Phone Unavailable Primary Care Provider Unavailabl e Surgical History Surgery Date Site/Laterality Comments SECTION PROCEDURE: [place] DELIVERY ONLY CARPAL TUNNEL RELEASE PROCEDURE: HISTORICAL [...] complication, without long-term current use of insulin (CMS/HCC V24, CMS/HCC V28) 06/03/2021 DX:Type 2 diabetes mellitus without complication, without long-term current use of insulin ([facility]) Personal history of COVID-19 08/11/2022 DX: Personal history of COVID-19; COMMENT: Tested (+) on 07/30/22 at [facility] Osteoarthritis of both knees 09/22/2022 DX: Osteoarthritis [...] 5 season) 2024 12/19/2020, 11/21/2020 Influenza Vaccine (Season Ended) 2025 09/28/2020, 10/16/2016 DTaP,Tdap,and Td Vaccines (3 - Td or Tdap) 11/12/2030 11/12/2020, 06/09/2008 RSV Immunization Adult Patients (1 - 1-dose 75+ series) 2038 Pneumococcal [...] age to complete this topic Meningococcal B Vaccine Aged Out No l onger eligible based on patient's age to complete this topic RSV Immunization Patients Under 20 months Aged Out No longer eligible b ased on patient's age to complete this topic Varicella Vaccines Aged Out No longer eligible based on patient's age to complete this topic
--- OUTSIDE RECORDS SUMMARY | 2025-03-28 09:59 | XMS_ITS | Patient Health Record ---
Author Organization [facility] Janet posada [place] Address [address] [place] [address] Care Team Providers Care Beet End Supervisor Name Role Phone Rayshawn Jones MD Primary Care Provider Unavail able Black, Mary Ann Unavailable [phone] Allergies Allergen (clinical drug ingredient) Drug/Non Drug Allergy documented on EMR Reaction Allergy Type Onset Date Status Levaquin Unknown Drug Allergy Active almond allergenic extract Eagle (Diagnostic) Unknown Drug Allergy Active Latex Latex [...] Lab: Notes/Report: HEMOGLOBIN A1C % (HH) 6.7 HEMOGLOBIN A1C (GLYCOHEMOGLO BIN) Reviewed date:01/27/2025 08:39:14 AM Interpretation: Performing Lab: Notes/Report: HEMOGLOBIN A1C % (HH) 6.7 Reason For Referral No Information Medications Medication SIG (Take, Route, Frequency, Duration) Notes Start Date End Date Status Kerasal 5-10 % 1 application Externally Once a day PRN 12/16/2023 Active Multivitamins Orally Not-Ta elijah Trulicity 1.5 MG/0.5ML as directed Subcutaneous Active Ammonium Lactate 12 % 1 application Externally to affected areas of dry skin to feet except for between the toes Twice a day for 30 days Active Lancets Active Compression Stockings 20-30mm Hg 1 pair wear daily for 30 days Not-Taking Lisinopril 2.5 MG 1 tablet Orally Once a day Active Baby Aspirin Not-Andrew ing Cyclobenzaprine HCl Not-Taking Centrum Silver Orally Activ e Naproxen Not-Taking Vitamin B-12 1000 MCG 1 tablet Orally On ce a day Active PriLOSEC OTC 20 MG 1 tablet Orally Once a day Not-Taking Vitamin C 1000 MG 1 tablet Orally Once a day Active Vitamin D3 Not-Takin g Omeprazole 20 MG 1 capsule 30 minutes before morning meal Orally Once a day for 30 day(s) Active Ammonium Lactate 12 % 1 application Externally Twice a day for 30 days Not-Taking hydrochlorothiazide Active Cephalexin 500 MG 1 capsule Orally twice a day for 10 days 08/16/2024 Not-Taking Atorvastatin Calcium 40 MG 1 tablet Oral ly Once a day Active metFORMIN HCl 500 MG 1 tablet with a nicola l Orally Once a day for 30 day(s) Not-Taking Arthritis Pain Relief 650 MG 1 tablet as needed Orally every 8 hrs Active Immunizations Vaccine Route Administration Date Status [...] monthly (1 point) Points 2 Interpretation Negative Problems Problem Type SNOMED Code ICD Code Onset Dates Problem Status W/U Status Risk Notes Problem Polyneuropathy due to type 2 diabetes mellitus (979341182) Type 2 diabetes mellitus with diabetic polyneuropathy (E11.42) Active confirmed Problem Acquired hammer toe of right foot (9907953799307743) Other hammer toe(s) (acquired), right foot (M20.41) Active confirmed Problem Acquired hammer toe of left foot (5544973781752513) Other hammer toe(s) (acquired), left foot (M20.42) Active confirmed Problem 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) Active confirmed Problem 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 right heel (M92.61) Active confirmed Vital Signs Blood pressure diastolic 66 mm Hg 01/27/2025 Height 5ft 6in in 01/27/2025 Blood pressure systolic 150 mm Hg 01/27/2025 Weight 193 lbs 01/27/2025 BMI 31.15 kg/m2 01/27/2025 Procedures Procedure Date Ordered Date Performed Result Body Sit e 73336-FHIHBAQ NAIL, 6 OR MORE 06/10/2024 N/A 08340-Ldonyzwv Plate 06/10/2024 N/A 85747-YRIB SKIN LESIONS, OVER 4 06/10/2024 N/A 59573-VZW 08/16/2024 N/A 59113-GVHQUHS NAIL, 6 OR MORE 08/31/2024 N/A 71074-RHOPNOL SKIN/TISSUE 08/31/2024 N/A 19915-NQYM SKIN LESIONS, OVER 4 08/31/2024 N/A 61290-VJXXZVH NAIL, 6 OR MORE 10/26/2024 N/A 40657-PIPT SKIN LESIONS, OVER 4 10/26/2024 N/A 02809-DBOVZLR NAIL, 6 OR MORE 01/27/2025 N/A 63820-NOTR SKIN LESIONS, OVER 4 01/27/2025 N/A Encounters Encounter Location Date Provider Diagnosis [facility] [address] [place] [address] 06/10/2024 Mary Ann Black Type 2 diabetes mellitus with diabetic polyneuropathy E11.42 ; Muscle cramp, nocturnal R25.2 ; Tinea unguium B35.1 and Ingrown nail L60.[address] [address] 08/16/2024 Mary Ann Black Ingrown nail L60.0 a nd Type 2 diabetes mellitus with diabetic polyneuropathy E11.[address] [address] 08/31/2024 Mary Ann Black Skin ulcer of toe of left foot with fat layer exposed L97.522 ; Type 2 diabetes mellitus with diabetic polyneuropathy E11.42 ; Tinea unguium B35.1 and Edema, lower extremity R60.[address] [address] 09/14/2024 Mary Ann Black Skin ulcer of toe of left foot, limited to breakdown of skin L97.[address] [address] 10/26/2024 Mary Ann Black Tinea unguium B35.1 ; Type 2 diabetes mellitus with diabetic polyneuropathy E11.42 and Xerosis of skin L85.[address] [address] 01/27/2025 Mary Ann Black Type 2 diabetes mellitus with diabetic polyneuropathy E11.42 ; Other hammer toe(s) (acquired), right foot M20.41 ; Tinea unguium B35.1 ; Xerosis of skin L85.3 and Other hammer toe(s) (acquired), left foot M20.42 [facility] [address] [place] [address] 12/30/2024 Mary Ann Black Assessments Encounter Date Diagnosis (ICD Code) Assessment Notes Treatment Notes Treatment Clinical Notes Section Notes 06/10/2024 Type 2 diabetes mellitus with diabetic [...] pdf) 10/26/2024 Tinea unguium (ICD-10 - B35.1) 01/27/2025 Other hammer toe(s) (acquired), right foot (ICD-10 - M20.41) Patient Educated with: DIABETIC FOOT CARE INSTRUCTIONS. pdf (DIABETIC FOOT CARE INSTRUCTIONS. pdf) 01/27/2025 Type 2 diabetes mellitus with diabetic polyneuropathy (ICD-10 - E11.42) 01/27/2025 Tinea unguium (ICD-10 - B35.1) 10/26/2024 Xerosis of skin (ICD-10 - L85.3) 10/26/2024 Type 2 diabetes mellitus with diabetic polyneuropathy (ICD-10 - E11.42) 08/31/2024 Type 2 diabetes mellitus with diabetic polyneuropathy (ICD-10 - E11.42) 08/31/2024 Tinea unguium (ICD-10 - B35.1) 08/16/2024 Type 2 diabetes mellitus with diabetic polyneuropathy (ICD-10 - E11.42) 06/10/2024 Tinea unguium (ICD-10 - B35.1) 06/10/2024 Ingrown nail (ICD-10 - L60.0) 08/31/2024 Edema, lower extremity (ICD-10 - R60.0) 01/27/2025 Xerosis of skin (ICD-10 - L85.3) 01/27/2025 Other hammer toe(s) (acquired), left foot (ICD-10 - M20.42) 08/31/2024 Other 09/14/2024 Other 10/26/2024 Other Plan Of Treatment Pending Test Test Name Order Date 31217-HOCRQYQ NAIL, 6 OR MORE 10/08/2021 48270-LYAHWOM NAIL, 6 OR MORE 01/14/2022 98803-RSQWUQO NAIL, 6 OR MORE 04/18/2022 72101-RXJJHMC NAIL, 6 OR MORE 07/18/2022 80995-PXHWDKS NAIL, 6 OR MORE 12/19/2022 78911-WNWHGVY NAIL, 6 OR MORE 03/20/2023 02342-NLDYJWB NAIL, 6 OR MORE 06/19/2023 98903-CHBSKNM NAIL, 6 OR MORE 09/18/2023 70887-HELVQPO NAIL, 6 OR MORE 12/16/2023 58163-MIKUIXL NAIL, 6 OR MORE 03/11/2024 78352-UOMWXHH NAIL, 6 OR MORE 06/10/2024 43107-PNGNFPB NAIL, 6 OR MORE 08/31/2024 69406-LGOPCEV NAIL, 6 OR MORE 10/26/2024 32388-ZUFLBUU NAIL, 6 OR MORE 01/27/2025 25373-MJLRDOW NAIL, 1-5 09/03/2016 27959-JZRQJOZ NAIL, 1-5 10/08/2016 34891-WRRENXA NAIL, 1-5 11/25/2016 09812-ZQNVTBE NAIL, 1-5 01/06/2017 47142-KHEDYAB NAIL, 1-5 02/24/2017 75076-WUBJRYM NAIL, 1-5 06/10/2017 44948-XDQJKPE NAIL, -5 10/07/2017 68518-TJQNEMS NAIL, -5 01/12/2018 15264-Aqfu Destruction, -14 01/12/2018 59537-Ecux Destruction, -14 10/07/2017 82438-Pnub Destruction, -14 06/10/2017 03166-Tjyd Destruction, -14 02/24/2017 62905-Oqjf Destruction, -14 01/06/2017 63754-Ogua Destruction, -14 12/29/2014 73052-Vtnr Destruction, -14 02/13/2015 94081-Cwdz Destruction, -14 09/03/2016 78009-Kgci Destruction, -14 10/08/2016 80007-Krgm Destruction, -14 11/25/2016 52660-Abvbdsfx Plate 01/14/2022 88328-Vxevojhv Plate 06/10/2024 48369-BRI 08/16/2024 31061-RETJCFW SKIN/TISSUE 08/31/2024 95505-FCHZ SKIN LESIONS, OVER 4 08/31/20 24 06982-NMCM SKIN LESIONS, OVER 4 06/10/20 47617-IOTO SKIN LESIONS, OVER 4 03/11/20 30000-EDXD SKIN LESIONS, OVER 4 01/28/20 49861-TJZR SKIN LESIONS, OVER 4 10/26/20 40143-AGPG SKIN LESIONS, OVER 4 10/08/20 88850-RVIN SKIN LESIONS, OVER 4 12/16/19 83024-SZUR SKIN LESIONS, OVER 4 09/18/20 48644-CTYW SKIN LESIONS, OVER 4 06/19/20 42410-CLAR SKIN LESIONS, OVER 4 03/20/20 29162-EKCU SKIN LESIONS, OVER 4 12/19/19 92884-IXEV SKIN LESIONS, OVER 4 07/18/20 92104-TUOP SKIN LESIONS, OVER 4 04/18/20 54619-ZFDT SKIN LESIONS, OVER 4 01/15/20 Next Appt Details Provider Name:Mary Ann Madeline Brown , 04/25/2025 08:30:00 AM, [address] [facility], [place], [address], Insurance Providers Payer Name Payer Address Payer Phone Subscriber Number Group Number Insured Name Patient Relationship to Insured Coverage Start Date Coverage End Date [facility] ([facility]) [address] [place] [id number] Elham Childress Self - patient is the insured Medical [...]
== END 2025-03-28 09:38 | disposition home or self-care (01) ==
LOC: HO.HKAS 09:15
PROVIDERS: PCP Internal Medicine; Visit Provider Internal Medicine Nephrology
DX: R80.8 Other proteinuria (principal); Z87.442 Personal history of urinary calculi
CPT/HCPCS: 99214